=== PATIENT | male | born 1970 | race Caucasian/White ===

== ENCOUNTER 2017-10-19 09:19 | Emergency (ER) | payer MEDICARE ==
[2017-10-19 10:30] VITALS: BP 136/88
--- NOTE | 2017-10-19 10:32 | ER Document Report ---
ED General - General Chief Complaint: Other Stated Complaint: BLOOD SUGAR PROBLEMS Time Seen by Provider: 10/19/17 10:17 Mode of Arrival: Ambulatory Information source: Patient Notes: 47-year-old male history of gastric reflux presents with complaints of burping sulfur like smells. Patient notes this normally only occurs when he eats 2 days of eggs in a row. He has not eaten 2 days of eggs. He states the last time he did not eat eggs and burped sulfur he was in the hospital with the flu. Patient denies any fevers or chills denies any sore throat denies any neck pain abdominal pain back pain chest pain or any other complaints except for the burping TRAVEL OUTSIDE OF THE [place] IN LAST 30 DAYS: No - HPI Onset: Just prior to arrival Onset/Duration: Sudden Quality of pain: No pain Severity: Mild Pain Level: Denies Associated symptoms: Other Exacerbated by: Denies Relieved by: Denies Similar symptoms previously: Yes Recently seen / treated by doctor: Yes - Related Data Allergies/Adverse Reactions: eggs Adverse Reaction (Uncoded 10/19/17 09:20) Past Medical History - Social History Smoking Status: Current Every Day Smoker Cigarette use (# per day): Yes Chew tobacco use (# tins/day): No Smoking Education Provided: No Frequency of alcohol use: None Drug Abuse: None Family History: Reviewed & Not Pertinent Patient has suicidal ideation: No Patient has homicidal ideation: No Endocrine Medical History: Reports: Hx Diabetes Mellitus Type 2 Renal/ Medical History: Denies: Hx Peritoneal Dialysis GI Medical History: Reports: Hx Gastroesophageal Reflux Disease Past Surgical History: Reports: Hx Appendectomy, Hx Cholecystectomy, Hx Oral Surgery - R Knee Review of Systems - Review of Systems Notes: REVIEW OF SYSTEMS: CONSTITUTIONAL : Denies fever, chills, or sweats. Denies recent illness. EENT: Denies eye, ear, throat, or mouth pain or symptoms. Denies nasal or sinus congestion or discharge. Denies throat, tongue, or mouth swelling or difficulty swallowing. CARDIOVASCULAR: Denies chest pain. Denies palpitations or racing or irregular heart beat. Denies ankle edema. RESPIRATORY: Denies cough, cold, or chest congestion. Denies shortness of breath, difficulty breathing, or wheezing. GASTROINTESTINAL: Denies abdominal pain or distention. Denies nausea, vomiting , or diarrhea. Denies blood in vomitus, stools, or per rectum. Denies black, tarry stools. Denies constipation. Admits to burping GENITOURINARY: Denies difficulty urinating, painful urination, burning, frequency, blood in urine, or discharge. MUSCULOSKELETAL: Denies back or neck pain or stiffness. Denies joint pain or swelling. SKIN: Denies rash, lesions or sores. HEMATOLOGIC : Denies easy bruising or bleeding. LYMPHATIC: Denies swollen, enlarged glands. NEUROLOGICAL: Denies confusion or altered mental status. Denies passing out or loss of consciousness. Denies dizziness or lightheadedness. Denies headache. Denies weakness or paralysis or loss of use of either side. Denies problems with gait or speech. Denies sensory loss, numbness, or tingling. Denies seizures. PSYCHIATRIC: Denies anxiety or stress. Denies depression, suicidal ideation, or homicidal ideation. ALL OTHER SYSTEMS REVIEWED AND NEGATIVE. Dictation was performed using [employer] voice recognition software PHYSICAL EXAMINATION: GENERAL: Well-appearing, well-nourished and in no acute distress. HEAD: Atraumatic, normocephalic. EYES: Pupils equal round and reactive to light, extraocular movements intact, sclera anicteric, conjunctiva are normal. ENT: Nares patent, oropharynx clear without exudates. Moist mucous membranes. NECK: Normal range of motion, supple without lymphadenopathy LUNGS: Breath sounds clear to auscultation bilaterally and equal. No wheezes rales or rhonchi. HEART: Regular rate and rhythm without murmurs ABDOMEN: Soft, nontender, nondistended abdomen. No guarding, no rebound. No masses appreciated. Musculoskeletal: Normal range of motion, no pitting or edema. No cyanosis. NEUROLOGICAL: Cranial nerves grossly intact. Normal speech, normal gait. Normal sensory, motor exams PSYCH: Normal mood, normal affect. SKIN: Warm, Dry, normal turgor, no rashes or lesions noted. Physical Exam - Vital signs Vitals: Temp Pulse Resp BP Pulse Ox 98.2 F 82 16 142/84 H 99 10/19/17 09:25 10/19/17 09:25 10/19/17 09:25 10/19/17 09:25 10/19/17 09:25 Course - Re-evaluation Re-evalutation: 10/19/17 10:36 Patient has no tonsil stones, he has no signs of infection vital signs are stable blood sugar was checked and was noted to be slightly elevated. Patient states is normal for him. Otherwise I see absolutely no signs of infection I believe this may be secondary to gastric reflux the patient does admit to history of gastric reflux and the symptoms seem to be instigated by food. I will treat the patient with omeprazole as he is already taking ranitidine otherwise patient will be given follow-up with GI and very strict return precautions After performing a Medical Screening Examination, I estimate there is LOW risk for ACUTE APPENDICITIS, BOWEL OBSTRUCTION, ACUTE CHOLECYSTITIS, PERFORATED DIVERTICULITIS, INCARCERATED HERNIA, PANCREATITIS, TESTICULAR TORSION or PERFORATED ULCER, thus I consider the discharge disposition reasonable. Also, there is no evidence or peritonitis, sepsis, or toxicity. I have reevaluated this patient multiple times and no significant life threatening changes are noted. The patient and I have discussed the diagnosis and risks, and we agree with discharging home with close follow-up with the understanding that symptoms and presentations can change. We also discussed returning to the Emergency Department immediately if new or worsening symptoms occur. We have discussed the symptoms which are most concerning (e.g., bloody stool, fever, changing or worsening pain, intractable vomiting - standard verbal up date) that necessitate immediate return. - Vital Signs Vital signs: Temp Pulse Resp BP Pulse Ox 98.2 F 82 16 142/84 H 99 10/19/17 09:25 10/19/17 09:25 10/19/17 09:25 10/19/17 09:25 10/19/17 09:25 Discharge - Discharge Clinical Impression: GERD (gastroesophageal reflux disease) Qualifiers: Esophagitis presence: with esophagitis Qualified Code(s): K21.0 - Gastro- esophageal reflux disease with esophagitis Condition: Stable Disposition: HOME, SELF-CARE Instructions: Reflux Disease (GERD) ([facility]) Prescriptions: Omeprazole 20 mg PO DAILY #30 tablet. Referrals: MIQUEL MITCHELL MD [ACTIVE STAFF] - Follow up in 3-5 days
== END 2017-10-19 10:30 | disposition home or self-care (01) ==
LOC: ER 09:19
DX: K21.0 Gastro-esophageal reflux disease with esophagitis (principal); E11.9 Type 2 diabetes mellitus without complications; F17.210 Nicotine dependence, cigarettes, uncomplicated
CPT/HCPCS: 82962; 99283

== ENCOUNTER 2017-11-21 19:37 | Emergency (ER) | payer MEDICARE ==
[2017-11-21] MEDS ORDERED: LIDOCAINE 1% INJ-PF (10 MG/ML) 30 ML SDV INFIL ONE (22:55)
[2017-11-21] MEDS ORDERED: SULFAMETHOXAZOLE/TRIMETHOPRIM 800-160 MG TABLET PO ONE (22:55)
[2017-11-21] MEDS ORDERED: CEFTRIAXONE INJ 1000 MG VIAL IM ONE (22:55)
[2017-11-21] MEDS ORDERED: LIDOCAINE 4%/TETRACAINE 0.5%/EPI 0.18% 5 ML TOPICAL SOLN TOP ONE (22:58)
--- NOTE | 2017-11-21 23:16 | ER Document Report ---
ED General - General Chief Complaint: Insect Bite Stated Complaint: POSSIBLE BUG BITE Time Seen by Provider: 11/21/17 22:16 TRAVEL OUTSIDE OF THE [place] IN LAST 30 DAYS: No - HPI Patient complains to provider of: Left buttocks abscess Notes: Patient coming in for an abscess of left buttock states ongoing for approximately last 2-3 days. Patient is diabetic. On insulin. Denies any fever chills nausea vomiting diarrhea. Patient's temperature is 100.5, evaluation patient has no other complaints. - Related Data Allergies/Adverse Reactions: eggs Adverse Reaction (Uncoded 10/19/17 09:20) Past Medical History - Social History Smoking Status: Unknown if Ever Smoked Family History: Reviewed & Not Pertinent Patient has suicidal ideation: No Patient has homicidal ideation: No Endocrine Medical History: Reports: Hx Diabetes Mellitus Type 2 Renal/ Medical History: Denies: Hx Peritoneal Dialysis GI Medical History: Reports: Hx Gastroesophageal Reflux Disease Past Surgical History: Reports: Hx Appendectomy, Hx Cholecystectomy, Hx Oral Surgery - R Knee Review of Systems - Review of Systems Constitutional: No symptoms reported EENT: No symptoms reported Cardiovascular: No symptoms reported Respiratory: No symptoms reported Gastrointestinal: No symptoms reported Genitourinary: No symptoms reported Male Genitourinary: No symptoms reported Musculoskeletal: No symptoms reported Skin: Other - Abscess Hematologic/Lymphatic: No symptoms reported Neurological/Psychological: No symptoms reported Physical Exam - Vital signs Vitals: Temp Pulse BP Pulse Ox 100.5 F H 106 H 135/85 H 97 11/21/17 20:20 11/21/17 20:20 11/21/17 20:20 11/21/17 20:20 Interpretation: Normal - General General appearance: Appears well, Alert - HEENT Head: Normocephalic, Atraumatic Eyes: Normal Pupils: PERRL - Respiratory Respiratory status: No respiratory distress Chest status: Nontender Breath sounds: Normal Chest palpation: Normal - Cardiovascular Rhythm: Regular Heart sounds: Normal auscultation Murmur: No - Abdominal Inspection: Normal Distension: No distension Bowel sounds: Normal Tenderness: Nontender Organomegaly: No organomegaly - Rectal Notes: Patient has a small abscess with fluctuance and a mehta on the left buttock cheek at the superior gluteal cleft. There is surrounding erythema consistent with cellulitic process approximately 5 cm x 5 cm. - Back Back: Normal, Nontender - Extremities General upper extremity: Normal inspection, Nontender, Normal color, Normal ROM , Normal temperature General lower extremity: Normal inspection, Nontender, Normal color, Normal ROM , Normal temperature, Normal weight bearing. No: Anne-Marie's sign - Neurological Neuro grossly intact: Yes Cognition: Normal Orientation: AAOx4 [place] Coma Scale Eye Opening: Spontaneous [place] Coma Scale Verbal: Oriented [place] Coma Scale Motor: Obeys Commands [place] Coma Scale Total: 15 Speech: Normal Motor strength normal: LUE, RUE, LLE, RLE Sensory: Normal - Psychological Associated symptoms: Normal affect, Normal mood - Skin Skin Temperature: Warm Skin Moisture: Dry Skin Color: Normal Course - Re-evaluation Re-evalutation: 11/21/17 23:12 I&D will be performed. Patient was started on Bactrim. Patient was given a dose of Rocephin and Bactrim here in the ER. 11/22/17 00:05 - Vital Signs Vital signs: Temp Pulse Resp BP Pulse Ox 100.5 F H 106 H 135/85 H 97 11/21/17 20:20 11/21/17 20:20 11/21/17 20:20 11/21/17 20:20 Procedures - Incision and Drainage Left Buttock Type: Simple Anesthetic type: 1% Lidocaine mL's of anesthetic: 2 Blade size: 11 I&D procedure: Betadine prep applied Incision Method: Incision made by scalpel Amount/type of drainage: Scant amount of pus prior for loculations irrigated to clear Discharge - Discharge Clinical Impression: Left buttock abscess Condition: Good Disposition: HOME, SELF-CARE Instructions: Abscess ([facility]), Oral Narcotic Medication ([facility]), Post Incision and Drainage, Trimethoprim-Sulfa ([facility]) Additional Instructions: Take antibiotics as prescribed. Follow-up with your primary care physician. Return to ER symptoms worsen. Prescriptions: Hydrocodone/Acetaminophen [Hydrocodon-Acetaminophen 5-325] 1 each PO Q6 PRN #21 tablet PRN Reason: Sulfamethoxazole/Trimethoprim [Bactrim Ds Tablet] 1 each PO BID #20 tablet Forms: Return to Work
[2017-11-22 00:31] VITALS: BP 129/79
== END 2017-11-22 00:30 | disposition home or self-care (01) ==
LOC: ER 19:37
PROC: 0H98XZZ Drainage of Buttock Skin, External Approach (ICD-10-PCS; principal; 2017-11-21)
DX: L02.31 Cutaneous abscess of buttock (principal); E11.9 Type 2 diabetes mellitus without complications; Z79.4 Long term (current) use of insulin; Z91.012 Allergy to eggs; Z90.49 Acquired absence of other specified parts of digestive tract
CPT/HCPCS: 99283; 96372; 87070; 87205; 87075; 87077; 87186; 10060; J3490; J0696; A9270

== ENCOUNTER 2017-12-24 15:10 | Emergency (ER) | payer MEDICARE ==
--- NOTE | 2017-12-24 15:41 | ER Document Report ---
HPI - HPI Pain Level: 4 Notes: Patient is a 47-year-old male who presents to the ED complaining of left lateral distal foot pain status post injury last evening. Patient states that he stepped on the edge of his recliner which caused his toes to dorsiflex causing pain. Patient states that he has had bruising that developed since then to those toes. Patient states that he still able to move his toes, but does have discomfort primarily to the third, fourth, and fifth toes. Patient states that he is still ambulatory, but does favor that side. The pain does not radiate. No other concerns or complaints at this time. Denies any blood thinners. Denies any other significant past medical history to the foot with the ankle. Denies any headache, fever, chest pain, palpitations, syncope, cough , shortness of breath, wheeze, dyspnea, abdominal pain, nausea/vomiting/diarrhea , urinary retention, dysuria, hematuria, back pain, numbness/tingling, muscle paralysis/weakness, or rash. - ROS Systems Reviewed and Negative: Yes All other systems reviewed and negative Past Medical History - Social History Smoking Status: Never Smoker Family History: Reviewed & Not Pertinent Endocrine Medical History: Reports: Hx Diabetes Mellitus Type 2 Renal/ Medical History: Denies: Hx Peritoneal Dialysis GI Medical History: Reports: Hx Gastroesophageal Reflux Disease Past Surgical History: Reports: Hx Appendectomy, Hx Cholecystectomy, Hx Oral Surgery - R Knee Vertical Provider Document - CONSTITUTIONAL Agree With Documented VS: Yes Notes: PHYSICAL EXAMINATION: GENERAL: Well-appearing, well-nourished and in no acute distress. LUNGS: Breath sounds clear to auscultation bilaterally and equal. No wheezes rales or rhonchi. HEART: Regular rate and rhythm without murmurs, rubs, gallops. Musculoskeletal: Left foot/ankle: FROM to passive/active. Strength 5+/5. Achilles intact. + mild ecchymosis to the 3-5th digits on the dorsal side. + mild tenderness to palp of the 3-5th digits. N/V intact distal otherwise. No other bony tenderness appreciated. Extremities: No cyanosis, clubbing, or edema b/l. Peripheral pulses 2+. Capillary refill less than 3 seconds. NEUROLOGICAL: Cranial nerves grossly intact. Normal speech, normal gait. Normal sensory, motor exams PSYCH: Normal mood, normal affect. SKIN: Warm, Dry, normal turgor, no rashes or lesions noted. - INFECTION CONTROL TRAVEL OUTSIDE OF THE [place] IN LAST 30 DAYS: No - RESPIRATORY O2 Sat by Pulse Oximetry: 97 Course - Re-evaluation Re-evalutation: 12/24/17 16:45 Patient is an afebrile, well-hydrated, 47-year-old male who presents to the ED with a fracture to the left fifth proximal phalanx of his foot. Vitals are stable. PE is otherwise unremarkable for any neurovascular compromise, obvious tendon/ligament rupture, open fracture, or septic joint. See x-ray result. Postop she was placed today and crutches provided. Recommend conservative measures for symptoms. Call orthopedics to schedule an appointment for further evaluation and management. Recheck with your PCM in 1 week as well. Return to the ED with any worsening/concerning symptoms otherwise as reviewed discharge. Patient is in agreement. [place] dispense pack given. - Vital Signs Vital signs: Temp Pulse Resp BP Pulse Ox 98.4 F 82 18 137/82 H 97 12/24/17 15:17 12/24/17 15:17 12/24/17 15:17 12/24/17 15:17 12/24/17 15:17 Discharge - Discharge Clinical Impression: Phalanx of the foot fracture Qualifiers: Encounter type: initial encounter Toe: lesser toe Fracture type: closed Phalanx : proximal Fracture alignment: nondisplaced Laterality: left Qualified Code(s): S92.515A - Nondisplaced fracture of proximal phalanx of left lesser toe(s), initial encounter for closed fracture Condition: Stable Disposition: HOME, SELF-CARE Instructions: Use of Crutches ([facility]), Fractured Toe ([facility]) Additional Instructions: Rest, Ice, Compression, Elevation Use crutches/splint as directed Tylenol/ibuprofen as needed Light stretches daily Strength exercises as able Moist heat and massage may help F/u with your PCP in 3-5 days for a recheck Call orthopedics tomorrow to schedule an appointment for further evaluation and management Return to the ED with any worsening symptoms and/or development of fever, headache, chest pain, palpitations, syncope, shortness of breath, trouble breathing, abdominal pain, n/v/d, muscle weakness/paralysis, numbness/tingling, swelling, redness, or other worsening symptoms that are concerning to you. Forms: Elevated Blood Pressure Referrals: [facility] [Provider Group] - Follow up in 3-5 days
[2017-12-24] MEDS ORDERED: HYDROCODONE/ACETAMINOPHEN 5-325 MG (6 TAB/ER DISP) PO PRN (16:24)
--- NOTE | 2017-12-24 16:48 | RADIOLOGY REPORT (SQ) ---
EXAM DESCRIPTION: FOOT LEFT COMPLETE COMPLETED DATE/TIME: 12/24/2017 4:02 pm REASON FOR STUDY: left foot pain s/p injury COMPARISON: None. NUMBER OF VIEWS: Three views. TECHNIQUE: AP, lateral and oblique radiographic images acquired of the left foot. LIMITATIONS: None. FINDINGS: MINERALIZATION: Normal. BONES: There is a fracture involving the proximal end of the proximal phalanx of the 5th digit. No o ther evidence for acute fracture or dislocation is seen. There is cortical thickening at the level o f the 4th metatarsal presumably related to previous trauma JOINTS: No effusions. SOFT TISSUES: No soft tissue swelling. No foreign body. OTHER: Plantar spurring is identified. IMPRESSION: A fracture is identified involving the proximal end of the proximal phalanx of the 5th d igit. No other evidence for fracture is seen. TECHNICAL DOCUMENTATION: JOB ID: [id number] [employer]- All Rights Reserved Reading location - IP/workstation name: [email or web address]
[2017-12-24 17:19] VITALS: BP 130/77
== END 2017-12-24 17:20 | disposition home or self-care (01) ==
LOC: ER 15:10
DX: S92.515A Nondisplaced fracture of proximal phalanx of left lesser toe(s), initial encounter for closed fracture (principal); M79.672 Pain in left foot; E11.9 Type 2 diabetes mellitus without complications; X50.1XXA Overexertion from prolonged static or awkward postures, initial encounter
CPT/HCPCS: 99283; 73630; A9270

== ENCOUNTER 2018-01-10 13:45 | Emergency (ER) | payer MEDICARE ==
[2018-01-10 13:54] VITALS: BP 111/70
--- NOTE | 2018-01-10 14:10 | ER Document Report ---
HPI - HPI Patient complains to provider of: Abscess Pain Level: 4 Context: Patient is a 47-year-old male past medical history significant for insulin- dependent diabetes, hypertension who presents with chief complaint of tender, swollen area in his left butt cheek that has been present for 2 days. Describes is about the size of an egg. Denies any active drainage, fever or chills. Admits to nausea secondary to pain. States he has had one of these previously in a similar area. Has had normal bowel movements. Past Medical History - Social History Smoking Status: Smoker,Current Status Unk Family History: Reviewed & Not Pertinent Endocrine Medical History: Reports: Hx Diabetes Mellitus Type 2 Renal/ Medical History: Denies: Hx Peritoneal Dialysis GI Medical History: Reports: Hx Gastroesophageal Reflux Disease Past Surgical History: Reports: Hx Appendectomy, Hx Cholecystectomy, Hx Oral Surgery - R Knee Vertical Provider Document - CONSTITUTIONAL Agree With Documented VS: Yes Notes: PHYSICAL EXAM GENERAL: Alert, interacts well. EXTREMITIES: Moves all 4 extremities spontaneously. No edema, radial and dorsalis pedis pulses 2/4 bilaterally. No cyanosis. NEUROLOGICAL: Alert and oriented x4. Normal speech. PSYCH: Normal affect, normal mood. SKIN: Warm, dry, normal turgor. 5cm in diameter located on the left upper buttocks with erythema with minimal central fluctuance and central pustule. No evidence of surrounding erythema, streaking - INFECTION CONTROL TRAVEL OUTSIDE OF THE [place] IN LAST 30 DAYS: No - RESPIRATORY O2 Sat by Pulse Oximetry: 97 Course - Re-evaluation Re-evalutation: 01/10/18 14:30 Patient is a 47-year-old male who is hemodynamically stable, no acute distress and afebrile the presents with a cellulitic and developing abscess to the left buttocks. No evidence of perirectal abscess, fever or concerns for sepsis. Incision and drainage done at the bedside per patient's request and initiated on antibiotics. Discussed strict return precautions otherwise follow-up with primary care in 3-5 days for wound check. Patient agrees with plan and stable for discharge home - Vital Signs Vital signs: Temp Pulse Resp BP Pulse Ox 98.6 F 90 18 111/70 97 01/10/18 13:50 01/10/18 13:50 01/10/18 13:50 01/10/18 13:50 01/10/18 13:50 Procedures - Incision and Drainage Left Buttock Type: Simple Anesthetic type: 1% Lidocaine mL's of anesthetic: 5 Blade size: 11 I&D procedure: Betadine prep applied Incision Method: Incision made by scalpel Discharge - Discharge Clinical Impression: Cellulitis Qualifiers: Site of cellulitis: other site Qualified Code(s): L03.818 - Cellulitis of other sites Condition: Good Disposition: HOME, SELF-CARE Additional Instructions: You were seen for an abscess that required drainage. Please clean this area with soap and water twice daily and apply a topical antibiotic. Dress the area after each cleaning. Please return if you develop fever, vomiting, the pain at the site worsens, you notice spreading redness from the area, or you have any other symptoms that are concerning to you. ABSCESS: You have an abscess (boil). This a pus-forming infection, usually due to staph. Some boils may be left to drain on their own, but most require lancing. From the time the tender lump first appears, it may be three or four days before the abscess is ready to nikolas. Local heat and rest help at this stage of treatment. An antibiotic may prevent spread of the infection. Once the abscess is opened, packing may be placed into it. This is done so pus is not sealed inside by premature closure of the cavity. The packing will be removed at your follow-up visit or you may be advised to remove it yourself at home. Sometimes this packing must be replaced a few times during healing. The wound will heal with surprisingly little scar. Depending on the size and location of an abscess, healing can take one to four weeks. You may shower and wash the area around the incision site two or three times a day. Antibiotics may be prescribed, but are usually not necessary after an abscess has been drained. If you develop fever, chills, worsening pain, or increasing swelling in the area, call the doctor or return immediately. POST INCISION AND DRAINAGE: You have had an incision made to allow drainage of an abscess. The incision must remain open so that pus and debris can drain from the wound. If the abscess cavity is large, packing is placed. This keeps the tissues from collapsing and trapping pus inside, while the body shrinks the cavity. The packing may need to be replaced every day or two. The physician will instruct you on the packing. Keep a bulky dressing over the area. Replace it if it becomes saturated with blood or pus. Do not disturb the packing (if present). You may shower and cleanse the area with gentle soap and warm water two or three times a day. Local warmth may be soothing, and may promote faster healing. Return if you develop high fever or chills, or if you note spreading redness, increasing swelling, or increasing tenderness. CEPHALEXIN: The antibiotic you've been prescribed is a member of the cephalosporin class. This type of antibiotic covers a wide variety of infections, including those of the skin, lungs, and urinary tract. It's useful for staph infections. This antibiotic is slightly similar to the penicillin family. In rare cases , a person who is allergic to penicillin will also be allergic to this medication. If you have had a severe allergic reaction to penicillin, and have not taken this antibiotic since that time, notify your doctor. Antibiotics which cover many germs ("broad spectrum" antibiotics) are more likely to cause diarrhea or "yeast" infections. Women prone to vaginal yeast problems may suffer an attack after taking this antibiotic. In infants, oral thrush (white spots "stuck" on the cheek) or yeast diaper rash may result. See your doctor if these problems occur. Call at once if you develop itching, hives , shortness of breath, or lightheadedness. TRIMETHOPRIM-SULFA: You have been given a prescription for trimethoprim-sulfa (TMS, Septra, Bactrim). This is a combination antibiotic of the sulfa class, often used for urinary tract infections, middle ear infections, bronchitis, shigella intestinal infection, and Pneumocystis pneumonia. TMS is usually well-tolerated. Occasional side effects include nausea and decreased appetite. Septra is not recommended for infants less than two months of age. Do not take this medication if you have experienced severe side effects or allergy to sulfa medicine. You should stop this medicine at once and contact your physician if you develop any rash, joint pain, shortness of breath, bruising, or jaundice ( yellow color in the skin), or if you develop any other new or unusual symptoms. FOLLOW-UP CARE: Most simple abscesses will not require a follow up visit. If you had packing placed in the abscess, remove it as instructed by the physician. If you have been referred to a physician for follow-up care, call the physicians office for an appointment as you were instructed or within the next two days. If you experience worsening or a significant change in your symptoms, return to the Emergency Department at any time for re-evaluation. Prescriptions: Sulfamethoxazole/Trimethoprim [Bactrim Ds Tablet] 1 each PO BID #20 tablet Referrals: LEOPOLDO RODRIGUEZ DO [Primary Care Provider] - Follow up in 3-5 days
[2018-01-10] MEDS ORDERED: CEPHALEXIN 500 MG CAPSULE PO ONE (14:33)
[2018-01-10] MEDS ORDERED: SULFAMETHOXAZOLE/TRIMETHOPRIM 800-160 MG TABLET PO ONE (14:33)
== END 2018-01-10 14:55 | disposition home or self-care (01) ==
LOC: ER 13:45
PROC: 0H98XZZ Drainage of Buttock Skin, External Approach (ICD-10-PCS; principal; 2018-01-10)
DX: L03.818 Cellulitis of other sites (principal); E11.9 Type 2 diabetes mellitus without complications; Z79.4 Long term (current) use of insulin; Z90.49 Acquired absence of other specified parts of digestive tract
CPT/HCPCS: 99283; 10060; A9270

== ENCOUNTER 2018-01-14 18:40 | Emergency (ER) | payer MEDICARE ==
[2018-01-14 18:54] VITALS: BP 124/74
--- NOTE | 2018-01-14 20:00 | RADIOLOGY REPORT (SQ) ---
EXAM DESCRIPTION: SHOULDER LEFT 2 OR MORE VIEWS COMPLETED DATE/TIME: 01/14/2018 7:49 pm REASON FOR STUDY: left shoulder pain COMPARISON: None. NUMBER OF VIEWS: Three views. TECHNIQUE: Internal rotation, external rotation, and Y view images acquired of the left shoulder. LIMITATIONS: None. FINDINGS: MINERALIZATION: Normal. BONES: No acute fracture or dislocation. No worrisome bone lesions. JOINTS: No dislocation. VISUALIZED LUNGS AND RIBS: No pneumothorax. No rib fracture. SOFT TISSUES: No radiopaque foreign body. OTHER: No other significant finding. IMPRESSION: NEGATIVE STUDY OF THE LEFT SHOULDER. NO RADIOGRAPHIC EVIDENCE OF ACUTE INJURY. TECHNICAL DOCUMENTATION: JOB ID: [id number] [employer]- All Rights Reserved Reading location - IP/workstation name: [email or web address]
--- NOTE | 2018-01-14 20:12 | ER Document Report ---
HPI - HPI Pain Level: 4 Notes: Patient is a 47-year-old male who is currently on disability who presents the ED complaining of left shoulder pain over the last several days without known precipitating event. Patient states that he still able to move his shoulder, but feels a tightness near his left lateral trapezius muscle. Patient states that the pain does not radiate. He has not noticed any swelling or redness. He has otherwise been feeling well without any fevers or recent illness. No other concerns or complaints today. Denies any headache, fever, head injury, neck pain, URI, sore throat, chest pain, palpitations, syncope, cough, shortness of breath, wheeze, dyspnea, abdominal pain, nausea/vomiting/diarrhea, urinary retention, dysuria, hematuria, loss of control of bowel or bladder, numbness/tingling, saddle anesthesia, muscle paralysis/weakness, or rash. - ROS Systems Reviewed and Negative: Yes All other systems reviewed and negative - MUSCULOSKELETAL Musculoskeletal: REPORTS: Extremity pain Past Medical History - Social History Smoking Status: Current Every Day Smoker Chew tobacco use (# tins/day): No Frequency of alcohol use: None Drug Abuse: None Family History: Reviewed & Not Pertinent Patient has suicidal ideation: No Patient has homicidal ideation: No - Past Medical History Cardiac Medical History: Reports: Hx Hypertension Endocrine Medical History: Reports: Hx Diabetes Mellitus Type 2 Renal/ Medical History: Denies: Hx Peritoneal Dialysis GI Medical History: Reports: Hx Gastroesophageal Reflux Disease Past Surgical History: Reports: Hx Abdominal Surgery - hernia, Hx Appendectomy, Hx Cholecystectomy, Hx Oral Surgery - R Knee Vertical Provider Document - CONSTITUTIONAL Agree With Documented VS: Yes Notes: PHYSICAL EXAMINATION: GENERAL: Well-appearing, well-nourished and in no acute distress. NECK: Normal range of motion, supple without lymphadenopathy. Spurling neg. non -tender. LUNGS: Breath sounds clear to auscultation bilaterally and equal. No wheezes rales or rhonchi. HEART: Regular rate and rhythm without murmurs, rubs, gallops. ABDOMEN: Soft, nontender, nondistended abdomen. No guarding, no rebound. No masses appreciated. Normal bowel sounds present. No CVA tenderness bilaterally. Musculoskeletal: Left shoulder: FROM to passive/active. Strength 5+/5. RC intact w/o deficit noted. No warmth, swelling, or erythema/deformity. N/V intact distal. + mild tenderness to the lateral trapezius mm with mild spasming , correlates with pain described. Extremities: No cyanosis, clubbing, or edema b/l. Peripheral pulses 2+. Capillary refill less than 3 seconds. NEUROLOGICAL: Normal speech, normal gait. Normal sensory, motor exams PSYCH: Normal mood, normal affect. SKIN: Warm, Dry, normal turgor, no rashes or lesions noted. - INFECTION CONTROL TRAVEL OUTSIDE OF THE [place] IN LAST 30 DAYS: No Course - Re-evaluation Re-evalutation: 01/14/18 20:10 Patient is an afebrile, well-hydrated, 47-year-old male who presents to the ED with left lateral trapezius muscle strain with mild spasming. Vitals are acceptable. PE is otherwise unremarkable for any neurovascular compromise, obvious tendon/ligament rupture, obvious fracture/dislocation, septic joint. X- ray was unremarkable for any acute pathology of the left shoulder. Toradol given IM today. I will send him home with a prescription for naproxen and baclofen. Conservative measures otherwise for symptoms. Recheck with your PCM in 3-5 days. Consider consult orthopedics/physical therapy for ongoing/ worsening symptoms. Return to the ED with any worsening/concerning symptoms otherwise as reviewed discharge. Patient is in agreement. - Vital Signs Vital signs: Temp Pulse Resp BP Pulse Ox 98.2 F 71 20 124/74 99 01/14/18 18:53 01/14/18 18:53 01/14/18 18:53 01/14/18 18:53 01/14/18 18:53 Discharge - Discharge Clinical Impression: Strain of left trapezius muscle Qualifiers: Encounter type: initial encounter Qualified Code(s): S46.812A - Strain of other muscles, fascia and tendons at shoulder and upper arm level, left arm, initial encounter Condition: Stable Disposition: HOME, SELF-CARE Additional Instructions: Rest, Ice Tylenol/ibuprofen as needed Light stretches daily Strength exercises as able Moist heat and massage may help F/u with your PCP in 3-5 days for a recheck Consider consult(s) with Orthopedics/physical therapy for ongoing/worsening symptoms Return to the ED with any worsening symptoms and/or development of fever, headache, chest pain, palpitations, syncope, shortness of breath, trouble breathing, abdominal pain, n/v/d, muscle weakness/paralysis, numbness/tingling, swelling, redness, or other worsening symptoms that are concerning to you. Prescriptions: Baclofen [Baclofen 10 mg Tablet] 5 - 10 mg PO BID PRN #10 tablet PRN Reason: Naproxen 500 mg PO BID PRN #30 tablet PRN Reason: Referrals: LEOPOLDO RODRIGUEZ DO [Primary Care Provider] - Follow up in 3-5 days [facility] [Provider Group] - Follow up as needed
== END 2018-01-14 20:24 | disposition home or self-care (01) ==
LOC: ER 18:40
DX: S29.012A Strain of muscle and tendon of back wall of thorax, initial encounter (principal); X58.XXXA Exposure to other specified factors, initial encounter; M62.830 Muscle spasm of back; M25.512 Pain in left shoulder; I10 Essential (primary) hypertension; E11.9 Type 2 diabetes mellitus without complications; F17.200 Nicotine dependence, unspecified, uncomplicated
CPT/HCPCS: 99283

== ENCOUNTER 2018-03-11 21:41 | Emergency (ER) | payer MEDICARE, MEDICAID ==
[2018-03-11 22:12] VITALS: BP 123/74
--- NOTE | 2018-03-11 22:44 | ER Document Report ---
ED Extremity Problem, Lower - General Chief Complaint: Foot Injury Stated Complaint: RIGHT FOOT PAIN Time Seen by Provider: 03/11/18 22:26 Notes: The patient is a 48-year-old male, past medical history diabetes, peripheral neuropathy, presents with several months of a callus over his right lateral foot. He also noticed a small ulcer is concerned due to his diabetes. Denies fevers, streaking redness or pain. TRAVEL OUTSIDE OF THE [place] IN LAST 30 DAYS: No - Related Data Allergies/Adverse Reactions: atenolol Adverse Reaction (Verified 12/24/17 15:12) eggs Adverse Reaction (Uncoded 10/19/17 09:20) Past Medical History - General Information source: Patient - Social History Smoking Status: Unknown if Ever Smoked Family History: Reviewed & Not Pertinent - Past Medical History Cardiac Medical History: Reports: Hx Hypertension Endocrine Medical History: Reports: Hx Diabetes Mellitus Type 2 Renal/ Medical History: Denies: Hx Peritoneal Dialysis GI Medical History: Reports: Hx Gastroesophageal Reflux Disease Past Surgical History: Reports: Hx Abdominal Surgery - hernia, Hx Appendectomy, Hx Cholecystectomy, Hx Oral Surgery - R Knee Review of Systems - Review of Systems Constitutional: denies: Fever, Malaise Cardiovascular: denies: Orthopnea, Edema Musculoskeletal: denies: Muscle pain Skin: Lesions Hematologic/Lymphatic: denies: Easy bleeding, Easy bruising Neurological/Psychological: Numbness Physical Exam - Vital signs Vitals: Temp Pulse Resp BP Pulse Ox 98.7 F 91 18 123/74 97 03/11/18 21:52 03/11/18 21:52 03/11/18 21:52 03/11/18 21:52 03/11/18 21:52 - Notes Notes: PHYSICAL EXAMINATION: GENERAL: Well-appearing, well-nourished and in no acute distress. HEAD: Atraumatic, normocephalic. ABDOMEN: Soft, nontender, normoactive bowel sounds. No guarding, no rebound. No masses appreciated. EXTREMITIES: Callus over right lateral foot with 1 cm circular superficial ulcer on plantar surface without surrounding erythema or discharge. Strong distal pulses. NEUROLOGICAL: Cranial nerves grossly intact. Normal speech, normal gait. PSYCH: Normal mood, normal affect. Course - Re-evaluation Re-evalutation: Patient's small foot callus is ongoing for several months. Instructed him to follow-up with the supervisor prop making for follow-up. No signs of osteomyelitis on x- ray or physical exam and it does not appear to be infected. - Vital Signs Vital signs: Temp Pulse Resp BP Pulse Ox 98.7 F 91 18 123/74 97 03/11/18 21:52 03/11/18 21:52 03/11/18 21:52 03/11/18 21:52 03/11/18 21:52 - Diagnostic Test Radiology reviewed: Image reviewed, Reports reviewed Radiology results interpreted by me: Right foot x-ray: No radiographic evidence for acute fracture. Soft tissue swelling at the lateral aspect of the foot at the 5th MTP joint. Discharge - Discharge Clinical Impression: Callous ulcer Qualifiers: Non-pressure ulcer stage: unspecified non-pressure ulcer stage Qualified Code(s ): L98.499 - Non-pressure chronic ulcer of skin of other sites with unspecified severity Diabetic ulcer of right foot Qualifiers: Diabetic foot ulcer location: unspecified part of foot Diabetes mellitus type: type 2 Non-pressure ulcer stage: limited to breakdown of skin Qualified Code(s) : E11.621 - Type 2 diabetes mellitus with foot ulcer Condition: Stable Disposition: HOME, SELF-CARE Additional Instructions: Call the supervisor prop making (foot doctor) for an appointment. Referrals: BLAIR APPLE DPM [ACTIVE STAFF] - Follow up as needed
--- NOTE | 2018-03-11 22:52 | RADIOLOGY REPORT (SQ) ---
EXAM DESCRIPTION: FOOT RIGHT COMPLETE COMPLETED DATE/TIME: 03/11/2018 10:31 pm REASON FOR STUDY: right foot pain COMPARISON: None. NUMBER OF VIEWS: Three views. TECHNIQUE: AP, lateral and oblique radiographic images acquired of the right foot. LIMITATIONS: None. FINDINGS: MINERALIZATION: Normal. BONES: No acute fracture or dislocation. No worrisome bone lesions. SOFT TISSUES: There is soft tissue swelling at the lateral aspect of the foot at the 5th metatarsopha langeal joint. No radiopaque foreign body. IMPRESSION: No radiographic evidence for acute fracture. Soft tissue swelling at the lateral aspect of the foot at the 5th MTP joint. TECHNICAL DOCUMENTATION: JOB ID: [id number] [employer]- All Rights Reserved Reading location - IP/workstation name: [email or web address]
== END 2018-03-11 23:43 | disposition home or self-care (01) ==
LOC: ER 21:41
DX: E11.621 Type 2 diabetes mellitus with foot ulcer (principal); L98.499 Non-pressure chronic ulcer of skin of other sites with unspecified severity; I10 Essential (primary) hypertension
CPT/HCPCS: 99283

== ENCOUNTER 2018-04-22 17:46 | Emergency (ER) | payer MEDICARE ==
--- NOTE | 2018-04-22 18:41 | ER Document Report ---
ED Medical Screen (RME) - General Chief Complaint: Chest Pain Stated Complaint: CHEST PAIN Time Seen by Provider: 04/22/18 18:34 Notes: RAPID MEDICAL EVALUATION DISCLOSURE I have seen this patient as part of a Rapid Medical Evaluation and, if applicable, placed any initially appropriate orders. The patient will be seen and fully evaluated, including a full history and physical exam, by a provider ( in Main ED or Fast Track) when a room becomes available. 48-year-old male here with complaints of some chest pain that started this morning. He has a pain whenever he swallows but not with exertion or breathing. He has not had any shortness of breath lightheadedness diaphoresis nausea vomiting. He has tried drinking water but this has not helped. He has also tried throwing up but this has not helped. He reports that this feels similar to the last time he had these symptoms in 2013 when several "lumps" were discovered on a chest x-ray. He reports they did a biopsy but did not find any cancer and did not have to remove the lumps at that time. EXAM CTAB RRR TRAVEL OUTSIDE OF THE [place] IN LAST 30 DAYS: No - Related Data Allergies/Adverse Reactions: atenolol Adverse Reaction (Verified 12/24/17 15:12) eggs Adverse Reaction (Uncoded 10/19/17 09:20) Past Medical History - Social History Chew tobacco use (# tins/day): No Frequency of alcohol use: None Drug Abuse: None - Past Medical History Cardiac Medical History: Reports: Hx Hypercholesterolemia, Hx Hypertension Endocrine Medical History: Reports: Hx Diabetes Mellitus Type 2 Renal/ Medical History: Denies: Hx Peritoneal Dialysis GI Medical History: Reports: Hx Gastroesophageal Reflux Disease Past Surgical History: Reports: Hx Abdominal Surgery - hernia, Hx Appendectomy, Hx Cholecystectomy, Hx Oral Surgery - R Knee Physical Exam - Vital signs Vitals: Temp Pulse Resp BP Pulse Ox 98.6 F 81 16 122/76 98 04/22/18 17:57 04/22/18 17:57 04/22/18 17:57 04/22/18 17:57 04/22/18 17:57 Course - Vital Signs Vital signs: Temp Pulse Resp BP Pulse Ox 98.6 F 81 16 122/76 98 04/22/18 17:57 04/22/18 17:57 04/22/18 17:57 04/22/18 17:57 04/22/18 17:57 Doctor's Discharge - Discharge Referrals: LEOPOLDO RODRIGUEZ DO [Primary Care Provider] - Follow up as needed
[2018-04-22 18:55] LABS: ABSOLUTE BASOPHILS # (AUTO) 0.1 10^3/uL (0.0-0.2); ABSOLUTE EOSINOPHILS # (AUTO) 0.4 10^3/uL (0.0-0.6); ABSOLUTE LYMPHOCYTES (AUTO) 2.3 10^3/uL (0.5-4.7); ABSOLUTE MONOCYTES (AUTO) 0.8 10^3/uL (0.1-1.4); BASOPHILS % (AUTO) 1.1 % (0-2); EOSINOPHILS % (AUTO) 5.3 % (0-6); HEMATOCRIT 43.2 % (37.9-51.0); HEMOGLOBIN 14.9 g/dL (13.5-17.0); LYMPHOCYTES % (AUTO) 30.2 % (13-45); MEAN CORPUSCULAR HGB CONC 34.5 g/dL (32.0-36.0); MEAN CORPUSCULAR VOLUME 84 fl (80-97); MONOCYTES % (AUTO) 10.7 % (3-13); PLATELET COUNT 288 10^3/uL (150-450); RED BLOOD COUNT 5.16 10^6/uL (4.35-5.55); RED CELL DISTRIBUTION WIDTH 14.4 % (11.5-14.0); SEGMENTED NEUTROPHILS % (AUTO) 52.7 % (42-78); TOTAL CELLS COUNTED % (AUTO) 100 %; WHITE BLOOD COUNT 7.5 10^3/uL (4.0-10.5)
--- NOTE | 2018-04-22 18:56 | RADIOLOGY REPORT (SQ) ---
EXAM DESCRIPTION: CHEST 2 VIEWS COMPLETED DATE/TIME: 04/22/2018 6:48 pm REASON FOR STUDY: CP COMPARISON: None. EXAM PARAMETERS: NUMBER OF VIEWS: two views TECHNIQUE: Digital Frontal and Lateral radiographic views of the chest acquired. RADIATION DOSE: NA LIMITATIONS: none FINDINGS: LUNGS AND PLEURA: Acute versus chronic parenchymal opacity at the left base. Right clear. MEDIASTINUM AND HILAR STRUCTURES: No masses or contour abnormalities. HEART AND VASCULAR STRUCTURES: Heart normal size. No evidence for failure. BONES: No acute findings. HARDWARE: None in the chest. OTHER: No other significant finding. IMPRESSION: Acute versus chronic parenchymal opacity at the base. TECHNICAL DOCUMENTATION: JOB ID: [id number] [employer]- All Rights Reserved Reading location - IP/workstation name: [email or web address]
[2018-04-22 19:07] LABS: ALANINE AMINOTRANSFERASE 29 U/L (21-72); ALBUMIN 4.5 g/dL (3.5-5.0); ALKALINE PHOSPHATASE 92 U/L (38-126); ANION GAP 14 (5-19); ASPARTATE AMINO TRANSFERASE 27 U/L (17-59); BILIRUBIN,DIRECT 0.3 mg/dL (0.0-0.4); BILIRUBIN,TOTAL 0.7 mg/dL (0.2-1.3); BLOOD UREA NITROGEN 6 mg/dL (7-20); CALCIUM 9.6 mg/dL (8.4-10.2); CARBON DIOXIDE 27 mmol/L (22-30); CHLORIDE 101 mmol/L (98-107); GLUCOSE 215 mg/dL (75-110); POTASSIUM 3.1 mmol/L (3.6-5.0); SODIUM 141.7 mmol/L (137-145); TOTAL PROTEIN 8.1 g/dL (6.3-8.2)
[2018-04-22] MEDS ORDERED: POTASSIUM CHLORIDE 10 MEQ CAPSULE.ER PO ONE (19:43)
[2018-04-22] MEDS ORDERED: MORPHINE SULFATE 10 MG/ML INJ IM ONE (19:48)
[2018-04-22] MEDS ORDERED: MAG HYDROX/AL HYDROX/SIMETH SUSP 30 ML UDCUP PO ONE (19:48)
[2018-04-22] MEDS ORDERED: METOCLOPRAMIDE HCL ORAL SOLN 10 MG/10 ML UDCUP PO ONE (19:48)
[2018-04-22] MEDS ORDERED: LIDOCAINE 2% VISCOUS SOLN 20 ML UDCUP PO ONE (19:48)
--- NOTE | 2018-04-22 19:53 | ER Document Report ---
ED General - General Chief Complaint: Chest Pain Stated Complaint: CHEST PAIN Time Seen by Provider: 04/22/18 18:34 Mode of Arrival: Ambulatory Information source: Patient Notes: 48-year-old male with type 1 diabetes, hypertension, hyperlipidemia presents with complaint of chest pain that started this morning upon his awakening. Patient describes the pain as pressure-like, constant with intermittent worsening pain. Patient states pain is worse when he coughs or burps. Patient admits to associated dry cough that has been ongoing for several weeks. He denies any fever, chills, nausea, vomiting, lightheadedness, diaphoresis, radiation of pain. Patient's last stress test was in 2013 and reported to be normal. Patient does have a 37-[id number]-[id number] smoking history. He does take baby aspirin daily. His primary care physician is Dr. Rodriguez. TRAVEL OUTSIDE OF THE [place] IN LAST 30 DAYS: No - HPI Onset: This morning Onset/Duration: Persistent, Worse Quality of pain: Pressure Severity: Mild Associated symptoms: Chest pain, Nonproductive cough. denies: Headache, Nausea , Vomiting, Shortness of breath, Sweating Exacerbated by: Denies Relieved by: Denies Similar symptoms previously: Yes Recently seen / treated by doctor: No - Related Data Allergies/Adverse Reactions: atenolol Adverse Reaction (Verified 12/24/17 15:12) eggs Adverse Reaction (Uncoded 10/19/17 09:20) Past Medical History - General Information source: Patient, [facility] Records - Social History Smoking Status: Current Every Day Smoker Cigarette use (# per day): Yes - 1 pack per day Chew tobacco use (# tins/day): No Smoking Education Provided: Yes - Patient counselled regarding cessation for 4 minutes Frequency of alcohol use: None Drug Abuse: None Lives with: Spouse/Significant other Family History: Reviewed & Not Pertinent Patient has suicidal ideation: No Patient has homicidal ideation: No - Past Medical History Cardiac Medical History: Reports: Hx Hypercholesterolemia, Hx Hypertension Endocrine Medical History: Reports: Hx Diabetes Mellitus Type 2 Renal/ Medical History: Denies: Hx Peritoneal Dialysis GI Medical History: Reports: Hx Gastroesophageal Reflux Disease Past Surgical History: Reports: Hx Abdominal Surgery - hernia, Hx Appendectomy, Hx Cholecystectomy, Hx Oral Surgery - R Knee Review of Systems - Review of Systems Notes: REVIEW OF SYSTEMS: CONSTITUTIONAL : Denies fever, chills, or sweats. Denies recent illness. Denies weight loss, recent hospitalizations. EENT: Denies visual changes, eye pain. Denies nasal or sinus congestion or discharge. Denies sore throat, oral lesions, difficulty swallowing. CARDIOVASCULAR: Denies palpitations. Denies lower extremity edema. RESPIRATORY: Denies shortness of breath, wheezing. GASTROINTESTINAL: Denies abdominal pain or distention. Denies nausea, vomiting , or diarrhea. Denies blood in vomitus, stools, or per rectum. Denies black, tarry stools. Denies constipation. GENITOURINARY: Denies difficulty urinating, painful urination, frequency, blood in urine, or vaginal discharge. MUSCULOSKELETAL: Denies back or neck pain or stiffness. Denies joint pain or swelling. SKIN: Denies rash, lesions or sores. HEMATOLOGIC : Denies easy bruising or bleeding. LYMPHATIC: Denies swollen glands. NEUROLOGICAL: Denies confusion or altered mental status. Denies passing out or loss of consciousness. Denies dizziness or lightheadedness. Denies headache. Denies weakness or paralysis. Denies problems difficulty with ambulation, slurred speech. Denies sensory loss, numbness, or tingling. Denies seizures. PSYCHIATRIC: Denies anxiety or stress. Denies depression, suicidal ideation, or homicidal ideation. Denies visual or auditory hallucinations. Physical Exam - Vital signs Vitals: Temp Pulse Resp BP Pulse Ox 98.6 F 81 16 122/76 98 04/22/18 17:57 04/22/18 17:57 04/22/18 17:57 04/22/18 17:57 04/22/18 17:57 - Notes Notes: PHYSICAL EXAMINATION: GENERAL: Well-appearing, well-nourished and in no acute distress. HEAD: Atraumatic, normocephalic. EYES: Pupils equal round and reactive to light, extraocular movements intact, sclera anicteric, conjunctiva are normal. ENT: Nares patent, oropharynx clear without exudates. Moist mucous membranes. NECK: Normal range of motion, supple without lymphadenopathy LUNGS: Breath sounds clear to auscultation bilaterally and equal. No wheezes rales or rhonchi. HEART: Regular rate and rhythm without murmurs ABDOMEN: Soft, nontender, nondistended abdomen. No guarding, no rebound. No masses appreciated. Musculoskeletal: Normal range of motion, no pitting or edema. No cyanosis. NEUROLOGICAL: Cranial nerves grossly intact. Normal speech, normal gait. Normal sensory, motor exams PSYCH: Normal mood, normal affect. SKIN: Warm, Dry, normal turgor, no rashes or lesions noted. Course - Re-evaluation Re-evalutation: Laboratory 04/22/18 04/22/18 04/22/18 18:45 18:45 18:45 WBC 7.5 RBC 5.16 Hgb 14.9 Hct 43.2 MCV 84 MCH 29.0 MCHC 34.5 RDW 14.4 H Plt Count 288 Seg Neutrophils % 52.7 Lymphocytes % 30.2 Monocytes % 10.7 Eosinophils % 5.3 Basophils % 1.1 Absolute Neutrophils 4.0 Absolute Lymphocytes 2.3 Absolute Monocytes 0.8 Absolute Eosinophils 0.4 Absolute Basophils 0.1 Sodium 141.7 Potassium 3.1 L Chloride 101 Carbon Dioxide 27 Anion Gap 14 BUN 6 L Creatinine 0.68 Est GFR ( Amer) > 60 Est GFR (Non-Af Amer) > 60 Glucose 215 H Calcium 9.6 Total Bilirubin 0.7 Direct Bilirubin 0.3 Neonat Total Bilirubin Not Reportable Neonat Direct Bilirubin Not Reportable Neonat Indirect Bili Not Reportable AST 27 ALT 29 Alkaline Phosphatase 92 Troponin I < 0.012 Total Protein 8.1 Albumin 4.5 Chest X-Ray 04/22/18 18:37 IMPRESSION: Acute versus chronic parenchymal opacity at the base. 04/22/18 19:52 48-year-old male with type 1 diabetes, hypertension, hyperlipidemia presents with complaint of chest pain that started this morning upon his awakening. Patient describes the pain as pressure-like, constant with intermittent worsening pain. Patient states pain is worse when he coughs or burps. Patient does take aspirin daily. Patient was seen by myself upon arrival. Vital signs were reviewed. Patient is afebrile, normotensive and not hypoxic. Patient does not appear toxic or dehydrated. They are in no acute distress. Previous medical records and nursing notes reviewed. 04/22/18 20:01 04/22/18 20:39 Patient reevaluated after he received a GI cocktail, IM morphine and he reports complete resolution of his symptoms. Patient agreeable to repeat troponin at 930. Heart score is 3 for age, risk factors, making his risk for adverse cardiac events in the next 30 days low. 04/22/18 20:39 04/22/18 22:01 Repeat cardiac enzymes and EKG within normal limits. Patient remains chest pain -free. He does have an upcoming appointment with his primary care physician in 5 days. discussed possible need for further outpatient testing. Patient provided the opportunity to ask questions, and express concerns. Discharge instructions discussed. Patient is agreeable with discharge home. Return indications explained and discussed with the patient who displays understanding. Patient encouraged to return to the emergency department immediately with any concerns. 04/22/18 22:04 - Vital Signs Vital signs: Temp Pulse Resp BP Pulse Ox 98.6 F 81 16 122/76 98 04/22/18 17:57 04/22/18 17:57 04/22/18 17:57 04/22/18 17:57 04/22/18 17:57 - Laboratory Result Diagrams: 04/22/18 18:45 04/22/18 18:45 Laboratory results interpreted by me: 04/22/18 04/22/18 18:45 18:45 RDW 14.4 H Potassium 3.1 L BUN 6 L Glucose 215 H - Diagnostic Test Radiology reviewed: Image reviewed, Reports reviewed - EKG Interpretation by [facility] EKG shows normal: Sinus rhythm Rate: Normal Rhythm: NSR Hickman/QRS: RBBB, LAHB/LAFB Heart block present: 1st Degree When compared to previous EKG there are: Previous EKG unavailable Discharge - Discharge Clinical Impression: Hypokalemia, Tobacco abuse Chest pain Qualifiers: Chest pain type: unspecified Qualified Code(s): R07.9 - Chest pain, unspecified Condition: Good Disposition: HOME, SELF-CARE Instructions: Antacid Therapy ([facility]), Aspirin (Cardiac) ([facility]), Chest Pain of Unclear Cause ([facility]), Hypokalemia ([facility]), Stop Smoking ([facility]) Prescriptions: Potassium Chloride [K-Tab ER] 20 meq PO DAILY #5 tablet.er Forms: Smoking Cessation Education Referrals: LEOPOLDO RODRIGUEZ DO [Primary Care Provider] - 04/27/18
[2018-04-22 22:21] VITALS: BP 139/92
--- NOTE | 2018-04-23 07:45 | EKG REPORT ---
SEVERITY:- ABNORMAL ECG - SINUS RHYTHM FIRST DEGREE AV BLOCK NONSPECIFIC IVCD WITH LAD BORDERLINE R WAVE PROGRESSION, ANTERIOR LEADS : Confirmed by: Zofia Melendez MD 23-Apr-2018 07:44:40
--- NOTE | 2018-04-23 07:45 | EKG REPORT ---
SEVERITY:- ABNORMAL ECG - SINUS RHYTHM FIRST DEGREE AV BLOCK RBBB AND LAFB : Confirmed by: Zofia Melendez MD 23-Apr-2018 07:44:36
--- NOTE | 2018-04-25 00:19 | EKG REPORT ---
SEVERITY:- ABNORMAL ECG - ACCELERATED JUNCTIONAL RHYTHM RBBB AND LAFB PROBABLE LEFT VENTRICULAR HYPERTROPHY : Confirmed by: Zofia Melendez MD 25-Apr-2018 00:18:55
== END 2018-04-22 22:22 | disposition home or self-care (01) ==
LOC: ER 17:46
DX: E87.6 Hypokalemia (principal); R07.9 Chest pain, unspecified; E10.9 Type 1 diabetes mellitus without complications; I10 Essential (primary) hypertension; E78.5 Hyperlipidemia, unspecified; R05 Cough; F17.210 Nicotine dependence, cigarettes, uncomplicated
CPT/HCPCS: 93005; 99406; 99285; 96372; 36415; 85025; 80053; 84484; 71046; 93010; J3490; A9270 ×2; J2270

== ENCOUNTER 2018-05-25 21:50 | Emergency (ER) | payer MEDICARE ==
[2018-05-25] MEDS ORDERED: IPRATROPIUM/ALBUTEROL 0.5-2.5 MG/3 ML AMPUL NEB ONE (23:16)
[2018-05-25] MEDS ORDERED: METHYLPREDNISOLONE INJ 125 MG/2 ML SDV IV ONE (23:17)
--- NOTE | 2018-05-25 23:18 | ER Document Report ---
ED General - General Chief Complaint: Shortness Of Breath Stated Complaint: COUGH/ BREATHING DIFFICULTY Time Seen by Provider: 05/25/18 23:11 Notes: Patient is a 48-year-old male that comes emergency department for chief complaint of over 2 weeks of worsening is coughing up brown and greenish sputum now. He denies fever or chills. No chest pain except with cough. He states he cannot sleep because he cannot stop coughing. He ran out of an inhaler. He smokes, past medical history includes insulin-dependent diabetes, hypertension, chronic pain on hydrocodone. TRAVEL OUTSIDE OF THE [place] IN LAST 30 DAYS: No - Related Data Allergies/Adverse Reactions: atenolol Adverse Reaction (Verified 12/24/17 15:12) eggs Adverse Reaction (Uncoded 10/19/17 09:20) Past Medical History - General Information source: Patient - Social History Smoking Status: Current Every Day Smoker Smoking Education Provided: Yes - <3 min Drug Abuse: None Lives with: Alone Family History: Reviewed & Not Pertinent - Past Medical History Cardiac Medical History: Reports: Hx Hypercholesterolemia, Hx Hypertension Endocrine Medical History: Reports: Hx Diabetes Mellitus Type 2 Renal/ Medical History: Denies: Hx Peritoneal Dialysis GI Medical History: Reports: Hx Gastroesophageal Reflux Disease Past Surgical History: Reports: Hx Abdominal Surgery - hernia, Hx Appendectomy, Hx Cholecystectomy, Hx Oral Surgery - R Knee - Immunizations Hx Diphtheria, Pertussis, Tetanus Vaccination: Yes Review of Systems - Review of Systems Constitutional: No symptoms reported EENT: No symptoms reported Cardiovascular: No symptoms reported Respiratory: See HPI Gastrointestinal: No symptoms reported Genitourinary: No symptoms reported Male Genitourinary: No symptoms reported Musculoskeletal: No symptoms reported Skin: No symptoms reported Hematologic/Lymphatic: No symptoms reported Neurological/Psychological: No symptoms reported Physical Exam - Vital signs Vitals: Temp Pulse Resp BP Pulse Ox 98.8 F 70 20 173/77 H 96 05/25/18 22:00 05/25/18 22:00 05/25/18 22:00 05/25/18 22:00 05/25/18 22:00 - Notes Notes: GENERAL: Alert, interacts well. No acute distress. HEAD: Normocephalic, atraumatic. EYES: Pupils equal, round, and reactive to light. Extraocular movements intact. ENT: Oral mucosa moist, tongue midline. [Nares patent, no nasal septal hematoma , TM's intact.] NECK: Full range of motion. Supple. Trachea midline. LUNGS: Frequent congested cough, however no tachypnea or labored breathing. Decreased breath sounds bilaterally with scattered expiratory wheezes. No rales or rhonchi noted. HEART: Regular rate and rhythm. No murmur ABDOMEN: Soft, non-tender. Non-distended. Bowel sounds present in all 4 quadrants. EXTREMITIES: Moves all 4 extremities spontaneously. No edema, normal radial and dorsalis pedis pulses bilaterally. No cyanosis. BACK: no cervical, thoracic, lumbar midline tenderness. No saddle anesthesia, normal distal neurovascular exam. NEUROLOGICAL: Alert and oriented x3. Normal speech. [cranial nerves II through XII grossly intact]. PSYCH: Normal affect, normal mood. SKIN: Warm, dry, normal turgor. No rashes or lesions noted. Course - Re-evaluation Re-evalutation: Patient has frequent congested cough but no signs of respiratory distress, no hypoxia, he is alert and comfortable appearing. After DuoNeb's breath sounds significantly improved, wheezing almost completely resolved. Given Solu-Medrol. CBC shows eosinophilia, unremarkable otherwise, chemistry shows mild hypokalemia (possibly from shift secondary to duo nebs), mild hyperglycemia with no acidosis. Chest x-ray suggestive of lingular pneumonia. Patient does have worsening productive cough. Will cover for pneumonia. On reevaluation patient continues to be well-appearing, states he feels great and is ready to go home, provided with inhaler, spacer, medications, instructions. Discussed smoking cessation and patient agrees, discussed follow- up and return precautions, patient states understanding and agreement. - Vital Signs Vital signs: Temp Pulse Resp BP Pulse Ox 99.3 F 77 16 148/66 H 96 05/26/18 01:08 05/26/18 01:08 05/26/18 01:08 05/26/18 01:08 05/26/18 01:08 - Laboratory Result Diagrams: 05/25/18 23:45 05/25/18 23:45 Laboratory results interpreted by me: 05/25/18 05/25/18 23:45 23:45 RDW 14.5 H Eosinophils % 8.7 H Absolute Eosinophils 0.7 H Potassium 3.3 L Glucose 214 H Discharge - Discharge Clinical Impression: Cough, Wheezing Condition: Stable Disposition: HOME, SELF-CARE Additional Instructions: Your evaluation is consistent with bronchitis however your chest x-ray indicates a developing pneumonia. As result I recommend treatment course of doxycycline, treatment of bronchitis with the prednisone and with the inhaler, use the spacer provided. Continue current medications, avoid carbohydrates, adjust your insulin for your elevated sugars while taking the prednisone. Follow-up with your primary care closely for additional evaluation and management. Return if you worsen including difficulty breathing, passing out, spiking fever , or any other concerning or worsening symptoms. Prescriptions: Albuterol Sulfate [Proair HFA Inhalation Aerosol 8.5 gm MDI] 2 puff IH Q4H PRN # 1 mdi PRN Reason: Doxycycline Hyclate 100 mg PO BID #14 capsule Prednisone 40 mg PO DAILY #10 tablet Forms: Smoking Cessation Education Referrals: LEOPOLDO RODRIGUEZ DO [Primary Care Provider] - Follow up as needed
--- NOTE | 2018-05-25 23:36 | RADIOLOGY REPORT (SQ) ---
EXAM DESCRIPTION: XR CHEST 2 VIEWS COMPLETED DATE/TME: 05/25/2018 23:16 CLINICAL HISTORY: 48 years, Male, productive cough COMPARISON: 6.27.18 NUMBER OF VIEWS: 2 LIMITATIONS: None. FINDINGS: Small patchy and streaky opacity of the likely lingula. Normal cardiac silhouette. Atherosclerosis. Intact bony thorax. IMPRESSION: Small lingular pneumonia/atelectasis.
[2018-05-26 00:17] LABS: ABSOLUTE BASOPHILS # (AUTO) 0.1 10^3/uL (0.0-0.2); ABSOLUTE EOSINOPHILS # (AUTO) 0.7 10^3/uL (0.0-0.6); ABSOLUTE LYMPHOCYTES (AUTO) 2.2 10^3/uL (0.5-4.7); ABSOLUTE MONOCYTES (AUTO) 0.9 10^3/uL (0.1-1.4); ABSOLUTE NEUT (AUTO) 3.8 10^3/uL (1.7-8.2); BASOPHILS % (AUTO) 0.9 % (0-2); EOSINOPHILS % (AUTO) 8.7 % (0-6); HEMATOCRIT 39.6 % (37.9-51.0); HEMOGLOBIN 13.7 g/dL (13.5-17.0); LYMPHOCYTES % (AUTO) 28.2 % (13-45); MEAN CORPUSCULAR HEMOGLOBIN 29.2 pg (27.0-33.4); MEAN CORPUSCULAR HGB CONC 34.6 g/dL (32.0-36.0); MEAN CORPUSCULAR VOLUME 84 fl (80-97); MONOCYTES % (AUTO) 12.2 % (3-13); PLATELET COUNT 259 10^3/uL (150-450); RED BLOOD COUNT 4.69 10^6/uL (4.35-5.55); RED CELL DISTRIBUTION WIDTH 14.5 % (11.5-14.0); TOTAL CELLS COUNTED % (AUTO) 100 %; WHITE BLOOD COUNT 7.7 10^3/uL (4.0-10.5)
[2018-05-26] MEDS ORDERED: DOXYCYCLINE HYCLATE 100 MG TABLET PO ONE (00:31)
[2018-05-26 00:32] LABS: ALANINE AMINOTRANSFERASE 25 U/L (21-72); ALBUMIN 3.7 g/dL (3.5-5.0); ALKALINE PHOSPHATASE 86 U/L (38-126); ANION GAP 12 (5-19); ASPARTATE AMINO TRANSFERASE 17 U/L (17-59); BILIRUBIN,DIRECT 0.3 mg/dL (0.0-0.4); BILIRUBIN,TOTAL 0.5 mg/dL (0.2-1.3); BLOOD UREA NITROGEN 8 mg/dL (7-20); CARBON DIOXIDE 27 mmol/L (22-30); CHLORIDE 103 mmol/L (98-107); GLUCOSE 214 mg/dL (75-110); POTASSIUM 3.3 mmol/L (3.6-5.0); SODIUM 142.4 mmol/L (137-145); TOTAL PROTEIN 6.8 g/dL (6.3-8.2)
[2018-05-26] MEDS ORDERED: IPRATROPIUM/ALBUTEROL 0.5-2.5 MG/3 ML AMPUL NEB ONE (00:34)
[2018-05-26 01:10] VITALS: BP 148/66
[2018-05-26] MEDS ORDERED: ALBUTEROL SULFATE HFA (90 MCG/PUFF) 8 GM MDI (1 MDI/ER DISP) IH ONE (01:16)
== END 2018-05-26 01:33 | disposition home or self-care (01) ==
LOC: ER 21:50
DX: R05 Cough (principal); R06.2 Wheezing; D72.1 Eosinophilia; E87.6 Hypokalemia; E11.65 Type 2 diabetes mellitus with hyperglycemia; F17.200 Nicotine dependence, unspecified, uncomplicated; Z79.4 Long term (current) use of insulin; G89.29 Other chronic pain; Z79.891 Long term (current) use of opiate analgesic
CPT/HCPCS: 94640 ×2; 99285; 96374; 36415; 85025; 80053; 71046; A9270 ×3; J2930; J3490; J7620

== ENCOUNTER 2018-06-06 17:59 | Emergency (ER) | payer MEDICARE ==
[2018-06-06] MEDS ORDERED: ASPIRIN 325 MG TABLET PO ONE (18:31)
--- NOTE | 2018-06-06 18:33 | ER Document Report ---
ED Medical Screen (RME) - General Chief Complaint: Chest Pain Stated Complaint: CHEST PAIN Time Seen by Provider: 06/06/18 18:31 Mode of Arrival: Ambulatory Information source: Patient TRAVEL OUTSIDE OF THE [place] IN LAST 30 DAYS: No - HPI Patient complains to provider of: chest tightness Onset: Other - pt with above c/o (feels like chest is constricted) for the past 3 days. Did not take ASA today - Related Data Allergies/Adverse Reactions: atenolol Adverse Reaction (Verified 06/06/18 18:00) eggs Adverse Reaction (Uncoded 06/06/18 18:00) Past Medical History - Social History Chew tobacco use (# tins/day): No Frequency of alcohol use: None Drug Abuse: None - Past Medical History Cardiac Medical History: Reports: Hx Hypercholesterolemia, Hx Hypertension Endocrine Medical History: Reports: Hx Diabetes Mellitus Type 2 Renal/ Medical History: Denies: Hx Peritoneal Dialysis GI Medical History: Reports: Hx Gastroesophageal Reflux Disease Past Surgical History: Reports: Hx Abdominal Surgery - hernia, Hx Appendectomy, Hx Cholecystectomy, Hx Oral Surgery - R Knee - Immunizations Hx Diphtheria, Pertussis, Tetanus Vaccination: Yes Physical Exam - Vital signs Vitals: Temp Pulse Resp BP Pulse Ox 98.7 F 68 18 160/80 H 98 06/06/18 18:12 06/06/18 18:12 06/06/18 18:12 06/06/18 18:12 06/06/18 18:12 Course - Vital Signs Vital signs: Temp Pulse Resp BP Pulse Ox 98.7 F 68 18 160/80 H 98 06/06/18 18:12 06/06/18 18:12 06/06/18 18:12 06/06/18 18:12 06/06/18 18:12 Doctor's Discharge - Discharge Referrals: LEOPOLDO RODRIGUEZ DO [Primary Care Provider] - Follow up as needed
[2018-06-06 20:00] LABS: ABSOLUTE BASOPHILS # (AUTO) 0.1 10^3/uL (0.0-0.2); ABSOLUTE EOSINOPHILS # (AUTO) 0.5 10^3/uL (0.0-0.6); ABSOLUTE MONOCYTES (AUTO) 0.9 10^3/uL (0.1-1.4); ABSOLUTE NEUT (AUTO) 4.7 10^3/uL (1.7-8.2); BASOPHILS % (AUTO) 0.7 % (0-2); EOSINOPHILS % (AUTO) 5.9 % (0-6); HEMATOCRIT 40.5 % (37.9-51.0); HEMOGLOBIN 13.6 g/dL (13.5-17.0); LYMPHOCYTES % (AUTO) 24.7 % (13-45); MEAN CORPUSCULAR HEMOGLOBIN 28.7 pg (27.0-33.4); MEAN CORPUSCULAR HGB CONC 33.6 g/dL (32.0-36.0); MEAN CORPUSCULAR VOLUME 85 fl (80-97); MONOCYTES % (AUTO) 10.9 % (3-13); PLATELET COUNT 229 10^3/uL (150-450); RED BLOOD COUNT 4.74 10^6/uL (4.35-5.55); RED CELL DISTRIBUTION WIDTH 15.1 % (11.5-14.0); SEGMENTED NEUTROPHILS % (AUTO) 57.8 % (42-78); TOTAL CELLS COUNTED % (AUTO) 100 %; WHITE BLOOD COUNT 8.1 10^3/uL (4.0-10.5)
--- NOTE | 2018-06-06 20:00 | RADIOLOGY REPORT (SQ) ---
EXAM DESCRIPTION: CHEST 2 VIEWS COMPLETED DATE/TIME: 06/06/2018 7:05 pm REASON FOR STUDY: cp COMPARISON: Chest x-ray 05/25/2018, 04/22/2018. EXAM PARAMETERS: NUMBER OF VIEWS: two views TECHNIQUE: Digital Frontal and Lateral radiographic views of the chest acquired. RADIATION DOSE: NA LIMITATIONS: none FINDINGS: LUNGS AND PLEURA: Atelectatic changes at the lingula. No sizable pleural effusion or pneu mothorax. MEDIASTINUM AND HILAR STRUCTURES: No masses or contour abnormalities. HEART AND VASCULAR STRUCTURES: Heart normal size. No evidence for failure. BONES: No acute findings. HARDWARE: None in the chest. IMPRESSION: Atelectatic changes at the lingula. TECHNICAL DOCUMENTATION: JOB ID: [id number] 2010 [employer]- All Rights Reserved Reading location - IP/workstation name: [email or web address]
[2018-06-06 20:25] LABS: ALANINE AMINOTRANSFERASE 22 U/L (21-72); ALBUMIN 3.7 g/dL (3.5-5.0); ALKALINE PHOSPHATASE 80 U/L (38-126); ANION GAP 10 (5-19); ASPARTATE AMINO TRANSFERASE 18 U/L (17-59); BILIRUBIN,DIRECT 0.2 mg/dL (0.0-0.4); BILIRUBIN,TOTAL 0.7 mg/dL (0.2-1.3); BLOOD UREA NITROGEN 6 mg/dL (7-20); CARBON DIOXIDE 27 mmol/L (22-30); CHLORIDE 104 mmol/L (98-107); CREATINE KINASE 50 U/L (55-170); GLUCOSE 187 mg/dL (75-110); POTASSIUM 3.7 mmol/L (3.6-5.0); SODIUM 141.3 mmol/L (137-145); TOTAL PROTEIN 6.8 g/dL (6.3-8.2)
[2018-06-06 21:04] LABS: TROPONIN I < 0.012 ng/mL
--- NOTE | 2018-06-06 21:04 | ER Document Report ---
ED Cardiac - General Chief Complaint: Chest Pain Stated Complaint: CHEST PAIN Time Seen by Provider: 06/06/18 18:31 Mode of Arrival: Ambulatory TRAVEL OUTSIDE OF THE [place] IN LAST 30 DAYS: No - HPI Patient complains to provider of: Chest tightness, Other - PERSISTENT COUGH Use of: denies: Alcohol, Amphetamines, Bath salts, Caffeine, Cocaine, Decongestants Was the onset of pain: Gradual When did pain begin: 1 WEEK AGO Is the pain a: New problem Chest pain location: Other - MID-STERNAL Quality of pain: Tightness Chest pain radiation location: None Severity now: Mild Severity at worst: Moderate Chest pain precipitating factors: Coughing Positive cardiac history: No Associated symptoms: Shortness of breath, Other - COUGH. denies: Diaphoresis, Nausea/vomiting, Syncope, Weakness Exacerbated by: Coughing Relieved by: Nothing Similar symptoms previously: Yes - NOT RECENT Recently seen / treated by doctor: Yes - JOSE MARIA Cash, 05/25 - Related Data Allergies/Adverse Reactions: atenolol Adverse Reaction (Verified 06/06/18 18:32) eggs Adverse Reaction (Uncoded 06/06/18 18:32) Past Medical History - General Information source: Patient - Social History Smoking Status: Current Every Day Smoker Cigarette use (# per day): Yes Chew tobacco use (# tins/day): No Frequency of alcohol use: None Drug Abuse: None Family History: Reviewed & Not Pertinent Patient has suicidal ideation: No Patient has homicidal ideation: No - Past Medical History Cardiac Medical History: Reports: Hx Hypercholesterolemia, Hx Hypertension Pulmonary Medical History: Reports: Hx Bronchitis EENT Medical History: Reports: None Neurological Medical History: Reports: None Endocrine Medical History: Reports: Hx Diabetes Mellitus Type 2 Renal/ Medical History: Reports: None. Denies: Hx Peritoneal Dialysis Malignancy Medical History: Reports None GI Medical History: Reports: Hx Gastroesophageal Reflux Disease Musculoskeletal Medical History: Reports None Psychiatric Medical History: Reports: None Past Surgical History: Reports: Hx Abdominal Surgery - hernia, Hx Appendectomy, Hx Cholecystectomy, Hx Oral Surgery - R Knee - Immunizations Hx Diphtheria, Pertussis, Tetanus Vaccination: Yes Review of Systems - Review of Systems Constitutional: No symptoms reported. denies: Chills, Diaphoresis, Fever EENT: No symptoms reported Cardiovascular: See HPI Respiratory: See HPI Gastrointestinal: No symptoms reported Musculoskeletal: No symptoms reported Skin: No symptoms reported Neurological/Psychological: No symptoms reported Physical Exam - Vital signs Vitals: Temp Pulse Resp BP Pulse Ox 98.7 F 68 18 160/80 H 98 06/06/18 18:12 06/06/18 18:12 06/06/18 18:12 06/06/18 18:12 06/06/18 18:12 Interpretation: Hypertensive. No: Tachycardic, Hypoxic, Tachypneic - General General appearance: Appears well, Alert In distress: None - HEENT Head: Normocephalic Eyes: Normal Conjunctiva: Normal Ears: Normal Nasal: Normal Mouth/Lips: Normal Mucous membranes: Normal - Respiratory Respiratory status: No respiratory distress Breath sounds: Wheezing - SCATTERED END-EXPIRATORY, BOTH BASES - Cardiovascular Rhythm: Regular Heart sounds: Normal auscultation Murmur: No - Abdominal Inspection: Normal Distension: No distension - Back Back: Normal - Extremities General upper extremity: Normal inspection General lower extremity: Normal inspection. No: Tender, Edema - Neurological Neuro grossly intact: Yes Cognition: Normal Orientation: AAOx4 - Psychological Associated symptoms: Normal affect, Normal mood - Skin Skin Temperature: Warm Skin Moisture: Dry Skin Color: Normal Skin Turgor: Elastic Course - Vital Signs Vital signs: Temp Pulse Resp BP Pulse Ox 98.7 F 68 18 160/80 H 98 06/06/18 18:12 06/06/18 18:12 06/06/18 18:12 06/06/18 18:12 06/06/18 18:12 - Laboratory Result Diagrams: 06/06/18 19:42 06/06/18 19:42 Laboratory results interpreted by me: 06/06/18 06/06/18 19:42 19:42 RDW 15.1 H BUN 6 L Glucose 187 H Creatine Kinase 50 L - Diagnostic Test Radiology reviewed: Image reviewed, Reports reviewed - EKG Interpretation by Me EKG shows normal: Sinus rhythm, [place], Intervals, ST-T Waves. abnormal: QRS Complexes Rate: Normal Rhythm: NSR [place]/QRS: RBBB, LAHB/LAFB Voltage: Consistant with LVH Discharge - Discharge Clinical Impression: Bronchospasm with bronchitis, acute, Tobacco abuse Condition: Stable Disposition: HOME, SELF-CARE Instructions: Bronchitis With Bronchospasm (Wheezing) ([facility]), Inhaled Bronchodilators ([facility]), Corticosteroid Medication ([facility]) Additional Instructions: MEDS DIRECTED. STOP SMOKING. FOLLOW UP IF NOT IMPROVED IN 48 HOURS, OR SOONER IF WORSE ANY TIME. Prescriptions: Doxycycline Monohydrate 100 mg PO BID #30 tablet Prednisone [Deltasone 10 mg Tablet] 10 mg PO ASDIR PRN #21 tablet PRN Reason: Referrals: LEOPOLDO RODRIGUEZ DO [Primary Care Provider] - Follow up as needed
--- NOTE | 2018-06-06 21:09 | EKG REPORT ---
SEVERITY:- ABNORMAL ECG - SINUS RHYTHM RBBB AND LAFB PROBABLE LEFT VENTRICULAR HYPERTROPHY : Confirmed by: Zofia Melendez MD 06-Jun-2018 21:08:42
[2018-06-06] MEDS ORDERED: IPRATROPIUM/ALBUTEROL 0.5-2.5 MG/3 ML AMPUL NEB ONE (21:18)
[2018-06-06] MEDS ORDERED: DEXAMETHASONE 4 MG TABLET PO ONE (21:19)
[2018-06-06] MEDS ORDERED: DOXYCYCLINE HYCLATE 100 MG TABLET PO ONE (21:21)
[2018-06-06 23:15] VITALS: BP 164/88
== END 2018-06-06 23:15 | disposition home or self-care (01) ==
LOC: ER 17:59
DX: J20.9 Acute bronchitis, unspecified (principal); F17.210 Nicotine dependence, cigarettes, uncomplicated; I45.2 Bifascicular block; R07.89 Other chest pain; R05 Cough; R06.02 Shortness of breath; I10 Essential (primary) hypertension; E11.9 Type 2 diabetes mellitus without complications; R06.2 Wheezing
CPT/HCPCS: 93005; 94640; 99285; 36415; 82553; 82550; 85025; 80053; 84484; 85379; 71046; 93010; A9270 ×4; J7620

== ENCOUNTER 2018-06-23 18:18 | Emergency (ER) | payer MEDICARE, MEDICAID ==
[2018-06-23 18:43] VITALS: BP 107/73
--- NOTE | 2018-06-23 19:02 | ER Document Report ---
HPI - HPI Pain Level: 4 Past Medical History - Social History Family History: Reviewed & Not Pertinent - Past Medical History Cardiac Medical History: Reports: Hx Hypercholesterolemia, Hx Hypertension Pulmonary Medical History: Reports: Hx Bronchitis Endocrine Medical History: Reports: Hx Diabetes Mellitus Type 2 Renal/ Medical History: Denies: Hx Peritoneal Dialysis GI Medical History: Reports: Hx Gastroesophageal Reflux Disease Past Surgical History: Reports: Hx Abdominal Surgery - hernia, Hx Appendectomy, Hx Cholecystectomy, Hx Oral Surgery - R Knee - Immunizations Hx Diphtheria, Pertussis, Tetanus Vaccination: Yes Vertical Provider Document - INFECTION CONTROL TRAVEL OUTSIDE OF THE [place] IN LAST 30 DAYS: No Course - Vital Signs Vital signs: Temp Pulse Resp BP Pulse Ox 98.9 F 85 18 107/73 98 06/23/18 18:42 06/23/18 18:42 06/23/18 18:42 06/23/18 18:42 06/23/18 18:42 Discharge - Discharge Referrals: LEOPOLDO RODRIGUEZ DO [Primary Care Provider] - Follow up as needed
[2018-06-23] MEDS ORDERED: KETOROLAC TROMETHAMINE 60 MG/2 ML SDV IM ONE (19:20)
[2018-06-23] MEDS ORDERED: METHOCARBAMOL 750 MG TABLET PO ONE (19:21)
--- NOTE | 2018-06-23 19:25 | ER Document Report ---
HPI - HPI Pain Level: 4 Context: Patient is a 48-year-old male who presents with chief complaint of left hip pain and left low back pain. Patient reports he fell on 06/13 and hit his back on a door. Patient then reports the next day he tripped while walking up some steps and hit his left hip and left forearm on the pavement. Patient reports he has not been seen by medical provider for this, states that he tried to dealing with the pain on his own however he reports that is now affecting his daily living. Patient denies taking any medications for his pain. Past Medical History - Social History Smoking Status: Never Smoker Family History: Reviewed & Not Pertinent - Past Medical History Cardiac Medical History: Reports: Hx Hypercholesterolemia, Hx Hypertension Pulmonary Medical History: Reports: Hx Bronchitis Endocrine Medical History: Reports: Hx Diabetes Mellitus Type 2 Renal/ Medical History: Denies: Hx Peritoneal Dialysis GI Medical History: Reports: Hx Gastroesophageal Reflux Disease Past Surgical History: Reports: Hx Abdominal Surgery - hernia, Hx Appendectomy, Hx Cholecystectomy, Hx Oral Surgery - R Knee - Immunizations Hx Diphtheria, Pertussis, Tetanus Vaccination: Yes Vertical Provider Document - CONSTITUTIONAL Notes: PHYSICAL EXAMINATION: GENERAL: Well-appearing, well-nourished and in no acute distress. HEAD: Atraumatic, normocephalic. EYES: Pupils equal round extraocular movements intact, conjunctiva are normal. ENT: Nares patent NECK: Normal range of motion LUNGS: No respiratory distress Musculoskeletal: Normal range of motion NEUROLOGICAL: Normal speech, normal gait. PSYCH: Normal mood, normal affect. SKIN: Warm, Dry, normal turgor, no rashes or lesions noted. - INFECTION CONTROL TRAVEL OUTSIDE OF THE [place] IN LAST 30 DAYS: No Course - Re-evaluation Re-evalutation: X-rays are negative for any acute findings. Patient likely with contusion and muscular strain. Patient will be discharged home in stable condition at this time. - Vital Signs Vital signs: Temp Pulse Resp BP Pulse Ox 98.9 F 85 18 107/73 98 06/23/18 18:42 06/23/18 18:42 06/23/18 18:42 06/23/18 18:42 06/23/18 18:42 Discharge - Discharge Clinical Impression: Contusion Qualifiers: Encounter type: initial encounter Contusion area: lower back Qualified Code(s) : S30.0XXA - Contusion of lower back and pelvis, initial encounter Condition: Stable Disposition: HOME, SELF-CARE Additional Instructions: Your x-ray today was negative for any acute findings. You have likely suffered from what we call a contusion or a deep bruise. Please use ice to the area and alternate with moist heat. Please take the medications as prescribed. Please follow-up with your primary care provider call him in the next 2-3 days to schedule a follow-up appointment. Prescriptions: Methocarbamol [Robaxin 750 mg Tablet] 750 mg PO ASDIR PRN #40 tablet PRN Reason: Tramadol HCl 50 mg PO Q6H PRN #20 tablet PRN Reason: Severe Pain Referrals: LEOPOLDO RODRIGUEZ DO [Primary Care Provider] - Follow up as needed
--- NOTE | 2018-06-23 19:44 | RADIOLOGY REPORT (SQ) ---
EXAM DESCRIPTION: HIP LEFT AP/LATERAL COMPLETED DATE/TIME: 06/23/2018 7:33 pm REASON FOR STUDY: fall, pain COMPARISON: None. NUMBER OF VIEWS: Two views. TECHNIQUE: AP pelvis and additional frog-leg view of the left hip. LIMITATIONS: None. FINDINGS: MINERALIZATION: Normal. LEFT HIP: No fracture or dislocation. No worrisome bone lesions. RIGHT HIP: No fracture or dislocation. No worrisome bone lesions. PUBIS AND ISCHIUM: No fracture. PELVIS: No fracture. SACRUM: No fracture or dislocation. No worrisome bone lesions. LOWER LUMBAR SPINE: No fracture or dislocation. No worrisome bone lesions. No significant disc disea se. SOFT TISSUES: No findings. OTHER: No other significant finding. IMPRESSION: NEGATIVE STUDY OF THE LEFT HIP AND PELVIS. NO RADIOGRAPHIC EVIDENCE OF ACUTE INJURY. TECHNICAL DOCUMENTATION: JOB ID: [id number] [employer]- All Rights Reserved Reading location - IP/workstation name: [email or web address]
== END 2018-06-23 20:12 | disposition home or self-care (01) ==
LOC: ER 18:18
DX: S30.0XXA Contusion of lower back and pelvis, initial encounter (principal); M25.552 Pain in left hip; M54.5 Low back pain; W19.XXXA Unspecified fall, initial encounter; E11.9 Type 2 diabetes mellitus without complications; I10 Essential (primary) hypertension
CPT/HCPCS: 99283; 96372; 73502; J1885; A9270; J3490

== ENCOUNTER 2018-07-17 16:12 | Emergency (ER) | payer MEDICARE, MEDICAID ==
[2018-07-17] MEDS ORDERED: NORMAL SALINE 1000 ML 1,000 ML IV ONE (16:59)
--- NOTE | 2018-07-17 17:00 | ER Document Report ---
ED Medical Screen (RME) - General Chief Complaint: Vomiting/Diarrhea Stated Complaint: DIARRHEA AND VOMITING Time Seen by Provider: 07/17/18 16:54 Mode of Arrival: Ambulatory Information source: Patient Notes: This is a 48-year-old man with a history of hypertension, insulin requiring diabetes, DDD, spinal stenosis, presents to the emergency room with nausea, vomiting, diarrhea and diffuse abdominal pain for 1 day. TRAVEL OUTSIDE OF THE [place] IN LAST 30 DAYS: No - Related Data Allergies/Adverse Reactions: atenolol Adverse Reaction (Verified 07/17/18 16:12) eggs Adverse Reaction (Uncoded 07/17/18 16:12) Past Medical History - Social History Chew tobacco use (# tins/day): No Frequency of alcohol use: Occasional Drug Abuse: None - Past Medical History Cardiac Medical History: Reports: Hx Hypercholesterolemia, Hx Hypertension Pulmonary Medical History: Reports: Hx Bronchitis Endocrine Medical History: Reports: Hx Diabetes Mellitus Type 2 Renal/ Medical History: Denies: Hx Peritoneal Dialysis GI Medical History: Reports: Hx Gastroesophageal Reflux Disease Past Surgical History: Reports: Hx Abdominal Surgery - hernia, Hx Appendectomy, Hx Cholecystectomy, Hx Oral Surgery - R Knee - Immunizations Hx Diphtheria, Pertussis, Tetanus Vaccination: Yes Physical Exam - Vital signs Vitals: Temp Pulse Resp BP Pulse Ox 97.5 F 96 18 137/82 H 97 07/17/18 16:38 07/17/18 16:38 07/17/18 16:38 07/17/18 16:38 07/17/18 16:38 Course - Vital Signs Vital signs: Temp Pulse Resp BP Pulse Ox 97.5 F 96 18 137/82 H 97 07/17/18 16:38 07/17/18 16:38 07/17/18 16:38 07/17/18 16:38 07/17/18 16:38 Doctor's Discharge - Discharge Referrals: LEOPOLDO RODRIGUEZ DO [Primary Care Provider] - Follow up as needed
[2018-07-17 17:12] LABS: ABSOLUTE EOSINOPHILS # (AUTO) 0.2 10^3/uL (0.0-0.6); ABSOLUTE LYMPHOCYTES (AUTO) 1.4 10^3/uL (0.5-4.7); ABSOLUTE MONOCYTES (AUTO) 0.9 10^3/uL (0.1-1.4); ABSOLUTE NEUT (AUTO) 5.3 10^3/uL (1.7-8.2); BASOPHILS % (AUTO) 0.2 % (0-2); EOSINOPHILS % (AUTO) 2.4 % (0-6); HEMATOCRIT 46.4 % (37.9-51.0); HEMOGLOBIN 15.9 g/dL (13.5-17.0); LYMPHOCYTES % (AUTO) 17.9 % (13-45); MEAN CORPUSCULAR HEMOGLOBIN 28.5 pg (27.0-33.4); MEAN CORPUSCULAR HGB CONC 34.3 g/dL (32.0-36.0); MEAN CORPUSCULAR VOLUME 83 fl (80-97); MONOCYTES % (AUTO) 11.3 % (3-13); PLATELET COUNT 330 10^3/uL (150-450); RED BLOOD COUNT 5.59 10^6/uL (4.35-5.55); RED CELL DISTRIBUTION WIDTH 14.7 % (11.5-14.0); SEGMENTED NEUTROPHILS % (AUTO) 68.2 % (42-78); TOTAL CELLS COUNTED % (AUTO) 100 %; WHITE BLOOD COUNT 7.7 10^3/uL (4.0-10.5)
[2018-07-17 17:30] LABS: ALANINE AMINOTRANSFERASE 28 U/L (21-72); ALBUMIN 4.3 g/dL (3.5-5.0); ALKALINE PHOSPHATASE 91 U/L (38-126); ANION GAP 13 (5-19); ASPARTATE AMINO TRANSFERASE 28 U/L (17-59); BILIRUBIN,DIRECT 0.6 mg/dL (0.0-0.4); BLOOD UREA NITROGEN 9 mg/dL (7-20); CALCIUM 9.7 mg/dL (8.4-10.2); CARBON DIOXIDE 23 mmol/L (22-30); CHLORIDE 103 mmol/L (98-107); GLUCOSE 261 mg/dL (75-110); LIPASE 49.4 U/L (23-300); POTASSIUM 3.6 mmol/L (3.6-5.0); SODIUM 138.7 mmol/L (137-145); TOTAL PROTEIN 8.1 g/dL (6.3-8.2)
[2018-07-17] MEDS ORDERED: ONDANSETRON 4 MG TAB.RAPDIS PO ONE (17:38)
[2018-07-17] MEDS ORDERED: MAGNESIUM HYDROXIDE SUSP 30 ML UDCUP PO ONE (17:39)
[2018-07-17] MEDS ORDERED: LIDOCAINE 2% VISCOUS SOLN 20 ML UDCUP PO ONE (17:40)
[2018-07-17 17:48] LABS: APPEARANCE,URINE SLIGHTLY-CLOUDY; BILIRUBIN,URINE NEGATIVE (NEGATIVE); GLUCOSE, URINE >=500 mg/dL (NEGATIVE); KETONES,URINE NEGATIVE (NEGATIVE); LEUKOCYTE ESTERASE,URINE NEGATIVE (NEGATIVE); NITRITE,URINE NEGATIVE (NEGATIVE); PROTEIN,URINE 100 mg/dL (NEGATIVE); URINE SPECIFIC GRAVITY 1.028; UROBILINOGEN,URINE NEGATIVE mg/dL (<2.0)
[2018-07-17 17:49] LABS: COLOR,URINE DARK YELLOW
--- NOTE | 2018-07-17 18:09 | RADIOLOGY REPORT (SQ) ---
EXAM DESCRIPTION: ACUTE ABDOMEN SERIES COMPLETED DATE/TIME: 07/17/2018 6:00 pm REASON FOR STUDY: belching and abd distention COMPARISON: None. NUMBER OF VIEWS: Three views. TECHNIQUE: PA chest, supine abdomen and upright/decubitus abdomen radiographic images acquired. LIMITATIONS: None. FINDINGS: CHEST: Lungs clear of infiltrates. FREE AIR: None. No abnormal gas collections. BOWEL GAS PATTERN: Few scattered small bowel loops with air fluid levels. No distended large or small bowel loops. CALCIFICATIONS: No suspicious calcifications. HARDWARE: Prior lower abdominal hernia repair. Clips right upper quadrant. SOFT TISSUES: No gross mass or suggestion of organomegaly. BONES: No acute fracture. No worrisome bone lesions. OTHER: No other significant finding. IMPRESSION: NONSPECIFIC BOWEL GAS PATTERN WITHOUT EVIDENCE FOR OBSTRUCTION. TECHNICAL DOCUMENTATION: JOB ID: [id number] [employer]- All Rights Reserved Reading location - IP/workstation name: [email or web address]
--- NOTE | 2018-07-17 18:09 | RADIOLOGY REPORT (SQ) ---
EXAM DESCRIPTION: SOFT TISSUE NECK COMPLETED DATE/TIME: 07/17/2018 6:00 pm REASON FOR STUDY: somerthing stuck in throat? COMPARISON: None. NUMBER OF VIEWS: Two views. TECHNIQUE: AP and lateral radiographic image of the soft tissues of the neck. LIMITATIONS: None. FINDINGS: EPIGLOTTIS: Normal. Contour normal. Aryepiglottic folds normal. PREVERTEBRAL SOFT TISSUES: Normal. No soft tissue swelling. SUBGLOTTIC AREA: Normal. No narrowing. RETROPHARYNGEAL SPACE: Normal. No soft tissue masses. BONES: No significant findings. LUNG APICES: Normal. OTHER: No radiopaque foreign body. No other significant finding. IMPRESSION: No radiopaque foreign body identified. TECHNICAL DOCUMENTATION: JOB ID: [id number] 2010 [employer]- All Rights Reserved Reading location - IP/workstation name: [email or web address]
[2018-07-17] MEDS ORDERED: DICYCLOMINE HCL INJ 20 MG/2 ML AMPULE IM STA (19:15)
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
[2018-07-17 20:06] VITALS: BP 140/88
--- NOTE | 2018-07-18 12:40 | EKG REPORT ---
SEVERITY:- ABNORMAL ECG - SINUS RHYTHM FIRST DEGREE AV BLOCK PROBABLE LEFT ATRIAL ABNORMALITY RBBB AND LAFB : Confirmed by: Zofia Melendez MD 18-Jul-2018 12:39:17
== END 2018-07-17 20:06 | disposition home or self-care (01) ==
LOC: ER 16:12
DX: K52.9 Noninfective gastroenteritis and colitis, unspecified (principal); E11.65 Type 2 diabetes mellitus with hyperglycemia; R11.10 Vomiting, unspecified; R19.7 Diarrhea, unspecified; E66.9 Obesity, unspecified; E78.00 Pure hypercholesterolemia, unspecified; I10 Essential (primary) hypertension; Z91.012 Allergy to eggs; Z79.4 Long term (current) use of insulin; Z90.49 Acquired absence of other specified parts of digestive tract
CPT/HCPCS: 93005; 99284; 96372; 96360; 96361; 36415; 83690; 85025; 80053; 81001; 74022; 70360; 93010; J0500; A9270; J3490 ×2; S0119

== ENCOUNTER 2018-07-18 11:11 | Inpatient (IN) | payer MEDICARE, MEDICAID ==
--- NOTE | 2018-07-18 11:28 | ER Document Report ---
ED Medical Screen (RME) - General Chief Complaint: Abdominal Pain Stated Complaint: ABDOMINAL PAIN Time Seen by Provider: 07/18/18 11:18 Notes: 48-year-old male to the emergency department complaining of abdominal pain, vomiting, diarrhea for 2 days. States he was seen here yesterday. Not getting better. Feels like he is going to pass out. Bent over in triage breathing heavy. Patient was advised to slow his breathing down so he does not pass. I have greeted and performed a rapid initial assessment of this patient. A comprehensive ED assessment and evaluation of the patient, analysis of test results and completion of the medical decision making process will be conducted by additional ED providers. TRAVEL OUTSIDE OF THE [place] IN LAST 30 DAYS: No - Related Data Allergies/Adverse Reactions: atenolol Adverse Reaction (Verified 07/18/18 11:14) eggs Adverse Reaction (Uncoded 07/18/18 11:14) Past Medical History - Past Medical History Cardiac Medical History: Reports: Hx Hypercholesterolemia, Hx Hypertension Pulmonary Medical History: Reports: Hx Bronchitis Endocrine Medical History: Reports: Hx Diabetes Mellitus Type 2 Renal/ Medical History: Denies: Hx Peritoneal Dialysis GI Medical History: Reports: Hx Gastroesophageal Reflux Disease Past Surgical History: Reports: Hx Abdominal Surgery - hernia, Hx Appendectomy, Hx Cholecystectomy, Hx Oral Surgery - R Knee - Immunizations Hx Diphtheria, Pertussis, Tetanus Vaccination: Yes Physical Exam - Vital signs Vitals: Temp Pulse Resp BP Pulse Ox 97.4 F 87 30 H 158/95 H 100 07/18/18 11:19 07/18/18 11:19 07/18/18 11:19 07/18/18 11:19 07/18/18 11:19 Course - Vital Signs Vital signs: Temp Pulse Resp BP Pulse Ox 97.4 F 87 30 H 158/95 H 100 07/18/18 11:19 07/18/18 11:19 07/18/18 11:19 07/18/18 11:19 07/18/18 11:19 Doctor's Discharge - Discharge Referrals: LEOPOLDO RODRIGUEZ DO [Primary Care Provider] - Follow up as needed
[2018-07-18] MEDS ORDERED: FAMOTIDINE INJ/PF 20 MG/2 ML SDV IV ONE (11:29)
[2018-07-18] MEDS ORDERED: ONDANSETRON HCL INJ/PF 4 MG/2 ML SDV IV ONE (11:29)
[2018-07-18] MEDS ORDERED: RINGERS SOLUTION,LACTATED 1,000 ML IV ONE ×2 (11:29→13:07)
--- NOTE | 2018-07-18 11:47 | ER Document Report ---
ED GI/ - General Chief Complaint: Abdominal Pain Stated Complaint: ABDOMINAL PAIN Time Seen by Provider: 07/18/18 11:18 Mode of Arrival: Ambulatory Information source: Patient Notes: 48-year-old obese diabetic smoker that takes hydrocodone 5 mg 3 times a day for knee pain prescribed by his primary care Dr. Rodriguez is complaining of burping, vomiting and watery diarrhea, yesterday. He was seen in the emergency department yesterday and was told that he had a stomach bug. He had 30 episodes of diarrhea without blood yesterday less than 10 this am with same amount of vomiting. Today his upper abdomen started hurting more. History of cholecystectomy and appendectomy. No history of Crohn's, colitis, pancreatitis. He states he did not run out of hydrocodone and he does not think that he is in withdrawal. He is anxious, respiratory rate 44 and he is having trouble controlling it. TRAVEL OUTSIDE OF THE [place] IN LAST 30 DAYS: No - Related Data Allergies/Adverse Reactions: atenolol Adverse Reaction (Verified 07/18/18 11:14) eggs Adverse Reaction (Uncoded 07/18/18 11:14) Past Medical History - General Information source: Patient - Social History Smoking Status: Current Every Day Smoker Chew tobacco use (# tins/day): No Frequency of alcohol use: None Drug Abuse: None Lives with: Spouse/Significant other Family History: Reviewed & Not Pertinent Patient has suicidal ideation: No Patient has homicidal ideation: No - Past Medical History Cardiac Medical History: Reports: Hx Hypercholesterolemia, Hx Hypertension Pulmonary Medical History: Reports: Hx Bronchitis Endocrine Medical History: Reports: Hx Diabetes Mellitus Type 2 Renal/ Medical History: Denies: Hx Peritoneal Dialysis GI Medical History: Reports: Hx Gastroesophageal Reflux Disease Past Surgical History: Reports: Hx Abdominal Surgery - hernia, Hx Appendectomy, Hx Cholecystectomy, Hx Oral Surgery - R Knee - Immunizations Hx Diphtheria, Pertussis, Tetanus Vaccination: Yes Review of Systems - Review of Systems Constitutional: No symptoms reported EENT: No symptoms reported Cardiovascular: No symptoms reported Respiratory: No symptoms reported Gastrointestinal: See HPI Genitourinary: No symptoms reported Male Genitourinary: No symptoms reported Musculoskeletal: No symptoms reported Skin: No symptoms reported Hematologic/Lymphatic: No symptoms reported Neurological/Psychological: No symptoms reported Physical Exam - Vital signs Vitals: Temp Pulse Resp BP Pulse Ox 97.4 F 87 30 H 158/95 H 100 07/18/18 11:19 07/18/18 11:19 07/18/18 11:19 07/18/18 11:19 07/18/18 11:19 Interpretation: Tachypneic - 44 in the room - General General appearance: Appears well, Alert - HEENT Head: Normocephalic, Atraumatic Eyes: Normal Pupils: PERRL Mucous membranes: Dry Pharynx: Normal Neck: Supple - Respiratory Respiratory status: No respiratory distress Chest status: Nontender Breath sounds: Wheezing - Faint expiratory bilateral Chest palpation: Normal - Cardiovascular Rhythm: Regular Heart sounds: Normal auscultation Murmur: No - Abdominal Inspection: Normal Distension: No distension Bowel sounds: Normal Tenderness: Tender - mild epigastric Organomegaly: No organomegaly - Back Back: Normal, Nontender. No: CVA tenderness - Extremities General upper extremity: Normal inspection, Nontender, Normal color, Normal ROM , Normal temperature General lower extremity: Normal inspection, Nontender, Normal color, Normal ROM , Normal temperature, Normal weight bearing. No: Anne-Marie's sign - Neurological Neuro grossly intact: Yes Cognition: Normal Orientation: AAOx4 [place] Coma Scale Eye Opening: Spontaneous [place] Coma Scale Verbal: Oriented [place] Coma Scale Motor: Obeys Commands [place] Coma Scale Total: 15 Speech: Normal Motor strength normal: LUE, RUE, LLE, RLE Sensory: Normal - Psychological Associated symptoms: Agitated - Skin Skin Temperature: Warm Skin Moisture: Dry Skin Color: Normal Skin irregularity: negative: Rash Course - Re-evaluation Re-evalutation: 07/18/18 12:09 EKG NSR, no acute change, QT interval is 460, QTc is 541, read by dr gonzáles 07/18/18 12:10 07/18/18 12:48 Patient resting quietly normal repirations after the morphine. 07/18/18 13:24 The emergency department is that of lactated Ringer's I have ordered the second bag to be normal saline since there is no lactated Ringer's I have calling the mushroom growing supervisor to try to get more lactated Ringer's from the store room 07/18/18 14:44 White count is mildly elevated, CO2 is 17, C. difficile is negative, patient is relaxed and using his phone with out pain. Still mildly tender in the epigastrium. Lipase is negative. Liver enzymes are negative. Analysis shows a specific gravity of 1.030 which would confirm dehydration 07/18/18 17:29 Dr. Lindsey said that if we can get the radiologist to do a CT-guided biopsy of the liver that there is other CTs that we can get an admission. I called Dr. GARCIA only back who is willing to admit the patient for workup of this metastatic liver cancer. - Vital Signs Vital signs: Temp Pulse Resp BP Pulse Ox 98.1 F 68 18 121/55 L 100 07/19/18 14:53 07/19/18 14:53 07/19/18 14:53 07/19/18 14:53 07/19/18 14:53 - Laboratory Result Diagrams: 07/19/18 05:53 07/19/18 05:53 Laboratory results interpreted by me: 07/18/18 07/18/18 07/18/18 11:36 11:36 11:36 WBC 11.2 H RBC 5.59 H RDW 14.8 H Absolute Neutrophils 8.7 H VBG pH 7.58 H VBG pCO2 24.9 L Carbon Dioxide 17 L Glucose 217 H Urine Protein Urine Glucose (UA) Urine Ketones 07/18/18 12:26 WBC RBC RDW Absolute Neutrophils VBG pH VBG pCO2 Carbon Dioxide Glucose Urine Protein 30 H Urine Glucose (UA) 150 H Urine Ketones 20 H Discharge - Discharge Clinical Impression: Vomiting, Dehydration, Upper abdominal pain, liver lesions suspicious for cancer Diarrhea Qualifiers: Diarrhea type: unspecified type Qualified Code(s): R19.7 - Diarrhea, unspecified Disposition: ADMITTED INPATIENT Admitting Provider: Hospitalist Unit Admitted: Medical Floor
[2018-07-18] MEDS ORDERED: MORPHINE SULFATE 10 MG/ML INJ IV ONE ×2 (12:04→12:11)
[2018-07-18 12:14] LABS: ABSOLUTE EOSINOPHILS # (AUTO) 0.2 10^3/uL (0.0-0.6); ABSOLUTE LYMPHOCYTES (AUTO) 1.6 10^3/uL (0.5-4.7); ABSOLUTE MONOCYTES (AUTO) 0.7 10^3/uL (0.1-1.4); ABSOLUTE NEUT (AUTO) 8.7 10^3/uL (1.7-8.2); BASOPHILS % (AUTO) 0.2 % (0-2); EOSINOPHILS % (AUTO) 1.4 % (0-6); HEMATOCRIT 46.1 % (37.9-51.0); HEMOGLOBIN 15.9 g/dL (13.5-17.0); LYMPHOCYTES % (AUTO) 13.9 % (13-45); MEAN CORPUSCULAR HEMOGLOBIN 28.4 pg (27.0-33.4); MEAN CORPUSCULAR HGB CONC 34.4 g/dL (32.0-36.0); MEAN CORPUSCULAR VOLUME 83 fl (80-97); MONOCYTES % (AUTO) 6.7 % (3-13); PLATELET COUNT 359 10^3/uL (150-450); RED BLOOD COUNT 5.59 10^6/uL (4.35-5.55); RED CELL DISTRIBUTION WIDTH 14.8 % (11.5-14.0); SEGMENTED NEUTROPHILS % (AUTO) 77.8 % (42-78); TOTAL CELLS COUNTED % (AUTO) 100 %; WHITE BLOOD COUNT 11.2 10^3/uL (4.0-10.5)
[2018-07-18 12:39] LABS: ALANINE AMINOTRANSFERASE 28 U/L (21-72); ALBUMIN 4.3 g/dL (3.5-5.0); ALKALINE PHOSPHATASE 117 U/L (38-126); ANION GAP 17 (5-19); ASPARTATE AMINO TRANSFERASE 30 U/L (17-59); BILIRUBIN,DIRECT 0.4 mg/dL (0.0-0.4); BILIRUBIN,TOTAL 1.1 mg/dL (0.2-1.3); BLOOD UREA NITROGEN 9 mg/dL (7-20); CALCIUM 9.8 mg/dL (8.4-10.2); CARBON DIOXIDE 17 mmol/L (22-30); CHLORIDE 107 mmol/L (98-107); GLUCOSE 217 mg/dL (75-110); LIPASE 125.8 U/L (23-300); POTASSIUM 3.7 mmol/L (3.6-5.0); SODIUM 140.5 mmol/L (137-145); TOTAL PROTEIN 8.1 g/dL (6.3-8.2)
--- NOTE | 2018-07-18 12:40 | EKG REPORT ---
SEVERITY:- ABNORMAL ECG - ATRIAL FLUTTER/FIBRILLATION, A-RATE 222 RBBB AND LAFB : Confirmed by: Zofia Melendez MD 18-Jul-2018 12:39:13
[2018-07-18] MEDS ORDERED: RINGERS SOLUTION,LACTATED 1,000 ML IV PRN ×3 (12:42→17:44)
[2018-07-18 12:44] LABS: VENOUS BLOOD BASE EXCESS 3.7 mmol/L; VENOUS BLOOD HCO3 22.9 mmol/L (20-32); VENOUS BLOOD PCO2 24.9 mmHg (35-63); VENOUS BLOOD PH 7.58 (7.30-7.42)
[2018-07-18] MEDS ORDERED: NORMAL SALINE 1000 ML 2,000 ML IV ONE (13:23)
[2018-07-18 13:30] LABS: AMORPHOUS SEDIMENT,URINE 1+ /HPF; APPEARANCE,URINE TURBID; BILIRUBIN,URINE NEGATIVE (NEGATIVE); COLOR,URINE YELLOW; GLUCOSE, URINE 150 mg/dL (NEGATIVE); KETONES,URINE 20 mg/dL (NEGATIVE); LEUKOCYTE ESTERASE,URINE NEGATIVE (NEGATIVE); NITRITE,URINE NEGATIVE (NEGATIVE); PROTEIN,URINE 30 mg/dL (NEGATIVE); UROBILINOGEN,URINE NEGATIVE mg/dL (<2.0)
[2018-07-18 13:46] LABS: URINE AMPHETAMINES SCREEN NEGATIVE; URINE BARBITURATES SCREEN NEGATIVE; URINE BENZODIAZEPINES SCREEN NEGATIVE; URINE COCAINE SCREEN NEGATIVE; URINE MARIJUANA (THC) SCREEN NEGATIVE; URINE METHADONE SCREEN NEGATIVE; URINE PHENCYCLIDINE SCREEN NEGATIVE
--- NOTE | 2018-07-18 16:45 | RADIOLOGY REPORT (SQ) ---
EXAM DESCRIPTION: CT ABD/PELVIS WITH IV ORAL COMPLETED DATE/TIME: 07/18/2018 4:08 pm REASON FOR STUDY: vomiting, diarrhea, abd poain COMPARISON: Abdominal films 07/17/2018 TECHNIQUE: CT scan of the abdomen and pelvis performed using helical scanning technique with dynamic intravenous contrast injection. No oral contrast. Images reviewed with lung, soft tissue, and bone windows. Reconstructed coronal and sagittal MPR images reviewed. Delayed images for evaluation of the urinary system also acquired. All images stored on PACS. All CT scanners at this facility use dose modulation, iterative reconstruction, and/or weight based d osing when appropriate to reduce radiation dose to as low as reasonably achievable (ALARA). [facility]: Dose Right [facility]: CareDose [facility]: Dose Right [facility]: Teradose 4D [facility]: AmVac CONTRAST TYPE AND DOSE: contrast/concentration: Isovue 350.00 mg/ml; Total Contrast Delivered: 100.0 ml; Total Saline Delivered: 72.0 ml RENAL FUNCTION: Creatinine 0.65 RADIATION DOSE: CT Rad equipment meets quality standard of care and radiation dose reduction techniq ues were employed. CTDIvol: 18.8 - 19.9 mGy. DLP: 2187 mGy-cm.. LIMITATIONS: None. FINDINGS: LOWER CHEST: Small hiatal hernia. Heavily calcified coronary arteries. No nodules or inf iltrates. LIVER: Too numerous to count hypodense nodules throughout the liver less than a cm in size worrisome for metastatic disease. There are multiple 1 to 2 cm diameter lymph nodes at the myrna hepatis and p ortacaval space, and along the lesser curvature of the stomach best shown on axial images 24-34. SPLEEN: Normal size. No focal lesions. PANCREAS: No masses. No significant calcifications. No adjacent inflammation or peripancreatic fluid collections. Pancreatic duct not dilated. GALLBLADDER: Surgically absent ADRENAL GLANDS: No significant masses or asymmetry. RIGHT KIDNEY AND URETER: No solid masses. No significant calcifications. No hydronephrosis or hyd roureter. LEFT KIDNEY AND URETER: No solid masses. No significant calcifications. No hydronephrosis or hydr oureter. AORTA AND VESSELS: No aneurysm. No dissection. Renal arteries, SMA, celiac without stenosis. RETROPERITONEUM: Multiple 1 to 2 cm retroperitoneal lymph nodes are present at the level of the german c artery and SMA. BOWEL AND PERITONEAL CAVITY: No masses or inflammatory changes. No free fluid or peritoneal masses. No free intraperitoneal air. Colonic diverticuli without CT signs of acute diverticulitis APPENDIX: Surgically absent PELVIS: No mass. No free fluid. Normal bladder. ABDOMINAL WALL: Intact umbilical hernia repair BONES: No significant or acute findings. OTHER: No other significant finding. IMPRESSION: Too numerous to count liver lesions worrisome for metastatic disease. Multiple abnormal lymph nodes in the myrna hepatis, portacaval space, and upper abdominal retroperitoneum near the SMA and celiac artery TECHNICAL DOCUMENTATION: JOB ID: [id number] Quality ID # [id number]: Final reports with documentation of one or more dose reduction techniques (e.g., Au tomated exposure control, adjustment of the mA and/or kV according to patient size, use of iterative reconstruction technique) 2010 [employer]- All Rights Reserved Reading location - IP/workstation name: [email or web address]
[2018-07-18] MEDS ORDERED: ACETAMINOPHEN 325 MG TABLET PO PRN (17:44)
[2018-07-18] MEDS ORDERED: IPRATROPIUM/ALBUTEROL 0.5-2.5 MG/3 ML AMPUL NEB PRN (17:44)
[2018-07-18] MEDS ORDERED: MAG HYDROX/AL HYDROX/SIMETH SUSP 30 ML UDCUP PO PRN (17:44)
[2018-07-18] MEDS ORDERED: TEMAZEPAM 15 MG CAPSULE PO PRN (17:44)
[2018-07-18] MEDS ORDERED: ONDANSETRON HCL INJ/PF 4 MG/2 ML SDV IV PRN (17:44)
[2018-07-18] MEDS ORDERED: MORPHINE SULFATE 10 MG/ML INJ IV PRN (17:51)
[2018-07-18] MEDS ORDERED: DEXTROSE 40% GEL 15 GM TUBE PO PRN ×2 (17:57)
[2018-07-18] MEDS ORDERED: DEXTROSE 50%-WATER 25 GM/50 ML DISP.SYRIN IV PRN ×2 (17:57)
[2018-07-18] MEDS ORDERED: GLUCAGON,HUMAN RECOMB 1 MG INJ IM PRN (17:57)
--- NOTE | 2018-07-18 18:24 | PDOC H&P ---
History of Present Illness Admission Date/PCP: LEOPOLDO RODRIGUEZ DO Patient complains of: Abdominal pain, diarrhea of about 30 loose bowel movements nausea and vomiting History of Present Illness: ED PEDRAZA is a 48 year old male Patient presented to the emergency department with complaints of abdominal pain and diarrhea up to about 30 times of loose bowel movement. He was actually seen on July 17 for the same reason and sent home. He returns today with the same symptoms and so a CT scan was done. CT scan showed too numerous to count liver lesions worrisome for metastatic disease. There were also multiple abnormal lymph nodes in the myrna hepatis myrna caval space and upper abdominal retroperitoneum near the SMA and celiac artery. Past Medical History Cardiac Medical History: Reports: Hyperlipidema, Hypertension Pulmonary Medical History: Reports: Bronchitis Endocrine Medical History: Reports: Diabetes Mellitus Type 2 GI Medical History: Reports: Gastroesophageal Reflux Disease Past Surgical History Past Surgical History: Reports: Appendectomy, Cholecystectomy Social History Information Source: Patient Lives with: Spouse/Significant other Smoking Status: Current Every Day Smoker Drugs: Other - Advance Directive Resuscitation Status: Full Code Family History Family History: Reviewed & Not Pertinent Parental Family History Reviewed: Yes Children Family History Reviewed: Yes Sibling(s) Family History Reviewed.: Yes Medication/Allergy Home Medications: Omeprazole 20 mg PO DAILY #30 tablet. 10/19/17 Hydrocodone/Acetaminophen [Hydrocodon-Acetaminophen 5-325] 1 each PO Q6 PRN #21 tablet 11/21/17 Sulfamethoxazole/Trimethoprim [Bactrim Ds Tablet] 1 each PO BID #20 tablet 11/21 Sulfamethoxazole/Trimethoprim [Bactrim Ds Tablet] 1 each PO BID #20 tablet 01/10 Baclofen [Baclofen 10 mg Tablet] 5 - 10 mg PO BID PRN #10 tablet 01/14/18 Naproxen 500 mg PO BID PRN #30 tablet 01/14/18 Potassium Chloride [K-Tab ER] 20 meq PO DAILY #5 tablet.er 04/22/18 Albuterol Sulfate [Proair HFA Inhalation Aerosol 8.5 gm MDI] 2 puff IH Q4H PRN # 1 mdi 05/26/18 Doxycycline Hyclate 100 mg PO BID #14 capsule 05/26/18 Prednisone 40 mg PO DAILY #10 tablet 05/26/18 Doxycycline Monohydrate 100 mg PO BID #30 tablet 06/06/18 Prednisone [Deltasone 10 mg Tablet] 10 mg PO ASDIR PRN #21 tablet 06/06/18 Methocarbamol [Robaxin 750 mg Tablet] 750 mg PO ASDIR PRN #40 tablet 06/23/18 Tramadol HCl 50 mg PO Q6H PRN #20 tablet 06/23/18 Hyoscyamine Sulfate [Levsin 0.125 Tablet] 0.25 mg PO Q4A #30 tablet 07/17/18 Promethazine HCl 25 mg PO Q4 #14 tablet 07/17/18 Allergies/Adverse Reactions: atenolol Adverse Reaction (Verified 07/18/18 11:14) eggs Adverse Reaction (Uncoded 07/18/18 11:14) Review of Systems All systems: reviewed and no additional remarkable complaints except as stated Constitutional: ABSENT: anorexia, weakness, weight gain, weight loss Gastrointestinal: PRESENT: abdominal pain, bloating, diarrhea Physical Exam Vital Signs: Temp Pulse Resp BP Pulse Ox 97.4 F 87 30 H 158/95 H 100 07/18/18 11:19 07/18/18 11:19 07/18/18 11:19 07/18/18 11:19 07/18/18 11:19 Intake & Output 07/17/18 07/18/18 07/19/18 06:59 06:59 06:59 Intake Total 3000 Balance 3000 Weight 113.6 kg General appearance: PRESENT: no acute distress, obese, well-developed, well- nourished Head exam: PRESENT: atraumatic, normocephalic Eye exam: PRESENT: conjunctiva pink, EOMI, PERRLA. ABSENT: scleral icterus Ear exam: PRESENT: normal external ear exam Mouth exam: PRESENT: moist, tongue midline Neck exam: ABSENT: carotid bruit, JVD, lymphadenopathy, thyromegaly Respiratory exam: PRESENT: clear to auscultation vern. ABSENT: rales, rhonchi, wheezes Cardiovascular exam: PRESENT: RRR. ABSENT: diastolic murmur, rubs, systolic murmur Pulses: PRESENT: normal dorsalis pedis pul Vascular exam: PRESENT: normal capillary refill GI/Abdominal exam: PRESENT: normal bowel sounds, soft. ABSENT: distended, guarding, mass, organolmegaly, rebound, tenderness Rectal exam: PRESENT: deferred Extremities exam: PRESENT: full ROM. ABSENT: calf tenderness, clubbing, pedal edema Neurological exam: PRESENT: alert, awake, oriented to person, oriented to place , oriented to time, oriented to situation, CN II-XII grossly intact. ABSENT: motor sensory deficit Psychiatric exam: PRESENT: appropriate affect, normal mood. ABSENT: homicidal ideation, suicidal ideation Skin exam: PRESENT: dry, intact, warm. ABSENT: cyanosis, rash Results Laboratory Results: 07/18/18 11:36 07/18/18 11:36 07/18/18 07/18/18 07/18/18 11:36 11:36 11:36 WBC 11.2 H RBC 5.59 H Hgb 15.9 Hct 46.1 MCV 83 MCH 28.4 MCHC 34.4 RDW 14.8 H Plt Count 359 Seg Neutrophils % 77.8 Lymphocytes % 13.9 Monocytes % 6.7 Eosinophils % 1.4 Basophils % 0.2 Absolute Neutrophils 8.7 H Absolute Lymphocytes 1.6 Absolute Monocytes 0.7 Absolute Eosinophils 0.2 Absolute Basophils 0.0 VBG pH 7.58 H VBG pCO2 24.9 L VBG HCO3 22.9 VBG Base Excess 3.7 Sodium 140.5 Potassium 3.7 Chloride 107 Carbon Dioxide 17 L Anion Gap 17 BUN 9 Creatinine 0.65 Est GFR ( Amer) > 60 Est GFR (Non-Af Amer) > 60 Glucose 217 H Calcium 9.8 Total Bilirubin 1.1 AST 30 ALT 28 Alkaline Phosphatase 117 Total Protein 8.1 Albumin 4.3 Lipase 125.8 Urine Color Urine Appearance Urine pH Ur Specific Ewing Urine Protein Urine Glucose (UA) Urine Ketones Urine Blood Urine Nitrite Ur Leukocyte Esterase 07/18/18 12:26 WBC RBC Hgb Hct MCV MCH MCHC RDW Plt Count Seg Neutrophils % Lymphocytes % Monocytes % Eosinophils % Basophils % Absolute Neutrophils Absolute Lymphocytes Absolute Monocytes Absolute Eosinophils Absolute Basophils VBG pH VBG pCO2 VBG HCO3 VBG Base Excess Sodium Potassium Chloride Carbon Dioxide Anion Gap BUN Creatinine Est GFR ( Amer) Est GFR (Non-Af Amer) Glucose Calcium Total Bilirubin AST ALT Alkaline Phosphatase Total Protein Albumin Lipase Urine Color YELLOW Urine Appearance TURBID Urine pH 5.0 Ur Specific Ewing 1.030 Urine Protein 30 H Urine Glucose (UA) 150 H Urine Ketones 20 H Urine Blood NEGATIVE Urine Nitrite NEGATIVE Ur Leukocyte Esterase NEGATIVE 07/18/18 11:36 Troponin I < 0.012 Impressions: Abdomen/Pelvis CT 07/18/18 13:17 IMPRESSION: Too numerous to count liver lesions worrisome for metastatic disease. Multiple abnormal lymph nodes in the myrna hepatis, portacaval space, and upper abdominal retroperitoneum near the SMA and celiac artery Assessment & Plan - Diagnosis (1) Metastatic cancer to liver Is this a current diagnosis for this admission?: Yes Plan: The plan will be to obtain a biopsy hopefully on Friday. Patient will also need further imaging studies including CT scan of the chest and head. Dr. Medina Was consulted from the ER. 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 Is this a current diagnosis for this admission?: Yes Plan: Place on Sliding scale insulin (3) Obesity (BMI 30-39.9) Is this a current diagnosis for this admission?: Yes Plan: Weight loss encouraged (4) Enteritis Is this a current diagnosis for this admission?: Yes Plan: This seems to have resolved - Time Time Spent: 50 to 70 Minutes Medications reviewed and adjusted accordingly: Yes Anticipated discharge: Home Within: within 48 hours - Inpatient Certification Based on my medical assessment, after consideration of the patient's comorbidities, presenting symptoms, or acuity I expect that the services needed warrant INPATIENT care.: Yes Medical Necessity: Need For IV Fluids, Need for Pain Control, Risk of Complication if Not Cared For in Hospital
[2018-07-18] MEDS: INSULIN REG, HUMAN 100 UNIT/ML 3 ML VIAL (PYX) SUBCUT PRN (23:29)
[2018-07-18] MEDS: OXYCODONE-ACETAMINOPHEN 5-325 MG TABLET PO PRN (23:35)
[2018-07-18] MEDS ORDERED: ALBUTEROL SULFATE HFA (90 MCG/PUFF) 200 PUFF/8.5 GM MDI IH PRN (23:52)
[2018-07-18] MEDS ORDERED: PROMETHAZINE HCL 25 MG TABLET PO PRN (23:52)
[2018-07-19] MEDS ORDERED: ATORVASTATIN CALCIUM 20 MG TABLET PO ONE (00:10)
[2018-07-19] MEDS ORDERED: FLUOXETINE HCL 20 MG CAPSULE PO ONE (00:10)
[2018-07-19] MEDS ORDERED: FAMOTIDINE 20 MG TABLET PO ONE (00:15)
[2018-07-19] MEDS ORDERED: CHLORTHALIDONE 25 MG TABLET PO ONE (00:15)
[2018-07-19] MEDS ORDERED: GABAPENTIN 300 MG CAPSULE PO ONE (00:15)
[2018-07-19] MEDS ORDERED: LOSARTAN POTASSIUM 50 MG TABLET PO ONE (00:15)
[2018-07-19 07:37] LABS: HEMATOCRIT 40.9 % (37.9-51.0); MEAN CORPUSCULAR HEMOGLOBIN 28.4 pg (27.0-33.4); MEAN CORPUSCULAR HGB CONC 33.8 g/dL (32.0-36.0); MEAN CORPUSCULAR VOLUME 84 fl (80-97); PLATELET COUNT 257 10^3/uL (150-450); RED BLOOD COUNT 4.87 10^6/uL (4.35-5.55); RED CELL DISTRIBUTION WIDTH 14.8 % (11.5-14.0); WHITE BLOOD COUNT 5.9 10^3/uL (4.0-10.5)
[2018-07-19 07:41] LABS: INTERNATIONAL RATION (INR) 1.08; PROTHROMBIN TIME 14.5 SEC (11.4-15.4)
[2018-07-19 07:48] LABS: HEMOGLOBIN 13.8 g/dL (13.5-17.0)
[2018-07-19 07:59] LABS: ANION GAP 7 (5-19); BLOOD UREA NITROGEN 8 mg/dL (7-20); CALCIUM 8.5 mg/dL (8.4-10.2); CHLORIDE 106 mmol/L (98-107); GLUCOSE 102 mg/dL (75-110); POTASSIUM 3.4 mmol/L (3.6-5.0); SODIUM 139.8 mmol/L (137-145)
[2018-07-19] MEDS ORDERED: CHLORTHALIDONE 25 MG TABLET PO SCH (08:00)
[2018-07-19] MEDS ORDERED: LOSARTAN POTASSIUM 50 MG TABLET PO SCH (08:00)
[2018-07-19 08:18] LABS: CARBON DIOXIDE 27 mmol/L (22-30)
[2018-07-19] MEDS: LOPERAMIDE HCL 2 MG CAPSULE PO PRN ×3 (08:41→21:28)
[2018-07-19] MEDS: FAMOTIDINE 20 MG TABLET PO SCH ×2 (09:02→18:03)
[2018-07-19] MEDS: GABAPENTIN 300 MG CAPSULE PO SCH ×4 (09:02→21:29)
[2018-07-19] MEDS: FLUOXETINE HCL 20 MG CAPSULE PO SCH ×2 (09:03→18:03)
[2018-07-19] MEDS ORDERED: ENOXAPARIN SODIUM INJ 40 MG/0.4 ML DISP.SYRIN SUBCUT SCH (10:00)
[2018-07-19] MEDS ORDERED: (PENDING PHARMACY ID) (Empagliflozin [Jardiance] 10 MG) PO SCH (10:00)
[2018-07-19] MEDS: OXYCODONE-ACETAMINOPHEN 5-325 MG TABLET PO PRN (13:03)
[2018-07-19] MEDS ORDERED: POTASSIUM CHLORIDE 10 MEQ CAPSULE.ER PO ONE (15:36)
--- NOTE | 2018-07-19 15:42 | PDOC PROGRESS REPORT ---
Subjective Progress Note for:: 07/19/18 Subjective:: Patient denies any new symptoms. There is no nausea vomiting or abdominal pain. Is scheduled for a liver biopsy on Friday and CT chest and head today Reason For Visit: METASTATIC LIVER CANCER,INTRACTABLE NAUSEA AND Physical Exam Vital Signs: Temp Pulse Resp BP Pulse Ox 97.9 F 77 16 126/73 H 97 07/19/18 10:52 07/19/18 13:36 07/19/18 13:36 07/19/18 10:52 07/19/18 13:36 Intake & Output 07/18/18 07/19/18 07/20/18 06:59 06:59 06:59 Intake Total 356 1410 Output Total 400 Balance -44 1410 Weight 118.3 kg General appearance: PRESENT: no acute distress, obese, well-developed, well- nourished Head exam: PRESENT: atraumatic, normocephalic Eye exam: PRESENT: conjunctiva pink, EOMI, PERRLA. ABSENT: scleral icterus Ear exam: PRESENT: normal external ear exam Mouth exam: PRESENT: moist, tongue midline Neck exam: ABSENT: carotid bruit, JVD, lymphadenopathy, thyromegaly Respiratory exam: PRESENT: clear to auscultation vern. ABSENT: rales, rhonchi, wheezes Cardiovascular exam: PRESENT: RRR. ABSENT: diastolic murmur, rubs, systolic murmur Pulses: PRESENT: normal dorsalis pedis pul Vascular exam: PRESENT: normal capillary refill GI/Abdominal exam: PRESENT: normal bowel sounds, soft. ABSENT: distended, guarding, mass, organolmegaly, rebound, tenderness Rectal exam: PRESENT: deferred Extremities exam: PRESENT: full ROM. ABSENT: calf tenderness, clubbing, pedal edema Neurological exam: PRESENT: alert, awake, oriented to person, oriented to place , oriented to time, oriented to situation, CN II-XII grossly intact. ABSENT: motor sensory deficit Psychiatric exam: PRESENT: appropriate affect, normal mood. ABSENT: homicidal ideation, suicidal ideation Skin exam: PRESENT: dry, intact, warm. ABSENT: cyanosis, rash Results Laboratory Results: 07/19/18 05:53 07/19/18 05:53 07/19/18 07/19/18 05:53 05:53 WBC 5.9 RBC 4.87 Hgb 13.8 D Hct 40.9 MCV 84 MCH 28.4 MCHC 33.8 RDW 14.8 H Plt Count 257 Sodium 139.8 Potassium 3.4 L Chloride 106 Carbon Dioxide 27 D Anion Gap 7 BUN 8 Creatinine 0.57 Est GFR ( Amer) > 60 Est GFR (Non-Af Amer) > 60 Glucose 102 Calcium 8.5 Magnesium 2.2 Impressions: Abdomen/Pelvis CT 07/18/18 13:17 IMPRESSION: Too numerous to count liver lesions worrisome for metastatic disease. Multiple abnormal lymph nodes in the myrna hepatis, portacaval space, and upper abdominal retroperitoneum near the SMA and celiac artery Assessment & Plan - Diagnosis (1) Metastatic cancer to liver Is this a current diagnosis for this admission?: Yes Plan: The plan will be to obtain a biopsy on Friday. 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 Is this a current diagnosis for this admission?: Yes (3) Obesity (BMI 30-39.9) Is this a current diagnosis for this admission?: Yes (4) Enteritis Is this a current diagnosis for this admission?: Yes - Time Time Spent with patient: 15-24 minutes Medications reviewed and adjusted accordingly: Yes Anticipated discharge: Home Within: within 24 hours - Inpatient Certification Based on my medical assessment, after consideration of the patient's comorbidities, presenting symptoms, or acuity I expect that the services needed warrant INPATIENT care.: Yes Medical Necessity: Significant Comorbidiites Make Outpatient Treatment Too Risky , Risk of Complication if Not Cared For in Hospital
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
[2018-07-19] MEDS ORDERED: NICOTINE 21 MG/24 HR PATCH.TD24 TD SCH (17:00)
--- NOTE | 2018-07-19 18:44 | RADIOLOGY REPORT (SQ) ---
EXAM DESCRIPTION: CT CHEST WITH COMPLETED DATE/TIME: 07/19/2018 5:34 pm REASON FOR STUDY: liver mets patient gives a history sarcoidosis. Abnormal CT abdomen and pelvis with upper abdominal adenopathy COMPARISON: CT abdomen and pelvis 07/18/2018 Chest films 04/22/2018, 05/25/2018, 06/06/2018 TECHNIQUE: CT scan of the chest performed using helical scanning technique with dynamic intravenous contrast injection. Images reviewed with lung, soft tissue and bone windows. Reconstructed coronal and sagittal MPR and MIP images reviewed. All images stored on PACS. All CT scanners at this facility use dose modulation, iterative reconstruction, and/or weight based d osing when appropriate to reduce radiation dose to as low as reasonably achievable (ALARA). [facility]: Dose Right [facility]: CareDose [facility]: Dose Right [facility]: Teradose 4D [facility]: [employer] CONTRAST TYPE AND DOSE: 80 mL of IV Omnipaque 350- low osmolar. RENAL FUNCTION: Creatinine 0.6 RADIATION DOSE: 20 mGy . LIMITATIONS: None. FINDINGS: LUNGS AND PLEURA: No interstitial lung fibrosis. Less than 1 cm nodule along the right mi nor fissure pleural surface axial image 27 of doubtful clinical significance. Bandlike scarring in t he lingula. No pleural calcifications. No pleural effusion or pneumothorax. HILAR AND MEDIASTINAL STRUCTURES: Multiple less than 1 cm short axis lymph nodes are present in the p retracheal, right paratracheal, prevascular, AP window, and left hilar region. HEART AND VASCULAR STRUCTURES: No aneurysm or dissection. No central pulmonary emboli. No pericardi al effusion. Heavily calcified coronary arteries HARDWARE: None in the chest. UPPER ABDOMEN: Multiple enlarged lymph nodes are present at the myrna hepatis and along the celiac an d SMA region. THYROID AND OTHER SOFT TISSUES: No masses. No adenopathy. BONES: Diffuse degenerative disc changes lower thoracic spine OTHER: No other significant finding. IMPRESSION: Mild mediastinal adenopathy TECHNICAL DOCUMENTATION: JOB ID: [id number] Quality ID # [id number]: Final reports with documentation of one or more dose reduction techniques (e.g., Au tomated exposure control, adjustment of the mA and/or kV according to patient size, use of iterative reconstruction technique) 2010 [employer]- All Rights Reserved Reading location - IP/workstation name: [email or web address]
--- NOTE | 2018-07-19 18:47 | RADIOLOGY REPORT (SQ) ---
EXAM DESCRIPTION: CT HEAD COMBO COMPLETED DATE/TIME: 07/19/2018 5:34 pm REASON FOR STUDY: Liver mets - initial staging and search for primry COMPARISON: None. TECHNIQUE: Axial images acquired through the brain without and with intravenous contrast. Images re viewed with bone, brain and subdural windows. Additional sagittal and coronal reconstructions were g enerated. Images stored on PACS. All CT scanners at this facility use dose modulation, iterative reconstruction, and/or weight based d osing when appropriate to reduce radiation dose to as low as reasonably achievable (ALARA). [facility]: Dose Right [facility]: CareDose [facility]: Dose Right [facility]: Teradose 4D [facility]: [employer] CONTRAST TYPE AND DOSE: contrast/concentration: Isovue 350.00 mg/ml; Total Contrast Delivered: 80.0 ml; Total Saline Delivered: 55.0 ml RENAL FUNCTION: Creatinine 0 point RADIATION DOSE: CT Rad equipment meets quality standard of care and radiation dose reduction techniq ues were employed. CTDIvol: 20.4 - 53.2 mGy. DLP: 2868 mGy-cm.. LIMITATIONS: None. FINDINGS: VENTRICLES: Normal size and contour. CEREBRUM: No masses. No hemorrhage. No midline shift. Normal monahan/white matter differentiation. No ev idence for acute infarction. No enhancing lesions. CEREBELLUM: No masses. No hemorrhage. No alteration of density. No evidence for acute infarction. No enhancing lesions. EXTRA-AXIAL SPACES: No fluid collections. No enhancing lesions. ORBITS AND GLOBE: No intra- or extraconal masses. Normal contour of globe without masses. CALVARIUM: No fracture. PARANASAL SINUSES: No fluid or mucosal thickening. SOFT TISSUES: No mass or hematoma. OTHER: No other significant finding. IMPRESSION: NORMAL BRAIN CT WITHOUT AND WITH CONTRAST. EVIDENCE OF ACUTE STROKE: NO. TECHNICAL DOCUMENTATION: JOB ID: [id number] Quality ID # [id number]: Final reports with documentation of one or more dose reduction techniques (e.g., Au tomated exposure control, adjustment of the mA and/or kV according to patient size, use of iterative reconstruction technique) 2010 [employer]- All Rights Reserved Reading location - IP/workstation name: [email or web address]
[2018-07-19] MEDS: INSULIN REG, HUMAN 100 UNIT/ML 3 ML VIAL (PYX) SUBCUT PRN (21:29)
[2018-07-19] MEDS ORDERED: ATORVASTATIN CALCIUM 20 MG TABLET PO SCH (22:00)
[2018-07-20] MEDS: LOPERAMIDE HCL 2 MG CAPSULE PO PRN (01:05)
[2018-07-20] MEDS ORDERED: METOCLOPRAMIDE HCL INJ/PF 10 MG/2 ML SDV IV ONE (01:45)
[2018-07-20] MEDS ORDERED: HYDROMORPHONE HCL INJ/PF 2 MG/ML AMPULE IV ONE (01:45)
--- NOTE | 2018-07-20 09:36 | PDOC PROGRESS REPORT ---
Subjective Progress Note for:: 07/20/18 Subjective:: Patient states his bowels are a little better, but he was still up all night with loose stools. He is scheduled for biopsy later this morning. Reason For Visit: METASTATIC LIVER CANCER,INTRACTABLE NAUSEA AND Physical Exam Vital Signs: Temp Pulse Resp BP Pulse Ox 97.8 F 73 16 133/79 H 98 07/20/18 07:26 07/20/18 07:26 07/20/18 07:26 07/20/18 07:26 07/20/18 07:26 Intake & Output 07/19/18 07/20/18 07/21/18 06:59 06:59 06:59 Intake Total 356 2994 Output Total 400 Balance -44 2994 Weight 118.3 kg 119.5 kg General appearance: PRESENT: no acute distress, well-developed, well-nourished Head exam: PRESENT: normocephalic Respiratory exam: PRESENT: unlabored Extremities exam: ABSENT: pedal edema Neurological exam: PRESENT: alert, awake, oriented to person, oriented to place , oriented to time, oriented to situation Psychiatric exam: PRESENT: appropriate affect Skin exam: PRESENT: normal color Results Laboratory Results: 07/19/18 05:53 07/19/18 05:53 Impressions: Abdomen/Pelvis CT 07/18/18 13:17 IMPRESSION: Too numerous to count liver lesions worrisome for metastatic disease. Multiple abnormal lymph nodes in the myrna hepatis, portacaval space, and upper abdominal retroperitoneum near the SMA and celiac artery Head CT 07/19/18 00:00 IMPRESSION: NORMAL BRAIN CT WITHOUT AND WITH CONTRAST. EVIDENCE OF ACUTE STROKE: NO. Chest CT 07/19/18 16:00 IMPRESSION: Mild mediastinal adenopathy Assessment & Plan - Diagnosis (1) Diarrhea Qualifiers: Diarrhea type: unspecified type Qualified Code(s): R19.7 - Diarrhea, unspecified Is this a current diagnosis for this admission?: Yes Plan: C. dif negative. Slowly improving. (2) Sarcoidosis Is this a current diagnosis for this admission?: Yes Plan: I have explained to the patient that the CT scans are consistent with his previous diagnosis of sarcoidosis. It is difficult to say if this is contributing to his current gastroenteritis, but if so, it should respond to steroids. I have also explained that he is still scheduled for biopsy today to make sure there is nothing else other than the sarcoidosis causing the abnormal CT scans. He would like to go ahead with the biopsy to make sure. - Plan Summary Plan Summary: I have explained that he does not need to stay in the hospital until after the biopsy results are available. I am happy to review those with him in the office as an outpatient. However, I will defer to primary team as to discharge plan once GI symptoms have resolved.
[2018-07-20] MEDS ORDERED: MIDAZOLAM 2 MG/2 ML INJ ONE (11:18)
[2018-07-20] MEDS ORDERED: LIDOCAINE 1% INJ-PF (10 MG/ML) 30 ML SDV ONE (11:19)
[2018-07-20] MEDS ORDERED: FENTANYL CITRATE INJ/PF 100 MCG/2 ML AMPUL ONE (11:19)
--- NOTE | 2018-07-20 12:41 | RADIOLOGY REPORT (SQ) ---
EXAM DESCRIPTION: CT BIOPSY LIVER; CT NEEDLE PLACEMENT COMPLETED DATE/TIME: 07/20/2018 12:06 pm; 07/20/2018 12:05 pm REASON FOR STUDY: POSSIBLE LIVER METS; POSSIBLE LIVER METS, LIVER BIOPSY COMPARISON: CT abdomen pelvis 07/18/2018 TECHNIQUE: After obtaining informed consent and explaining the risks and benefits of conscious sedat ion,the patient agreed to the procedure. The patient was brought to the CT suite and was placed supin e on the CT gurney. The patient was prepped and draped in the usual sterile fashion . Axial images w ere obtained for targeting of thelesion in the right lobe liver with post cholecystectomy clips in th e same CT slice. An appropriate access site was selected. IV conscious sedation was administered and physician direction by the registered nurse using 2 milligrams of Versed and 75 micrograms of fentany l. Physiologic monitoring was provided before, during, and after sedation. The total sedation time wa s 37 minutes. Documentation face to face time, the performing proceduralist, spent monitoring the patient: 15minute s. Noncontrasted CT of the liver was performed to localize an approach for the right lobe nodule liver biopsy. A percutaneous site was marked. Time out was performed. After skin prep and local lidocaine for skin and deep tissue anesthesia, a coaxial biopsy needle sys tem was used to obtain several cores of tissue from the right lobe liver. These were submitted to e lab in formalin. Biopsy tract was embolized with 2 Gel-Foam plugs. No immediate postprocedure com plications. Total of 14.[address] fluoro was used. 81 CT Fluoroscopic images were obtained and saved to PACS. All CT scanners at this facility use dose modulation, iterative reconstruction, and/or weight based d osing when appropriate to reduce radiation dose to as low as reasonably achievable (ALARA). [facility]: Dose Right [facility]: CareDose [facility]: Dose Right [facility]: Teradose 4D [facility]: [employer] RADIATION DOSE: CT Rad equipment meets quality standard of care and radiation dose reduction techniq ues were employed. CTDIvol: 4.0 - 20.3 mGy. DLP: 521 mGy-cm. mGy. LIMITATIONS: None. FINDINGS: CT guided liver biopsy as detailed above. IMPRESSION: CT GUIDED RIGHT LOBE LIVER NODULE LIVER BIOPSY PERFORMED ABOVE. PATHOLOGY PENDING. NO IMMEDIATE COMPLICATIONS. COMMENT: Patient medication list reviewed:Yes- Quality ID# [id number]:Eligible professional attests to docu menting in the medical record they obtained, updated, or reviewed the patient's current medications.. Quality ID 145: Final reports for procedures using fluoroscopy that document radiation exposure mackenzie rik, or exposure time and number of fluorographic images (if radiation exposure indices are not avail able) TECHNICAL DOCUMENTATION: JOB ID: [id number] Quality ID # [id number]: Final reports with documentation of one or more dose reduction techniques (e.g., A utomated exposure control, adjustment of the mA and/or kV according to patient size, use of iterative reconstruction technique) 2010 [employer]- All Rights Reserved Reading location - IP/workstation name: [email or web address]
[2018-07-20] MEDS: GABAPENTIN 300 MG CAPSULE PO SCH (13:33)
[2018-07-20] MEDS: FAMOTIDINE 20 MG TABLET PO SCH (13:33)
[2018-07-20] MEDS: FLUOXETINE HCL 20 MG CAPSULE PO SCH (13:34)
[2018-07-20] MEDS ORDERED: OXYCODONE-ACETAMINOPHEN 5-325 MG TABLET PO PRN ×2 (13:46→13:50)
[2018-07-20] MEDS ORDERED: ONDANSETRON HCL INJ/PF 4 MG/2 ML SDV IV PRN (14:30)
--- NOTE | 2018-07-20 15:45 | PDOC DISCHARGE SUMMARY ---
General - Admit/Disc Date/PCP Admission Date/Primary Care Provider: 07/18/18 18:00 LEOPOLDO JENNIFER, Discharge Date: 07/20/18 - Discharge Diagnosis (1) Metastatic cancer to liver Is this a current diagnosis for this admission?: Yes (2) Type 2 diabetes mellitus Is this a current diagnosis for this admission?: Yes (3) Obesity (BMI 30-39.9) Is this a current diagnosis for this admission?: Yes (4) Enteritis Is this a current diagnosis for this admission?: Yes (5) Sarcoidosis Is this a current diagnosis for this admission?: Yes (6) Hyperglycemia Is this a current diagnosis for this admission?: Yes (7) Diarrhea Is this a current diagnosis for this admission?: Yes - Additional Information Resuscitation Status: Full Code Discharge Diet: Cardiac, Diabetic Discharge Activity: Activity As Tolerated Home Medications: Albuterol Sulfate [Ventolin HFA MDI 18 GM] 2 puff IH Q6HP PRN MDD FOR SOB/ WHEEZING 07/19/18 Atorvastatin Calcium [Lipitor 20 mg Tablet] 20 mg PO DAILY 07/19/18 Chlorthalidone [Chlorthalidone 25 mg Tablet] 25 mg PO DAILY 07/19/18 Empagliflozin [Jardiance] 10 mg PO DAILY 07/19/18 Fluoxetine HCl [Prozac] 40 mg PO QAM 07/19/18 Gabapentin [Neurontin] 600 mg PO Q6 07/19/18 Hydrocodone Bit/Acetaminophen [Hydrocodon-Acetaminophen 5-325] 1 tab PO Q8HP PRN 07/19/18 Insulin Aspart [Novolog Flexpen] 0 units SQ .SLIDING SCALE 07/19/18 Insulin Glargine,Hum.rec.anlog [Toujeo Solostar] 80 units SQ QHS 07/19/18 Losartan Potassium [Cozaar 50 mg Tablet] 50 mg PO DAILY 07/19/18 History of Present Illness History of Present Illness: ED PEDRAZA is a 48 year old male Patient presented to the emergency department with complaints of abdominal pain and diarrhea up to about 30 times of loose bowel movement. He was actually seen on July 17 for the same reason and sent home. He returns today with the same symptoms and so a CT scan was done. CT scan showed too numerous to count liver lesions worrisome for metastatic disease. There were also multiple abnormal lymph nodes in the myrna hepatis myrna caval space and upper abdominal retroperitoneum near the SMA and celiac artery. Hospital Course Hospital Course: Patient was admitted with gdiarrhea,nausea and vomiting. Incidental findings of multiple liver nodules on CT scan were found and so patient had a liver biopsy done today the results of which is still pending. CT scan of the chest was also done which revealed mild mediastinal adenopathy. His presenting diarrhea as well as nausea and vomiting has almost all resolved. C. difficile PCR was negative Patient was seen by Dr. Vance due to the concern of the multiple liver lesions and during the course of his hospital stay we actually found that he has a remote history of sarcoidosis so there is a question of this being possible sarcoidosis I have a biopsy was completed and patient has remained stable so he is been discharged home for outpatient follow-up with Dr. Medina Physical Exam Vital Signs: Temp Pulse Resp BP Pulse Ox 98.1 F 72 16 131/71 H 98 07/20/18 15:09 07/20/18 15:09 07/20/18 15:09 07/20/18 15:09 07/20/18 15:09 Intake & Output 07/19/18 07/20/18 07/21/18 06:59 06:59 06:59 Intake Total 356 2994 0 Output Total 400 Balance -44 2994 0 Weight 118.3 kg 119.5 kg General appearance: PRESENT: no acute distress, well-developed, well-nourished Head exam: PRESENT: atraumatic, normocephalic Eye exam: PRESENT: conjunctiva pink, EOMI, PERRLA. ABSENT: scleral icterus Ear exam: PRESENT: normal external ear exam Mouth exam: PRESENT: moist, tongue midline Neck exam: ABSENT: carotid bruit, JVD, lymphadenopathy, thyromegaly Respiratory exam: PRESENT: clear to auscultation vern. ABSENT: rales, rhonchi, wheezes Cardiovascular exam: PRESENT: RRR. ABSENT: diastolic murmur, rubs, systolic murmur Pulses: PRESENT: normal dorsalis pedis pul Vascular exam: PRESENT: normal capillary refill GI/Abdominal exam: PRESENT: normal bowel sounds, soft. ABSENT: distended, guarding, mass, organolmegaly, rebound, tenderness Rectal exam: PRESENT: deferred Extremities exam: PRESENT: full ROM. ABSENT: calf tenderness, clubbing, pedal edema Neurological exam: PRESENT: alert, awake, oriented to person, oriented to place , oriented to time, oriented to situation, CN II-XII grossly intact. ABSENT: motor sensory deficit Psychiatric exam: PRESENT: appropriate affect, normal mood. ABSENT: homicidal ideation, suicidal ideation Skin exam: PRESENT: dry, intact, warm. ABSENT: cyanosis, rash Results Laboratory Results: 07/19/18 05:53 07/19/18 05:53 Impressions: Abdomen/Pelvis CT 07/18/18 13:17 IMPRESSION: Too numerous to count liver lesions worrisome for metastatic disease. Multiple abnormal lymph nodes in the myrna hepatis, portacaval space, and upper abdominal retroperitoneum near the SMA and celiac artery Head CT 07/19/18 00:00 IMPRESSION: NORMAL BRAIN CT WITHOUT AND WITH CONTRAST. EVIDENCE OF ACUTE STROKE: NO. Chest CT 07/19/18 16:00 IMPRESSION: Mild mediastinal adenopathy Guidance Needle Placement CT 07/20/18 00:00 IMPRESSION: CT GUIDED RIGHT LOBE LIVER NODULE LIVER BIOPSY PERFORMED ABOVE. PATHOLOGY PENDING. NO IMMEDIATE COMPLICATIONS. Liver Biopsy CT 07/20/18 00:00 IMPRESSION: CT GUIDED RIGHT LOBE LIVER NODULE LIVER BIOPSY PERFORMED ABOVE. PATHOLOGY PENDING. NO IMMEDIATE COMPLICATIONS. Qualifiers - * PATIENT BEING DISCHARGED WITH ANY OF THE FOLLOWING DIAGNOSIS: No Plan Time Spent: Less than 30 Minutes
[2018-07-20] MEDS ORDERED: ALBUTEROL SULFATE HFA (90 MCG/PUFF) 200 PUFF/8.5 GM MDI IH PRN (16:00)
[2018-07-20 16:36] VITALS: BP 143/78
[2018-07-21] MEDS ORDERED: FLUOXETINE HCL 20 MG CAPSULE PO SCH (08:00)
== END 2018-07-20 17:02 | disposition home or self-care (01) | DRG 392 ==
LOC: ER 11:11 → EH 18:00 → 4N 22:47
PROVIDERS: ADMIT Emergency Medicine; ATTEND Emergency Medicine
PROC: 3E0F73Z Introduction of Anti-inflammatory into Respiratory Tract, Via Natural or Artificial Opening (ICD-10-PCS; 2018-07-19)
PROC: 0FB13ZX Excision of Right Lobe Liver, Percutaneous Approach, Diagnostic (ICD-10-PCS; principal; 2018-07-20)
DX: K52.9 Noninfective gastroenteritis and colitis, unspecified (principal); E66.9 Obesity, unspecified; D86.9 Sarcoidosis, unspecified; E11.65 Type 2 diabetes mellitus with hyperglycemia; E78.00 Pure hypercholesterolemia, unspecified; I10 Essential (primary) hypertension; K21.9 Gastro-esophageal reflux disease without esophagitis; F32.9 Major depressive disorder, single episode, unspecified; F17.210 Nicotine dependence, cigarettes, uncomplicated; R59.0 Localized enlarged lymph nodes; E86.0 Dehydration; Z68.35 Body mass index [BMI] 35.0-35.9, adult; Z79.4 Long term (current) use of insulin; Z79.899 Other long term (current) drug therapy; Z90.49 Acquired absence of other specified parts of digestive tract; Z88.8 Allergy status to other drugs, medicaments and biological substances; Z91.012 Allergy to eggs; Z79.52 Long term (current) use of systemic steroids; Z80.51 Family history of malignant neoplasm of kidney; Z80.0 Family history of malignant neoplasm of digestive organs; Z82.49 Family history of ischemic heart disease and other diseases of the circulatory system; Z82.3 Family history of stroke
CPT/HCPCS: 36415; 47000; 70470; 71260; 74177; 77012; 80048; 80053; 80307; 81001; 82803; 82962; 83690; 83735; 84484; 85025; 85027; 85610; 87045; 87205; 87493; 88307; 88312; 88313; 93005; 93010; 96361; 96374; 96375; 99284; J1170; J1650; J1815; J2250; J2270; J2405; J2765; J3010; J3490; S0028

== ENCOUNTER 2018-08-31 10:28 | Day surgery (SDC) | payer MEDICARE, MEDICAID ==
[~2018-08-31 10:28] MED LIST: PROPOFOL INJ 200 MG/20 ML VIAL IV ONE
[2018-08-31] MEDS ORDERED: IPRATROPIUM/ALBUTEROL 0.5-2.5 MG/3 ML AMPUL NEB ONE (11:22)
--- NOTE | 2018-08-31 12:42 | Operative Report ---
Operative Report DATE OF SURGERY: 08/31/18 Operative Report: The risks, benefits and alternatives of the procedure including the risks of bleeding, perforation requiring surgery are explained to the patient in detail and informed consent is obtained. Patient is brought back to the endoscopy suite and placed in the left, lateral decubital position. Timeout was called. Propofol medication is administered. A rectal examination is done which did not reveal any masses, tears or fissures. An Olympus videoscope was introduced into the patient's rectum. The scope was then carefully advanced all the way to the cecum. The cecum was identified by the usual anatomical landmarks including the ileocecal valve as well as the appendiceal office. Photodocumentation was obtained. Prep was good. Scope was then sequentially pulled back via the rest segments of the colon including the ascending colon, hepatic flexure, transverse colon, splenic flexure, descending colon and finally in to the rectosigmoid portions of the colon. Retroflexion maneuvers performed. PREOPERATIVE DIAGNOSIS: Colorectal cancer screening POSTOPERATIVE DIAGNOSIS: Normal screening colonoscopy OPERATION: Diagnostic colonoscopy SURGEON: ELYSE MENDES ANESTHESIA: LMAC TISSUE REMOVED OR ALTERED: None. COMPLICATIONS: None. ESTIMATED BLOOD LOSS: As noted above. INTRAOPERATIVE FINDINGS: Incidental finding of diverticulosis and internal hemorrhoids PROCEDURE: Patient tolerated the procedure well. No immediate postprocedure complications are noted. Patient discharged in good condition. Discharge date 08/31/2018. Discharge diet: Regular. Discharge activity: Regular. 2-3-week follow-up to discuss findings. Patient is instructed to call the office or proceed to the emergency room should there be any further problems or questions. 10-year surveillance colonoscopy.
[2018-08-31 13:08] VITALS: BP 121/70
== END 2018-08-31 12:46 | disposition home or self-care (01) ==
LOC: END 10:28
PROVIDERS: ATTEND Internal Medicine Gastroenterology
DX: K57.30 Diverticulosis of large intestine without perforation or abscess without bleeding (principal); K64.8 Other hemorrhoids; Z80.0 Family history of malignant neoplasm of digestive organs; R63.4 Abnormal weight loss; E11.9 Type 2 diabetes mellitus without complications; K21.9 Gastro-esophageal reflux disease without esophagitis; I10 Essential (primary) hypertension; E78.2 Mixed hyperlipidemia; F17.210 Nicotine dependence, cigarettes, uncomplicated; Z79.4 Long term (current) use of insulin; Z79.51 Long term (current) use of inhaled steroids; Z79.899 Other long term (current) drug therapy; Z88.8 Allergy status to other drugs, medicaments and biological substances; Z68.32 Body mass index [BMI] 32.0-32.9, adult
CPT/HCPCS: 45378; 82962; J2704; A9270; 812; J7620

== ENCOUNTER → 2018-11-12 | Outpatient (CLI) | payer MEDICARE, MEDICAID ==
--- NOTE | 2018-11-12 13:09 | RADIOLOGY REPORT (SQ) ---
EXAM DESCRIPTION: ANKLE RIGHT COMPLETE COMPLETED DATE/TIME: 11/12/2018 11:17 am REASON FOR STUDY: PAIN IN RIGHT ANKLE AND JOINTS OF RIGHT FOOT M25.571 PAIN IN RIGHT ANKLE AND JOIN TS OF RIGHT FOOT COMPARISON: None. NUMBER OF VIEWS: Three views. TECHNIQUE: AP, lateral, and oblique radiographic images acquired of the right ankle. LIMITATIONS: None. FINDINGS: MINERALIZATION: Normal. BONES: No acute fracture or dislocation. No worrisome bone lesions. JOINTS: No effusions. SOFT TISSUES: No soft tissue swelling. No foreign body. OTHER: No other significant finding. IMPRESSION: NEGATIVE STUDY OF THE RIGHT ANKLE. NO RADIOGRAPHIC EVIDENCE OF ACUTE INJURY. TECHNICAL DOCUMENTATION: JOB ID: [id number] [employer]- All Rights Reserved Reading location - IP/workstation name: [email or web address]
== END ==
LOC: RAD 10:57
PROVIDERS: ATTEND Family Medicine
DX: M25.571 Pain in right ankle and joints of right foot (principal)

== ENCOUNTER 2018-12-03 10:58 | Emergency (ER) | payer MEDICARE, MEDICAID ==
[2018-12-03] MEDS ORDERED: CLINDAMYCIN 600 MG/D5W RTU 600 MG/50 ML RTUPB IV ONE (11:26)
[2018-12-03] MEDS ORDERED: NORMAL SALINE 1000 ML 1,000 ML IV ONE (11:27)
--- NOTE | 2018-12-03 11:28 | ER Document Report ---
HPI - HPI Patient complains to provider of: Nasal swelling and infection Time Seen by Provider: 12/03/18 11:15 Onset: Yesterday Onset/Duration: Gradual Quality of pain: Sharp Pain Level: 4 Context: Patient states that he had an abscess in his left nostril about 3 weeks ago. Patient states he did put a Q-tip in the nose and it did drain. Patient states today he noticed the left side of his nose started to swell and get red and he has had pain to the left eye. Patient denies any change in vision. Patient denies any fever. Patient does report a history of diabetes. Associated Symptoms: denies: Fever Exacerbated by: Denies Relieved by: Denies Similar symptoms previously: No Recently seen / treated by doctor: No - ROS ROS below otherwise negative: Yes Systems Reviewed and Negative: Yes All other systems reviewed and negative - CONSTITUTIONAL Constitutional: DENIES: Fever - EENT EENT: REPORTS: Eye problems - GASTROINTESTINAL Gastrointestinal: DENIES: Patient vomiting - DERM Skin Color: Erythema - Redness to left side of nose Past Medical History - General Information source: Patient - Social History Smoking Status: Current Every Day Smoker Smoking Education Provided: Yes Frequency of alcohol use: None Drug Abuse: None Occupation: none Lives with: Family Family History: Reviewed & Not Pertinent - Medical History Medical History: Other - Sarcoidosis - Past Medical History Cardiac Medical History: Reports: Hx Coronary Artery Disease, Hx Hypercholesterolemia, Hx Hypertension Denies: Hx Heart Attack Pulmonary Medical History: Reports: Hx Asthma, Hx Bronchitis, Hx COPD Denies: Hx Pneumonia Endocrine Medical History: Reports: Hx Diabetes Mellitus Type 2 Renal/ Medical History: Denies: Hx Peritoneal Dialysis GI Medical History: Reports: Hx Gastroesophageal Reflux Disease Musculoskeletal Medical History: Denies Hx Arthritis Psychiatric Medical History: Reports: Hx Depression Past Surgical History: Reports: Hx Abdominal Surgery - hernia, Hx Appendectomy, Hx Cholecystectomy, Hx Oral Surgery - R Knee - Immunizations Hx Diphtheria, Pertussis, Tetanus Vaccination: Yes Vertical Provider Document - CONSTITUTIONAL Agree With Documented VS: Yes Exam Limitations: No Limitations General Appearance: WD/WN, No Apparent Distress - INFECTION CONTROL TRAVEL OUTSIDE OF THE [place] IN LAST 30 DAYS: No - HEENT HEENT: Atraumatic, Normocephalic. negative: Pharyngeal Exudate, Pharyngeal Tenderness, Pharyngeal Erythema, Tympanic Membrane Red, Tympanic Membrane Bulging Notes: Patient with left-sided nasal swelling and erythema. Patient with a left infraorbital tenderness. No ptosis. No tenderness with extraocular movements. - NECK Neck: Normal Inspection, Supple. negative: Lymphadenopathy-Left, L ymphadenopathy-Right - RESPIRATORY Respiratory: Breath Sounds Normal, No Respiratory Distress - CARDIOVASCULAR Cardiovascular: Regular Rate, Regular Rhythm - GI/ABDOMEN Gastrointestinal: Abdomen Soft - MUSCULOSKELETAL/EXTREMETIES Musculoskeletal/Extremeties: MAEW - NEURO Level of Consciousness: Awake, Alert, Appropriate Motor/Sensory: No Motor Deficit - DERM Integumentary: Warm, Dry, No Rash Course - Re-evaluation Re-evalutation: 12/03/18 15:10 CT scan report reviewed, no concern for orbital or preseptal cellulitis. Patient with cellulitis to the nose, no drainable abscess. Good return precautions discussed. - Vital Signs Vital signs: Temp Pulse Resp BP Pulse Ox 98.1 F 117 H 16 140/86 H 99 12/03/18 11:04 12/03/18 11:04 12/03/18 11:04 12/03/18 11:04 12/03/18 11:04 - Laboratory Result Diagrams: 12/03/18 12:03 12/03/18 12:03 Laboratory results interpreted by me: 12/03/18 15:10 Labs- Entire Visit 12/03/18 12/03/18 12:03 12:03 WBC 9.6 RBC 5.25 Hgb 15.0 Hct 43.7 MCV 83 MCH 28.6 MCHC 34.4 RDW 14.9 H Plt Count 203 Seg Neutrophils % 64.1 Lymphocytes % 19.0 Monocytes % 11.9 Eosinophils % 4.3 Basophils % 0.7 Absolute Neutrophils 6.2 Absolute Lymphocytes 1.8 Absolute Monocytes 1.1 Absolute Eosinophils 0.4 Absolute Basophils 0.1 Sodium 138.6 Potassium 4.0 Chloride 104 Carbon Dioxide 22 Anion Gap 13 BUN 7 Creatinine 0.54 Est GFR ( Amer) > 60 Est GFR (Non-Af Amer) > 60 Glucose 255 H Calcium 9.2 - Diagnostic Test Radiology reviewed: Reports reviewed Discharge - Discharge Clinical Impression: Nose cellulitis Condition: Stable Disposition: HOME, SELF-CARE Instructions: Bactroban Ointment ([facility]), Cellulitis ([facility]), Clindamycin ([facility]) Additional Instructions: Return immediately for any new or worsening symptoms Followup with your primary care provider, call tomorrow to make a followup appointment Prescriptions: Clindamycin HCl [Cleocin Hcl] 300 mg PO QID #28 capsule Mupirocin [Bactroban 2% Ointment 22 gm] 1 applic TP TID #22 gm Forms: Smoking Cessation Education Referrals: LEOPOLDO RODRIGUEZ DO [Primary Care Provider] - Follow up as needed
[2018-12-03 12:24] LABS: ABSOLUTE BASOPHILS # (AUTO) 0.1 10^3/uL (0.0-0.2); ABSOLUTE EOSINOPHILS # (AUTO) 0.4 10^3/uL (0.0-0.6); ABSOLUTE LYMPHOCYTES (AUTO) 1.8 10^3/uL (0.5-4.7); ABSOLUTE MONOCYTES (AUTO) 1.1 10^3/uL (0.1-1.4); ABSOLUTE NEUT (AUTO) 6.2 10^3/uL (1.7-8.2); BASOPHILS % (AUTO) 0.7 % (0-2); EOSINOPHILS % (AUTO) 4.3 % (0-6); HEMATOCRIT 43.7 % (37.9-51.0); MEAN CORPUSCULAR HEMOGLOBIN 28.6 pg (27.0-33.4); MEAN CORPUSCULAR HGB CONC 34.4 g/dL (32.0-36.0); MEAN CORPUSCULAR VOLUME 83 fl (80-97); MONOCYTES % (AUTO) 11.9 % (3-13); PLATELET COUNT 203 10^3/uL (150-450); RED BLOOD COUNT 5.25 10^6/uL (4.35-5.55); RED CELL DISTRIBUTION WIDTH 14.9 % (11.5-14.0); SEGMENTED NEUTROPHILS % (AUTO) 64.1 % (42-78); TOTAL CELLS COUNTED % (AUTO) 100 %; WHITE BLOOD COUNT 9.6 10^3/uL (4.0-10.5)
[2018-12-03 12:44] LABS: ANION GAP 13 (5-19); BLOOD UREA NITROGEN 7 mg/dL (7-20); CALCIUM 9.2 mg/dL (8.4-10.2); CARBON DIOXIDE 22 mmol/L (22-30); CHLORIDE 104 mmol/L (98-107); GLUCOSE 255 mg/dL (75-110); SODIUM 138.6 mmol/L (137-145)
[2018-12-03 13:55] VITALS: BP 150/90
--- NOTE | 2018-12-03 14:40 | RADIOLOGY REPORT (SQ) ---
EXAM DESCRIPTION: CT FACIAL AREA WITH COMPLETED DATE/TIME: 12/03/2018 1:45 pm REASON FOR STUDY: hx nasal abscess, L nose, L eye pain COMPARISON: CT brain 07/19/2018 TECHNIQUE: Post contrast images through the facial bones and orbits windowed for bone and soft tissu e. Additional coronal and sagittal reconstructed images reviewed. All images stored on PACS. All CT scanners at this facility use dose modulation, iterative reconstruction, and/or weight based d osing when appropriate to reduce radiation dose to as low as reasonably achievable (ALARA). [facility]: Dose Right [facility]: CareDose [facility]: Dose Right [facility]: Teradose 4D [facility]: IPX CONTRAST TYPE AND DOSE: contrast/concentration: Isovue 350.00 mg/ml; Total Contrast Delivered: 75.0 ml; Total Saline Delivered: 55.0 ml RENAL FUNCTION: Creatinine 0.54 RADIATION DOSE: CT Rad equipment meets quality standard of care and radiation dose reduction techniq ues were employed. CTDIvol: 30.4 mGy. DLP: 684 mGy-cm. . LIMITATIONS: None. FINDINGS: FACIAL BONES: No fracture or bone lesion. ORBITS: Intact. No fracture. Symmetric intact globes and retroorbital soft tissues. No significant preseptal orbital inflammation PARANASAL SINUSES: Clear. No significant mucosal thickening, mass or fluid. No nasal polyps. Maxilla ry sinus outlets are patent. SOFT TISSUES: There is asymmetric soft tissue swelling along the left no loose soft tissues, just sup erior to the left nare. This is best shown on axial image 56 and coronal image 9. INFERIOR BRAIN: Limited view. No acute findings. OTHER: No other significant finding. IMPRESSION: Soft tissue swelling along the left nose, just superior to the left nare. No deep exten amrita of inflammation into the left orbit TECHNICAL DOCUMENTATION: JOB ID: [id number] Quality ID # [id number]: Final reports with documentation of one or more dose reduction techniques (e.g., Au tomated exposure control, adjustment of the mA and/or kV according to patient size, use of iterative reconstruction technique) 2010 [employer]- All Rights Reserved Reading location - IP/workstation name: [email or web address]
== END 2018-12-03 15:29 | disposition home or self-care (01) ==
LOC: ER 10:58
DX: J34.0 Abscess, furuncle and carbuncle of nose (principal)
CPT/HCPCS: 99284; 96365; 36415; 87040; 85025; 80048; 70487; J7030

== ENCOUNTER 2019-01-21 19:49 | Emergency (ER) | payer MEDICARE, MEDICAID ==
[2019-01-21 20:12] VITALS: BP 148/85
[2019-01-21] MEDS ORDERED: IPRATROPIUM/ALBUTEROL 0.5-2.5 MG/3 ML AMPUL NEB ONE (22:45)
--- NOTE | 2019-01-21 23:30 | RADIOLOGY REPORT (SQ) ---
CLINICAL HISTORY: Cough COMPARISON: None. TECHNIQUE: XR CHEST 2 VIEWS 01/21/2019 10:43 PM CDT FINDINGS: Cardiac silhouette is normal in size. Lungs are clear without consolidation, atelectasis, mass or edema. There is no pleural effusion. There is no pneumothorax. There are no acute osseous findings. IMPRESSION: Clear lungs.
[2019-01-21 23:53] LABS: ABSOLUTE BASOPHILS # (AUTO) 0.1 10^3/uL (0.0-0.2); ABSOLUTE EOSINOPHILS # (AUTO) 0.5 10^3/uL (0.0-0.6); ABSOLUTE LYMPHOCYTES (AUTO) 2.1 10^3/uL (0.5-4.7); ABSOLUTE MONOCYTES (AUTO) 0.9 10^3/uL (0.1-1.4); ABSOLUTE NEUT (AUTO) 2.7 10^3/uL (1.7-8.2); BASOPHILS % (AUTO) 1.4 % (0-2); EOSINOPHILS % (AUTO) 8.3 % (0-6); HEMATOCRIT 44.9 % (37.9-51.0); HEMOGLOBIN 15.5 g/dL (13.5-17.0); LYMPHOCYTES % (AUTO) 33.1 % (13-45); MEAN CORPUSCULAR HGB CONC 34.5 g/dL (32.0-36.0); MEAN CORPUSCULAR VOLUME 84 fl (80-97); MONOCYTES % (AUTO) 13.8 % (3-13); PLATELET COUNT 232 10^3/uL (150-450); RED BLOOD COUNT 5.35 10^6/uL (4.35-5.55); RED CELL DISTRIBUTION WIDTH 15.4 % (11.5-14.0); TOTAL CELLS COUNTED % (AUTO) 100 %; WHITE BLOOD COUNT 6.3 10^3/uL (4.0-10.5)
[2019-01-21 23:58] LABS: SEGMENTED NEUTROPHILS % (AUTO) 43.4 % (42-78)
[2019-01-22 00:05] LABS: ALANINE AMINOTRANSFERASE 35 U/L (21-72); ALBUMIN 4.3 g/dL (3.5-5.0); ALKALINE PHOSPHATASE 109 U/L (38-126); ANION GAP 11 (5-19); ASPARTATE AMINO TRANSFERASE 32 U/L (17-59); BILIRUBIN,DIRECT 0.2 mg/dL (0.0-0.4); BILIRUBIN,TOTAL 0.7 mg/dL (0.2-1.3); BLOOD UREA NITROGEN 13 mg/dL (7-20); CARBON DIOXIDE 24 mmol/L (22-30); CHLORIDE 102 mmol/L (98-107); GLUCOSE 288 mg/dL (75-110); POTASSIUM 4.2 mmol/L (3.6-5.0); SODIUM 136.9 mmol/L (137-145); TOTAL PROTEIN 8.1 g/dL (6.3-8.2)
[2019-01-22] MEDS ORDERED: LEVOFLOXACIN 750 MG TABLET PO ONE (00:46)
[2019-01-22 01:17] LABS: ARTERIAL BLOOD BASE EXCESS -3.6 mmol/L; ARTERIAL BLOOD H2CO3 1.05 mmol/L (1.05-1.35); ARTERIAL BLOOD HCO3 20.6 mmol/L (20-24); ARTERIAL BLOOD O2 SATURATION 96.7 % (94-98); ARTERIAL BLOOD PH 7.39 (7.35-7.45); ARTERIAL BLOOD PO2 88.6 mmHg (80-100); ARTERIAL BLOOD TOTAL CO2 21.6 mmol/L (23-27)
[2019-01-22 01:18] LABS: ARTERIAL BLOOD FIO2 ROOM AIR
--- NOTE | 2019-01-22 02:01 | ER Document Report ---
ED Respiratory Problem - General Chief Complaint: Cough Stated Complaint: COUGH/VOMITING Time Seen by Provider: 01/21/19 22:22 Primary Care Provider: LEOPOLDO RODRIGUEZ DO [Primary Care Provider] - Follow up as needed Mode of Arrival: Ambulatory Information source: Patient TRAVEL OUTSIDE OF THE [place] IN LAST 30 DAYS: No - HPI Patient complains to provider of: Cough Onset: Other Duration: Intermittent episodes - 2 days. Quality of pain: No pain Severity: None Pain Level: Denies Short of Breath: Mild Chest pain/discomfort: Intermittent Cough: Productive Sputum amount: Small Sputum color: Yellow Associated symptoms: Short of breath Similar symptoms previously: No Recently seen / treated by doctor: No - Related Data Allergies/Adverse Reactions: atenolol Adverse Reaction (Verified 12/03/18 11:01) LOWER B/P eggs Adverse Reaction (Uncoded 12/03/18 11:01) DIARRHEA, SULFA BURPS IF EAT TWO DAYS IN A ROW Past Medical History - Social History Smoking Status: Current Every Day Smoker Family History: Reviewed & Not Pertinent - Past Medical History Cardiac Medical History: Reports: Hx Coronary Artery Disease, Hx Hypercholesterolemia, Hx Hypertension Denies: Hx Heart Attack Pulmonary Medical History: Reports: Hx Asthma, Hx Bronchitis, Hx COPD Denies: Hx Pneumonia Neurological Medical History: Denies: Hx Cerebrovascular Accident, Hx Seizures Endocrine Medical History: Reports: Hx Diabetes Mellitus Type 2 Renal/ Medical History: Denies: Hx Peritoneal Dialysis GI Medical History: Reports: Hx Gastroesophageal Reflux Disease Musculoskeletal Medical History: Denies Hx Arthritis Psychiatric Medical History: Reports: Hx Depression Past Surgical History: Reports: Hx Abdominal Surgery - hernia, Hx Appendectomy, Hx Cholecystectomy, Hx Oral Surgery - R Knee - Immunizations Hx Diphtheria, Pertussis, Tetanus Vaccination: Yes Review of Systems - Review of Systems Constitutional: No symptoms reported EENT: No symptoms reported Cardiovascular: No symptoms reported Respiratory: Cough, Short of breath, Wheezing Gastrointestinal: No symptoms reported Genitourinary: No symptoms reported Male Genitourinary: No symptoms reported Musculoskeletal: No symptoms reported Skin: No symptoms reported Hematologic/Lymphatic: No symptoms reported Neurological/Psychological: No symptoms reported Physical Exam - Vital signs Vitals: Temp Pulse Resp BP Pulse Ox 98.7 F 96 23 H 148/85 H 97 01/21/19 20:10 01/21/19 20:10 01/21/19 20:10 01/21/19 20:10 01/21/19 20:10 Interpretation: Normal - General General appearance: Appears well, Alert - HEENT Head: Normocephalic, Atraumatic Eyes: Normal Pupils: PERRL - Respiratory Respiratory status: No respiratory distress Chest status: Nontender Breath sounds: Productive cough, Wheezing Chest palpation: Normal - Cardiovascular Rhythm: Regular Heart sounds: Normal auscultation Murmur: No - Abdominal Inspection: Normal Distension: No distension Bowel sounds: Normal Tenderness: Nontender Organomegaly: No organomegaly - Back Back: Normal, Nontender - Extremities General upper extremity: Normal inspection, Nontender, Normal color, Normal ROM, Normal temperature General lower extremity: Normal inspection, Nontender, Normal color, Normal ROM, Normal temperature, Normal weight bearing. No: Anne-Marie's sign - Neurological Neuro grossly intact: Yes Cognition: Normal Orientation: AAOx4 [place] Coma Scale Eye Opening: Spontaneous Shaniqua Coma Scale Verbal: Oriented Shaniqua Coma Scale Motor: Obeys Commands Shaniqua Coma Scale Total: 15 Speech: Normal Motor strength normal: LUE, RUE, LLE, RLE Sensory: Normal - Psychological Associated symptoms: Normal affect, Normal mood - Skin Skin Temperature: Warm Skin Moisture: Dry Skin Color: Normal Course - Vital Signs Vital signs: Temp Pulse Resp BP Pulse Ox 98.7 F 96 23 H 148/85 H 97 01/21/19 20:10 01/21/19 20:10 01/21/19 20:10 01/21/19 20:10 01/21/19 20:10 - Laboratory Result Diagrams: 01/21/19 23:28 01/21/19 23:28 Laboratory results interpreted by me: 01/21/19 01/21/19 01/22/19 23:28 23:28 00:58 RDW 15.4 H Monocytes % 13.8 H Eosinophils % 8.3 H ABG Total CO2 21.6 L Sodium 136.9 L Glucose 288 H - Diagnostic Test Radiology reviewed: Reports reviewed Discharge - Discharge Clinical Impression: Acute bronchitis Qualifiers: Bronchitis organism: unspecified organism Qualified Code(s): J20.9 - Acute bronchitis, unspecified Reactive airway disease Qualifiers: Asthma severity: mild Asthma persistence: intermittent Asthma complication type: uncomplicated Qualified Code(s): J45.20 - Mild intermittent asthma, uncomplicated Condition: Stable Disposition: HOME, SELF-CARE Instructions: Bronchitis ([facility]), Reactive Airway Disease ([facility]) Additional Instructions: Please follow-up with your doctor tomorrow morning. Return to the emergency room if your condition worsens. Prescriptions: Benzonatate [Tessalon Perles 100 mg Capsule] 100 mg PO Q8HP PRN #30 capsule PRN Reason: Cough Albuterol Sulfate [Proair HFA Inhalation Aerosol 8.5 gm MDI] 2 puff IH Q4H PRN #1 mdi PRN Reason: Levofloxacin [Levaquin 750 mg Tablet] 750 mg PO DAILY #10 tablet Forms: Smoking Cessation Education Referrals: LEOPOLDO RODRIGUEZ DO [Primary Care Provider] - Follow up as needed
== END 2019-01-22 02:54 | disposition home or self-care (01) ==
LOC: ER 19:49
DX: J44.0 Chronic obstructive pulmonary disease with (acute) lower respiratory infection (principal); J20.9 Acute bronchitis, unspecified; R05 Cough; R11.10 Vomiting, unspecified; R06.02 Shortness of breath; I25.10 Atherosclerotic heart disease of native coronary artery without angina pectoris; I11.0 Hypertensive heart disease with heart failure; F17.200 Nicotine dependence, unspecified, uncomplicated; I10 Essential (primary) hypertension; E11.9 Type 2 diabetes mellitus without complications
CPT/HCPCS: 94640; 99283; 36415; 82803; 85025; 80053; 71046; A9270 ×2; J7620

== ENCOUNTER 2019-04-01 17:52 | Emergency (ER) | payer MEDICARE, MEDICAID ==
[2019-04-01 17:56] VITALS: BP 130/81
--- NOTE | 2019-04-01 19:09 | ER Document Report ---
HPI - HPI Time Seen by Provider: 04/01/19 19:05 Pain Level: 2 Notes: Patient is a 49-year-old male with a history of previous arthroscopic surgery to his right knee for cartilage repair who presents complaining of instability to the right knee over the past 2 to 3 months. Patient states that every now and again when he is walking his knee wants to give out on him. He has not noticed any redness, swelling, bruising. He has no associated pain or discomfort. He does have a cane that he will ambulate with from time to time. He is otherwise urinating normally and having normal bowel movements. No other concerns or complaints. No recent injury. Denies any headache, fever, URI, sore throat, chest pain, palpitations, syncope, cough, shortness of breath, wheeze, dyspnea, abdominal pain, nausea/vomiting/diarrhea, urinary retention, dysuria, hematuria, loss of control of bowel or bladder, numbness/tingling, muscle paralysis/weakness, or rash. - ROS Systems Reviewed and Negative: Yes All other systems reviewed and negative - CONSTITUTIONAL Constitutional: DENIES: Fever, Chills - MUSCULOSKELETAL Musculoskeletal: REPORTS: Extremity pain - right knee Past Medical History - Social History Smoking Status: Current Every Day Smoker Frequency of alcohol use: None Drug Abuse: None Family History: Reviewed & Not Pertinent Patient has suicidal ideation: No Patient has homicidal ideation: No - Past Medical History Cardiac Medical History: Reports: Hx Coronary Artery Disease, Hx Hypercholesterolemia, Hx Hypertension Denies: Hx Heart Attack Pulmonary Medical History: Reports: Hx Asthma, Hx Bronchitis, Hx COPD Denies: Hx Pneumonia Neurological Medical History: Denies: Hx Cerebrovascular Accident, Hx Seizures Endocrine Medical History: Reports: Hx Diabetes Mellitus Type 2 Renal/ Medical History: Denies: Hx Peritoneal Dialysis GI Medical History: Reports: Hx Gastroesophageal Reflux Disease Musculoskeletal Medical History: Denies Hx Arthritis Psychiatric Medical History: Reports: Hx Depression Past Surgical History: Reports: Hx Abdominal Surgery - hernia, Hx Appendectomy, Hx Cholecystectomy, Hx Oral Surgery - R Knee 1992 - Immunizations Hx Diphtheria, Pertussis, Tetanus Vaccination: Yes Vertical Provider Document - CONSTITUTIONAL Agree With Documented VS: Yes Notes: PHYSICAL EXAMINATION: GENERAL: Well-appearing, well-nourished and in no acute distress. LUNGS: Breath sounds clear to auscultation bilaterally and equal. No wheezes rales or rhonchi. HEART: Regular rate and rhythm without murmurs, rubs, gallops. Musculoskeletal: Lt knee: No obvious swelling, ecchymosis, effusion, or deformity. FROM to passive/active and flexion >90 w/o difficulty or tenderness. Strength 5+/5. N/V intact distal. No bony tenderness. Ligamentous grossly stable, limited exam with larger leg size. Jacinto grossly negative. Patellar grind negative. No calf tenderness. Extremities: No cyanosis, clubbing, or edema b/l. Peripheral pulses 2+. Capillary refill less than 3 seconds. Anne-Marie neg b/l. NEUROLOGICAL: Normal speech, normal gait. Normal sensory, motor exams PSYCH: Normal mood, normal affect. SKIN: Warm, Dry, normal turgor, no rashes or lesions noted. - INFECTION CONTROL TRAVEL OUTSIDE OF THE [place] IN LAST 30 DAYS: No Course - Re-evaluation Re-evalutation: 04/01/19 19:06 Patient is an afebrile, well-hydrated, 49-year-old male who presents to the ED with left knee pain which I suspect could have internal involvement due to the instability. Vitals are acceptable without any significant tachycardia, tachypnea, or hypoxia. PE is otherwise unremarkable for any neurovascular compromise, obvious tendon/ligament rupture, obvious fracture/dislocation, septic joint. No bony tenderness. [place] knee rules negative. Patient is nontoxic-appearing. Patient is able to ambulate and weight-bear. No other labs or imaging warranted at this time based on H&P. Conservative measures otherwise for symptoms. Recheck with your PCM in 3-5 days. Schedule consult w. orthopedics. Return to the ED with any worsening/concerning symptoms otherwise as reviewed in discharge. Patient is in agreement. - Vital Signs Vital signs: Temp Pulse Resp BP Pulse Ox 98.9 F 93 18 130/81 H 97 04/01/19 17:56 04/01/19 17:56 04/01/19 17:56 04/01/19 17:56 04/01/19 17:56 Discharge - Discharge Clinical Impression: Right knee gives way Condition: Stable Disposition: HOME, SELF-CARE Additional Instructions: Rest, Ice, Compression, Elevation Tylenol/ibuprofen as needed Light stretches daily Strength exercises as able Moist heat and massage may help F/u with your PCP in 3-5 days for a recheck Schedule appointment with orthopedics for further evaluation and management Return to the ED with any worsening symptoms and/or development of fever, headache, chest pain, palpitations, syncope, shortness of breath, trouble breathing, abdominal pain, n/v/d, muscle weakness/paralysis, numbness/tingling, swelling, redness, or other worsening symptoms that are concerning to you. Forms: Elevated Blood Pressure, Smoking Cessation Education Referrals: LEOPOLDO RODRIGUEZ DO [Primary Care Provider] - Follow up as needed [facility] [Provider Group] - Follow up in 1 week
== END 2019-04-01 19:13 | disposition home or self-care (01) ==
LOC: ER 17:52
DX: M25.561 Pain in right knee (principal)
CPT/HCPCS: 99283

== ENCOUNTER 2019-04-12 18:14 | Emergency (ER) | payer MEDICARE, MEDICAID ==
--- NOTE | 2019-04-12 20:55 | ER Document Report ---
ED Medical Screen (RME) - General Chief Complaint: Chest Pain Stated Complaint: CHEST PAIN Time Seen by Provider: 04/12/19 20:51 Primary Care Provider: LEOPOLDO RODRIGUEZ DO [Primary Care Provider] - Follow up as needed Mode of Arrival: Ambulatory Information source: Patient Notes: 49-year-old male presented to ED for complaint of pain to his chest neck back and throat. He states he started with a cough and congestion and now he has a sore throat pain to the back and chest and neck. He states that he does have a history of high blood pressure cholesterol but does not have any history of heart attacks or cardiac surgeries. He states he does smoke 1/2 pack a day does not drink or do any drugs. He is alert oriented respirations regular and unlabored speaking in full sentences. He states he has not had any fevers but he never has fevers. I have greeted and performed a rapid initial assessment of this patient. A comprehensive ED assessment and evaluation of the patient, analysis of test results and completion of medical decision making process will be conducted by an additional ED providers. Dictation of this chart was performed using voice recognition software; therefore, there may be some unintended grammatical errors. TRAVEL OUTSIDE OF THE [place] IN LAST 30 DAYS: No - Related Data Allergies/Adverse Reactions: atenolol Adverse Reaction (Verified 04/01/19 17:54) LOWER B/P eggs Adverse Reaction (Uncoded 04/01/19 17:54) DIARRHEA, SULFA BURPS IF EAT TWO DAYS IN A ROW Past Medical History - Past Medical History Cardiac Medical History: Reports: Hx Coronary Artery Disease, Hx Hypercholesterolemia, Hx Hypertension Denies: Hx Heart Attack Pulmonary Medical History: Reports: Hx Asthma, Hx Bronchitis, Hx COPD Denies: Hx Pneumonia Neurological Medical History: Denies: Hx Cerebrovascular Accident, Hx Seizures Endocrine Medical History: Reports: Hx Diabetes Mellitus Type 2 Renal/ Medical History: Denies: Hx Peritoneal Dialysis GI Medical History: Reports: Hx Gastroesophageal Reflux Disease Musculoskeltal Medical History: Denies Hx Arthritis Psychiatric Medical History: Reports: Hx Depression Past Surgical History: Reports: Hx Abdominal Surgery - hernia, Hx Appendectomy, Hx Cholecystectomy, Hx Oral Surgery - R Knee 1991 - Immunizations Hx Diphtheria, Pertussis, Tetanus Vaccination: Yes Physical Exam - Vital signs Vitals: Temp Pulse Resp BP Pulse Ox 98.2 F 97 20 137/87 H 97 04/12/19 19:27 04/12/19 19:27 04/12/19 19:27 04/12/19 19:27 04/12/19 19:27 Course - Vital Signs Vital signs: Temp Pulse Resp BP Pulse Ox 98.2 F 97 20 137/87 H 97 04/12/19 19:27 04/12/19 19:27 04/12/19 19:27 04/12/19 19:27 04/12/19 19:27 Doctor's Discharge - Discharge Referrals: LEOPOLDO RODRIGUEZ DO [Primary Care Provider] - Follow up as needed
--- NOTE | 2019-04-12 21:32 | RADIOLOGY REPORT (SQ) ---
EXAM DESCRIPTION: XR CHEST 2 VIEWS COMPLETED DATE/TME: 04/12/2019 20:52 CLINICAL HISTORY: 49 years, Male, Cough congestion chest pain sore throat COMPARISON: 01/21/2019. NUMBER OF VIEWS: 2 TECHNIQUE: Two-view, PA and lateral projections of the chest were obtained. LIMITATIONS: None. FINDINGS: Stable cardiac and mediastinal silhouette. Heart size is normal. Tortuous atherosclerotic thoracic aorta. Lungs are clear without focal opacity, pneumothorax or pleural effusions. The visualized bones are within normal limits. IMPRESSION: No acute cardiopulmonary abnormalities. copyright 2010 [email or web address]- All Rights Reserved
--- NOTE | 2019-04-12 23:31 | EKG REPORT ---
SEVERITY:- ABNORMAL ECG - SINUS RHYTHM FIRST DEGREE AV BLOCK RBBB AND LAFB PROBABLE LEFT VENTRICULAR HYPERTROPHY : Confirmed by: Zofia Melendez MD 12-Apr-2019 23:30:02
[2019-04-13 01:03] LABS: ABSOLUTE BASOPHILS # (AUTO) 0.1 10^3/uL (0.0-0.2); ABSOLUTE EOSINOPHILS # (AUTO) 0.4 10^3/uL (0.0-0.6); ABSOLUTE LYMPHOCYTES (AUTO) 2.4 10^3/uL (0.5-4.7); ABSOLUTE MONOCYTES (AUTO) 1.6 10^3/uL (0.1-1.4); ABSOLUTE NEUT (AUTO) 5.9 10^3/uL (1.7-8.2); BASOPHILS % (AUTO) 1.1 % (0-2); EOSINOPHILS % (AUTO) 3.5 % (0-6); HEMATOCRIT 48.8 % (37.9-51.0); HEMOGLOBIN 16.7 g/dL (13.5-17.0); MEAN CORPUSCULAR HEMOGLOBIN 28.6 pg (27.0-33.4); MEAN CORPUSCULAR HGB CONC 34.3 g/dL (32.0-36.0); MEAN CORPUSCULAR VOLUME 84 fl (80-97); MONOCYTES % (AUTO) 15.4 % (3-13); PLATELET COUNT 267 10^3/uL (150-450); RED BLOOD COUNT 5.84 10^6/uL (4.35-5.55); RED CELL DISTRIBUTION WIDTH 14.3 % (11.5-14.0); TOTAL CELLS COUNTED % (AUTO) 100 %; WHITE BLOOD COUNT 10.4 10^3/uL (4.0-10.5)
[2019-04-13 01:05] LABS: APPEARANCE,URINE SLIGHTLY-CLOUDY; BILIRUBIN,URINE NEGATIVE (NEGATIVE); COLOR,URINE YELLOW; GLUCOSE, URINE >=500 mg/dL (NEGATIVE); KETONES,URINE NEGATIVE (NEGATIVE); LEUKOCYTE ESTERASE,URINE NEGATIVE (NEGATIVE); NITRITE,URINE NEGATIVE (NEGATIVE); PROTEIN,URINE NEGATIVE (NEGATIVE); UROBILINOGEN,URINE NEGATIVE mg/dL (<2.0)
[2019-04-13 01:26] LABS: URINE AMPHETAMINES SCREEN NEGATIVE; URINE BARBITURATES SCREEN NEGATIVE; URINE BENZODIAZEPINES SCREEN NEGATIVE; URINE COCAINE SCREEN NEGATIVE; URINE MARIJUANA (THC) SCREEN NEGATIVE; URINE METHADONE SCREEN NEGATIVE; URINE PHENCYCLIDINE SCREEN NEGATIVE
[2019-04-13 01:32] LABS: ALANINE AMINOTRANSFERASE 25 U/L (21-72); ALBUMIN 4.5 g/dL (3.5-5.0); ALKALINE PHOSPHATASE 146 U/L (38-126); ANION GAP 12 (5-19); ASPARTATE AMINO TRANSFERASE 25 U/L (17-59); BILIRUBIN,DIRECT 0.4 mg/dL (0.0-0.4); BILIRUBIN,TOTAL 1.2 mg/dL (0.2-1.3); BLOOD UREA NITROGEN 12 mg/dL (7-20); CALCIUM 10.5 mg/dL (8.4-10.2); CARBON DIOXIDE 23 mmol/L (22-30); CHLORIDE 102 mmol/L (98-107); GLUCOSE 143 mg/dL (75-110); LIPASE 579.5 U/L (23-300); POTASSIUM 4.1 mmol/L (3.6-5.0); SODIUM 137.2 mmol/L (137-145); TOTAL PROTEIN 8.6 g/dL (6.3-8.2)
[2019-04-13 01:43] LABS: CREATINE KINASE MB 0.41 ng/mL (<4.55)
[2019-04-13 01:44] LABS: TROPONIN I < 0.012 ng/mL
--- NOTE | 2019-04-13 03:09 | ER Document Report ---
ED General - General Chief Complaint: Chest Pain Stated Complaint: CHEST PAIN Time Seen by Provider: 04/12/19 20:51 Primary Care Provider: DAY GROSS MD [ACTIVE STAFF] - Follow up in 1 week LEOPOLDO RODRIGUEZ DO [Primary Care Provider] - Follow up in 3-5 days Mode of Arrival: Ambulatory Notes: Patient is a 49-year-old male who presents emergency department with a chief complaint of right-sided chest pain, burning in the back of his mouth and having a hard time breathing. He also states that he has a cough. States general malaise, feverish, and not being able to breathe very well. He is a heavy smoker and has been for the past 20+ years. Patient does have a past medical history of hypertension, CAD, diabetes, asthma, bronchitis, appendectomy, cholecystectomy, oral surgery, knee surgery. TRAVEL OUTSIDE OF THE [place] IN LAST 30 DAYS: No - Related Data Allergies/Adverse Reactions: atenolol Adverse Reaction (Verified 04/01/19 17:54) LOWER B/P eggs Adverse Reaction (Uncoded 04/01/19 17:54) DIARRHEA, SULFA BURPS IF EAT TWO DAYS IN A ROW Past Medical History - General Information source: Patient - Social History Smoking Status: Current Every Day Smoker Chew tobacco use (# tins/day): Yes Drug Abuse: None Family History: Reviewed & Not Pertinent Patient has suicidal ideation: No Patient has homicidal ideation: No - Past Medical History Cardiac Medical History: Reports: Hx Coronary Artery Disease, Hx Hypercholesterolemia, Hx Hypertension Denies: Hx Heart Attack Pulmonary Medical History: Reports: Hx Asthma, Hx Bronchitis, Hx COPD Denies: Hx Pneumonia Neurological Medical History: Denies: Hx Cerebrovascular Accident, Hx Seizures Endocrine Medical History: Reports: Hx Diabetes Mellitus Type 2 Renal/ Medical History: Denies: Hx Peritoneal Dialysis GI Medical History: Reports: Hx Gastroesophageal Reflux Disease Musculoskeletal Medical History: Denies Hx Arthritis Psychiatric Medical History: Reports: Hx Depression Past Surgical History: Reports: Hx Abdominal Surgery - hernia, Hx Appendectomy, Hx Cholecystectomy, Hx Oral Surgery - R Knee 1992 - Immunizations Hx Diphtheria, Pertussis, Tetanus Vaccination: Yes Review of Systems - Review of Systems Notes: REVIEW OF SYSTEMS: CONSTITUTIONAL : See HPI EENT: Denies eye, ear, throat, or mouth pain, discharge, or symptoms. Denies nasal or sinus congestion. CARDIOVASCULAR: See HPI RESPIRATORY: See HPI GASTROINTESTINAL: Denies nausea, vomiting, and diarrhea. Denies abdominal pain. Denies constipation. GENITOURINARY: Denies difficulty urinating, burning, blood in urine, urgency or frequency. MUSCULOSKELETAL: See HPI SKIN: Denies rash, itchiness, or lesions HEMATOLOGIC : Denies easy bruising or bleeding. LYMPHATIC: Denies swollen, painful, enlarged glands. NEUROLOGICAL: Denies no numbness or tingling denies weakness. Denies headache. Denies altered mental status. Denies alteration in speech. PSYCHIATRIC: Denies stress, anxiety, alteration in sleep patterns, or depression. All other systems reviewed and negative. Physical Exam - Vital signs Vitals: Temp Pulse Resp BP Pulse Ox 98.2 F 97 20 137/87 H 97 04/12/19 19:27 04/12/19 19:27 04/12/19 19:27 04/12/19 19:27 04/12/19 19:27 - Notes Notes: PHYSICAL EXAMINATION: GENERAL: Appears well, healthy, well-nourished, no acute distress. HEAD: Normocephalic, atraumatic. EYES: PERRL, conjunctiva normal, all extraocular movements intact, sclera nonicteric ENT: Moist mucous membranes. NECK: Supple, no noticeable swelling, redness, rash. Normal range of motion. LUNGS: Equal breath sounds bilaterally and clear to auscultation. No wheezes rales or rhonchi. CARDIOVASCULAR: S1-S2, regular rate, regular rhythm. Radial pulses 2+, normal. ABDOMEN: Normoactive bowel sounds. Soft, nontender, no guarding, no rebound tenderness, and no masses palpated. EXTREMITIES: Normal strength and range of motion, no pitting or edema. No cyanosis. NEUROLOGICAL: Moves all extremities upon command. Strength 5/5 in all extremities. PSYCH: Normal mood, normal affect. SKIN: Warm, dry. No rash, lesions, ulcerations noted. Normal skin turgor. Course - Re-evaluation Re-evalutation: 04/14/19 03:16 Although the patient has a normal chest x-ray per the radiologist, I see some possible opacities and due to his long history of cigarette use, I am concerned for possible cancer. He will be sent for a CTA of the chest. I discussed with the patient that I also wanted to rule out an acute pulmonary emboli. CBC is unremarkable. Lipase is normal. His rapid strep is negative. I have very low suspicion that he has any etiology in his neck. His airway is patent. No peritonsillar abscess noted. Chemistries are unremarkable. UA and urine drug screen, ordered in triage was normal and negative. 04/13/19 06:[address] of the chest shows nodules about 5 mm in size. I spoke with Dr. Ginger walter, the oncologist on-call. She states that if the patient would like to follow-up outpatient, he can be followed up outpatient. 04/13/19 06:16 Patient has opted to follow-up outpatient. I have instructed him to take Tylenol 1000 mg every 6 hours as needed for aches or pains. He is in agreement with this plan. Verbal discharge instructions were given to the patient. They verbalized understanding. They are stable for discharge. - Vital Signs Vital signs: Temp Pulse Resp BP Pulse Ox 98.4 F 84 16 146/74 H 97 04/13/19 06:27 04/13/19 06:27 04/13/19 06:27 04/13/19 06:27 04/12/19 19:27 - Laboratory Result Diagrams: 04/13/19 00:40 04/13/19 00:40 Laboratory results interpreted by me: 04/13/19 04/13/19 04/13/19 00:40 00:40 00:40 RBC 5.84 H RDW 14.3 H Monocytes % 15.4 H Absolute Monocytes 1.6 H Glucose 143 H Calcium 10.5 H Alkaline Phosphatase 146 H Total Protein 8.6 H Lipase 579.5 H Urine Glucose (UA) >=500 H Discharge - Discharge Clinical Impression: Right-sided chest pain Condition: Stable Disposition: HOME, SELF-CARE Additional Instructions: You are seen today in the emergency department for right-sided chest pain. There were some nodules found in your chest. Please follow-up with your primary care provider and oncology in regards to this visit. If you develop shortness of breath, difficulty breathing, or have any symptoms that are worrisome to you, please return to the emergency department. Forms: Return to Work Referrals: LEOPOLDO RODRIGUEZ DO [Primary Care Provider] - Follow up in 3-5 days DAY GROSS MD [ACTIVE STAFF] - Follow up in 1 week
--- NOTE | 2019-04-13 05:36 | RADIOLOGY REPORT (SQ) ---
EXAM DESCRIPTION: CT CHEST ANGIOGRAPHY WITHOUT THEN WITH IV CONTRAST COMPLETED DATE/TME: 04/13/2019 03:09 CLINICAL HISTORY: 49 years, Male, chest pain COMPARISON: None. TECHNIQUE: Axial CT images of the chest were obtained after the administration of IV contrast. MPR and MIP constructions were performed. DLP 1112 Images stored on PACS. All CT scanners at this facility use dose modulation, iterative reconstruction, and/or weight based dosing when appropriate to reduce radiation dose to as low as reasonably achievable (ALARA). [facility]: Dose Right [facility]: CareDose [facility]: Dose Right [facility]: Teradose 4D [facility]: Smart Gingr LIMITATIONS: None. FINDINGS: There is suboptimal opacification of the pulmonary arteries. No large central pulmonary embolism is detected. The gyrus portions of the thyroid gland are normal. The central airways are patent. The heart is normal in size. There are atherosclerotic calcifications of the coronary arteries. There is no pericardial effusion. The thoracic aorta is normal in caliber. No evidence of an aneurysm or dissection. Mediastinal lymph nodes measure up to 1.3 cm in short axis. There are pulmonary nodules measuring up to 5 mm in size. There is no focal consolidation, pneumothorax, or pleural effusion. There are prominent lymph nodes seen along the upper abdomen. There are ill-defined hypodensities near the right hepatic dome. There are no lytic or blastic bone lesions. IMPRESSION: No CT evidence of acute pulmonary embolism. Pulmonary nodules measuring up to 5 mm in size. Recommend repeat CT in 6-12 months. Mediastinal lymphadenopathy and prominent lymph nodes along the upper abdomen. Ill-defined hypodensities within the hepatic dome. Further evaluation with a CT abdomen and pelvis may be useful in further evaluation to assess for possible malignancy. TECHNICAL DOCUMENTATION: Quality ID # [id number]: Final reports with documentation of one or more dose reduction techniques (e.g., Automated exposure control, adjustment of the mA and/or kV according to patient size, use of iterative reconstruction technique) copyright 2011 [employer]- All Rights Reserved
[2019-04-13 06:28] VITALS: BP 146/74
== END 2019-04-13 06:26 | disposition home or self-care (01) ==
LOC: ER 18:14
DX: R07.9 Chest pain, unspecified (principal); F17.210 Nicotine dependence, cigarettes, uncomplicated; R19.8 Other specified symptoms and signs involving the digestive system and abdomen; J44.9 Chronic obstructive pulmonary disease, unspecified; R91.8 Other nonspecific abnormal finding of lung field; R05 Cough; R53.81 Other malaise; I10 Essential (primary) hypertension; I25.10 Atherosclerotic heart disease of native coronary artery without angina pectoris; E11.9 Type 2 diabetes mellitus without complications
CPT/HCPCS: 36415; 71046; 71275; 80053; 80307; 81001; 82553; 83690; 84484; 85025; 87070; 87880; 93005; 93010; 99285

== ENCOUNTER → 2019-04-16 | Outpatient (CLI) | payer MEDICARE, MEDICAID ==
--- NOTE | 2019-04-16 14:10 | RADIOLOGY REPORT (SQ) ---
EXAM DESCRIPTION: CHEST PA/LATERAL COMPLETED DATE/TIME: 04/16/2019 1:41 pm REASON FOR STUDY: COUGH COMPARISON: 04/12/2019 EXAM PARAMETERS: NUMBER OF VIEWS: two views TECHNIQUE: Digital Frontal and Lateral radiographic views of the chest acquired. RADIATION DOSE: NA LIMITATIONS: none FINDINGS: LUNGS AND PLEURA: No opacities, masses or pneumothorax. No pleural effusion. MEDIASTINUM AND HILAR STRUCTURES: No masses or contour abnormalities. HEART AND VASCULAR STRUCTURES: Heart normal size. No evidence for failure. BONES: No acute findings. HARDWARE: None in the chest. OTHER: No other significant finding. IMPRESSION: NO SIGNIFICANT RADIOGRAPHIC FINDING IN THE CHEST. TECHNICAL DOCUMENTATION: JOB ID: [id number] [employer]- All Rights Reserved Reading location - IP/workstation name: [email or web address]
== END ==
LOC: OD 13:28
PROVIDERS: ATTEND Family Medicine
DX: R05 Cough (principal)
CPT/HCPCS: 71046

== ENCOUNTER → 2019-09-27 | Outpatient (CLI) | payer MEDICARE, MEDICAID ==
--- NOTE | 2019-09-27 12:47 | RADIOLOGY REPORT (SQ) ---
EXAM DESCRIPTION: FOOT RIGHT COMPLETE COMPLETED DATE/TIME: 09/27/2019 11:43 am REASON FOR STUDY: OSTEOMYELITIS M86.371 CHRONIC MULTIFOCAL OSTEOMYELITIS, RIGHT ANKLE AND FO COMPARISON: None. NUMBER OF VIEWS: Three views. TECHNIQUE: AP, lateral and oblique weight-bearing radiographic images acquired of the right foot. LIMITATIONS: None. FINDINGS: MINERALIZATION: Normal. BONES: No acute fracture or dislocation. No worrisome bone lesions. JOINTS: No effusions. SOFT TISSUES: No soft tissue swelling. No foreign body. OTHER: No other significant finding. IMPRESSION: NEGATIVE STUDY OF THE RIGHT FOOT. NO RADIOGRAPHIC EVIDENCE OF ACUTE INJURY. TECHNICAL DOCUMENTATION: JOB ID: [id number] [employer]- All Rights Reserved Reading location - IP/workstation name: [email or web address]
== END ==
LOC: OD 11:07
PROVIDERS: ATTEND Podiatrist Foot & Ankle Surgery
DX: M86.371 Chronic multifocal osteomyelitis, right ankle and foot (principal)

== ENCOUNTER 2019-10-31 12:54 | Emergency (ER) | payer MEDICARE, MEDICAID ==
[2019-10-31] MEDS ORDERED: KETOROLAC TROMETHAMINE 60 MG/2 ML SDV IM ONE (13:41)
[2019-10-31] MEDS ORDERED: DEXAMETHASONE SOD PHOS INJ 10 MG/1 ML VIAL IM ONE (13:41)
--- NOTE | 2019-10-31 13:46 | ER Document Report ---
ED Medical Screen (RME) - General Chief Complaint: Low Back Pain Stated Complaint: BACK PAIN Time Seen by Provider: 10/31/19 13:37 Primary Care Provider: SLAVA STEARNS DPM [Primary Care Provider] - Follow up as needed Notes: Patient is a 49-year-old male who presents to the emergency department with a chief complaint of left low back pain. His symptoms started 2 days ago. Patient has a history of kidney stones. He states that it is a sharp pain and he feels like his back is going to break in half. Exam: Tenderness to palpation of lower back. Urinalysis will be sent. He will be given Toradol and Decadron. I have greeted and performed a rapid initial assessment of this patient. A comprehensive ED assessment and evaluation of the patient, analysis of test results and completion of medical decision making process will be conducted by an additional ED providers. TRAVEL OUTSIDE OF THE [place] IN LAST 30 DAYS: No - Related Data Allergies/Adverse Reactions: atenolol Adverse Reaction (Verified 04/01/19 17:54) LOWER B/P eggs Adverse Reaction (Uncoded 04/01/19 17:54) DIARRHEA, SULFA BURPS IF EAT TWO DAYS IN A ROW Home Medications: Losartan. Gabapentin. Fluoxetine. Chlorthalidone. Toujeo. Atorvastatin. Prednisone Past Medical History - Social History Frequency of alcohol use: None Drug Abuse: None - Past Medical History Cardiac Medical History: Reports: Hx Coronary Artery Disease, Hx Hypercholesterolemia, Hx Hypertension Denies: Hx Heart Attack Pulmonary Medical History: Reports: Hx Asthma, Hx Bronchitis, Hx COPD Denies: Hx Pneumonia Neurological Medical History: Denies: Hx Cerebrovascular Accident, Hx Seizures Endocrine Medical History: Reports: Hx Diabetes Mellitus Type 2 Renal/ Medical History: Denies: Hx Peritoneal Dialysis GI Medical History: Reports: Hx Gastroesophageal Reflux Disease Musculoskeltal Medical History: Denies Hx Arthritis Psychiatric Medical History: Reports: Hx Depression Past Surgical History: Reports: Hx Abdominal Surgery - hernia, Hx Appendectomy, Hx Cholecystectomy, Hx Oral Surgery - R Knee 1992 - Immunizations Hx Diphtheria, Pertussis, Tetanus Vaccination: Yes Physical Exam - Vital signs Vitals: Temp Pulse Resp BP Pulse Ox 98.8 F 83 16 127/67 H 99 10/31/19 12:57 10/31/19 12:57 10/31/19 12:57 10/31/19 12:57 10/31/19 12:57 Course - Vital Signs Vital signs: Temp Pulse Resp BP Pulse Ox 98.8 F 83 16 127/67 H 99 10/31/19 12:57 10/31/19 12:57 10/31/19 12:57 10/31/19 12:57 10/31/19 12:57 Doctor's Discharge - Discharge Referrals: SLAVA STEARNS DPM [Primary Care Provider] - Follow up as needed
[2019-10-31 14:14] VITALS: BP 120/65
[2019-10-31 14:19] LABS: APPEARANCE,URINE CLEAR; BILIRUBIN,URINE NEGATIVE (NEGATIVE); COLOR,URINE STRAW; GLUCOSE, URINE >=500 mg/dL (NEGATIVE); KETONES,URINE NEGATIVE (NEGATIVE); LEUKOCYTE ESTERASE,URINE NEGATIVE (NEGATIVE); NITRITE,URINE NEGATIVE (NEGATIVE); PROTEIN,URINE NEGATIVE (NEGATIVE); URINE SPECIFIC GRAVITY 1.027; UROBILINOGEN,URINE NEGATIVE mg/dL (<2.0)
--- NOTE | 2019-10-31 14:38 | ER Document Report ---
HPI - HPI Time Seen by Provider: 10/31/19 13:37 Pain Level: 4 Context: Patient is a 49-year-old male who presents to the emergency department with a chief complaint of left low back pain. His symptoms started 2 days ago. Patient has a history of kidney stones. He states that it is a sharp pain and he feels like his back is going to break in half. - ROS Systems Reviewed and Negative: Yes All other systems reviewed and negative - CONSTITUTIONAL Constitutional: DENIES: Fever - URINARY Urinary: DENIES: Dysuria, Urgency, Frequency - MUSCULOSKELETAL Musculoskeletal: REPORTS: Back Pain. DENIES: Extremity pain, Swelling - DERM Skin Color: Normal Skin Problems: None Past Medical History - Social History Smoking Status: Current Every Day Smoker Frequency of alcohol use: None Drug Abuse: None Family History: Reviewed & Not Pertinent Patient has suicidal ideation: No Patient has homicidal ideation: No - Past Medical History Cardiac Medical History: Reports: Hx Coronary Artery Disease, Hx Hypercholesterolemia, Hx Hypertension Denies: Hx Heart Attack Pulmonary Medical History: Reports: Hx Asthma, Hx Bronchitis, Hx COPD Denies: Hx Pneumonia Neurological Medical History: Denies: Hx Cerebrovascular Accident, Hx Seizures Endocrine Medical History: Reports: Hx Diabetes Mellitus Type 2 Renal/ Medical History: Denies: Hx Peritoneal Dialysis GI Medical History: Reports: Hx Gastroesophageal Reflux Disease Musculoskeletal Medical History: Denies Hx Arthritis Psychiatric Medical History: Reports: Hx Depression Past Surgical History: Reports: Hx Abdominal Surgery - hernia, Hx Appendectomy, Hx Cholecystectomy, Hx Oral Surgery - R Knee 1991 - Immunizations Hx Diphtheria, Pertussis, Tetanus Vaccination: Yes Vertical Provider Document - CONSTITUTIONAL Agree With Documented VS: Yes Exam Limitations: No Limitations General Appearance: No Apparent Distress - INFECTION CONTROL TRAVEL OUTSIDE OF THE [place] IN LAST 30 DAYS: No - HEENT HEENT: Atraumatic, Normocephalic, PERRLA - NECK Neck: Normal Inspection - RESPIRATORY Respiratory: No Respiratory Distress - CARDIOVASCULAR Cardiovascular: Regular Rate, Regular Rhythm Pulses: Normal: Radial - MUSCULOSKELETAL/EXTREMETIES Musculoskeletal/Extremeties: FROM, Tender - left lower back - NEURO Level of Consciousness: Awake, Alert, Appropriate Motor/Sensory: No Motor Deficit, No Sensory Deficit - DERM Integumentary: Warm, Dry Course - Re-evaluation Re-evalutation: 10/31/19 14:35 Patient's urinalysis is unremarkable. No blood noted in his urine. Patient was given Toradol and Decadron here in the emergency department. He will follow-up with his primary care provider regards to this visit. Differential diagnosis for back pain includes muscle spasm, muscle strain, slipped disc cauda equina syndrome, vertebral fracture, vertebral tumor, epidural abscess, pyelonephritis, or AAA. Based on history and exam, the most likely etiology of the patient's back pain is chronic. Emergent MRI is not indicated at this time because the patient does not have new weakness, or cauda equina syndrome. Patient does not have bladder or bowel dysfunction. Patient does not have history of IV drug use, therefore, I do not suspect an epidural abscess. Patient does not have recent weight loss or night sweats, and does not have a known history of cancer. Follow-up precautions were given. Verbal discharge instructions were given to the patient. They verbalized understanding. They are stable for discharge. - Vital Signs Vital signs: Temp Pulse Resp BP Pulse Ox 98.6 F 80 18 120/65 99 10/31/19 14:13 10/31/19 14:13 10/31/19 14:13 10/31/19 14:13 10/31/19 12:57 - Laboratory Laboratory results interpreted by me: 10/31/19 13:50 Urine Glucose (UA) >=500 H Discharge - Discharge Clinical Impression: Back pain Qualifiers: Back pain location: low back pain Chronicity: chronic Back pain laterality: left Sciatica presence: without sciatica Qualified Code(s): M54.5 - Low back pain; G89.29 - Other chronic pain Condition: Stable Disposition: HOME, SELF-CARE Additional Instructions: You were seen today in the emergency department for back pain. Your urine was normal and there was no blood in it. Your back pain is most consistent with muscle. You may take ibuprofen 600 mg and acetaminophen 1000 mg every 6 hours as needed for the pain. You may also buy [id number] Aspercreme with lidocaine and apply to the area per box instructions. If you develop a fever greater than 100.4 F, lose bowel or bladder function, are unable to walk, or have any symptoms that are worrisome to you, please return to the emergency department. Take the muscle relaxer as needed for pain. Prescriptions: Methocarbamol [Robaxin 500 mg Tablet] 500 mg PO QHS PRN #12 tablet PRN Reason: Referrals: SLAVA STEARNS DPM [ACTIVE STAFF] - Follow up in 3-5 days
== END 2019-10-31 14:49 | disposition home or self-care (01) ==
LOC: ER 12:54
DX: G89.29 Other chronic pain (principal); M54.5 Low back pain; F17.200 Nicotine dependence, unspecified, uncomplicated; E11.9 Type 2 diabetes mellitus without complications; Z87.442 Personal history of urinary calculi; Z90.49 Acquired absence of other specified parts of digestive tract
CPT/HCPCS: 99283; 96372; 81001; J1885; J1100

== ENCOUNTER 2019-11-07 18:52 | Emergency (ER) | payer MEDICARE, MEDICAID ==
--- NOTE | 2019-11-07 19:46 | ER Document Report ---
ED Medical Screen (RME) - General Chief Complaint: Foot Pain Stated Complaint: RIGHT FOOT ULCER Time Seen by Provider: 11/07/19 19:41 Primary Care Provider: LEOPOLDO RODRIGUEZ DO [Primary Care Provider] - Follow up as needed Mode of Arrival: Ambulatory Information source: Patient Notes: 49-year-old male patient presented emergency department with concern for worsening diabetic foot ulcer. Patient reports he has a diabetic ulcer on his right foot at the base of his fifth toe. He states that today he has been having severe pain to this area when he usually does not have pain at all. He denies any fevers. I have greeted and performed a rapid initial assessment of this patient. A comprehensive ED assessment and evaluation of the patient, analysis of test results and completion of the medical decision making process will be conducted by additional ED providers. I have specifically instructed the patient or family members with the patient to immediately return to any nursing staff should anything change in the patient's condition or with their chief complaint. TRAVEL OUTSIDE OF THE [place] IN LAST 30 DAYS: No - Related Data Allergies/Adverse Reactions: atenolol Adverse Reaction (Verified 04/01/19 17:54) LOWER B/P eggs Adverse Reaction (Uncoded 04/01/19 17:54) DIARRHEA, SULFA BURPS IF EAT TWO DAYS IN A ROW Past Medical History - Past Medical History Cardiac Medical History: Reports: Hx Coronary Artery Disease, Hx Hypercholesterolemia, Hx Hypertension Denies: Hx Heart Attack Pulmonary Medical History: Reports: Hx Asthma, Hx Bronchitis, Hx COPD Denies: Hx Pneumonia Neurological Medical History: Denies: Hx Cerebrovascular Accident, Hx Seizures Endocrine Medical History: Reports: Hx Diabetes Mellitus Type 2 Renal/ Medical History: Denies: Hx Peritoneal Dialysis GI Medical History: Reports: Hx Gastroesophageal Reflux Disease Musculoskeltal Medical History: Denies Hx Arthritis Psychiatric Medical History: Reports: Hx Depression Past Surgical History: Reports: Hx Abdominal Surgery - hernia, Hx Appendectomy, Hx Cholecystectomy, Hx Oral Surgery - R Knee 1991 - Immunizations Hx Diphtheria, Pertussis, Tetanus Vaccination: Yes Physical Exam - Vital signs Vitals: Temp Pulse Resp BP Pulse Ox 98.8 F 91 16 116/71 100 11/07/19 19:25 11/07/19 19:25 11/07/19 19:25 11/07/19 19:25 11/07/19 19:25 Course - Vital Signs Vital signs: Temp Pulse Resp BP Pulse Ox 98.8 F 91 16 116/71 100 11/07/19 19:25 11/07/19 19:25 11/07/19 19:25 11/07/19 19:25 11/07/19 19:25 Doctor's Discharge - Discharge Referrals: LEOPOLDO RODRIGUEZ DO [Primary Care Provider] - Follow up as needed
[2019-11-07 20:30] LABS: ABSOLUTE BASOPHILS # (AUTO) 0.1 10^3/uL (0.0-0.2); ABSOLUTE EOSINOPHILS # (AUTO) 0.2 10^3/uL (0.0-0.6); ABSOLUTE LYMPHOCYTES (AUTO) 2.9 10^3/uL (0.5-4.7); ABSOLUTE MONOCYTES (AUTO) 1.3 10^3/uL (0.1-1.4); ABSOLUTE NEUT (AUTO) 7.1 10^3/uL (1.7-8.2); BASOPHILS % (AUTO) 0.6 % (0-2); EOSINOPHILS % (AUTO) 2.1 % (0-6); HEMATOCRIT 46.2 % (37.9-51.0); HEMOGLOBIN 15.9 g/dL (13.5-17.0); MEAN CORPUSCULAR HEMOGLOBIN 30.1 pg (27.0-33.4); MEAN CORPUSCULAR HGB CONC 34.3 g/dL (32.0-36.0); MEAN CORPUSCULAR VOLUME 88 fl (80-97); MONOCYTES % (AUTO) 11.4 % (3-13); PLATELET COUNT 246 10^3/uL (150-450); RED BLOOD COUNT 5.28 10^6/uL (4.35-5.55); RED CELL DISTRIBUTION WIDTH 15.2 % (11.5-14.0); SEGMENTED NEUTROPHILS % (AUTO) 60.9 % (42-78); TOTAL CELLS COUNTED % (AUTO) 100 %; WHITE BLOOD COUNT 11.7 10^3/uL (4.0-10.5)
[2019-11-07 20:55] LABS: ALBUMIN 4.2 g/dL (3.5-5.0); ALKALINE PHOSPHATASE 81 U/L (38-126); ANION GAP 9 (5-19); ASPARTATE AMINO TRANSFERASE 23 U/L (17-59); BILIRUBIN,DIRECT 0.3 mg/dL (0.0-0.4); BILIRUBIN,TOTAL 0.8 mg/dL (0.2-1.3); BLOOD UREA NITROGEN 14 mg/dL (7-20); CALCIUM 9.7 mg/dL (8.4-10.2); CARBON DIOXIDE 31 mmol/L (22-30); CHLORIDE 97 mmol/L (98-107); GLUCOSE 199 mg/dL (75-110); POTASSIUM 3.1 mmol/L (3.6-5.0); TOTAL PROTEIN 7.9 g/dL (6.3-8.2)
--- NOTE | 2019-11-07 21:01 | RADIOLOGY REPORT (SQ) ---
XR FOOT 3 OR MORE VIEWS CLINICAL STATEMENT: eval for osteo vs gas at base of 5th toe COMPARISON: None FINDINGS: Bony alignment is anatomic. There is no fracture or dislocation. The soft tissues are unremarkable. No evidence for subcutaneous emphysema at the base of the fifth toe. No erosive changes to suggest osteomyelitis. IMPRESSION: No fracture. No evidence for osteomyelitis.
--- NOTE | 2019-11-07 23:45 | ER Document Report ---
ED Wound - General Chief Complaint: Puncture Wound to Foot Stated Complaint: RIGHT FOOT ULCER Time Seen by Provider: 11/07/19 19:41 Primary Care Provider: LEOPOLDO RODRIGUEZ DO [Primary Care Provider] - Follow up as needed Mode of Arrival: Ambulatory Information source: Patient Notes: Mr. Rios is a 49-year-old male with a history of diabetes mellitus and peripheral neuropathy. Patient is followed by his primary care doctor and a cloth cutting machine operator for a foot ulcer on his right foot. Patient states that podiatry is has shaved off a callus over the sole of his foot near the fifth MTP joint. Now he has a diabetic ulcer that is dry in this area and he complains of neuropathic pain in this area. Patient is on gabapentin but despite that medicine it does not control the neuropathy neuropathic pain. There is no fever or drainage at this time in this area. TRAVEL OUTSIDE OF THE [place] IN LAST 30 DAYS: No - HPI Patient complains to provider of: Other - Diabetic foot ulcer right foot Occurred: Other - This diabetic foot ulcer is a chronic condition of months. Patient sees his cloth cutting machine operator once a month he tells me. Onset/Duration: Gradual Quality of pain: Burning Severity: Moderate Pain Level: 4 Context: Other - Patient has a platform shoe that he wears designed to prevent pressure in this area when he walks. Despite the cast shoe that patient wears he still has pain even when he is not bearing weight at this site. - Related Data Allergies/Adverse Reactions: atenolol Adverse Reaction (Verified 04/01/19 17:54) LOWER B/P eggs Adverse Reaction (Uncoded 04/01/19 17:54) DIARRHEA, SULFA BURPS IF EAT TWO DAYS IN A ROW Past Medical History - General Information source: Patient - Social History Smoking Status: Current Every Day Smoker Lives with: Family Family History: Reviewed & Not Pertinent Patient has suicidal ideation: No Patient has homicidal ideation: No - Past Medical History Cardiac Medical History: Reports: Hx Coronary Artery Disease, Hx Hyperchole sterolemia, Hx Hypertension Denies: Hx Heart Attack Pulmonary Medical History: Reports: Hx Asthma, Hx Bronchitis, Hx COPD Denies: Hx Pneumonia Neurological Medical History: Denies: Hx Cerebrovascular Accident, Hx Seizures Endocrine Medical History: Reports: Hx Diabetes Mellitus Type 2 Renal/ Medical History: Denies: Hx Peritoneal Dialysis GI Medical History: Reports: Hx Gastroesophageal Reflux Disease Musculoskeletal Medical History: Denies Hx Arthritis Skin Medical History: Reports Other - Diabetic foot ulcer Psychiatric Medical History: Reports: Hx Depression Past Surgical History: Reports: Hx Abdominal Surgery - hernia, Hx Appendectomy, Hx Cholecystectomy, Hx Oral Surgery - R Knee 1991 - Immunizations Hx Diphtheria, Pertussis, Tetanus Vaccination: Yes Review of Systems - Review of Systems Skin: See HPI, Other - Diabetic foot ulcer Physical Exam - Vital signs Vitals: Temp Pulse Resp BP Pulse Ox 98.8 F 91 16 116/71 100 11/07/19 19:25 11/07/19 19:25 11/07/19 19:25 11/07/19 19:25 11/07/19 19:25 Interpretation: Normal - General General appearance: Appears well, Alert - HEENT Head: Normocephalic, Atraumatic Eyes: Normal Pupils: PERRL - Respiratory Respiratory status: No respiratory distress Chest status: Nontender Breath sounds: Normal Chest palpation: Normal - Cardiovascular Rhythm: Regular Heart sounds: Normal auscultation Murmur: No - Abdominal Inspection: Normal Distension: No distension Bowel sounds: Normal Tenderness: Nontender Organomegaly: No organomegaly - Back Back: Normal, Nontender - Extremities General upper extremity: Normal inspection, Nontender, Normal color, Normal ROM, Normal temperature General lower extremity: Normal inspection, Nontender, Normal color, Normal ROM, Normal temperature, Normal weight bearing. No: Anne-Marie's sign - Neurological Neuro grossly intact: Yes Cognition: Normal Orientation: AAOx4 Shaniqua Coma Scale Eye Opening: Spontaneous Mcdermitt Coma Scale Verbal: Oriented Mcdermitt Coma Scale Motor: Obeys Commands Shaniqua Coma Scale Total: 15 Speech: Normal Motor strength normal: LUE, RUE, LLE, RLE Sensory: Normal - Psychological Associated symptoms: Normal affect, Normal mood - Skin Skin Temperature: Warm Skin Moisture: Dry Skin Color: Normal Notes: [place] sized 3 cm round scaled diabetic foot ulcer is dry granulating tissue present. No active drainage at this time no red streaks going up the foot no redness outside the borders of the wound site. Foot is not warm. No signs of infection Course - Re-evaluation Re-evalutation: 11/07/19 23:47 Patient resting comfortably in bed complaining of neuropathic pain in his randall betic foot ulcer. No signs of infection at this time patient has a white count of 11.7. The wound site itself appears clean and dry with no active drainage or redness or accelerating redness up the foot. Patient is followed by the cloth cutting machine operator who has shaved callus formations from around this diabetic foot ulcer. Patient is instructed to follow-up with his cloth cutting machine operator and his primary care doctor regarding his neuropathic pain. There is no evidence of any foreign body or osteomyelitis on x-ray of his right foot. - Vital Signs Vital signs: Temp Pulse Resp BP Pulse Ox 97.8 F 70 20 116/74 99 11/07/19 23:00 11/07/19 23:00 11/07/19 23:00 11/07/19 23:00 11/07/19 23:00 - Laboratory Result Diagrams: 11/07/19 20:13 11/07/19 20:13 Laboratory results interpreted by me: 11/07/19 11/07/19 20:13 20:13 WBC 11.7 H RDW 15.2 H Potassium 3.1 L Chloride 97 L Carbon Dioxide 31 H Glucose 199 H - Diagnostic Test Radiology reviewed: Image reviewed, Reports reviewed Discharge - Discharge Clinical Impression: Diabetic peripheral neuropathy Diabetic foot ulcer associated with secondary diabetes mellitus Qualifiers: Diabetic foot ulcer location: toe Laterality: right Non-pressure ulcer stage: with muscle involvement without evidence of necrosis Qualified Code(s): E08.621 - Diabetes mellitus due to underlying condition with foot ulcer; L97.515 - Non- pressure chronic ulcer of other part of right foot with muscle involvement without evidence of necrosis Condition: Stable Disposition: HOME, SELF-CARE Additional Instructions: Ulcer You have an ulcer. An ulcer is an erosion of the lining of the stomach or duodenum. It's a hole "burned out" by acid. Typically, this causes a burning or gnawing upper abdominal pain. Bleeding may occur from the ulcer. Ulcers may be started by alcohol or medicines, or by infection of the stomach. Antacids may be taken for pain, and may allow the ulcer to heal when taken after meals and at bedtime. More commonly, acid- suppressing drugs or ulcer- protective drugs (like Carafate) are prescribed. Avoid aspirin, ibuprofen, caffeine, tobacco, and alcohol. Repeat tests to confirm healing of the ulcer may be necessary. Some ulcers seem to be brought on by infection. If the doctor feels this is likely, you may be treated with bismuth for several weeks. If the abdominal pain worsens, or there's evidence of bleeding (such as black, tarry stool, bloody or black vomit, or lightheadedness), you should call the doctor or return immediately. Diabetes You have an abnormally high blood sugar, suspicious for diabetes. Not all high blood sugar requires long-term treatment. High blood sugar can be due to medications, , or the stress of illness. (These cases are "borderline diabetes.") If the doctor feels your high blood sugar might get better with time, you may not require treatment now. You will be scheduled for further evaluation. It's very important that you follow through. Uncontrolled high blood sugar leads to early heart disease, strokes, nerve damage, eye damage, and kidney damage. All diabetics should follow a diet designed to control the blood sugar. Overweight diabetics should exercise regularly and lose weight. If this is not sufficient to control the blood sugar, pills or insulin shots are necessary. Younger people who develop diabetes almost always require insulin daily. Home testing of blood sugars or urine sugar is required. Diabetic teaching is available to help you figure insulin doses and monitor the blood sugar. Call the physician if there is faintness, excess sleepiness, or very rapid breathing. If hypoglycemia (LOW blood sugar) develops, symptoms are shakiness, weakness, sweating, and confusion. In this case, you should eat or drink something with sugar at once. Be sure to follow-up with your cloth cutting machine operator and primary care physician regarding peripheral neuropathy increase in the diabetic foot ulcer on the right foot. At this time I do not see any indication for antibiotics. Referrals: LEOPOLDO RODRIGUEZ, DO [Primary Care Provider] - Follow up as needed
[2019-11-08 00:07] VITALS: BP 116/70
== END 2019-11-08 00:07 | disposition home or self-care (01) ==
LOC: ER 18:52
DX: E11.42 Type 2 diabetes mellitus with diabetic polyneuropathy (principal); L97.515 Non-pressure chronic ulcer of other part of right foot with muscle involvement without evidence of necrosis; F17.200 Nicotine dependence, unspecified, uncomplicated; I25.10 Atherosclerotic heart disease of native coronary artery without angina pectoris; E78.00 Pure hypercholesterolemia, unspecified; I10 Essential (primary) hypertension; J44.9 Chronic obstructive pulmonary disease, unspecified; Z90.49 Acquired absence of other specified parts of digestive tract
CPT/HCPCS: 36415; 80053; 85025; 99283

== ENCOUNTER → 2019-12-16 | Outpatient (CLI) | payer MEDICARE, MEDICAID ==
[2019-12-16 14:40] LABS: ABSOLUTE BASOPHILS # (AUTO) 0.1 10^3/uL (0.0-0.2); ABSOLUTE EOSINOPHILS # (AUTO) 0.2 10^3/uL (0.0-0.6); ABSOLUTE LYMPHOCYTES (AUTO) 2.5 10^3/uL (0.5-4.7); ABSOLUTE NEUT (AUTO) 6.2 10^3/uL (1.7-8.2); BASOPHILS % (AUTO) 0.7 % (0-2); EOSINOPHILS % (AUTO) 2.2 % (0-6); LYMPHOCYTES % (AUTO) 24.6 % (13-45); MEAN CORPUSCULAR HEMOGLOBIN 30.1 pg (27.0-33.4); MEAN CORPUSCULAR HGB CONC 34.7 g/dL (32.0-36.0); MEAN CORPUSCULAR VOLUME 87 fl (80-97); MONOCYTES % (AUTO) 10.5 % (3-13); PLATELET COUNT 242 10^3/uL (150-450); RED CELL DISTRIBUTION WIDTH 14.7 % (11.5-14.0); TOTAL CELLS COUNTED % (AUTO) 100 %
--- NOTE | 2019-12-16 14:46 | RADIOLOGY REPORT (SQ) ---
EXAM DESCRIPTION: FOOT RIGHT COMPLETE COMPLETED DATE/TIME: 12/16/2019 2:04 pm REASON FOR STUDY: NON-PRS CHRONIC ULCER OTH PRT RIGHT FOOT W FAT LAYER EXPOSED L97.512 NON-PRS BURNER HAND LYLE ULCER OTH PRT RIGHT FOOT W FAT LAYER E11.621 TYPE 2 DIABETES MELLITUS WITH FOOT ULCER COMPARISON: None. NUMBER OF VIEWS: Three views. TECHNIQUE: AP, lateral and oblique radiographic images acquired of the right foot. LIMITATIONS: None. FINDINGS: MINERALIZATION: Normal. BONES: No acute fracture or dislocation. No worrisome bone lesions. JOINTS: No effusions. SOFT TISSUES: Ulcer near the head of the 5th metatarsal. OTHER: No other significant finding. IMPRESSION: Skin ulcer near the 5th metatarsal. No evidence of osteomyelitis. TECHNICAL DOCUMENTATION: JOB ID: [id number] 2010 [employer]- All Rights Reserved Reading location - IP/workstation name: [email or web address]
[2019-12-16 15:04] LABS: ALBUMIN 4.2 g/dL (3.5-5.0); ALKALINE PHOSPHATASE 81 U/L (38-126); ANION GAP 11 (5-19); ASPARTATE AMINO TRANSFERASE 24 U/L (17-59); BILIRUBIN,DIRECT 0.3 mg/dL (0.0-0.4); BILIRUBIN,TOTAL 0.9 mg/dL (0.2-1.3); BLOOD UREA NITROGEN 11 mg/dL (7-20); C-REACTIVE PROTEIN 13.4 mg/L (<10.0); CALCIUM 9.8 mg/dL (8.4-10.2); CARBON DIOXIDE 32 mmol/L (22-30); CHLORIDE 95 mmol/L (98-107); GLUCOSE 236 mg/dL (75-110); POTASSIUM 3.3 mmol/L (3.6-5.0); TOTAL PROTEIN 8.1 g/dL (6.3-8.2)
[2019-12-16 15:27] LABS: ERYTHROCYTE SEDIMENTATION RATE 41 mm/hr (0-20)
== END ==
LOC: WC 13:40
PROVIDERS: ATTEND Preventive Medicine Undersea and Hyperbaric Medicine
DX: E11.621 Type 2 diabetes mellitus with foot ulcer (principal); L97.512 Non-pressure chronic ulcer of other part of right foot with fat layer exposed
CPT/HCPCS: 36415; 80053; 83036; 85025; 85652; 86140

== ENCOUNTER → 2019-12-22 | Outpatient (CLI) | payer MEDICAID, MEDICARE ==
--- NOTE | 2019-12-22 17:43 | XCELERA REPORT ---
[address] [address] Lower Extremity Arterial Evaluation Name: ED PEDRAZA Age: 49 yrs Gender: Male : 1970 Patient Status: Outpatient Patient Location: Study Date: 12/22/2019 01:20 PM Procedure: A color flow and duplex scan of the lower extremity arteries was performed bilaterally with velocity and waveform anaylsis. Ankle brachial indicies performed. Reason For Study: RIGHT FOOT ULCER Ordering Physician: ANNA KIM Performed By: Lindsey Gutierrez Measurements and Calculations Right Left PAPER PRODUCTION ENGINEER PSV 93.0 89.9 cm/sec Prox PFA PSV 42.1 58.0 cm/sec Prox SFA PSV -85.5 70.2 cm/sec Mid SFA PSV -76.1 -70.2 cm/sec Dist SFA PSV -58.0 -59.4 cm/sec Prox Pop A PSV 62.9 72.7 cm/sec Dist NANDO PSV 64.2 94.3 cm/sec Dist PRODUCTION SOLDERER PSV 80.8 86.6 cm/sec Sukhjinder Pedis PSV -120.1 -84.0 cm/sec Right Side Arterial Evaluation Normal velocity and triphasic waveforms noted from the Common Femoral artery to the infrageniculate vessels . Ankle Brachial index Greater than 1. Calculation skewed due to lower arm pressure.. Left Side Arterial Evaluation Normal velocity and triphasic waveforms noted from the Common Femoral artery to the infrageniculate vessels . Ankle Brachial index Greater than 1. Calculation skewed due to lower arm pressure.. Interpretation Summary No hemodynamically significant lesions in the bilateral lower extremities, on duplex imaging, at rest. QUINTON's are within normal range, bilaterally. Suggesting an absence of significant arterial obstructive disease. : ANNA KIM > Helio Pineda
== END ==
LOC: SP 12:20
PROVIDERS: ATTEND Preventive Medicine Undersea and Hyperbaric Medicine
DX: E11.621 Type 2 diabetes mellitus with foot ulcer (principal); L97.512 Non-pressure chronic ulcer of other part of right foot with fat layer exposed
CPT/HCPCS: 93922; 93925

== ENCOUNTER 2019-12-26 11:16 | Emergency (ER) | payer MEDICARE, MEDICAID ==
[2019-12-26 11:21] VITALS: BP 139/78
[2019-12-26] MEDS ORDERED: TETRACAINE HCL 0.5% OPH SOLN 0.6 ML DROPERETTE OU ONE (11:34)
--- NOTE | 2019-12-26 11:36 | ER Document Report ---
HPI - HPI Time Seen by Provider: 12/26/19 11:28 Pain Level: 3 Context: Patient is a 49-year-old male who presents emergency department with a chief complaint of right eye pain. Patient reports yesterday developing some redness and right upper eyelid pain and swelling. Patient denies injury. Patient reports he feels like his right eye is having more of a clear drainage. Denies visual changes. Patient reports he does not wear contact lenses. Patient reports he only wears reading glasses as needed. Patient reports he feels like most of his discomfort is on the outside of his eye. - CONSTITUTIONAL Constitutional: DENIES: Fever, Chills - REPRODUCTIVE Reproductive: DENIES: : Past Medical History - General Information source: Patient - Social History Smoking Status: Never Smoker Frequency of alcohol use: None Drug Abuse: None Lives with: Family Family History: Reviewed & Not Pertinent Patient has suicidal ideation: No Patient has homicidal ideation: No - Past Medical History Cardiac Medical History: Reports: Hx Coronary Artery Disease, Hx Hypercholesterolemia, Hx Hypertension Denies: Hx Heart Attack Pulmonary Medical History: Reports: Hx Asthma, Hx Bronchitis, Hx COPD Denies: Hx Pneumonia EENT Medical History: Reports: None Neurological Medical History: Reports: None. Denies: Hx Cerebrovascular Accident, Hx Seizures Endocrine Medical History: Reports: Hx Diabetes Mellitus Type 2 Renal/ Medical History: Reports: None. Denies: Hx Peritoneal Dialysis Malignancy Medical History: Reports None GI Medical History: Reports: Hx Gastroesophageal Reflux Disease Musculoskeletal Medical History: Reports None, Denies Hx Arthritis Skin Medical History: Reports None Psychiatric Medical History: Reports: Hx Depression Traumatic Medical History: Reports: None Infectious Medical History: Reports: None Past Surgical History: Reports: Hx Abdominal Surgery - hernia, Hx Appendectomy, Hx Cholecystectomy, Hx Oral Surgery - R Knee 1991 - Immunizations Hx Diphtheria, Pertussis, Tetanus Vaccination: Yes Vertical Provider Document - CONSTITUTIONAL Agree With Documented VS: Yes Exam Limitations: No Limitations General Appearance: No Apparent Distress - INFECTION CONTROL TRAVEL OUTSIDE OF THE [place] IN LAST 30 DAYS: No - HEENT HEENT: Atraumatic, Normal ENT Exam, Normocephalic, PERRLA - NECK Neck: Normal Inspection - RESPIRATORY Respiratory: Breath Sounds Normal, No Respiratory Distress - CARDIOVASCULAR Cardiovascular: Regular Rate, Regular Rhythm - GI/ABDOMEN Gastrointestinal: Abdomen Soft, Abdomen Non-Tender, Normal Bowel Sounds - MUSCULOSKELETAL/EXTREMETIES Musculoskeletal/Extremeties: FROM, No Edema - NEURO Level of Consciousness: Awake, Alert, Appropriate - DERM Integumentary: Warm, Dry, No Rash Course - Re-evaluation Re-evalutation: 12/26/19 14:18 Patient does have a scheduled follow-up appointment with his primary care physician in 2 days. I also informed him and to return if symptoms worsen or change, and to follow-up with an eye doctor. Patient verbalized understanding. - Vital Signs Vital signs: Temp Pulse Resp BP Pulse Ox 98.2 F 82 18 139/78 H 98 12/26/19 11:18 12/26/19 11:18 12/26/19 11:18 12/26/19 11:18 12/26/19 11:18 Procedures - Eye Procedure Bilateral Time completed: 12:00 Fluorescein applied: Right Slit lamp used: No Notes: 12/26/19 12:01 Eye pressures; Right eye 15/95%, 14/95% Left eye 16/95%, 15/95% Visual acuity as documented. 2 drops of tetracaine were applied to the left and right eye prior to obtaining eye pressures and using the fluorescein stain to right eye. To the right eye there was no fluorescein uptake, negative for corneal abrasion, negative hyphema, no evidence of ciliary flush. No drainage noted from the eyes bilaterally. Pupils equal round and reactive to light, extraocular movements intact, sclera anicteric, conjunctiva are normal. Eyes picture: 1 - Upper eyelid with very mild erythema and edema. Discharge - Discharge Clinical Impression: Swelling of right upper eyelid, Preseptal cellulitis of right eye, Preseptal cellulitis of right upper eyelid Condition: Stable Disposition: HOME, SELF-CARE Additional Instructions: *Today was seen the emergency department for right eye pain. It does appear that you are potentially developing a cellulitis was an infection of the skin and soft tissues to the right upper eyelid. I am placing you on oral antibiotics. Use warm compresses to the area. After initiating antibiotics you should start to see improvement within the next 24 to 36 hours. Please make sure that you follow-up with Dr. Rodriguez on December 27 which is in 2 days for a follow-up. If the swelling and redness gets worse please seek medical attention as cellulitis of the eyelid spread into the eye itself, your blood, and even brain. Cellulitis You have an infection of your skin and underlying soft tissues called cellulitis. This is due to bacteria, which can enter through any break in the skin, or even through an irritated hair follicle. Untreated, cellulitis will usually worsen. Antibiotics are required. Usually, warm packs or warm soaks, and elevation of the infected area are recommended. You should start getting better within 24 to 36 hours. Most infections respond quickly to the right medication. Follow-up care is important, however, to check for abscess (boil) formation, unsuspected foreign body, or resistant infection. If you develop fever, chills, or if the area of infection is becoming rapidly more swollen or painful, call the doctor at once. Prescriptions: Amoxicillin/Potassium Clav [Augmentin 875-125 Tablet] 1 tab PO BID #14 tab Sulfamethoxazole/Trimethoprim [Bactrim Ds Tablet] 1 each PO BID 7 Days #14 tablet Referrals: ANNA KIM DPM [ACTIVE STAFF] - Follow up as needed LEOPOLDO RODRIGUEZ DO [Primary Care Provider] - Follow up as needed
[2019-12-26] MEDS ORDERED: TETRACAINE HCL 0.5% OPH SOLN 4 ML OD ONE (11:50)
== END 2019-12-26 12:12 | disposition home or self-care (01) ==
LOC: ER 11:16
DX: L03.213 Periorbital cellulitis (principal); H57.11 Ocular pain, right eye; H57.89 Other specified disorders of eye and adnexa; I25.10 Atherosclerotic heart disease of native coronary artery without angina pectoris; I10 Essential (primary) hypertension; J44.9 Chronic obstructive pulmonary disease, unspecified; E11.9 Type 2 diabetes mellitus without complications
CPT/HCPCS: 99283; J3490

== ENCOUNTER 2020-01-09 14:21 | Emergency (ER) | payer MEDICARE, MEDICAID ==
--- NOTE | 2020-01-09 14:37 | ER Document Report ---
ED Medical Screen (RME) - General Chief Complaint: Leg Pain Stated Complaint: LEG PAIN Time Seen by Provider: 01/09/20 14:36 Primary Care Provider: SPEEDY SZYMANSKI MD [Primary Care Provider] - Follow up as needed Cannot obtain history due to: Other - Patient presents to the ER with a cast was placed on requesting that we cut it off because of his collapse by the right heel he states there is no fracture it is a wound care cast TRAVEL OUTSIDE OF THE [place] IN LAST 30 DAYS: No - Related Data Allergies/Adverse Reactions: atenolol Adverse Reaction (Verified 01/09/20 14:34) LOWER B/P eggs Adverse Reaction (Uncoded 01/09/20 14:34) DIARRHEA, SULFA BURPS IF EAT TWO DAYS IN A ROW Past Medical History - Past Medical History Cardiac Medical History: Reports: Hx Coronary Artery Disease, Hx Hypercholesterolemia, Hx Hypertension Denies: Hx Heart Attack Pulmonary Medical History: Reports: Hx Asthma, Hx Bronchitis, Hx COPD Denies: Hx Pneumonia Neurological Medical History: Denies: Hx Cerebrovascular Accident, Hx Seizures Endocrine Medical History: Reports: Hx Diabetes Mellitus Type 2 Renal/ Medical History: Denies: Hx Peritoneal Dialysis GI Medical History: Reports: Hx Gastroesophageal Reflux Disease Musculoskeltal Medical History: Denies Hx Arthritis Psychiatric Medical History: Reports: Hx Depression Past Surgical History: Reports: Hx Abdominal Surgery - hernia, Hx Appendectomy, Hx Cholecystectomy, Hx Oral Surgery - R Knee 1992 - Immunizations Hx Diphtheria, Pertussis, Tetanus Vaccination: Yes Physical Exam - Vital signs Vitals: Temp Pulse Resp BP Pulse Ox 98.1 F 88 16 138/75 H 98 01/09/20 14:26 01/09/20 14:26 01/09/20 14:26 01/09/20 14:26 01/09/20 14:26 Interpretation: Normal - General General appearance: Appears well, Alert - HEENT Head: Normocephalic, Atraumatic Eyes: Normal Pupils: PERRL - Respiratory Respiratory status: No respiratory distress Chest status: Nontender Breath sounds: Normal Chest palpation: Normal - Cardiovascular Rhythm: Regular Heart sounds: Normal auscultation Murmur: No - Abdominal Inspection: Normal Distension: No distension Bowel sounds: Normal Tenderness: Nontender Organomegaly: No organomegaly - Back Back: Normal, Nontender - Extremities General upper extremity: Normal inspection, Nontender, Normal color, Normal ROM, Normal temperature General lower extremity: Normal inspection, Nontender, Normal color, Normal ROM, Normal temperature, Normal weight bearing. No: Anne-Marie's sign - Neurological Neuro grossly intact: Yes Cognition: Normal Orientation: AAOx4 Shaniqua Coma Scale Eye Opening: Spontaneous [place] Coma Scale Verbal: Oriented Shaniqua Coma Scale Motor: Obeys Commands [place] Coma Scale Total: 15 Speech: Normal Motor strength normal: LUE, RUE, LLE, RLE Sensory: Normal - Psychological Associated symptoms: Normal affect, Normal mood - Skin Skin Temperature: Warm Skin Moisture: Dry Skin Color: Normal Course - Vital Signs Vital signs: Temp Pulse Resp BP Pulse Ox 98.1 F 88 16 138/75 H 98 01/09/20 14:26 01/09/20 14:26 01/09/20 14:26 01/09/20 14:26 01/09/20 14:26 Doctor's Discharge - Discharge Referrals: SPEEDY SZYMANSKI MD [Primary Care Provider] - Follow up as needed
--- NOTE | 2020-01-09 15:19 | ER Document Report ---
ED General - General Chief Complaint: Leg Injury Stated Complaint: LEG PAIN Time Seen by Provider: 01/09/20 14:36 Primary Care Provider: SPEEDY SZYMANSKI MD [ACTIVE STAFF] - Follow up as needed Notes: Patient is a 49-year-old white male with a past medical history of diabetes who is currently being treated for diabetic ulcer to the distal right lateral edge of the right foot with a wound cast that was placed 3 days ago who presents to the department with a complaint of pain from the cast. He states last night he got up to go to the bathroom felt a pop and reached down and felt the cast had collapsed to the posterior lateral lower edge. He states the area of collapses because the cast to be unstable and is now causing a lot of pressure to the proximal tibial area as well as rubbing on his diabetic ulcer. He states he needs the cast cut off and he has an appointment this coming in 4 days with his wound care provider for a new cast placement. Denies any other pain, complaints or concerns at this time. TRAVEL OUTSIDE OF THE [place] IN LAST 30 DAYS: No - Related Data Allergies/Adverse Reactions: atenolol Adverse Reaction (Verified 01/09/20 14:34) LOWER B/P eggs Adverse Reaction (Uncoded 01/09/20 14:34) DIARRHEA, SULFA BURPS IF EAT TWO DAYS IN A ROW Past Medical History - Social History Smoking Status: Former Smoker Chew tobacco use (# tins/day): No Frequency of alcohol use: Occasional Drug Abuse: None Family History: Reviewed & Not Pertinent Patient has suicidal ideation: No Patient has homicidal ideation: No - Past Medical History Cardiac Medical History: Reports: Hx Coronary Artery Disease, Hx Hypercholesterolemia, Hx Hypertension Denies: Hx Heart Attack Pulmonary Medical History: Reports: Hx Asthma, Hx Bronchitis, Hx COPD Denies: Hx Pneumonia Neurological Medical History: Denies: Hx Cerebrovascular Accident, Hx Seizures Endocrine Medical History: Reports: Hx Diabetes Mellitus Type 2 Renal/ Medical History: Denies: Hx Peritoneal Dialysis GI Medical History: Reports: Hx Gastroesophageal Reflux Disease Musculoskeletal Medical History: Denies Hx Arthritis Psychiatric Medical History: Reports: Hx Depression Past Surgical History: Reports: Hx Abdominal Surgery - hernia, Hx Appendectomy, Hx Cholecystectomy, Hx Oral Surgery - R Knee 1992 - Immunizations Hx Diphtheria, Pertussis, Tetanus Vaccination: Yes Review of Systems - Review of Systems Musculoskeletal: Other - Foot pain leg pain -: Yes All other systems reviewed and negative Physical Exam - Vital signs Vitals: Temp Pulse Resp BP Pulse Ox 98.1 F 88 16 138/75 H 98 01/09/20 14:01/09/20 14:01/09/20 14:01/09/20 14:01/09/20 14:26 - General General appearance: Appears well, Alert In distress: None - Respiratory Respiratory status: No respiratory distress Chest status: Nontender Breath sounds: Normal Chest palpation: Normal - Cardiovascular Rhythm: Regular Heart sounds: Normal auscultation - Extremities General lower extremity: Other - Long-leg wound cast to the right lower extremity in place. There is an area of collapse to the right distal lateral edge of the cast. - Neurological Neuro grossly intact: Yes Cognition: Normal Orientation: AAOx4 - Psychological Associated symptoms: Normal affect, Normal mood Course - Re-evaluation Re-evalutation: 01/09/20 16:02 Cast successfully removed by nurse, status post exam revealing small ulceration proximal to the fifth phalanx overlying the distal metatarsal area of the plantar surface, no redness drainage or foul smell. Bandage was applied. Patient will continue to care for the wound as previously instructed by his [facility] care provider and he will follow-up with them on for continued outpatient management. Counseled him at length regarding the importance of outpatient follow-up and advised to return here or any ER immediately with any new, persistent or worsening symptoms. He verbalized understood and agreed. - Vital Signs Vital signs: Temp Pulse Resp BP Pulse Ox 98.1 F 88 16 138/75 H 98 01/09/20 14:01/09/20 14:01/09/20 14:01/09/20 14:01/09/20 14:26 Discharge - Discharge Clinical Impression: Cast removal Disposition: HOME, SELF-CARE Instructions: Dressing Instructions for Open Wounds ([facility]) Additional Instructions: Please follow-up with your wound care provider on as scheduled and discussed. Return here or any ER immediately with any new, persistent or worsening symptoms. Referrals: SPEEDY SZYMANSKI MD [ACTIVE STAFF] - Follow up as needed
[2020-01-09 16:51] VITALS: BP 132/85
== END 2020-01-09 16:49 | disposition home or self-care (01) ==
LOC: ER 14:21
DX: E11.621 Type 2 diabetes mellitus with foot ulcer (principal); L97.519 Non-pressure chronic ulcer of other part of right foot with unspecified severity; I25.10 Atherosclerotic heart disease of native coronary artery without angina pectoris; E78.00 Pure hypercholesterolemia, unspecified; I10 Essential (primary) hypertension; Z90.49 Acquired absence of other specified parts of digestive tract
CPT/HCPCS: 99283

== ENCOUNTER 2020-02-13 12:19 | Emergency (ER) | payer MEDICARE, MEDICAID ==
[2020-02-13 12:24] VITALS: BP 123/70
--- NOTE | 2020-02-13 12:37 | ER Document Report ---
ED Medical Screen (RME) - General Chief Complaint: Diarrhea Stated Complaint: Diarrhea and sulfur burps Time Seen by Provider: 02/13/20 12:33 Primary Care Provider: LEOPOLDO RODRIGUEZ DO [Primary Care Provider] - Follow up as needed Notes: 49-year-old presented to ED for complaint of diarrhea and "sulfur burps ". He states if he eats eggs 1 time a week he is fine if he eats eggs 2 or more times a week he gets sulfur burps and diarrhea. He states he is not had any eggs in over 2 weeks and this morning he woke up with diarrhea and sulfur burps. He states when he burps it smells just like sulfur. He does have a history of diabetes type 2 and is on multiple medications neuropathy back trouble and COPD. He states he also tore his MCL but his sugar was so high they did not repair it and then it attached itself in the wrong place and it is remained in that condition. He states he does smoke 6 cigarettes a day does not drink alcohol or drugs and is disabled. Patient is alert oriented respirations regular non labored speaking in full sentences. He states he has not had any fever or any nausea and vomiting. I have greeted and performed a rapid initial assessment of this patient. A comprehensive ED assessment and evaluation of the patient, analysis of test results and completion of medical decision making process will be conducted by an additional ED providers. TRAVEL OUTSIDE OF THE [place] IN LAST 30 DAYS: No - Related Data Allergies/Adverse Reactions: atenolol Adverse Reaction (Verified 01/09/20 14:34) LOWER B/P eggs Adverse Reaction (Uncoded 01/09/20 14:34) DIARRHEA, SULFA BURPS IF EAT TWO DAYS IN A ROW Past Medical History - Past Medical History Cardiac Medical History: Reports: Hx Coronary Artery Disease, Hx Hypercholesterolemia, Hx Hypertension Denies: Hx Heart Attack Pulmonary Medical History: Reports: Hx Asthma, Hx Bronchitis, Hx COPD Denies: Hx Pneumonia Neurological Medical History: Denies: Hx Cerebrovascular Accident, Hx Seizures Endocrine Medical History: Reports: Hx Diabetes Mellitus Type 2 Renal/ Medical History: Denies: Hx Peritoneal Dialysis GI Medical History: Reports: Hx Gastroesophageal Reflux Disease Musculoskeltal Medical History: Denies Hx Arthritis Psychiatric Medical History: Reports: Hx Depression Past Surgical History: Reports: Hx Abdominal Surgery - hernia, Hx Appendectomy, Hx Cholecystectomy, Hx Oral Surgery - R Knee 1991 - Immunizations Hx Diphtheria, Pertussis, Tetanus Vaccination: Yes Physical Exam - Vital signs Vitals: Temp Pulse Resp BP Pulse Ox 98.1 F 82 18 123/70 98 02/13/20 12:23 02/13/20 12:23 02/13/20 12:23 02/13/20 12:23 02/13/20 12:23 Course - Vital Signs Vital signs: Temp Pulse Resp BP Pulse Ox 98.1 F 82 18 123/70 98 02/13/20 12:23 02/13/20 12:23 02/13/20 12:23 02/13/20 12:23 02/13/20 12:23 Doctor's Discharge - Discharge Referrals: LEOPOLDO RODRIGUEZ DO [Primary Care Provider] - Follow up as needed
[2020-02-13 13:05] LABS: APPEARANCE,URINE SLIGHTLY-CLOUDY; BILIRUBIN,URINE NEGATIVE (NEGATIVE); COLOR,URINE YELLOW; GLUCOSE, URINE >=500 mg/dL (NEGATIVE); KETONES,URINE NEGATIVE (NEGATIVE); PROTEIN,URINE NEGATIVE (NEGATIVE); URINE SPECIFIC GRAVITY 1.033; UROBILINOGEN,URINE NEGATIVE mg/dL (<2.0)
[2020-02-13 13:23] LABS: ABSOLUTE EOSINOPHILS # (AUTO) 0.2 10^3/uL (0.0-0.6); ABSOLUTE LYMPHOCYTES (AUTO) 2.1 10^3/uL (0.5-4.7); ABSOLUTE MONOCYTES (AUTO) 0.9 10^3/uL (0.1-1.4); ABSOLUTE NEUT (AUTO) 6.5 10^3/uL (1.7-8.2); BASOPHILS % (AUTO) 0.1 % (0-2); EOSINOPHILS % (AUTO) 1.7 % (0-6); HEMATOCRIT 44.7 % (37.9-51.0); HEMOGLOBIN 15.6 g/dL (13.5-17.0); LYMPHOCYTES % (AUTO) 22.2 % (13-45); MEAN CORPUSCULAR HEMOGLOBIN 30.3 pg (27.0-33.4); MEAN CORPUSCULAR HGB CONC 34.9 g/dL (32.0-36.0); MEAN CORPUSCULAR VOLUME 87 fl (80-97); MONOCYTES % (AUTO) 8.9 % (3-13); PLATELET COUNT 262 10^3/uL (150-450); RED BLOOD COUNT 5.15 10^6/uL (4.35-5.55); RED CELL DISTRIBUTION WIDTH 14.9 % (11.5-14.0); SEGMENTED NEUTROPHILS % (AUTO) 67.1 % (42-78); TOTAL CELLS COUNTED % (AUTO) 100 %; WHITE BLOOD COUNT 9.7 10^3/uL (4.0-10.5)
--- NOTE | 2020-02-13 13:31 | ER Document Report ---
ED GI/ - General Chief Complaint: Diarrhea Stated Complaint: Diarrhea and sulfur burps Time Seen by Provider: 02/13/20 12:33 Primary Care Provider: LEOPOLDO RODRIGUEZ DO [Primary Care Provider] - Follow up as needed Notes: CHIEF COMPLAINT: Burping and diarrhea HPI: 49-year-old male presenting to the emergency department for evaluation of burping with a sulfur smell as well as diarrhea today. No abdominal pain no fe lauren no vomiting. Patient has history of reflux is on Pepcid twice daily. Does not follow with gastroenterology. Does have history of diabetes. ROS: See HPI - all other systems were reviewed and are otherwise negative Constitutional: no fever Eyes: no drainage, no blurred vision ENT: no runny nose, no sore throat Cardiovascular: no chest pain Resp: no SOB, no cough GI: no vomiting, + diarrhea, no abdominal pain : no dysuria Integumentary: no rash Allergy: no hives Musculoskeletal: no extremity pain or swelling Neurological: no numbness/tingling, no weakness MEDICATIONS: I agree with the patient medications as charted by the RN. ALLERGIES: I agree with the allergies as charted by the RN. PAST MEDICAL HISTORY/PAST SURGICAL HISTORY: Reviewed and agree as charted by RN. SOCIAL HISTORY: Reviewed and agree as charted by RN. FAMILY HISTORY: No significant familial comorbid conditions directly related to patient complaint EXAM: Reviewed vital signs as charted by RN. CONSTITUTIONAL: Alert and oriented and responds appropriately to questions. Well-appearing; well-nourished HEAD: Normocephalic; atraumatic EYES: PERRL; Conjunctivae clear, sclerae non-icteric ENT: normal nose; no rhinorrhea; moist mucous membranes; pharynx without lesions noted, no uvula edema or deviation, no tonsillar hypertrophy, phonation normal NECK: Supple without meningismus; non-tender; no cervical lymphadenopathy, no masses CARD: RRR; no murmurs, no clicks, no rubs, no gallops; symmetric distal pulses RESP: Normal chest excursion without splinting or tachypnea; breath sounds clear and equal bilaterally; no wheezes, no rhonchi, no rales, pulse oximetry 98% on room air not hypoxic ABD/GI: Normal bowel sounds; non-distended; soft, non-tender, no rebound, no guarding; no palpable organomegaly or masses. BACK: The back appears normal and is non-tender to palpation, there is no CVA tenderness EXT: Normal ROM in all joints; non-tender to palpation; no cyanosis, no effusions, no edema SKIN: Normal color for age and race; warm; dry; good turgor; no acute lesions noted NEURO: Moves all extremities equally; Motor and sensory function intact PSYCH: The patient's mood and manner are appropriate. Grooming and personal hygiene are appropriate. MDM: 49-year-old male who is presenting with 2-3 episodes of loose stools today with some burping with a sulfur smell. Likely gastritis. He has absolutely no abdominal pain on exam no fever no vomiting. Initial screening lab work ordered in the triage process but I suspect that this is likely reflux. If lab work does not show acute actionable abnormalities will discharge home on Protonix with GI follow-up TRAVEL OUTSIDE OF THE [place] IN LAST 30 DAYS: No - Related Data Allergies/Adverse Reactions: atenolol Adverse Reaction (Verified 01/09/20 14:34) LOWER B/P eggs Adverse Reaction (Uncoded 01/09/20 14:34) DIARRHEA, SULFA BURPS IF EAT TWO DAYS IN A ROW Past Medical History - Social History Smoking Status: Current Every Day Smoker Family History: Reviewed & Not Pertinent Patient has suicidal ideation: No Patient has homicidal ideation: No - Past Medical History Cardiac Medical History: Reports: Hx Coronary Artery Disease, Hx Hypercholesterolemia, Hx Hypertension Denies: Hx Heart Attack Pulmonary Medical History: Reports: Hx Asthma, Hx Bronchitis, Hx COPD Denies: Hx Pneumonia Neurological Medical History: Denies: Hx Cerebrovascular Accident, Hx Seizures Endocrine Medical History: Reports: Hx Diabetes Mellitus Type 2 Renal/ Medical History: Denies: Hx Peritoneal Dialysis GI Medical History: Reports: Hx Gastroesophageal Reflux Disease Musculoskeletal Medical History: Denies Hx Arthritis Psychiatric Medical History: Reports: Hx Depression Past Surgical History: Reports: Hx Abdominal Surgery - hernia, Hx Appendectomy, Hx Cholecystectomy, Hx Oral Surgery - R Knee 1991 - Immunizations Hx Diphtheria, Pertussis, Tetanus Vaccination: Yes Physical Exam - Vital signs Vitals: Temp Pulse Resp BP Pulse Ox 98.1 F 82 18 123/70 98 02/13/20 12:23 02/13/20 12:23 02/13/20 12:23 02/13/20 12:23 02/13/20 12:23 Course - Re-evaluation Re-evalutation: 02/13/20 13:51 Patient's potassium was noted to be 3.1 will give potassium replacement. Patient's other lab work did not show significant abnormalities other than hyperglycemia. Patient is a known diabetic. Patient will follow-up with his PCP for further evaluation will also refer to gastroenterology and place patient on Protonix - Vital Signs Vital signs: Temp Pulse Resp BP Pulse Ox 98.1 F 82 18 123/70 98 02/13/20 12:23 02/13/20 12:23 02/13/20 12:23 02/13/20 12:23 02/13/20 12:23 - Laboratory Result Diagrams: 02/13/20 13:00 02/13/20 13:00 Laboratory results interpreted by me: 02/13/20 02/13/20 02/13/20 12:45 13:00 13:00 RDW 14.9 H Sodium 135.3 L Potassium 3.1 L Glucose 284 H Urine Glucose (UA) >=500 H Discharge - Discharge Clinical Impression: Reflux gastritis, Hypokalemia, Hyperglycemia Condition: Stable Disposition: HOME, SELF-CARE Instructions: Gastritis ([facility]) Additional Instructions: Stop the Pepcid and start the Protonix. Follow-up with your primary care provider for H. pylori testing. Follow-up with gastroenterology for further evaluation and treatment. It was noted today that your potassium was mildly low and your sugar was mildly elevated. Make sure you follow-up these results with your PCP Prescriptions: Pantoprazole Sodium [Protonix [address] Tablet] 20 mg PO QAM #30 tablet. Referrals: LEOPOLDO RODRIGUEZ DO [Primary Care Provider] - Follow up as needed ELYSE MENDES MD [ACTIVE STAFF] - Follow up as needed
[2020-02-13 13:41] LABS: ALBUMIN 4.2 g/dL (3.5-5.0); ALKALINE PHOSPHATASE 77 U/L (38-126); ANION GAP 8 (5-19); ASPARTATE AMINO TRANSFERASE 26 U/L (17-59); BILIRUBIN,TOTAL 1.1 mg/dL (0.2-1.3); BLOOD UREA NITROGEN 14 mg/dL (7-20); CALCIUM 9.6 mg/dL (8.4-10.2); CARBON DIOXIDE 29 mmol/L (22-30); CHLORIDE 98 mmol/L (98-107); GLUCOSE 284 mg/dL (75-110); POTASSIUM 3.1 mmol/L (3.6-5.0); TOTAL PROTEIN 7.6 g/dL (6.3-8.2)
[2020-02-13] MEDS ORDERED: POTASSIUM CHLORIDE 10 MEQ TABLET.ER PO ONE (13:51)
[2020-02-13] MEDS ORDERED: PANTOPRAZOLE SODIUM 20 MG TABLET.DR PO ONE (13:51)
== END 2020-02-13 14:06 | disposition home or self-care (01) ==
LOC: ER 12:19
DX: R19.7 Diarrhea, unspecified (principal); R14.2 Eructation; F17.200 Nicotine dependence, unspecified, uncomplicated
CPT/HCPCS: 99284; 36415; 82962; 85025; 80053; 81001; A9270 ×2; J3490

== ENCOUNTER 2020-02-23 18:06 | Inpatient (IN) | payer MEDICARE, MEDICAID ==
[2020-02-23] MEDS ORDERED: FENTANYL CITRATE INJ/PF 100 MCG/2 ML AMPUL IV ONE ×2 (18:45→22:30)
[2020-02-23 19:01] LABS: ABSOLUTE EOSINOPHILS # (AUTO) 0.4 10^3/uL (0.0-0.6); ABSOLUTE MONOCYTES (AUTO) 1.3 10^3/uL (0.1-1.4); ABSOLUTE NEUT (AUTO) 9.2 10^3/uL (1.7-8.2); BASOPHILS % (AUTO) 0.2 % (0-2); EOSINOPHILS % (AUTO) 3.3 % (0-6); HEMATOCRIT 48.4 % (37.9-51.0); HEMOGLOBIN 16.9 g/dL (13.5-17.0); LYMPHOCYTES % (AUTO) 15.1 % (13-45); MEAN CORPUSCULAR HEMOGLOBIN 29.9 pg (27.0-33.4); MEAN CORPUSCULAR VOLUME 85 fl (80-97); MONOCYTES % (AUTO) 10.4 % (3-13); PLATELET COUNT 266 10^3/uL (150-450); RED BLOOD COUNT 5.67 10^6/uL (4.35-5.55); RED CELL DISTRIBUTION WIDTH 14.7 % (11.5-14.0); TOTAL CELLS COUNTED % (AUTO) 100 %; WHITE BLOOD COUNT 12.9 10^3/uL (4.0-10.5)
[2020-02-23 19:03] LABS: VENOUS BLOOD BASE EXCESS -3.2 mmol/L; VENOUS BLOOD HCO3 14.4 mmol/L (20-32); VENOUS BLOOD PH 7.62 (7.30-7.42)
--- NOTE | 2020-02-23 19:07 | ER Document Report ---
ED General - General TRAVEL OUTSIDE OF THE [place] IN LAST 30 DAYS: No <LEOPOLDO CHRISTOPHER - Last Filed: 02/23/20 19:08> - HPI Onset: This morning Onset/Duration: Sudden, Persistent Quality of pain: Achy Severity: Moderate Pain Level: 3 Associated symptoms: None Exacerbated by: Food Relieved by: Denies Similar symptoms previously: No Recently seen / treated by doctor: No <ARMOND JACKSON JR - Last Filed: 02/24/20 04:58> - General Chief Complaint: Abdominal Pain Stated Complaint: ABDOMINAL PAIN Time Seen by Provider: 02/23/20 18:26 Primary Care Provider: LEOPOLDO RODRIGUEZ DO [Primary Care Provider] - Follow up as needed Notes: I discussed CT findings with patient and advised him that his liver appeared to be without lesions but there was positive adenopathy and infectious colitis. Patient reports the prior day he was doing well but he ate a pizza that is been out for least 3 days and he believes this is what caused him to be sick. I discussed these findings with Dr. Paul Galan (ARMOND JACKSON JR) - HPI Notes: Chief complaint: Abdominal pain, nausea, vomiting and diarrhea HPI: 49-year-old male with diabetes mellitus type 2 on insulin seen here about 10 days ago with complaints as above. Ongoing symptoms and he reports things are no better. He denies fever chills. He denies melena or hematochezia. He denies dysuria. Evaluation at time of prior visit showed mild hypokalemia. He was felt to have nonsurgical abdomen and was sent out with Protonix and advised to see primary care provider for follow-up and he will go back to pylori testing. He has not been back for recheck by his primary care physician. Patient reports he is not able to eat or drink anything. (LEOPOLDO CHRISTOPHER) - Related Data Allergies/Adverse Reactions: atenolol Adverse Reaction (Verified 02/23/20 18:26) LOWER B/P eggs Adverse Reaction (Uncoded 02/23/20 18:26) DIARRHEA, SULFA BURPS IF EAT TWO DAYS IN A ROW Past Medical History - General Information source: Patient - Social History Smoking Status: Current Every Day Smoker Chew tobacco use (# tins/day): No Frequency of alcohol use: None Drug Abuse: None Family History: Reviewed & Not Pertinent Patient has homicidal ideation: No - Past Medical History Cardiac Medical History: Reports: Hx Coronary Artery Disease, Hx Hypercholesterolemia, Hx Hypertension Denies: Hx Heart Attack Pulmonary Medical History: Reports: Hx Asthma, Hx Bronchitis, Hx COPD Denies: Hx Pneumonia Neurological Medical History: Reports: Other - Diabetic peripheral neuropathy. Denies: Hx Cerebrovascular Accident, Hx Seizures Endocrine Medical History: Reports: Hx Diabetes Mellitus Type 2 Renal/ Medical History: Denies: Hx Peritoneal Dialysis GI Medical History: Reports: Hx Gastroesophageal Reflux Disease Musculoskeletal Medical History: Denies Hx Arthritis Psychiatric Medical History: Reports: Hx Depression Past Surgical History: Reports: Hx Abdominal Surgery - hernia, Hx Appendectomy, Hx Cholecystectomy, Hx Oral Surgery - R Knee 1991 - Immunizations Hx Diphtheria, Pertussis, Tetanus Vaccination: Yes <LEOPOLDO CHRISTOPHER - Last Filed: 02/23/20 19:08> Review of Systems <LEOPOLDO CHRISTOPHER - Last Filed: 02/23/20 19:08> - Review of Systems Notes: Constitutional: Negative for fever. HENT: Negative for sore throat. Eyes: Negative for visual changes. Cardiovascular: Negative for chest pain. Respiratory: Negative for shortness of breath. Gastrointestinal: As per HPI. Genitourinary: Negative for dysuria. Musculoskeletal: Negative for back pain. Skin: Negative for rash. Neurological: Negative for headaches, focal weakness or numbness. 10 point ROS negative except as marked above and in HPI. (LEOPOLDO CHRISTOPHER) Physical Exam <LEOPOLDO CHRISTOPHER - Last Filed: 02/23/20 19:08> - Vital signs Vitals: Temp Pulse Resp BP Pulse Ox 97.9 F 84 20 135/76 H 100 02/23/20 18:25 02/23/20 18:25 02/23/20 18:25 02/23/20 18:25 02/23/20 18:25 - Notes Notes: GENERAL: Male patient of approximately stated age who is actively vomiting and appears uncomfortable. SKIN: Ashen color. Diminished turgor turgor no rashes. HEAD: Normocephalic atraumatic. EYES: Eyes appear mildly sunken. PERRLA. EOMI. Conjunctivae and sclerae clear. EARS: CANALS AND TMS CLEAR. NOSE: CLEAR. MOUTH: Tacky oral mucosa. Good dentition. No stridor or edema. No drooling. NECK: Supple. No masses or thyromegaly. No adenopathy. Carotids 2+ without bruits. No JVD. BACK: Symmetrical without tenderness. CHEST: Respirations unlabored. Breath sounds clear and symmetrical. HEART: Regular rhythm. No murmur gallop or rub. ABDOMEN: Moderate epigastric tenderness without masses, organomegaly or rebound. Bowel sounds active. No bruits. GENITALIA: Deferred. EXTREMITIES: No edema. No calf tenderness. Cap refill less than 1.5 seconds. Dorsalis pedis and posterior tibial pulses 3+ and symmetrical. NEUROLOGICAL: GCS 15. Alert and oriented x3. Normal gait. Fluent speech. Cranial nerves II through XII intact. Sensorimotor and cerebellar normal. Normal tone. PSYCHIATRIC: Appropriate affect. (LEOPOLDO CHRISTOPHER) Course - Laboratory Result Diagrams: 02/23/20 18:30 02/23/20 18:30 <LEOPOLDO CHRISTOPHER - Last Filed: 02/23/20 19:08> - Laboratory Result Diagrams: 02/23/20 18:30 02/23/20 18:30 <ARMOND JACKSON JR - Last Filed: 02/24/20 04:58> - Vital Signs Vital signs: Temp Pulse Resp BP Pulse Ox 98.1 F 84 16 153/93 H 96 02/24/20 03:38 02/23/20 18:25 02/24/20 03:00 02/23/20 22:00 02/24/20 03:00 - Laboratory Laboratory results interpreted by me: 02/23/20 02/23/20 02/23/20 18:30 18:30 18:51 WBC 12.9 H RBC 5.67 H RDW 14.7 H Absolute Neuts (auto) 9.2 H VBG pH VBG pCO2 VBG HCO3 Sodium 135.3 L Potassium 2.9 L* Carbon Dioxide 19 L Glucose 221 H POC Glucose 203 H Total Bilirubin 1.8 H AST 103 H ALT 78 H Alkaline Phosphatase 133 H Urine Protein Urine Glucose (UA) Urine Ketones Urine Blood 02/23/20 02/23/20 18:58 19:05 WBC RBC RDW Absolute Neuts (auto) VBG pH 7.62 H VBG pCO2 14.5 L* VBG HCO3 14.4 L Sodium Potassium Carbon Dioxide Glucose POC Glucose Total Bilirubin AST ALT Alkaline Phosphatase Urine Protein 30 H Urine Glucose (UA) >=500 H Urine Ketones 20 H Urine Blood SMALL H - EKG Interpretation by Me Additional EKG results interpreted by me: 02/23/20 19:08 Twelve-lead EKG from 1855 hrs. is reviewed contemporaneously by me demonstrating normal sinus rhythm with a rate of 85 and a QRS axis of -77 degrees with a right bundle branch block and left anterior fascicular block present essentially unchanged from a prior tracing of 04/12/2019. (LEOPOLDO CHRISTOPHER) Critical Care Note - Critical Care Note Total time excluding time spent on procedures (mins): 90 <ARMOND JACKSON JR - Last Filed: 02/24/20 04:58> - Critical Care Note Comments: Dr. Potts called and advised at 2247 ; he advised home if possible b/o Covis19 outbreak. I again spoke with Dr. Potts and he advised medicine floor (ARMOND JACKSON JR) Discharge <LEOPOLDO CHRISTOPHER - Last Filed: 02/23/20 19:08> - Discharge Admitting Provider: Angelia (Hospitalist) Unit Admitted: Medical Floor <ARMOND JACKSON JR - Last Filed: 02/24/20 04:58> - Discharge Clinical Impression: Infectious colitis, Dehydration Condition: Fair Disposition: ADMITTED INPATIENT Referrals: LEOPOLDO RODRIGUEZ DO [Primary Care Provider] - Follow up as needed
[2020-02-23 19:08] LABS: VENOUS BLOOD PCO2 14.5 mmHg (35-63)
[2020-02-23 19:12] LABS: ALBUMIN 4.6 g/dL (3.5-5.0); ALKALINE PHOSPHATASE 133 U/L (38-126); ANION GAP 18 (5-19); ASPARTATE AMINO TRANSFERASE 103 U/L (17-59); BILIRUBIN,TOTAL 1.8 mg/dL (0.2-1.3); BLOOD UREA NITROGEN 17 mg/dL (7-20); CALCIUM 9.7 mg/dL (8.4-10.2); CARBON DIOXIDE 19 mmol/L (22-30); CHLORIDE 98 mmol/L (98-107); GLUCOSE 221 mg/dL (75-110); TOTAL PROTEIN 8.2 g/dL (6.3-8.2)
[2020-02-23] MEDS: NORMAL SALINE 1000 ML 1,000 ML IV PRN ×2 (19:12→20:59)
[2020-02-23 19:22] LABS: ALCOHOL < 10 mg/dL (NONE DETECTED)
[2020-02-23 19:23] LABS: POTASSIUM 2.9 mmol/L (3.6-5.0)
[2020-02-23 19:51] LABS: APPEARANCE,URINE SLIGHTLY-CLOUDY; BILIRUBIN,URINE NEGATIVE (NEGATIVE); COLOR,URINE YELLOW; GLUCOSE, URINE >=500 mg/dL (NEGATIVE); KETONES,URINE 20 mg/dL (NEGATIVE); PROTEIN,URINE 30 mg/dL (NEGATIVE); URINE SPECIFIC GRAVITY 1.035; UROBILINOGEN,URINE NEGATIVE mg/dL (<2.0)
[2020-02-23 20:02] LABS: URINE AMPHETAMINES SCREEN NEGATIVE; URINE BARBITURATES SCREEN NEGATIVE; URINE BENZODIAZEPINES SCREEN NEGATIVE; URINE COCAINE SCREEN NEGATIVE; URINE MARIJUANA (THC) SCREEN NEGATIVE; URINE METHADONE SCREEN NEGATIVE; URINE PHENCYCLIDINE SCREEN NEGATIVE
[2020-02-23] MEDS: MAGNESIUM SULFATE/D5W 1 GM/100 ML RTUPB IV SCH ×2 (20:11→20:58)
[2020-02-23] MEDS: POTASSI CL 20 MEQ/50 ML RIDER 20 MEQ/50 ML RTUPB IV SCH ×2 (20:12→22:34)
--- NOTE | 2020-02-23 22:05 | RADIOLOGY REPORT (SQ) ---
EXAM DESCRIPTION: CT scan of the abdomen and pelvis with IV and oral contrast. CLINICAL HISTORY: 49 years Male; Abdominal pain TECHNIQUE: CT of the abdomen and pelvis with intravenous contrast. Delayed imaging of the abdomen and pelvis was also performed. All CT scans at this facility use dose modulation, iterative reconstruction, and/or weight based dosing when appropriate to reduce radiation dose to as low as reasonably achievable. This exam was performed according to our department optimization program which includes automated exposure control, adjustment of the mA and/or kv according to patient size and/or use of iterative reconstruction technique. COMPARISON: CT scan of the abdomen and pelvis 07/18/2018. FINDINGS: Lower chest: Lung bases are clear. There is coronary artery calcifications. Abdomen: Liver and biliary tree: On the previous examination there was innumerable small low density liver lesions. These are no longer clearly seen. There is mildly heterogeneous appearance of the liver but no definitive lesions identified. Portal vein is patent. Hepatic veins are not well seen. Gallbladder surgically absent. No biliary dilatation. Pancreas: Normal Spleen:Within normal limits Kidneys: Kidneys are normal in size, shape and position. No stones. No mass or hydronephrosis. Symmetric renal enhancement is identified. On delayed images there is symmetric excretion of contrast from the kidneys. Adrenal glands:Within normal limits Vascular structures: Vascular plaque is identified in the aorta. No aneurysm. No dissection. Retroperitoneum: There are small lymph nodes present in the gastrohepatic ligament and in the upper retroperitoneum adjacent to the celiac origin and SMA. These have decreased when compared the previous exam. These do not meet size criteria for pathologic process and measure less than 10 mm in size. Abdominal wall: Postsurgical change of the anterior abdominal wall is identified at the level of the umbilicus. GI: Diverticula are present in the colon. No evidence of acute diverticulitis. Subtle mucosal enhancement and thickening is seen in the right and left colon. There is relative sparing of the transverse colon. Sigmoid colon also has subtle enhancement and thickening of the mucosa. This is suggestive of colitis. Differential etiologies include infectious or inflammatory process. The appendix is not seen and appears to be surgically absent. General: No free air. No free fluid Pelvis: Lymph nodes: No mass or lymphadenopathy Bladder: Unremarkable. Pelvis: No pelvic mass or adenopathy. Bones: No acute bone findings. IMPRESSION: 1. Resolution of previously noted liver lesions. 2. Decrease in gastrohepatic ligament and retroperitoneal lymphadenopathy. No pathologic nodes are noted. 3. Interval development of subtle inflammation and bowel wall thickening involving the majority of the colon with sparing of the transverse colon. This is suggestive of inflammatory or infectious colitis. No bowel obstruction.
--- NOTE | 2020-02-23 22:05 | EKG REPORT ---
SEVERITY:- ABNORMAL ECG - SINUS RHYTHM RIGHT BUNDLE BRANCH BLOCK LEFT VENTRICULAR HYPERTROPHY : Confirmed by: Zofia Melendez MD 23-Feb-2020 22:03:56
[2020-02-23] MEDS ORDERED: LEVOFLOXACIN 750 MG/D5W RTU 750 MG/150 ML RTUPB IV ONE (22:30)
[2020-02-23] MEDS ORDERED: METRONIDAZOLE 500 MG/NS RTU 500 MG/100 ML RTUPB IV ONE (22:30)
[2020-02-24] MEDS ORDERED: MAG HYDROX/AL HYDROX/SIMETH SUSP 30 ML UDCUP PO PRN (05:13)
[2020-02-24] MEDS ORDERED: PROMETHAZINE HCL INJ 25 MG/1 ML VIAL IV PRN (05:13)
[2020-02-24] MEDS ORDERED: POTASSI CL 20 MEQ/NS 1L 1,000 ML IV PRN (05:13)
[2020-02-24] MEDS ORDERED: LEVALBUTEROL HCL NEB 0.63 MG/3 ML AMPUL NEB PRN (05:13)
[2020-02-24] MEDS ORDERED: MAGNESIUM HYDROXIDE SUSP 30 ML UDCUP PO PRN (05:13)
[2020-02-24] MEDS ORDERED: ACETAMINOPHEN 325 MG TABLET PO PRN (05:20)
[2020-02-24] MEDS ORDERED: MORPHINE SULFATE 10 MG/ML INJ IV PRN ×3 (05:20)
[2020-02-24] MEDS ORDERED: NICOTINE 21 MG/24 HR PATCH.TD24 TD PRN (05:20)
[2020-02-24] MEDS ORDERED: ACETAMINOPHEN 650 MG SUPP.RECT PR PRN (05:20)
[2020-02-24] MEDS ORDERED: DEXTROSE 40% GEL 15 GM TUBE PO PRN ×2 (05:20)
[2020-02-24] MEDS ORDERED: GUAIFENESIN SYRP 200 MG/10 ML UDC PO PRN (05:20)
[2020-02-24] MEDS ORDERED: HYDRALAZINE HCL INJ/PF 20 MG/1 ML SDV IV PRN (05:20)
[2020-02-24] MEDS ORDERED: DEXTROSE 50%-WATER 25 GM/50 ML DISP.SYRIN IV PRN ×2 (05:20)
[2020-02-24] MEDS ORDERED: LORAZEPAM INJ 2 MG/1 ML VIAL IV PRN (05:20)
[2020-02-24] MEDS ORDERED: GLUCAGON,HUMAN RECOMB 1 MG INJ IM PRN (05:20)
[2020-02-24] MEDS: POTASSI CL 20 MEQ/50 ML RIDER 20 MEQ/50 ML RTUPB IV SCH ×2 (05:50→08:13)
[2020-02-24] MEDS ORDERED: METRONIDAZOLE 500 MG/NS RTU 500 MG/100 ML RTUPB IV SCH (06:00)
[2020-02-24] MEDS ORDERED: HEPARIN SOD (PORCINE) 5,000 UNIT/ML 1 ML VIAL SUBCUT SCH (06:00)
--- NOTE | 2020-02-24 06:19 | PDOC H&P ---
History of Present Illness Admission Date/PCP: 02/24/2020 04:53 LEOPOLDO RODRIGUEZ DO Patient complains of: Abdominal pain History of Present Illness: ED PEDRAZA is a 49 year old male who presented to the emergency room with acute abdominal pain. He admits the sudden onset of constant moderately intense generalized achiness involving his entire abdomen upon waking on the morning of 02/23/2020. His abdominal pain was accompanied by dyspepsia, nausea, vomiting and diarrhea and was associated with decreased oral intake. His pain was increased by attempts at eating and drinking. He denies additional associated or accompanying signs and symptoms. He admits prior similar episodes. He believes his symptoms may be the result of eating 3-day-old pizza at approximately 4 AM on 02/23/2020. He has not identified any additional aggravating or ameliorating factors for his abdominal pain. In the emergency room he was found to have a segmental colitis involving the transverse colon. He was subsequently admitted to the hospital for further evaluation and treatment due to his inability to tolerate oral therapy. Past Medical History Cardiac Medical History: Reports: Coronary Artery Disease, Hyperlipidema, Hypertension Denies: Atrial Fibrillation, Congestive Heart Failure, DVT, Myocardial Infarction, Pulmonary Embolism Pulmonary Medical History: Reports: Asthma, Bronchitis, Chronic Obstructive Pulmonary Disease (COPD) Denies: Pneumonia EENT Medical History: Denies: Cataracts, Ears - Hearing aids Neurological Medical History: Reports: Other - Diabetic peripheral neuropathy Denies: Hemorrhagic CVA, Seizures Endocrine Medical History: Reports: Diabetes Mellitus Type 2, Obesity Denies: Diabetes Mellitus Type 1, Hyperthyroidism, Hypothyroidism Renal/ Medical History: Denies: Chronic Kidney Disease, Nephrolithiasis Malignancy Medical History: Reports: None GI Medical History: Reports: Gastroesophageal Reflux Disease, Other - Sarcoidosis with liver involvement Denies: Cirrhosis, Crohn's Disease, Hepatitis, Peptic Ulcer Disease, Ulcerative Colitis Musculoskeltal Medical History: Denies: Arthritis, Fibromyalgia Skin Medical History: Denies: Eczema, Psoriasis Psychiatric Medical History: Reports: Depression, Tobacco Dependency Denies: Alcohol Dependency, Substance Abuse Traumatic Medical History: Reports: None Hematology: Denies: Anemia, Bleeding Tendencies Infectious Medical History: Reports: None Past Surgical History Past Surgical History: Reports: Appendectomy, Cholecystectomy, Tonsillectomy, Other - Knee surgery. Liver and lung biopsies for sarcoidosis. Social History Information Source: Patient Lives with: Spouse/Significant other Smoking Status: Current Every Day Smoker Electronic Cigarette use?: No Frequency of Alcohol Use: Occasional Hx Recreational Drug Use: No Drugs: None, Other Hx Prescription Drug Abuse: No - Advance Directive Resuscitation Status: Full Code Surrogate healthcare decision maker:: Ramonita Pedraza Family History Family History: CAD, DM, Hypertension, Malignancy Parental Family History Reviewed: Yes Children Family History Reviewed: No Sibling(s) Family History Reviewed.: Yes Medication/Allergy Home Medications: Albuterol Sulfate [Ventolin HFA MDI 18 GM] 2 puff IH Q6HP PRN MDD FOR SOB/WHEEZING 07/19/18 Atorvastatin Calcium [Lipitor 20 mg Tablet] 20 mg PO DAILY 07/19/18 Chlorthalidone [Chlorthalidone 25 mg Tablet] 25 mg PO DAILY 07/19/18 Empagliflozin [Jardiance] 10 mg PO DAILY 07/19/18 Fluoxetine HCl [Prozac] 40 mg PO QAM 07/19/18 Gabapentin [Neurontin] 600 mg PO Q6 07/19/18 Hydrocodone Bit/Acetaminophen [Hydrocodon-Acetaminophen 5-325] 1 tab PO Q8HP PRN 07/19/18 Insulin Aspart [Novolog Flexpen] 0 units SQ .SLIDING SCALE 07/19/18 Insulin Glargine,Hum.rec.anlog [Toujeo Solostar] 80 units SQ QHS 07/19/18 Losartan Potassium [Cozaar 50 mg Tablet] 50 mg PO DAILY 07/19/18 Ranitidine HCl 1 tab PO DAILY 08/26/18 Clindamycin HCl [Cleocin Hcl] 300 mg PO QID #28 capsule 12/03/18 Mupirocin [Bactroban 2% Ointment 22 gm] 1 applic TP TID #22 gm 12/03/18 Albuterol Sulfate [Proair HFA Inhalation Aerosol 8.5 gm MDI] 2 puff IH Q4H PRN #1 mdi 01/22/19 Benzonatate [Tessalon Perles 100 mg Capsule] 100 mg PO Q8HP PRN #30 capsule 01/22/19 Levofloxacin [Levaquin 750 mg Tablet] 750 mg PO DAILY #10 tablet 01/22/19 Methocarbamol [Robaxin 500 mg Tablet] 500 mg PO QHS PRN #12 tablet 10/31/19 Amoxicillin/Potassium Clav [Augmentin 875-125 Tablet] 1 tab PO BID #14 tab 12/26/19 Sulfamethoxazole/Trimethoprim [Bactrim Ds Tablet] 1 each PO BID 7 Days #14 tablet 12/26/19 Pantoprazole Sodium [Protonix [address] Tablet] 20 mg PO QAM #30 tablet.dr 02/13/20 Allergies/Adverse Reactions: atenolol Adverse Reaction (Verified 02/23/20 18:26) LOWER B/P eggs Adverse Reaction (Uncoded 02/23/20 18:26) DIARRHEA, SULFA BURPS IF EAT TWO DAYS IN A ROW Review of Systems Constitutional: PRESENT: as per HPI, anorexia. ABSENT: chills, fever(s) Eyes: ABSENT: visual disturbances, other - Eye pain Ears: ABSENT: hearing changes, other - ear pain Nose, Mouth, and Throat: ABSENT: headache(s), sore throat Cardiovascular: ABSENT: chest pain, palpitations Respiratory: ABSENT: cough, dyspnea Gastrointestinal: PRESENT: as per HPI, abdominal pain, nausea. ABSENT: constipation, diarrhea, vomiting Genitourinary: ABSENT: difficulty urinating, dysuria, hematuria Musculoskeletal: ABSENT: back pain, joint swelling Integumentary: ABSENT: pruritus, rash Neurological: ABSENT: confusion, convulsions, focal weakness, memory loss, syncope Psychiatric: ABSENT: anxiety, depression Endocrine: ABSENT: cold intolerance, heat intolerance, polydipsia, polyphagia, polyuria Hematologic/Lymphatic: ABSENT: easy bleeding, easy bruising Allergic/Immunologic: ABSENT: seasonal rhinorrhea Physical Exam Vital Signs: Temp Pulse Resp BP Pulse Ox 98.1 F 84 16 153/93 H 96 02/24/20 03:38 02/23/20 18:25 02/24/20 03:00 02/23/20 22:00 02/24/20 03:00 Intake & Output 02/22/20 02/23/20 02/24/20 23:59 23:59 23:59 Intake Total 2228 300 Balance 2228 300 Weight 104.326 kg General appearance: PRESENT: cooperative, mild distress - Secondary to abdominal discomfort, obese Head exam: PRESENT: atraumatic, normocephalic Eye exam: PRESENT: conjunctiva pink. ABSENT: conjunctival injection, scleral icterus Ear exam: PRESENT: normal external ear exam. ABSENT: bleeding, drainage Mouth exam: PRESENT: dry mucosa, neck supple Neck exam: ABSENT: thyromegaly, tracheal deviation Respiratory exam: PRESENT: clear to auscultation vern, symmetrical, unlabored Cardiovascular exam: PRESENT: RRR. ABSENT: clicks, gallop, rubs Pulses: PRESENT: normal radial pulses, normal dorsalis pedis pul Vascular exam: PRESENT: normal capillary refill. ABSENT: pallor GI/Abdominal exam: PRESENT: hypoactive bowel sounds, soft, tenderness - Moderate tenderness palpation throughout the abdomen greatest in the left upper quadrant. ABSENT: distended Rectal exam: PRESENT: deferred Extremities exam: ABSENT: joint swelling, pedal edema Musculoskeletal exam: ABSENT: deformity, dislocation Neurological exam: PRESENT: alert, oriented to person, oriented to place, oriented to time, oriented to situation, CN II-XII grossly intact. ABSENT: motor sensory deficit Psychiatric exam: PRESENT: appropriate affect, normal mood Skin exam: PRESENT: dry, intact, warm. ABSENT: jaundice, rash, urticaria Results Laboratory Results: 02/23/20 18:30 02/23/20 02/23/20 02/23/20 18:30 18:30 18:58 WBC 12.9 H RBC 5.67 H Hgb 16.9 Hct 48.4 MCV 85 MCH 29.9 MCHC 35.0 RDW 14.7 H Plt Count 266 Seg Neutrophils % 71.0 VBG pH 7.62 H VBG pCO2 14.5 L* VBG HCO3 14.4 L VBG Base Excess -3.2 Sodium 135.3 L Potassium 2.9 L* Chloride 98 Carbon Dioxide 19 L Anion Gap 18 BUN 17 Creatinine 0.77 Est GFR ( Amer) > 60 Glucose 221 H Calcium 9.7 Magnesium 1.9 Total Bilirubin 1.8 H AST 103 H Alkaline Phosphatase 133 H Total Protein 8.2 Albumin 4.6 Lipase 50.3 Urine Color Urine Appearance Urine pH Ur Specific [place] Urine Protein Urine Glucose (UA) Urine Ketones Urine Blood Urine RBC (Auto) 02/23/20 19:05 WBC RBC Hgb Hct MCV MCH MCHC RDW Plt Count Seg Neutrophils % VBG pH VBG pCO2 VBG HCO3 VBG Base Excess Sodium Potassium Chloride Carbon Dioxide Anion Gap BUN Creatinine Est GFR ( Amer) Glucose Calcium Magnesium Total Bilirubin AST Alkaline Phosphatase Total Protein Albumin Lipase Urine Color YELLOW Urine Appearance SLIGHTLY-CLOUDY Urine pH 5.0 Ur Specific [place] 1.035 Urine Protein 30 H Urine Glucose (UA) >=500 H Urine Ketones 20 H Urine Blood SMALL H Urine RBC (Auto) 12 02/23/20 18:30 Troponin I < 0.012 Impressions: Abdomen/Pelvis CT 02/23/20 00:00 IMPRESSION: 1. Resolution of previously noted liver lesions. 2. Decrease in gastrohepatic ligament and retroperitoneal lymphadenopathy. No pathologic nodes are noted. 3. Interval development of subtle inflammation and bowel wall thickening involving the majority of the colon with sparing of the transverse colon. This is suggestive of inflammatory or infectious colitis. No bowel obstruction. Assessment and Plan - Diagnosis (1) Segmental colitis Qualifiers: Digestive disease complication type: without complication Qualified Code(s): K50.10 - Crohn's disease of large intestine without complications Is this a current diagnosis for this admission?: Yes (2) Abdominal pain Qualifiers: Abdominal location: unspecified location Qualified Code(s): R10.9 - Unspecified abdominal pain Is this a current diagnosis for this admission?: Yes (3) Anorexia Is this a current diagnosis for this admission?: Yes (4) Obesity (BMI 30-39.9) Is this a current diagnosis for this admission?: Yes (5) Sarcoidosis Is this a current diagnosis for this admission?: Yes (6) Diabetes mellitus type 2 in obese Is this a current diagnosis for this admission?: Yes (7) Tobacco use disorder, continuous Is this a current diagnosis for this admission?: Yes - Plan Summary Summary: Patient is admitted to the medical floor where he will receive routine supportive and symptomatic cares. He will be treated with IV fluid support and IV antibiotics utilizing Levaquin and Flagyl. CBCs, metabolic profiles and magnesium levels be obtained as appropriate. Will be continued on his usual medications for his chronic medical problems, as appropriate, as soon as his medication list has been verified and reconciled. He will receive morphine sulf ate 2 to 4 mg IV every 2 hours on an as-needed basis for pain. He will use Ativan 1 mg IV every 4 hours as needed for anxiety or restlessness. Patient is not showing adequate response with the first 24 to 48 hours a surgical consultation will be obtained. He will be initially treated with a clear liquid diet with cardiac and diabetic restrictions. Before meals and at bedtime Accu- Cheks will be obtained with sliding scale insulin used for hyperglycemia and a hypoglycemic protocol in place. Patient is advised to discontinue smoking and smoking cessation was counseled briefly at the bedside. A nicotine replacement patch will be available for the patient's use, if desired. - Time Time Spent with patient: 15-24 minutes Smoking Cessation Education: 3 to 10 minutes Medications reviewed and adjusted accordingly: Yes Anticipated discharge: Home - Inpatient Certification Based on my medical assessment, after consideration of the patient's comorbidit ies, presenting symptoms, or acuity I expect that the services needed warrant INPATIENT care.: Yes I certify that my determination is in accordance with my understanding of Me jazmine's requirements for reasonable and necessary INPATIENT services [42 CFR 412.3e].: Yes Medical Necessity: Need Close Monitoring Due to Risk of Patient Decompensation, Need For IV Fluids, Need for Pain Control, Need for IV Antibiotics, Risk of Complication if Not Cared For in Hospital
[2020-02-24 06:21] LABS: ABSOLUTE BASOPHILS # (AUTO) 0.1 10^3/uL (0.0-0.2); ABSOLUTE EOSINOPHILS # (AUTO) 0.6 10^3/uL (0.0-0.6); ABSOLUTE MONOCYTES (AUTO) 1.2 10^3/uL (0.1-1.4); ABSOLUTE NEUT (AUTO) 7.9 10^3/uL (1.7-8.2); BASOPHILS % (AUTO) 0.5 % (0-2); EOSINOPHILS % (AUTO) 5.1 % (0-6); HEMATOCRIT 42.4 % (37.9-51.0); LYMPHOCYTES % (AUTO) 16.9 % (13-45); MEAN CORPUSCULAR HEMOGLOBIN 29.8 pg (27.0-33.4); MEAN CORPUSCULAR HGB CONC 34.4 g/dL (32.0-36.0); MEAN CORPUSCULAR VOLUME 87 fl (80-97); PLATELET COUNT 202 10^3/uL (150-450); RED BLOOD COUNT 4.89 10^6/uL (4.35-5.55); SEGMENTED NEUTROPHILS % (AUTO) 67.5 % (42-78); TOTAL CELLS COUNTED % (AUTO) 100 %; WHITE BLOOD COUNT 11.7 10^3/uL (4.0-10.5)
[2020-02-24 06:24] LABS: HEMOGLOBIN 14.6 g/dL (13.5-17.0)
[2020-02-24 06:30] LABS: ALBUMIN 3.6 g/dL (3.5-5.0); ALKALINE PHOSPHATASE 89 U/L (38-126); ANION GAP 8 (5-19); ASPARTATE AMINO TRANSFERASE 53 U/L (17-59); BILIRUBIN,TOTAL 1.5 mg/dL (0.2-1.3); BLOOD UREA NITROGEN 11 mg/dL (7-20); CALCIUM 8.2 mg/dL (8.4-10.2); CARBON DIOXIDE 22 mmol/L (22-30); CHLORIDE 102 mmol/L (98-107); GLUCOSE 109 mg/dL (75-110); POTASSIUM 3.1 mmol/L (3.6-5.0); TOTAL PROTEIN 6.9 g/dL (6.3-8.2)
[2020-02-24] MEDS ORDERED: INSULIN REG, HUMAN 100 UNIT/ML 3 ML VIAL (PYX) SUBCUT SCH (08:00)
[2020-02-24] MEDS ORDERED: METOCLOPRAMIDE HCL INJ/PF 10 MG/2 ML SDV IV SCH (08:00)
[2020-02-24] MEDS ORDERED: DOCUSATE SODIUM 100 MG CAPSULE PO SCH (10:00)
[2020-02-24] MEDS ORDERED: FAMOTIDINE INJ/PF 20 MG/2 ML SDV IV SCH (10:00)
[2020-02-24] MEDS ORDERED: HYDROCODONE/ACETAMINOPHEN 7.5-325 MG TABLET PO PRN (10:34)
--- NOTE | 2020-02-24 11:06 | PDOC DISCHARGE SUMMARY ---
Impression - Admit/DC Date/PCP Admission Date/Primary Care Provider: 02/24/20 05:13 LEOPOLDO RODRIGUEZ DO Discharge Date: 02/24/20 - Discharge Diagnosis (1) Abdominal pain Is this a current diagnosis for this admission?: Yes (2) Dehydration Is this a current diagnosis for this admission?: Yes (3) Diabetes mellitus type 2 in obese Is this a current diagnosis for this admission?: Yes (4) Infectious colitis Is this a current diagnosis for this admission?: Yes (5) Diarrhea Is this a current diagnosis for this admission?: Yes (6) Sarcoidosis Is this a current diagnosis for this admission?: Yes - Assessment Summary: Patient is admitted to the medical floor where he will receive routine supportive and symptomatic cares. He will be treated with IV fluid support and IV antibiotics utilizing Levaquin and Flagyl. CBCs, metabolic profiles and magnesium levels be obtained as appropriate. Will be continued on his usual medications for his chronic medical problems, as appropriate, as soon as his medication list has been verified and reconciled. He will receive morphine sulfate 2 to 4 mg IV every 2 hours on an as-needed basis for pain. He will use Ativan 1 mg IV every 4 hours as needed for anxiety or restlessness. Patient is not showing adequate response with the first 24 to 48 hours a surgical consultation will be obtained. He will be initially treated with a clear liquid diet with cardiac and diabetic restrictions. Before meals and at bedtime Accu- Cheks will be obtained with sliding scale insulin used for hyperglycemia and a hypoglycemic protocol in place. Patient is advised to discontinue smoking and smoking cessation was counseled briefly at the bedside. A nicotine replacement patch will be available for the patient's use, if desired. - Additional Information Resuscitation Status: Full Code Discharge Diet: Cardiac, Diabetic, Other (Comments) - Advance slowly Discharge Activity: Activity As Tolerated Referrals: LEOPOLDO RODRIGUEZ DO [Primary Care Provider] - Follow up as needed Prescriptions: Ciprofloxacin HCl [Cipro 500 mg Tablet] 500 mg PO BID #20 tablet Metronidazole [Flagyl 500 mg Tablet] 500 mg PO TID #30 tablet Promethazine HCl [Phenergan 25 mg Tablet] 25 mg PO Q6H PRN #10 tablet PRN Reason: For Nausea/Vomiting Home Medications: Atorvastatin Calcium [Lipitor 20 mg Tablet] 20 mg PO QHS 07/19/18 Chlorthalidone [Chlorthalidone 25 mg Tablet] 25 mg PO DAILY 07/19/18 Fluoxetine HCl [Prozac] 80 mg PO QAM 07/19/18 Gabapentin [Neurontin] 600 mg PO Q6 07/19/18 Insulin Aspart [Novolog Flexpen] 0 units SQ .SLIDING SCALE 07/19/18 Insulin Glargine,Hum.rec.anlog [Toujeo Solostar] 80 units SQ Q12 07/19/18 Losartan Potassium [Cozaar 50 mg Tablet] 50 mg PO DAILY 07/19/18 Pantoprazole Sodium [Protonix [address] Tablet] 20 mg PO QAM #30 tablet.dr 02/13/20 Aspirin [Ecotrin 81 mg EC Tablet] 81 mg PO DAILY 02/24/20 Budesonide/Formoterol Fumarate [Symbicort HFA 160-4.5 mcg Inhaler 6 gm] 2 puff IN Q12 02/24/20 Ciprofloxacin HCl [Cipro 500 mg Tablet] 500 mg PO BID #20 tablet 02/24/20 Empagliflozin [Jardiance] 25 mg PO DAILY 02/24/20 Hydrocodone/Acetaminophen [[place] 7.5-325 mg Tablet] 1 tab PO Q6HP PRN 02/24/20 Ipratropium/Albuterol Sulfate [Duoneb 3 ml Ampul] 1 vial NEB QIDP PRN 02/24/20 Metronidazole [Flagyl 500 mg Tablet] 500 mg PO TID #30 tablet 02/24/20 Prednisone [Deltasone 10 mg Tablet] 10 mg PO DAILY 02/24/20 Promethazine HCl [Phenergan 25 mg Tablet] 25 mg PO Q6H PRN #10 tablet 02/24/20 History of Present Illiness History of Present Illness: ED PEDRAZA is a 49 year old male who presented to the emergency room with acute abdominal pain. He admits the sudden onset of constant moderately intense generalized achiness involving his entire abdomen upon waking on the morning of 02/23/2020. His abdominal pain was accompanied by dyspepsia, nausea, vomiting and diarrhea and was associated with decreased oral intake. His pain was increased by attempts at eating and drinking. He denies additional associated or accompanying signs and symptoms. He admits prior similar episodes. He believes his symptoms may be the result of eating 3-day-old pizza at approximately 4 AM on 02/23/2020. He has not identified any additional aggravating or ameliorating factors for his abdominal pain. In the emergency room he was found to have a segmental colitis involving the transverse colon. He was subsequently admitted to the hospital for further evaluation and treatment due to his inability to tolerate oral therapy. Hospital Course Hospital Course: The patient exhibited a dramatic improvement with IV antibiotics and fluid. He is in fact stable for discharge this morning. Physical Exam Vital Signs: Temp Pulse Resp BP Pulse Ox 98.1 F 88 20 119/75 100 02/24/20 03:38 02/23/20 22:30 02/24/20 10:02 02/24/20 08:00 02/24/20 10:02 Intake & Output 02/23/20 02/24/20 02/25/20 06:59 06:59 06:59 Intake Total 3008 150 Balance 3008 150 Weight 104.326 kg General appearance: PRESENT: no acute distress, cooperative, well-developed, well-nourished Head exam: PRESENT: atraumatic, normocephalic Eye exam: PRESENT: conjunctiva pink, EOMI. ABSENT: scleral icterus Ear exam: PRESENT: normal external ear exam. ABSENT: bleeding, drainage Mouth exam: PRESENT: moist, tongue midline Respiratory exam: PRESENT: clear to auscultation vern, symmetrical, unlabored. ABSENT: rales, rhonchi, tachypnea, wheezes Cardiovascular exam: PRESENT: RRR, +S1, +S2. ABSENT: diastolic murmur, systolic murmur GI/Abdominal exam: PRESENT: normal bowel sounds, soft. ABSENT: distended, tenderness Rectal exam: PRESENT: deferred Gentrourinary exam: ABSENT: indwelling catheter Neurological exam: PRESENT: alert, awake, oriented to person, oriented to place, oriented to time, oriented to situation, CN II-XII grossly intact. ABSENT: altered, motor sensory deficit Psychiatric exam: PRESENT: appropriate affect, normal mood. ABSENT: agitated, anxious Focused psych exam: ABSENT: delusional, paranoid, restlessness Skin exam: PRESENT: dry, normal color, warm. ABSENT: rash Results Laboratory Results: WBC 11.7 10^3/uL (4.0-10.5) H 02/24/20 05:59 RBC 4.89 10^6/uL (4.35-5.55) 02/24/20 05:59 Hgb 14.6 g/dL (13.5-17.0) D 02/24/20 05:59 Hct 42.4 % (37.9-51.0) 02/24/20 05:59 MCV 87 fl (80-97) 02/24/20 05:59 MCH 29.8 pg (27.0-33.4) 02/24/20 05:59 MCHC 34.4 g/dL (32.0-36.0) 02/24/20 05:59 RDW 15.0 % (11.5-14.0) H 02/24/20 05:59 Plt Count 202 10^3/uL (150-450) 02/24/20 05:59 Lymph % (Auto) 16.9 % (13-45) 02/24/20 05:59 [place] % (Auto) 10.0 % (3-13) 02/24/20 05:59 Eos % (Auto) 5.1 % (0-6) 02/24/20 05:59 Baso % (Auto) 0.5 % (0-2) 02/24/20 05:59 Absolute Neuts (auto) 7.9 10^3/uL (1.7-8.2) 02/24/20 05:59 Absolute Lymphs (auto) 2.0 10^3/uL (0.5-4.7) 02/24/20 05:59 Absolute Monos (auto) 1.2 10^3/uL (0.1-1.4) 02/24/20 05:59 Absolute Eos (auto) 0.6 10^3/uL (0.0-0.6) 02/24/20 05:59 Absolute Basos (auto) 0.1 10^3/uL (0.0-0.2) 02/24/20 05:59 Seg Neutrophils % 67.5 % (42-78) 02/24/20 05:59 VBG pH 7.62 (7.30-7.42) H 02/23/20 18:58 VBG pCO2 14.5 mmHg (35-63) L* 02/23/20 18:58 VBG HCO3 14.4 mmol/L (20-32) L 02/23/20 18:58 VBG Base Excess -3.2 mmol/L 02/23/20 18:58 Sodium 132.4 mmol/L (137-145) L 02/24/20 05:59 Potassium 3.1 mmol/L (3.6-5.0) L 02/24/20 05:59 Chloride 102 mmol/L (98-107) 02/24/20 05:59 Carbon Dioxide 22 mmol/L (22-30) 02/24/20 05:59 Anion Gap 8 (5-19) 02/24/20 05:59 BUN 11 mg/dL (7-20) 02/24/20 05:59 Creatinine 0.50 mg/dL (0.52-1.25) L 02/24/20 05:59 Est GFR ( Amer) > 60 (>60) 02/24/20 05:59 Est GFR (MDRD) Non-Af > 60 (>60) 02/24/20 05:59 Glucose 109 mg/dL (75-110) 02/24/20 05:59 POC Glucose 98 mg/dL (70-110) 02/24/20 08:36 Calcium 8.2 mg/dL (8.4-10.2) L 02/24/20 05:59 Magnesium 1.9 mg/dL (1.6-2.3) 02/23/20 18:30 Total Bilirubin 1.5 mg/dL (0.2-1.3) H 02/24/20 05:59 Direct Bilirubin 0.0 mg/dL (0.0-0.4) 02/24/20 05:59 Neonat Total Bilirubin Not Reportable 02/24/20 05:59 Neonat Direct Bilirubin Not Reportable 02/24/20 05:59 Neonat Indirect Bili Not Reportable 02/24/20 05:59 AST 53 U/L (17-59) 02/24/20 05:59 ALT 64 U/L (<50) H 02/24/20 05:59 Alkaline Phosphatase 89 U/L (38-126) 02/24/20 05:59 Troponin I < 0.012 ng/mL 02/23/20 18:30 Total Protein 6.9 g/dL (6.3-8.2) 02/24/20 05:59 Albumin 3.6 g/dL (3.5-5.0) 02/24/20 05:59 Lipase 50.3 U/L (23-300) 02/23/20 18:30 Urine Color YELLOW 02/23/20 19:05 Urine Appearance SLIGHTLY-CLOUDY 02/23/20 19:05 Urine pH 5.0 (5.0-9.0) 02/23/20 19:05 Ur Specific [place] 1.035 02/23/20 19:05 Urine Protein 30 mg/dL (NEGATIVE) H 02/23/20 19:05 Urine Glucose (UA) >=500 mg/dL (NEGATIVE) H 02/23/20 19:05 Urine Ketones 20 mg/dL (NEGATIVE) H 02/23/20 19:05 Urine Blood SMALL (NEGATIVE) H 02/23/20 19:05 Urine Nitrite (Reflex) NEGATIVE (NEGATIVE) 02/23/20 19:05 Urine Bilirubin NEGATIVE (NEGATIVE) 02/23/20 19:05 Urine Urobilinogen NEGATIVE mg/dL (<2.0) 02/23/20 19:05 Leukocyte Esterase Rfl NEGATIVE (NEGATIVE) 02/23/20 19:05 Urine RBC (Auto) 12 /HPF 02/23/20 19:05 U Hyaline Cast (Auto) 1 /LPF 02/23/20 19:05 Urine WBC (Reflex) 12 /HPF 02/23/20 19:05 Squamous Epi Cells Auto <1 /HPF 02/23/20 19:05 Urine Mucus (Auto) MANY /LPF 02/23/20 19:05 Urine Ascorbic Acid NEGATIVE (NEGATIVE) 02/23/20 19:05 Urine Opiates Screen NEGATIVE 02/23/20 19:05 Urine Methadone Screen NEGATIVE 02/23/20 19:05 Ur Barbiturates Screen NEGATIVE 02/23/20 19:05 Ur Phencyclidine Scrn NEGATIVE 02/23/20 19:05 Ur Amphetamines Screen NEGATIVE 02/23/20 19:05 U Benzodiazepines Scrn NEGATIVE 02/23/20 19:05 Urine Cocaine Screen NEGATIVE 02/23/20 19:05 U Marijuana (THC) Screen NEGATIVE 02/23/20 19:05 Serum Alcohol < 10 mg/dL (NONE DETECTED) 02/23/20 18:30 02/23/20 18:30 Troponin I < 0.012 Impressions: Abdomen/Pelvis CT 02/23/20 00:00 IMPRESSION: 1. Resolution of previously noted liver lesions. 2. Decrease in gastrohepatic ligament and retroperitoneal lymphadenopathy. No pathologic nodes are noted. 3. Interval development of subtle inflammation and bowel wall thickening involving the majority of the colon with sparing of the transverse colon. This is suggestive of inflammatory or infectious colitis. No bowel obstruction. Plan Health Concerns: Episode of colitis in light of chronic immunosuppressive therapy Plan of Treatment: Complete antibiotic regimen at home and follow-up with primary care provider after the weekend Goals: Resolution of colitis Time Spent: Greater than 30 Minutes Stroke Is this a Stroke Patient?: No Acute Heart Failure - Is this a Heart Failure Patient?: No
[2020-02-24] MEDS ORDERED: MAGNESIUM OXIDE 400 MG TABLET PO SCH (11:30)
[2020-02-24 11:45] VITALS: BP 134/88
[2020-02-24] MEDS ORDERED: GABAPENTIN 300 MG CAPSULE PO SCH (12:00)
[2020-02-24] MEDS ORDERED: LEVOFLOXACIN 750 MG/D5W RTU 750 MG/150 ML RTUPB IV SCH (22:00)
[2020-02-24] MEDS ORDERED: ATORVASTATIN CALCIUM 20 MG TABLET PO SCH (22:00)
[2020-02-25] MEDS ORDERED: PANTOPRAZOLE SODIUM 20 MG TABLET.DR PO SCH (08:00)
[2020-02-25] MEDS ORDERED: FLUOXETINE HCL 20 MG CAPSULE PO SCH (08:00)
[2020-02-25] MEDS ORDERED: ASPIRIN 81 MG TABLET, ENT COATED PO SCH (10:00)
[2020-02-25] MEDS ORDERED: CHLORTHALIDONE 25 MG TABLET PO SCH (10:00)
[2020-02-25] MEDS ORDERED: LOSARTAN POTASSIUM 50 MG TABLET PO SCH (10:00)
== END 2020-02-24 11:43 | disposition home or self-care (01) | DRG 392 ==
LOC: ER 18:06 → EH 02-24 05:13
PROVIDERS: ADMIT Emergency Medicine; ATTEND Hospitalist
DX: A09 Infectious gastroenteritis and colitis, unspecified (principal); K50.10 Crohn's disease of large intestine without complications; E11.42 Type 2 diabetes mellitus with diabetic polyneuropathy; E86.0 Dehydration; E66.9 Obesity, unspecified; F17.200 Nicotine dependence, unspecified, uncomplicated; I25.10 Atherosclerotic heart disease of native coronary artery without angina pectoris; E78.5 Hyperlipidemia, unspecified; I10 Essential (primary) hypertension; J44.9 Chronic obstructive pulmonary disease, unspecified; K21.9 Gastro-esophageal reflux disease without esophagitis; D86.89 Sarcoidosis of other sites; F32.9 Major depressive disorder, single episode, unspecified; R63.0 Anorexia; Z79.82 Long term (current) use of aspirin; Z79.4 Long term (current) use of insulin; Z79.52 Long term (current) use of systemic steroids; Z79.899 Other long term (current) drug therapy; Z88.8 Allergy status to other drugs, medicaments and biological substances; Z91.012 Allergy to eggs; Z68.39 Body mass index [BMI] 39.0-39.9, adult; Z83.3 Family history of diabetes mellitus; Z82.49 Family history of ischemic heart disease and other diseases of the circulatory system
CPT/HCPCS: 36415; 74177; 80053; 80307; 81001; 82803; 82962; 83690; 83735; 84484; 85025; 87040; 87086; 93005; 93010; 96361; 96365; 96366; 96367; 96368; 96375; 96376; 99291; 99292; J1644; J1956; J2765; J3010; J3475; J3480; J3490; J7030

== ENCOUNTER 2020-03-10 21:17 | Emergency (ER) | payer MEDICARE, MEDICAID ==
--- NOTE | 2020-03-10 22:47 | RADIOLOGY REPORT (SQ) ---
EXAM DESCRIPTION: XR RIBS UNILATERAL WITH CHEST COMPLETED DATE/TME: 03/10/2020 00:00 CLINICAL HISTORY: 50 years, Male, rib injury COMPARISON: Chest x-ray 04/16/2019 NUMBER OF VIEWS: 4 TECHNIQUE: Frontal view the chest and 3 views of the right ribs LIMITATIONS: None. FINDINGS: Heart size is normal. Mild atheromatous change thoracic aorta. Minimal scarring left lung base. Lungs are otherwise clear. No pneumothorax. Negative for right rib fracture. Soft tissues are unremarkable IMPRESSION: Negative for right rib fracture. No acute cardiopulmonary process copyright 2010 [employer]- All Rights Reserved
[2020-03-10] MEDS ORDERED: OXYCODONE-ACETAMINOPHEN 5-325 MG TABLET PO ONE (23:37)
--- NOTE | 2020-03-10 23:45 | ER Document Report ---
ED General - General Chief Complaint: Rib Pain Stated Complaint: SIDE PAIN Time Seen by Provider: 03/10/20 23:27 Primary Care Provider: LEOPOLDO RODRIGUEZ DO [Primary Care Provider] - Follow up as needed TRAVEL OUTSIDE OF THE [place] IN LAST 30 DAYS: No - HPI Notes: Patient is a 50-year-old male who presents to the emergency department for evaluation of right-sided chest pain. He was transporting furniture. He was standing in the doorway of a truck, trying to move some furniture, when he slipped, striking the right side of his chest against the truck. He denies hitting his head or losing consciousness. No neck or back pain. He has pain that he rates a 4 out of 5. Is currently controlled without taking deep breaths. He denies any cough. No shortness of breath. - Related Data Allergies/Adverse Reactions: atenolol Adverse Reaction (Verified 02/23/20 18:26) LOWER B/P eggs Adverse Reaction (Uncoded 02/23/20 18:26) DIARRHEA, SULFA BURPS IF EAT TWO DAYS IN A ROW Home Medications: Losartan. Chorthalidone. gabapentin. Fluoxetine. Prednisone. Protonix. Jardiance Past Medical History - General Information source: Patient - Social History Smoking Status: Current Every Day Smoker Frequency of alcohol use: Rare Drug Abuse: None Family History: CAD, DM, Hypertension, Malignancy Patient has homicidal ideation: No - Past Medical History Cardiac Medical History: Reports: Hx Coronary Artery Disease, Hx Hypercholesterolemia, Hx Hypertension Denies: Hx Atrial Fibrillation, Hx Congestive Heart Failure, Hx DVT, Hx Heart Attack, Hx Pulmonary Embolism Pulmonary Medical History: Reports: Hx Asthma, Hx Bronchitis, Hx COPD Denies: Hx Pneumonia Neurological Medical History: Denies: Hx Cerebrovascular Accident, Hx Seizures Endocrine Medical History: Reports: Hx Diabetes Mellitus Type 2. Denies: Hx Diabetes Mellitus Type 1, Hx Hyperthyroidism, Hx Hypothyroidism Renal/ Medical History: Denies: Hx Peritoneal Dialysis GI Medical History: Reports: Hx Gastroesophageal Reflux Disease. Denies: Hx Cirrhosis, Hx Crohn's Disease, Hx Hepatitis, Hx Ulcerative Colitis Musculoskeletal Medical History: Denies Hx Arthritis, Denies Hx Fibromyalgia Skin Medical History: Denies Hx Eczema, Denies Hx Psoriasis Psychiatric Medical History: Reports: Hx Depression Infectious Medical History: Denies: Hx Hepatitis Past Surgical History: Reports: Hx Abdominal Surgery - hernia, Hx Appendectomy, Hx Cholecystectomy, Hx Oral Surgery - R Knee 1992, Hx Tonsillectomy, Other - Knee surgery. Liver and lung biopsies for sarcoidosis. - Immunizations Hx Diphtheria, Pertussis, Tetanus Vaccination: Yes Review of Systems - Review of Systems Musculoskeletal: See HPI -: Yes All other systems reviewed and negative Physical Exam - Vital signs Vitals: Temp Pulse Resp BP Pulse Ox 98.8 F 82 16 141/81 H 98 03/10/20 21:20 03/10/20 21:20 03/10/20 21:20 03/10/20 21:20 03/10/20 21:20 - Notes Notes: Vital signs reviewed, please refer to chart. Head is normocephalic, atraumatic. Pupils equal round, reactive to light. Neck is supple without meningismus. Heart is regular rate and rhythm. Lungs are clear to auscultation bilaterally. No obvious deformity to the chest wall. No ecchymosis. No subcutaneous emphysema. He is tender to palpation on ribs 8 through 10, from the anterior axillary line to the mid axillary line. No associated crepitance. Abdomen is soft, nontender, normoactive bowel sounds throughout. Extremities without cyanosis, clubbing. Posterior calves are nontender. Peripheral pulses are equal. Skin is warm and dry. Patient is awake, alert, neurological exam is nonfocal. Course - Re-evaluation Re-evalutation: 03/10/20 23:41 Patient presents to the emergency department for evaluation. His findings are consistent with a chest wall contusion. X-ray was unremarkable for any signs of fracture or injury to the underlying lung. The patient is oxygenating well, his lungs are clear. The patient is told he needs to quit smoking. I did give him some Percocet, he was taught incentive spirometry. The importance of incentive spirometry was stressed to the patient. Otherwise I will send him home with anti-inflammatories and close follow-up. He is to return to the ED with worsening or new concerning symptoms of any sort. - Vital Signs Vital signs: Temp Pulse Resp BP Pulse Ox 98.9 F 82 16 141/81 H 98 03/10/20 21:55 03/10/20 21:20 03/10/20 21:20 03/10/20 21:20 03/10/20 21:20 - Diagnostic Test Radiology reviewed: Reports reviewed Radiology results interpreted by me: 03/10/20 23:42 Ribs w/Chest X-Ray 03/10/20 00:00 IMPRESSION: Negative for right rib fracture. No acute cardiopulmonary process copyright 2011 [employer]- All Rights Reserved Discharge - Discharge Clinical Impression: Contusion of right chest wall Qualifiers: Encounter type: initial encounter Qualified Code(s): S20.211A - Contusion of right front wall of thorax, initial encounter Condition: Stable Disposition: HOME, SELF-CARE Instructions: Chest Wall Pain ([facility]) Additional Instructions: Use incentive spirometry every hour while awake. Take medications as prescribed. Be sure to take deep breaths. Follow-up with primary care next week. If you develop fever, increased pain, shortness of breath, coughing, or any other new or concerning symptoms, please return immediately to the emergency department for reevaluation. Forms: Smoking Cessation Education Referrals: LEOPOLDO RODRIGUEZ DO [Primary Care Provider] - Follow up as needed
[2020-03-10 23:59] VITALS: BP 131/79
== END 2020-03-11 00:02 | disposition home or self-care (01) ==
LOC: ER 21:17
DX: S20.211A Contusion of right front wall of thorax, initial encounter (principal); R07.81 Pleurodynia; R07.89 Other chest pain; W22.09XA Striking against other stationary object, initial encounter; F17.200 Nicotine dependence, unspecified, uncomplicated; I25.10 Atherosclerotic heart disease of native coronary artery without angina pectoris; E78.00 Pure hypercholesterolemia, unspecified; I10 Essential (primary) hypertension; J44.9 Chronic obstructive pulmonary disease, unspecified; E11.9 Type 2 diabetes mellitus without complications; Z90.49 Acquired absence of other specified parts of digestive tract
CPT/HCPCS: 99283; 71101; A9270

== ENCOUNTER 2020-03-16 16:07 | Emergency (ER) | payer MEDICARE, MEDICAID ==
[2020-03-16 16:39] VITALS: BP 108/71
--- NOTE | 2020-03-16 17:32 | ER Document Report ---
HPI - HPI Time Seen by Provider: 03/16/20 17:08 Pain Level: 5 Notes: 50-year-old male presents to the emergency room for reevaluation of right-sided chest pain after he fell approximately 1 week ago he states while transporting furniture. Patient states that he was standing in the doorway of a truck trying to move some furniture when he slipped, and he struck the right side of his chest against the truck. Denies hitting his head or change in level consciousness. Patient was evaluated in the emergency room on March 10, a chest x-ray was done which was negative for any acute fracture, pneumothorax, pneumonia. Patient was given Percocet as well as incentive spirometer. Patient has not tried any [id number] Tylenol or ibuprofen due to "not being able to afford that medication". Patient states he smokes approximately 4 cigarettes a day. Denies fevers, chills, chest pain,palpitations, shortness of breath, dyspnea, nausea, vomiting, diarrhea, abdominal pain, hematuria,blurred vision, double vision, loss of vision, speech changes, LH, dizziness, syncope, headaches, wheezing, ST, URI, neck pain, weakness, bowel or bladder dysfunction, saddle anesthesia, numbness or tingling in bilateral upper or lower extremities equally, muscle paralysis, weakness in bilateral upper or lower extremities equally or rash. REVIEW OF SYSTEMS:reviewed vital signs by RN CONSTITUTIONAL : Denies fever, chills, or sweats. Denies recent illness. EENT: Denies eye, ear, throat, or mouth pain or symptoms. Denies nasal or sinus congestion or discharge. Denies throat, tongue, or mouth swelling or difficulty swallowing. CARDIOVASCULAR: Denies chest pain. Denies palpitations or racing or irregular heart beat. Denies ankle edema. RESPIRATORY: Reports right rib chest wall pain. denies cough, cold, or chest congestion. Denies shortness of breath, difficulty breathing, or wheezing. GASTROINTESTINAL: Denies abdominal pain or distention. Denies nausea, vomiting, or diarrhea. Denies blood in vomitus, stools, or per rectum. Denies black, tarry stools. Denies constipation. GENITOURINARY: Denies difficulty urinating, painful urination, burning, frequency, blood in urine, or discharge. MUSCULOSKELETAL: Denies back or neck pain or stiffness. Denies joint pain or swelling. SKIN: Denies rash, lesions or sores. HEMATOLOGIC : Denies easy bruising or bleeding. LYMPHATIC: Denies swollen, enlarged glands. NEUROLOGICAL: Denies confusion or altered mental status. Denies passing out or loss of consciousness. Denies dizziness or lightheadedness. Denies headache. Denies weakness or paralysis or loss of use of either side. Denies problems w ith gait or speech. Denies sensory loss, numbness, or tingling. Denies seizures. PSYCHIATRIC: Denies anxiety or stress. Denies depression, suicidal ideation, or homicidal ideation. ALL OTHER SYSTEMS REVIEWED AND NEGATIVE. Dictation was performed using [employer] voice recognition software PHYSICAL EXAMINATION: GENERAL: Well-appearing, well-nourished and in no acute distress. HEAD: Atraumatic, normocephalic. EYES: Pupils equal round and reactive to light, extraocular movements intact, sclera anicteric, conjunctiva are normal. ENT: Nares patent, oropharynx clear without exudates. Moist mucous membranes. NECK: Normal range of motion, supple without lymphadenopathy LUNGS: Breath sounds clear to auscultation bilaterally and equal. No wheezes rales or rhonchi. Tenderness to right intercostal spaces from 8th-10th, no step-off noted, no ecchymosis noted. HEART: Regular rate and rhythm without murmurs ABDOMEN: Soft, nontender, nondistended abdomen. No guarding, no rebound. No m asses appreciated. Musculoskeletal: Normal range of motion, no pitting or edema. No cyanosis. NEUROLOGICAL: Cranial nerves grossly intact. Normal speech, normal gait. Normal sensory, motor exams PSYCH: Normal mood, normal affect. SKIN: Warm, Dry, normal turgor, no rashes or lesions noted. - REPRODUCTIVE Reproductive: DENIES: : Past Medical History - General Information source: Patient - Social History Smoking Status: Current Every Day Smoker Family History: CAD, DM, Hypertension, Malignancy Patient has homicidal ideation: No - Past Medical History Cardiac Medical History: Reports: Hx Coronary Artery Disease, Hx Hypercholesterolemia, Hx Hypertension Denies: Hx Atrial Fibrillation, Hx Congestive Heart Failure, Hx DVT, Hx Heart Attack, Hx Pulmonary Embolism Pulmonary Medical History: Reports: Hx Asthma, Hx Bronchitis, Hx COPD Denies: Hx Pneumonia Neurological Medical History: Denies: Hx Cerebrovascular Accident, Hx Seizures Endocrine Medical History: Reports: Hx Diabetes Mellitus Type 2. Denies: Hx Diabetes Mellitus Type 1, Hx Hyperthyroidism, Hx Hypothyroidism Renal/ Medical History: Denies: Hx Peritoneal Dialysis GI Medical History: Reports: Hx Gastroesophageal Reflux Disease. Denies: Hx Cirrhosis, Hx Crohn's Disease, Hx Hepatitis, Hx Ulcerative Colitis Musculoskeletal Medical History: Denies Hx Arthritis, Denies Hx Fibromyalgia Skin Medical History: Denies Hx Eczema, Denies Hx Psoriasis Psychiatric Medical History: Reports: Hx Depression Infectious Medical History: Denies: Hx Hepatitis Past Surgical History: Reports: Hx Abdominal Surgery - hernia, Hx Appendectomy, Hx Cholecystectomy, Hx Oral Surgery - R Knee 1992, Hx Tonsillectomy, Other - Knee surgery. Liver and lung biopsies for sarcoidosis. - Immunizations Hx Diphtheria, Pertussis, Tetanus Vaccination: Yes Vertical Provider Document - CONSTITUTIONAL Agree With Documented VS: Yes Exam Limitations: No Limitations General Appearance: WD/WN - INFECTION CONTROL TRAVEL OUTSIDE OF THE [place] IN LAST 30 DAYS: No Course - Re-evaluation Re-evalutation: 03/16/20 18:27 Afebrile vital stable no distress. X-ray negative for any acute fracture, pneumonia, pneumothorax. Discussed with patient that he is likely to have this pain for up to 4 to 6 weeks due to it being a rib contusion. Patient states he has not been using his inspirometer after it was brought up to reorder. Discussed how to use this device as well as the importance of it. Also discussed the importance of splinting while coughing. discussed smoking cessation. After performing a Medical Screening Examination, I estimate there is LOW risk for RUPTURED ESOPHAGUS, PNEUMOTHORAX, PULMONARY EMBOLISM, ACUTE CORONARY SYNDROME, OR THORACIC AORTIC DISSECTION, thus I consider the discharge disposition reasonable. I have reevaluated this patient multiple times and no significant life threatening changes are noted. The patient and I have discussed the diagnosis and risks, and we agree with discharging home with close follow- up. We also discussed returning to the Emergency Department immediately if new or worsening symptoms occur. We have discussed the symptoms which are most concerning (e.g., bloody sputum, worsening pain or shortness of breath) that necessitate immediate return. - Vital Signs Vital signs: Temp Pulse Resp BP Pulse Ox 98.5 F 86 20 108/71 98 03/16/20 17:11 03/16/20 16:36 03/16/20 16:36 03/16/20 16:36 03/16/20 16:36 Discharge - Discharge Clinical Impression: Contusion of right chest wall Condition: Stable Disposition: HOME, SELF-CARE Instructions: Rib Contusion ([facility]), Sprain ([facility]) Additional Instructions: Your x-ray today was negative for any acute fracture dislocation or pneumothorax or pneumonia. Please use an spirometer 10 deep breaths an hour as well as coughing at least twice an hour to prevent pneumonia. Take naproxen as needed for pain control. Please splint prior to coughing was to help with pain. Return immediately for any new or worsening symptoms. Follow up with primary care provider, call tomorrow to make followup appointment. Referrals: LEOPOLDO RODRIGUEZ, [Primary Care Provider] - Follow up as needed
--- NOTE | 2020-03-16 17:46 | RADIOLOGY REPORT (SQ) ---
EXAM DESCRIPTION: RIBS RIGHT W/PA CHEST IMAGES COMPLETED DATE/TIME: 03/16/2020 5:31 pm REASON FOR STUDY: s/p fall x 1 week ago, R rib pain COMPARISON: 03/10/2020 TECHNIQUE: Frontal view of the chest and additional views of the right ribs acquired. NUMBER OF VIEWS: Five view. LIMITATIONS: None. FINDINGS: FRONTAL CXR: No pneumothorax. No pleural effusion. No atelectasis or infiltrates. Stabl e scarring in the left base. RIBS: No displaced rib fractures. No lytic or blastic bony lesions. OTHER: No other significant finding. IMPRESSION: NO PNEUMOTHORAX. NO DISPLACED RIB FRACTURES. COMMENT: SITE OF TRAUMA/COMPLAINT MARKED/STAMP COMPLETED: NO. TECHNICAL DOCUMENTATION: JOB ID: [id number] 2010 [employer]- All Rights Reserved Reading location - IP/workstation name: [email or web address]
== END 2020-03-16 17:57 | disposition home or self-care (01) ==
LOC: ER 16:07
DX: S20.211A Contusion of right front wall of thorax, initial encounter (principal); W01.198A Fall on same level from slipping, tripping and stumbling with subsequent striking against other object, initial encounter; Y93.89 Activity, other specified; Y92.812 Truck as the place of occurrence of the external cause; I25.10 Atherosclerotic heart disease of native coronary artery without angina pectoris; I10 Essential (primary) hypertension; J44.9 Chronic obstructive pulmonary disease, unspecified; E11.9 Type 2 diabetes mellitus without complications; F17.210 Nicotine dependence, cigarettes, uncomplicated
CPT/HCPCS: 99283

== ENCOUNTER 2020-04-25 12:10 | Emergency (ER) | payer MEDICARE, MEDICAID ==
--- NOTE | 2020-04-25 13:21 | ER Document Report ---
ED Medical Screen (RME) - General Chief Complaint: Neck Injury Stated Complaint: FALL/NECK PAIN Time Seen by Provider: 04/25/20 13:14 Primary Care Provider: LEOPOLDO RODRIGUEZ DO [Primary Care Provider] - Follow up as needed Mode of Arrival: Ambulatory TRAVEL OUTSIDE OF THE [place] IN LAST 30 DAYS: No - HPI Notes: 04/25/20 13:17 50-year-old male who is a type II diabetic presents to the emergency room status post syncopal event a week ago where he passed out twice while applying sheet rock. States he fell on his left side hitting his head his neck and his shoulder. Since that time he has had pain with moving his neck, states he feels "things moving around my neck" along with pain with movement in his shoulder. Patient thinks this was related to the heat. States his blood sugars have ranged between 150-230's. States his [id number] was around but not sure if he saw him fall. Did not get checked out after he had 2 syncopal events last week because he did not want to "worry my ". Pain is been persistent since his fall. Has not tried any Tylenol or ibuprofen, has not tried any heat or icing. Denies having episodes of dizziness or lightheadedness since that time. Denies any heart issues, denies history of A. fib. Patient denies any past syncopal events. I have greeted and performed a rapid initial assessment of this patient. A comprehensive ED assessment and evaluation of the patient, analysis of test results and completion of the medical decision making process will be conducted by additional ED providers. PHYSICAL EXAMINATION: GENERAL: Well-appearing, well-nourished and in no acute distress. HEAD: Atraumatic, normocephalic. EYES: Pupils equal round extraocular movements intact, conjunctiva are normal. NECK: Normal range of motion CV: s1, s2 regular LUNGS: No respiratory distress Musculoskeletal: Normal range of motion. Right foot in a postop boot due to decubitus ulcerations to foot NEUROLOGICAL: Normal speech, normal gait. SKIN: Warm, Dry, normal turgor, no rashes or lesions noted. 04/25/20 13:20 - Related Data Allergies/Adverse Reactions: atenolol Adverse Reaction (Verified 02/23/20 18:26) LOWER B/P eggs Adverse Reaction (Uncoded 02/23/20 18:26) DIARRHEA, SULFA BURPS IF EAT TWO DAYS IN A ROW Past Medical History - Past Medical History Cardiac Medical History: Reports: Hx Coronary Artery Disease, Hx Hypercholesterolemia, Hx Hypertension Denies: Hx Atrial Fibrillation, Hx Congestive Heart Failure, Hx DVT, Hx Heart Attack, Hx Pulmonary Embolism Pulmonary Medical History: Reports: Hx Asthma, Hx Bronchitis, Hx COPD Denies: Hx Pneumonia Neurological Medical History: Denies: Hx Cerebrovascular Accident, Hx Seizures Endocrine Medical History: Reports: Hx Diabetes Mellitus Type 2. Denies: Hx Di abetes Mellitus Type 1, Hx Hyperthyroidism, Hx Hypothyroidism Renal/ Medical History: Denies: Hx Peritoneal Dialysis GI Medical History: Reports: Hx Gastroesophageal Reflux Disease. Denies: Hx Cirrhosis, Hx Crohn's Disease, Hx Hepatitis, Hx Ulcerative Colitis Musculoskeltal Medical History: Denies Hx Arthritis, Denies Hx Fibromyalgia Skin Medical History: Denies Hx Eczema, Denies Hx Psoriasis Psychiatric Medical History: Reports: Hx Depression Infectious Medical History: Denies: Hx Hepatitis Past Surgical History: Reports: Hx Abdominal Surgery - hernia, Hx Appendectomy, Hx Cholecystectomy, Hx Oral Surgery - R Knee 1991, Hx Tonsillectomy, Other - Knee surgery. Liver and lung biopsies for sarcoidosis. - Immunizations Hx Diphtheria, Pertussis, Tetanus Vaccination: Yes Physical Exam - Vital signs Vitals: Temp Pulse Resp BP Pulse Ox 98.7 F 86 18 115/75 98 04/25/20 12:14 04/25/20 12:14 04/25/20 12:14 04/25/20 12:14 04/25/20 12:14 Course - Vital Signs Vital signs: Temp Pulse Resp BP Pulse Ox 98.7 F 86 18 115/75 98 04/25/20 12:14 04/25/20 12:14 04/25/20 12:14 04/25/20 12:14 04/25/20 12:14 Doctor's Discharge - Discharge Referrals: LEOPOLDO RODRIGUEZ DO [Primary Care Provider] - Follow up as needed
--- NOTE | 2020-04-25 13:55 | RADIOLOGY REPORT (SQ) ---
EXAM DESCRIPTION: CT HEAD WITHOUT IMAGES COMPLETED DATE/TIME: 04/25/2020 1:35 pm REASON FOR STUDY: s/psyncopal event x1wago,+head,neck,Lshoulder pain COMPARISON: None. TECHNIQUE: Axial images acquired through the brain without intravenous contrast. Images reviewed wi th bone, brain and subdural windows. Additional sagittal and coronal reconstructions were generated. Images stored on PACS. All CT scanners at this facility use dose modulation, iterative reconstruction, and/or weight based d osing when appropriate to reduce radiation dose to as low as reasonably achievable (ALARA). [facility]: Dose Right [facility]: CareDose [facility]: Dose Right [facility]: Teradose 4D [facility]: Elixent RADIATION DOSE: CT Rad equipment meets quality standard of care and radiation dose reduction techniq ues were employed. CTDIvol: 53.2 mGy. DLP: 1097 mGy-cm. mGy. LIMITATIONS: None. FINDINGS: VENTRICLES: Normal size and contour. CEREBRUM: No masses. No hemorrhage. No midline shift. No evidence for acute infarction. Normal gra y/white matter differentiation. No areas of low density in the white matter. CEREBELLUM: No masses. No hemorrhage. No alteration of density. No evidence for acute infarction. EXTRAAXIAL SPACES: No fluid collections. No masses. ORBITS AND GLOBE: No intra- or extraconal masses. Normal contour of globe without masses. CALVARIUM: No fracture. PARANASAL SINUSES: No fluid or mucosal thickening. SOFT TISSUES: No mass or hematoma. OTHER: No other significant finding. IMPRESSION: NORMAL BRAIN CT WITHOUT CONTRAST. EVIDENCE OF ACUTE STROKE: NO. COMMENT: Quality ID # [id number]: Final reports with documentation of one or more dose reduction techniques (e.g., Automated exposure control, adjustment of the mA and/or kV according to patient size, use of iterative reconstruction technique) TECHNICAL DOCUMENTATION: JOB ID: [id number] 2010 [employer]- All Rights Reserved Reading location - IP/workstation name: [email or web address]
--- NOTE | 2020-04-25 13:57 | RADIOLOGY REPORT (SQ) ---
EXAM DESCRIPTION: CT CERVICAL SPINE WITHOUT IMAGES COMPLETED DATE/TIME: 04/25/2020 1:35 pm REASON FOR STUDY: s/psyncopal event x1wago,+head,neck,Lshoulder pain COMPARISON: None. TECHNIQUE: Axial images acquired through the cervical spine without intravenous contrast. Images re viewed with lung, soft tissue and bone windows. Reconstructed coronal and sagittal MPR images review ed. Images stored on PACS. All CT scanners at this facility use dose modulation, iterative reconstruction, and/or weight based d osing when appropriate to reduce radiation dose to as low as reasonably achievable (ALARA). [facility]: Dose Right [facility]: CareDose [facility]: Dose Right [facility]: Teradose 4D [facility]: Fever RADIATION DOSE: CT Rad equipment meets quality standard of care and radiation dose reduction techniq ues were employed. CTDIvol: 21.9 mGy. DLP: 483 mGy-cm. mGy. LIMITATIONS: None. FINDINGS: ALIGNMENT: Anatomic. MINERALIZATION: Normal. VERTEBRAL BODIES: No fractures or dislocation. DISCS: Mild disc disease. FACETS, LATERAL MASSES, POSTERIOR ELEMENTS: No fractures. No dislocation. No acute findings. HARDWARE: None in the spine. VISUALIZED RIBS: No fractures. LUNG APICES AND SOFT TISSUES: No significant or acute findings. OTHER: No other significant finding. IMPRESSION: NO ACUTE FINDINGS IN THE CERVICAL SPINE. TECHNICAL DOCUMENTATION: JOB ID: [id number] Quality ID # [id number]: Final reports with documentation of one or more dose reduction techniques (e.g., Au tomated exposure control, adjustment of the mA and/or kV according to patient size, use of iterative reconstruction technique) 2010 [employer]- All Rights Reserved Reading location - IP/workstation name: [email or web address]
--- NOTE | 2020-04-25 14:00 | RADIOLOGY REPORT (SQ) ---
EXAM DESCRIPTION: SHOULDER LEFT 2 OR MORE VIEWS IMAGES COMPLETED DATE/TIME: 04/25/2020 1:26 pm REASON FOR STUDY: s/psyncopal event x1wago,+head,neck,Lshoulder pain COMPARISON: 01/14/2018 NUMBER OF VIEWS: Three views. TECHNIQUE: Internal rotation, external rotation, and Y view images acquired of the left shoulder. LIMITATIONS: None. FINDINGS: MINERALIZATION: Normal. BONES: No acute fracture. No worrisome bone lesions. JOINTS: No dislocation. VISUALIZED LUNGS AND RIBS: No pneumothorax. No rib fracture. SOFT TISSUES: No radiopaque foreign body. OTHER: No other significant finding. IMPRESSION: NEGATIVE STUDY OF THE LEFT SHOULDER. NO RADIOGRAPHIC EVIDENCE OF ACUTE INJURY. TECHNICAL DOCUMENTATION: JOB ID: [id number] 2010 [employer]- All Rights Reserved Reading location - IP/workstation name: [email or web address]
--- NOTE | 2020-04-25 14:43 | EKG REPORT ---
SEVERITY:- ABNORMAL ECG - SINUS RHYTHM FIRST DEGREE AV BLOCK RBBB AND LAFB PROBABLE LEFT VENTRICULAR HYPERTROPHY : Confirmed by: Zofia Melendez MD 25-Apr-2020 14:42:36
--- NOTE | 2020-04-25 18:01 | ER Document Report ---
ED General - General Chief Complaint: Fall Injury Stated Complaint: FALL/NECK PAIN Time Seen by Provider: 04/25/20 13:14 Primary Care Provider: LEOPOLDO RODRIGUEZ DO [Primary Care Provider] - Follow up as needed Mode of Arrival: Ambulatory Information source: Patient Notes: 04/25/20 16:28 - ED Nursing Note by SISI CHEN Acct Num: [id number] : 1970 Patient Age: 50 Pt states that last week he passed out twice while working and fell on his left side. Pt states since he fell, his neck, left shoulder and left hip has been kirstie ting. Pt states that he antonio not done any treatment such as motrin or tylenol or ice and heat. Pt states that his neck feels like he has two screws jiggling in his neck. Pt states that he use to be able to crack his neck on his own and now he can not. Pt denies any other pain or symptoms. Pt breathing e/u. NAD noted. Doyle notes 50-year-old male who is a type II diabetic presents to the emergency room status post syncopal event a week ago where he passed out twice while applying sheet rock. States he fell on his left side hitting his head his neck and his shoulder. Since that time he has had pain with moving his neck, states he feels "things moving around my neck" along with pain with movement in his shoulder. Patient thinks this was related to the heat. States his blood sugars have r anged between 150-230's. States his [id number]-hh-xfo was around but not sure if he saw him fall. Did not get checked out after he had 2 syncopal events last week because he did not want to "worry my ". Pain is been persistent since his fall. Has not tried any Tylenol or ibuprofen, has not tried any heat or icing. Denies having episodes of dizziness or lightheadedness since that time. Denies any heart issues, denies history of A. fib. Patient denies any past syncopal events. my notes 50-year-old male with a history of diabetes and neuropathy and on disability because of the same since 2005.. 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 He reports he think he hit his head and left neck and left shoulder and has been complaining of dorsal neck left trapezial muscle pain and left shoulder pain and mild pain to his lateral hip since this occurred. He was here today with his daughter when she was getting checked and and he decided to check in as well. He has been waiting here for 5 hours when I saw the patient. I advised him of the negative CT and x-ray findings and also advised him he needs a gate mortiser operator like Dr. Moy and also orthopedics like Dr. Barrera for referral he agrees with these referrals. Patient reports his blood sugars have been ranging between 120 and 250 over the last week. TRAVEL OUTSIDE OF THE [place] IN LAST 30 DAYS: No - HPI Onset: Just prior to arrival Onset/Duration: Sudden, Persistent Quality of pain: Achy Severity: Mild Pain Level: 1 Associated symptoms: Body/muscle aches Exacerbated by: Movement Relieved by: Remaining still Similar symptoms previously: No Recently seen / treated by doctor: No - Related Data Allergies/Adverse Reactions: atenolol Adverse Reaction (Verified 04/25/20 16:31) LOWER B/P eggs Adverse Reaction (Uncoded 04/25/20 16:31) DIARRHEA, SULFA BURPS IF EAT TWO DAYS IN A ROW Past Medical History - General Information source: Patient - Social History Smoking Status: Unknown if Ever Smoked Cigarette use (# per day): No Chew tobacco use (# tins/day): No Smoking Education Provided: No Frequency of alcohol use: None Drug Abuse: None Lives with: Family Family History: Reviewed & Not Pertinent, CAD, DM, Hypertension, Malignancy Patient has suicidal ideation: No Patient has homicidal ideation: No - Past Medical History Cardiac Medical History: Reports: Hx Coronary Artery Disease, Hx Hypercholesterolemia, Hx Hypertension Denies: Hx Atrial Fibrillation, Hx Congestive Heart Failure, Hx DVT, Hx Heart Attack, Hx Pulmonary Embolism Pulmonary Medical History: Reports: Hx Asthma, Hx Bronchitis, Hx COPD Denies: Hx Pneumonia Neurological Medical History: Denies: Hx Cerebrovascular Accident, Hx Seizures Endocrine Medical History: Reports: Hx Diabetes Mellitus Type 2. Denies: Hx Diabetes Mellitus Type 1, Hx Hyperthyroidism, Hx Hypothyroidism Renal/ Medical History: Denies: Hx Peritoneal Dialysis GI Medical History: Reports: Hx Gastroesophageal Reflux Disease. Denies: Hx Cirrhosis, Hx Crohn's Disease, Hx Hepatitis, Hx Ulcerative Colitis Musculoskeletal Medical History: Denies Hx Arthritis, Denies Hx Fibromyalgia Skin Medical History: Denies Hx Eczema, Denies Hx Psoriasis Psychiatric Medical History: Reports: Hx Depression Infectious Medical History: Denies: Hx Hepatitis Past Surgical History: Reports: Hx Abdominal Surgery - hernia, Hx Appendectomy, Hx Cholecystectomy, Hx Oral Surgery - R Knee 1992, Hx Tonsillectomy, Other - Knee surgery. Liver and lung biopsies for sarcoidosis. - Immunizations Hx Diphtheria, Pertussis, Tetanus Vaccination: Yes Review of Systems - Review of Systems Constitutional: No symptoms reported EENT: No symptoms reported Cardiovascular: No symptoms reported Respiratory: No symptoms reported Gastrointestinal: No symptoms reported Genitourinary: No symptoms reported Male Genitourinary: No symptoms reported Musculoskeletal: No symptoms reported, Joint pain - left shoulder, Muscle pain, Neck pain Skin: No symptoms reported Hematologic/Lymphatic: No symptoms reported Neurological/Psychological: No symptoms reported Physical Exam - Vital signs Vitals: Temp Pulse Resp BP Pulse Ox 98.7 F 86 18 115/75 98 04/25/20 12:14 04/25/20 12:14 04/25/20 12:14 04/25/20 12:14 04/25/20 12:14 Interpretation: Normal - General General appearance: Appears well - HEENT Head: Normocephalic, Atraumatic Eyes: Normal Pupils: PERRL Neck: Normal, Other - but dorsal neck pain on p/p rom left or right - Respiratory Respiratory status: No respiratory distress Chest status: Nontender Breath sounds: Normal Chest palpation: Normal - Cardiovascular Rhythm: Regular Heart sounds: Normal auscultation Murmur: No - Abdominal Inspection: Normal Distension: No distension Bowel sounds: Normal Tenderness: Nontender Organomegaly: No organomegaly - Rectal Hemorrhoids: Other - deferred - Genitourinary Scrotum: Other - deferred - Back Back: Normal - Extremities General upper extremity: Tender, Other - left shoulder tenderness and rom General lower extremity: Tender - left lat hip on p/p - Neurological Neuro grossly intact: Yes Cognition: Normal Orientation: AAOx4 Shaniqua Coma Scale Eye Opening: Spontaneous Shaniqua Coma Scale Verbal: Oriented Kenner Coma Scale Motor: Obeys Commands Shaniqua Coma Scale Total: 15 Speech: Normal Motor strength normal: LUE, RUE, LLE, RLE Sensory: Normal - Psychological Associated symptoms: Normal affect - Skin Skin Temperature: Warm Skin Moisture: Dry Skin Color: Normal Course - Vital Signs Vital signs: Temp Pulse Resp BP Pulse Ox 98.7 F 86 18 115/75 98 04/25/20 12:14 04/25/20 12:14 04/25/20 12:14 04/25/20 12:14 04/25/20 12:14 - Diagnostic Test Radiology reviewed: Reports reviewed Critical Care Note - Critical Care Note Total time excluding time spent on procedures (mins): 60 Discharge - Discharge Clinical Impression: Atypical syncope, Neuropathy, Neck pain on left side Left shoulder pain Qualifiers: Chronicity: acute Qualified Code(s): M25.512 - Pain in left shoulder Condition: Good Disposition: HOME, SELF-CARE Additional Instructions: Follow-up with Dr. Moy gate mortiser operator because of your syncopy and with Cara b/o your neck and left shoulder pain. Keep your sugars under control return to ER as needed take medicines as directed; avoid driving while taking Parafon forte Prescriptions: Chlorzoxazone [Parafon Forte Dsc 500 Mg Tablet] 500 mg PO BID PRN #20 tablet PRN Reason: Pain Scale Of 1 Referrals: LEOPOLDO RODRIGUEZ DO [Primary Care Provider] - Follow up as needed
[2020-04-25 18:39] VITALS: BP 116/78
== END 2020-04-25 18:37 | disposition home or self-care (01) ==
LOC: ER 12:10
DX: R55 Syncope and collapse (principal); M54.2 Cervicalgia; M25.512 Pain in left shoulder; W19.XXXA Unspecified fall, initial encounter; Y99.0 Civilian activity done for income or pay; E11.40 Type 2 diabetes mellitus with diabetic neuropathy, unspecified; E78.00 Pure hypercholesterolemia, unspecified; I25.10 Atherosclerotic heart disease of native coronary artery without angina pectoris; I10 Essential (primary) hypertension; J44.9 Chronic obstructive pulmonary disease, unspecified; Z90.49 Acquired absence of other specified parts of digestive tract
CPT/HCPCS: 70450; 72125; 82962; 93005; 93010; 99291

== ENCOUNTER → 2020-05-04 | Outpatient (CLI) | payer MEDICARE, MEDICAID ==
[2020-05-04 14:49] LABS: ABSOLUTE BASOPHILS # (AUTO) 0.1 10^3/uL (0.0-0.2); ABSOLUTE EOSINOPHILS # (AUTO) 0.2 10^3/uL (0.0-0.6); ABSOLUTE LYMPHOCYTES (AUTO) 2.1 10^3/uL (0.5-4.7); ABSOLUTE MONOCYTES (AUTO) 0.9 10^3/uL (0.1-1.4); ABSOLUTE NEUT (AUTO) 5.1 10^3/uL (1.7-8.2); BASOPHILS % (AUTO) 0.9 % (0-2); EOSINOPHILS % (AUTO) 2.8 % (0-6); HEMOGLOBIN 14.9 g/dL (13.5-17.0); LYMPHOCYTES % (AUTO) 24.7 % (13-45); MEAN CORPUSCULAR HEMOGLOBIN 29.8 pg (27.0-33.4); MEAN CORPUSCULAR HGB CONC 34.8 g/dL (32.0-36.0); MEAN CORPUSCULAR VOLUME 86 fl (80-97); PLATELET COUNT 234 10^3/uL (150-450); RED BLOOD COUNT 5.02 10^6/uL (4.35-5.55); RED CELL DISTRIBUTION WIDTH 14.7 % (11.5-14.0); SEGMENTED NEUTROPHILS % (AUTO) 60.6 % (42-78); TOTAL CELLS COUNTED % (AUTO) 100 %; WHITE BLOOD COUNT 8.3 10^3/uL (4.0-10.5)
[2020-05-04 15:30] LABS: ERYTHROCYTE SEDIMENTATION RATE 52 mm/hr (0-20)
--- NOTE | 2020-05-04 15:51 | RADIOLOGY REPORT (SQ) ---
EXAM DESCRIPTION: FOOT RIGHT COMPLETE IMAGES COMPLETED DATE/TIME: 05/04/2020 2:30 pm REASON FOR STUDY: NON-PRS CHRONIC ULCER OTH PRT RIGHT FOOT W FAT LAYER EXPOSED L97.512 NON-PRS DECKHAND SHRIMP BOAT LYLE ULCER OTH PRT RIGHT FOOT W FAT LAYER E11.621 TYPE 2 DIABETES MELLITUS WITH FOOT ULCER COMPARISON: None. NUMBER OF VIEWS: Three views. TECHNIQUE: AP, lateral and oblique radiographic images acquired of the right foot. LIMITATIONS: None. FINDINGS: MINERALIZATION: Normal. BONES: No acute fracture or dislocation. No osteomyelitis. No worrisome bone lesions. JOINTS: No effusions. SOFT TISSUES: There appears to be an ulcer adjacent to the 5th metatarsal-phalangeal joint. OTHER: No other significant finding. IMPRESSION: No osteomyelitis. TECHNICAL DOCUMENTATION: JOB ID: [id number] 2010 [employer]- All Rights Reserved Reading location - IP/workstation name: [email or web address]
[2020-05-04 15:57] LABS: ALBUMIN 4.1 g/dL (3.5-5.0); ALKALINE PHOSPHATASE 100 U/L (38-126); ANION GAP 8 (5-19); ASPARTATE AMINO TRANSFERASE 24 U/L (17-59); BILIRUBIN,TOTAL 0.6 mg/dL (0.2-1.3); BLOOD UREA NITROGEN 13 mg/dL (7-20); C-REACTIVE PROTEIN 17.1 mg/L (<10.0); CALCIUM 9.3 mg/dL (8.4-10.2); CARBON DIOXIDE 28 mmol/L (22-30); CHLORIDE 98 mmol/L (98-107); GLUCOSE 250 mg/dL (75-110); TOTAL PROTEIN 7.5 g/dL (6.3-8.2)
[2020-05-04 16:02] LABS: POTASSIUM 2.9 mmol/L (3.6-5.0)
== END ==
LOC: WC 14:07
PROVIDERS: ATTEND Preventive Medicine Undersea and Hyperbaric Medicine
DX: E11.621 Type 2 diabetes mellitus with foot ulcer (principal); L97.512 Non-pressure chronic ulcer of other part of right foot with fat layer exposed
CPT/HCPCS: 36415; 80053; 83036; 85025; 85652; 86140

== ENCOUNTER → 2020-05-24 | Outpatient (CLI) | payer MEDICARE ==
--- NOTE | 2020-05-24 10:42 | RADIOLOGY REPORT (SQ) ---
EXAM DESCRIPTION: CT CHEST WITHOUT IMAGES COMPLETED DATE/TIME: 05/24/2020 9:27 am REASON FOR STUDY: SOLITARY PULMONARY NODULE R91.1 SOLITARY PULMONARY NODULE COMPARISON: 04/13/2019 TECHNIQUE: CT scan performed of the chest without intravenous contrast. Images reviewed with lung, soft tissue and bone windows. Reconstructed coronal and sagittal MPR images reviewed. All images st ored on PACS. All CT scanners at this facility use dose modulation, iterative reconstruction, and/or weight based d osing when appropriate to reduce radiation dose to as low as reasonably achievable (ALARA). [facility]: Dose Right [facility]: CareDose [facility]: Dose Right [facility]: Teradose 4D [facility]: Smart MediaSite RADIATION DOSE: CT Rad equipment meets quality standard of care and radiation dose reduction techniq ues were employed. CTDIvol: 17.7 mGy. DLP: 768 mGy-cm. mGy. LIMITATIONS: No technical limitations. FINDINGS: LUNGS AND PLEURA: Stable linear opacity within the basilar left upper lobe, likely scarrin g. Stable 5 mm nodule along the right minor fissure, likely perifissural lymph node (series 4, image 57). Stable additional right upper lobe pulmonary nodule along the posterior aspect (series 4, imag e 301). No new discrete nodules or masses. No focal airspace disease. No pleural effusion or pneum othorax. HILAR AND MEDIASTINAL STRUCTURES: Mildly decreased size of the mediastinal lymph nodes. For referenc e largest right paratracheal node measures 8 mm in short axis, previously 10 mm (series 4, image 281) . HEART AND VASCULAR STRUCTURES: Multifocal extensive calcified coronary atherosclerosis. Normal heart size. No pericardial effusion. UPPER ABDOMEN: No acute intra-abdominal findings. Prior cholecystectomy. THYROID AND OTHER SOFT TISSUES: No masses. No adenopathy. BONES: No significant finding. HARDWARE: None in the chest. OTHER: No other significant findings. IMPRESSION: 1. Stable few scattered pulmonary nodules, largest measuring 5 mm. No new nodules or m asses. 2. Decreased size of previously described mediastinal adenopathy. 3. No evidence of acute intrathoracic process. COMMENT: FLEISCHNER CRITERIA FOR FOLLOW-UP OF PULMONARY NODULES Incidentally detected new nodules in persons 35 or older. HIGH RISK: History of smoking or other known risk factors. <6 mm single solid nodule: LOW RISK: no routine followup. HIGH RISK: optional CT 12 mo. TECHNICAL DOCUMENTATION: JOB ID: [id number] Quality ID # [id number]: Final reports with documentation of one or more dose reduction techniques (e.g., Au tomated exposure control, adjustment of the mA and/or kV according to patient size, use of iterative reconstruction technique) 2010 [employer]- All Rights Reserved Reading location - IP/workstation name: [email or web address]
== END ==
LOC: RAD 09:08
PROVIDERS: ATTEND Internal Medicine Pulmonary Disease
DX: R91.1 Solitary pulmonary nodule (principal)
CPT/HCPCS: 71250

== ENCOUNTER → 2020-05-25 | Outpatient (CLI) | payer MEDICARE, MEDICAID ==
--- NOTE | 2020-05-25 15:40 | RADIOLOGY REPORT (SQ) ---
EXAM DESCRIPTION: FOOT RIGHT COMPLETE IMAGES COMPLETED DATE/TIME: 05/25/2020 2:56 pm REASON FOR STUDY: NON-PRS CHRONIC ULCER OTH PRT RIGHT FOOT W FAT LAYER EXPOSED, TYPE 2 DIABET L97.51 2 NON-PRS CHRONIC ULCER OTH PRT RIGHT FOOT W FAT LAYER E11.621 TYPE 2 DIABETES MELLITUS WITH FOOT U LCER COMPARISON: 05/04/2020 NUMBER OF VIEWS: Three views. TECHNIQUE: AP, lateral and oblique radiographic images acquired of the right foot. LIMITATIONS: None. FINDINGS: MINERALIZATION: Normal. BONES: No acute fracture or dislocation. No worrisome bone lesions. JOINTS: No effusions. SOFT TISSUES: Vascular calcifications. Calcifications in the soft tissues lateral to the 5th metatar sophalangeal joint. OTHER: No other significant finding. IMPRESSION: No evidence of osteomyelitis. TECHNICAL DOCUMENTATION: JOB ID: [id number] 2010 [employer]- All Rights Reserved Reading location - IP/workstation name: [email or web address]
[2020-05-25 15:45] LABS: ABSOLUTE BASOPHILS # (AUTO) 0.1 10^3/uL (0.0-0.2); ABSOLUTE EOSINOPHILS # (AUTO) 0.2 10^3/uL (0.0-0.6); ABSOLUTE LYMPHOCYTES (AUTO) 2.4 10^3/uL (0.5-4.7); ABSOLUTE MONOCYTES (AUTO) 1.1 10^3/uL (0.1-1.4); ABSOLUTE NEUT (AUTO) 5.2 10^3/uL (1.7-8.2); BASOPHILS % (AUTO) 0.9 % (0-2); EOSINOPHILS % (AUTO) 1.9 % (0-6); HEMATOCRIT 45.3 % (37.9-51.0); HEMOGLOBIN 15.4 g/dL (13.5-17.0); LYMPHOCYTES % (AUTO) 26.7 % (13-45); MEAN CORPUSCULAR HEMOGLOBIN 29.2 pg (27.0-33.4); MEAN CORPUSCULAR VOLUME 86 fl (80-97); MONOCYTES % (AUTO) 11.9 % (3-13); PLATELET COUNT 283 10^3/uL (150-450); RED BLOOD COUNT 5.27 10^6/uL (4.35-5.55); RED CELL DISTRIBUTION WIDTH 14.2 % (11.5-14.0); SEGMENTED NEUTROPHILS % (AUTO) 58.6 % (42-78); TOTAL CELLS COUNTED % (AUTO) 100 %; WHITE BLOOD COUNT 8.9 10^3/uL (4.0-10.5)
[2020-05-25 16:05] LABS: ALBUMIN 4.1 g/dL (3.5-5.0); ALKALINE PHOSPHATASE 82 U/L (38-126); ANION GAP 9 (5-19); ASPARTATE AMINO TRANSFERASE 27 U/L (17-59); BILIRUBIN,DIRECT 0.1 mg/dL (0.0-0.4); BILIRUBIN,TOTAL 0.9 mg/dL (0.2-1.3); BLOOD UREA NITROGEN 14 mg/dL (7-20); C-REACTIVE PROTEIN 15.1 mg/L (<10.0); CALCIUM 9.5 mg/dL (8.4-10.2); CARBON DIOXIDE 30 mmol/L (22-30); CHLORIDE 96 mmol/L (98-107); GLUCOSE 277 mg/dL (75-110); POTASSIUM 3.3 mmol/L (3.6-5.0); TOTAL PROTEIN 7.9 g/dL (6.3-8.2)
[2020-05-25 16:34] LABS: ERYTHROCYTE SEDIMENTATION RATE 48 mm/hr (0-20)
== END ==
LOC: WC 14:18
PROVIDERS: ATTEND Preventive Medicine Undersea and Hyperbaric Medicine
DX: E11.621 Type 2 diabetes mellitus with foot ulcer (principal); L97.512 Non-pressure chronic ulcer of other part of right foot with fat layer exposed
CPT/HCPCS: 36415; 80053; 83036; 85025; 85652; 86140

== ENCOUNTER → 2020-06-06 | Outpatient (CLI) | payer MEDICARE ==
--- NOTE | 2020-06-07 10:26 | RADIOLOGY REPORT (SQ) ---
EXAM DESCRIPTION: MRI RT LOWER EXTREMITY COMBO IMAGES COMPLETED DATE/TIME: 06/06/2020 1:46 pm REASON FOR STUDY: L97.512 NON-PRS CHRONIC ULCER OTH PRT RIGHT FOOT W FAT LAYER EXPOSED L97.512 NON- PRS CHRONIC ULCER OTH PRT RIGHT FOOT W FAT LAYER COMPARISON: None. TECHNIQUE: Multiplanar imaging of the right forefoot to include T1-weighted, postcontrast T1-weighte d, and T2-weighted images. CONTRAST TYPE AND DOSE: 20 mL Prohance. RENAL FUNCTION: Not indicated. ACR Type II contrast agent associated with few, if any, unconfounded cases of NSF LIMITATIONS: Motion. FINDINGS: BONE MARROW: There is decreased T1 and increased T2 signal in the 5th metatarsal with spar ing of the base. There is a pathologic fracture of the head, nondisplaced. SOFT TISSUES: Adjacent plantar skin ulcer. OTHER: No other significant finding. IMPRESSION: Osteomyelitis 5th metatarsal with pathologic fracture of the metatarsal head. TECHNICAL DOCUMENTATION: JOB ID: [id number] 2010 [employer]- All Rights Reserved Reading location - IP/workstation name: [email or web address]
== END ==
LOC: RAD 12:47
PROVIDERS: ATTEND Preventive Medicine Undersea and Hyperbaric Medicine
DX: L97.512 Non-pressure chronic ulcer of other part of right foot with fat layer exposed (principal)
CPT/HCPCS: 73720; A9576

== ENCOUNTER 2020-06-07 15:16 | Inpatient (IN) | payer MEDICARE, MEDICAID ==
[2020-06-07] MEDS ORDERED: NORMAL SALINE 1000 ML 1,000 ML IV ONE ×2 (15:57→16:10)
[2020-06-07] MEDS ORDERED: AMPICILLIN SOD/SULBACTAM 3 GM VIAL IV ONE (15:59)
[2020-06-07] MEDS ORDERED: VANCOMYCIN HCL INJ 1000 MG VIAL IV ONE (16:00)
--- NOTE | 2020-06-07 16:02 | ER Document Report ---
ED Medical Screen (RME) - General Chief Complaint: Foot Pain Stated Complaint: RIGHT FOOT PAIN, LEG PAIN Time Seen by Provider: 06/07/20 15:56 Primary Care Provider: ANNA KIM DPM [Primary Care Provider] - Follow up as needed Mode of Arrival: Wheelchair Information source: Patient Notes: 50-year-old male presented to ED for complaint of pain to his foot. He states he had a MRI done on the foot yesterday due to the pain. The MRI does show osteomyelitis of the fifth metatarsal. I have spoken with Dr. Leon I have ordered vancomycin and Unasyn as well as IV fluids Accu-Chek blood work and chest x-ray. I have greeted and performed a rapid initial assessment of this patient. A comprehensive ED assessment and evaluation of the patient, analysis of test results and completion of medical decision making process will be conducted by an additional ED providers. TRAVEL OUTSIDE OF THE [place] IN LAST 30 DAYS: No - Related Data Allergies/Adverse Reactions: atenolol Adverse Reaction (Verified 06/07/20 15:57) LOWER B/P eggs Adverse Reaction (Uncoded 06/07/20 15:57) DIARRHEA, SULFA BURPS IF EAT TWO DAYS IN A ROW Past Medical History - Past Medical History Cardiac Medical History: Reports: Hx Coronary Artery Disease, Hx Hypercholesterolemia, Hx Hypertension Denies: Hx Atrial Fibrillation, Hx Congestive Heart Failure, Hx DVT, Hx Heart Attack, Hx Pulmonary Embolism Pulmonary Medical History: Reports: Hx Asthma, Hx Bronchitis, Hx COPD Denies: Hx Pneumonia Neurological Medical History: Denies: Hx Cerebrovascular Accident, Hx Seizures Endocrine Medical History: Reports: Hx Diabetes Mellitus Type 2. Denies: Hx Diabetes Mellitus Type 1, Hx Hyperthyroidism, Hx Hypothyroidism Renal/ Medical History: Denies: Hx Peritoneal Dialysis GI Medical History: Reports: Hx Gastroesophageal Reflux Disease. Denies: Hx Cirrhosis, Hx Crohn's Disease, Hx Hepatitis, Hx Ulcerative Colitis Musculoskeltal Medical History: Denies Hx Arthritis, Denies Hx Fibromyalgia Skin Medical History: Denies Hx Eczema, Denies Hx Psoriasis Psychiatric Medical History: Reports: Hx Depression Infectious Medical History: Denies: Hx Hepatitis Past Surgical History: Reports: Hx Abdominal Surgery - hernia, Hx Appendectomy, Hx Cholecystectomy, Hx Oral Surgery - R Knee 1992, Hx Tonsillectomy, Other - Knee surgery. Liver and lung biopsies for sarcoidosis. - Immunizations Hx Diphtheria, Pertussis, Tetanus Vaccination: Yes Physical Exam - Vital signs Vitals: Temp Pulse Resp BP Pulse Ox 99.4 F 91 18 114/64 98 06/07/20 15:39 06/07/20 15:39 06/07/20 15:39 06/07/20 15:39 06/07/20 15:39 Course - Vital Signs Vital signs: Temp Pulse Resp BP Pulse Ox 99.4 F 91 18 114/64 98 06/07/20 15:39 06/07/20 15:39 06/07/20 15:39 06/07/20 15:39 06/07/20 15:39 Doctor's Discharge - Discharge Referrals: ANNA KIM DPM [Primary Care Provider] - Follow up as needed
--- NOTE | 2020-06-07 16:08 | ER Document Report ---
ED General - General Chief Complaint: Foot Pain Stated Complaint: RIGHT FOOT PAIN, LEG PAIN Time Seen by Provider: 06/07/20 15:56 Mode of Arrival: Wheelchair TRAVEL OUTSIDE OF THE [place] IN LAST 30 DAYS: No - HPI Patient complains to provider of: Right foot pain Notes: Patient endorsing 10/10 throbbing right foot pain lateral aspect foot base of fifth metatarsal, patient is some surrounding cellulitis area of chronic diabetic wound in the foot. Patient had MRI performed yesterday. Results in nature osteomyelitis. Patient denies fever chills or constitutional symptoms. - Related Data Allergies/Adverse Reactions: atenolol Adverse Reaction (Verified 06/07/20 15:57) LOWER B/P eggs Adverse Reaction (Uncoded 06/07/20 15:57) DIARRHEA, SULFA BURPS IF EAT TWO DAYS IN A ROW Home Medications: jardiance.... Past Medical History - General Information source: Patient - Social History Smoking Status: Current Every Day Smoker Chew tobacco use (# tins/day): No Frequency of alcohol use: Rare Drug Abuse: None Family History: Reviewed & Not Pertinent, CAD, DM, Hypertension, Malignancy Patient has homicidal ideation: No - Past Medical History Cardiac Medical History: Reports: Hx Coronary Artery Disease, Hx Hypercho lesterolemia, Hx Hypertension Denies: Hx Atrial Fibrillation, Hx Congestive Heart Failure, Hx DVT, Hx Heart Attack, Hx Pulmonary Embolism Pulmonary Medical History: Reports: Hx Asthma, Hx Bronchitis, Hx COPD Denies: Hx Pneumonia Neurological Medical History: Denies: Hx Cerebrovascular Accident, Hx Seizures Endocrine Medical History: Reports: Hx Diabetes Mellitus Type 2. Denies: Hx Diabetes Mellitus Type 1, Hx Hyperthyroidism, Hx Hypothyroidism Renal/ Medical History: Denies: Hx Peritoneal Dialysis GI Medical History: Reports: Hx Gastroesophageal Reflux Disease. Denies: Hx Cirrhosis, Hx Crohn's Disease, Hx Hepatitis, Hx Ulcerative Colitis Musculoskeletal Medical History: Denies Hx Arthritis, Denies Hx Fibromyalgia Skin Medical History: Denies Hx Eczema, Denies Hx Psoriasis Psychiatric Medical History: Reports: Hx Depression Infectious Medical History: Denies: Hx Hepatitis Past Surgical History: Reports: Hx Abdominal Surgery - hernia, Hx Appendectomy, Hx Cholecystectomy, Hx Oral Surgery - R Knee 1992, Hx Tonsillectomy, Other - Kne e surgery. Liver and lung biopsies for sarcoidosis. - Immunizations Hx Diphtheria, Pertussis, Tetanus Vaccination: Yes Review of Systems - Review of Systems Notes: REVIEW OF SYSTEMS: CONSTITUTIONAL: -fevers, -chills EENT: -eye pain, -difficulty swallowing, -nasal congestion CARDIOVASCULAR: -chest pain, -syncope. RESPIRATORY: -cough, -SOB GASTROINTESTINAL: -abdominal pain, -nausea, -vomiting, -diarrhea GENITOURINARY: -dysuria, -hematuria MUSCULOSKELETAL: foot pain SKIN: cellulitis right foot HEMATOLOGIC: -easy bruising or bleeding. LYMPHATIC: -swollen, enlarged glands. NEUROLOGICAL: -altered mental status or loss of consciousness, -headache, - neurologic symptoms PSYCHIATRIC: -anxiety, -depression. ALL OTHER SYSTEMS REVIEWED AND NEGATIVE. Physical Exam - Vital signs Vitals: Temp Pulse Resp BP Pulse Ox 99.4 F 91 18 114/64 98 06/07/20 15:39 06/07/20 15:39 06/07/20 15:39 06/07/20 15:39 06/07/20 15:39 - Notes Notes: PHYSICAL EXAMINATION: GENERAL: Well-appearing, well-nourished and in no acute distress. HEAD: Atraumatic, normocephalic. EYES: Pupils equal round, sclera anicteric, conjunctiva are normal. ENT: Surgical mask in place. NECK: Normal range of motion, LUNGS: No respiratory Distress, normal chest rise EXTREMITIES: Bandage in place on lateral aspect right foot base of fifth metatarsal surrounding area of cellulitis noted exquisite pain to palpation NEUROLOGICAL: Cranial nerves grossly intact. Normal speech, PSYCH: Normal mood, normal affect. SKIN: Warm, Dry, Course - Re-evaluation Re-evalutation: 06/07/20 18:09 Unfortunate 50-year-old male presents with apparent osteomyelitis in his right foot with surrounding cellulitis. Patient given aggressive fluid resuscitation, IV antibiotics and opioids. Pain feeling markedly improved. Patient's blood work shows profound leukocytosis, elevated ESR and CRP. Patient will be admitted to the hospital medical service consult orthopedic surgery. - Vital Signs Vital signs: Temp Pulse Resp BP Pulse Ox 99.4 F 91 18 114/64 98 06/07/20 15:39 06/07/20 15:39 06/07/20 15:39 06/07/20 15:39 06/07/20 15:39 - Laboratory Result Diagrams: 06/07/20 16:33 06/07/20 16:33 Laboratory results interpreted by me: 06/07/20 06/07/20 06/07/20 16:33 16:33 16:33 WBC 12.4 H RDW 14.6 H Absolute Neuts (auto) 9.0 H Absolute Monos (auto) 1.5 H ESR Sodium 136.4 L Potassium 3.3 L Glucose 257 H C-Reactive Protein Urine Glucose (UA) >=500 H 06/07/20 06/07/20 16:33 16:33 WBC RDW Absolute Neuts (auto) Absolute Monos (auto) ESR 105 H Sodium Potassium Glucose C-Reactive Protein 144.9 H Urine Glucose (UA) Discharge - Discharge Clinical Impression: Cellulitis Qualifiers: Site of cellulitis: extremity Site of cellulitis of extremity: lower extremity Laterality: right Qualified Code(s): L03.115 - Cellulitis of right lower limb Osteomyelitis Qualifiers: Osteomyelitis type: chronic, with draining sinus Osteomyelitis location: foot Laterality: right Qualified Code(s): M86.471 - Chronic osteomyelitis with draining sinus, right ankle and foot Condition: Stable Disposition: ADMITTED INPATIENT Admitting Provider: Kvng (Hospitalist) Unit Admitted: Medical Floor
[2020-06-07] MEDS ORDERED: HYDROMORPHONE HCL INJ/PF 2 MG/ML AMPULE IV ONE (16:11)
[2020-06-07 16:58] LABS: ABSOLUTE BASOPHILS # (AUTO) 0.1 10^3/uL (0.0-0.2); ABSOLUTE EOSINOPHILS # (AUTO) 0.2 10^3/uL (0.0-0.6); ABSOLUTE LYMPHOCYTES (AUTO) 1.7 10^3/uL (0.5-4.7); ABSOLUTE MONOCYTES (AUTO) 1.5 10^3/uL (0.1-1.4); BASOPHILS % (AUTO) 0.7 % (0-2); EOSINOPHILS % (AUTO) 1.4 % (0-6); HEMATOCRIT 43.3 % (37.9-51.0); HEMOGLOBIN 14.6 g/dL (13.5-17.0); LYMPHOCYTES % (AUTO) 13.7 % (13-45); MEAN CORPUSCULAR HEMOGLOBIN 28.8 pg (27.0-33.4); MEAN CORPUSCULAR HGB CONC 33.6 g/dL (32.0-36.0); MEAN CORPUSCULAR VOLUME 86 fl (80-97); MONOCYTES % (AUTO) 12.1 % (3-13); PLATELET COUNT 283 10^3/uL (150-450); RED BLOOD COUNT 5.05 10^6/uL (4.35-5.55); RED CELL DISTRIBUTION WIDTH 14.6 % (11.5-14.0); SEGMENTED NEUTROPHILS % (AUTO) 72.1 % (42-78); TOTAL CELLS COUNTED % (AUTO) 100 %; WHITE BLOOD COUNT 12.4 10^3/uL (4.0-10.5)
[2020-06-07] MEDS ORDERED: VANCOMYCIN HCL 0 MG in DEXTROSE 5%-WATER 250 ML IV NR (17:00)
--- NOTE | 2020-06-07 17:01 | PDOC H&P ---
History of Present Illness Admission Date/PCP: ANNA KIM DPM History of Present Illness: ED PEDRAZA is a 50 year old male past medical history of diabetes, CAD, morbid obesity, COPD, hypertension, sarcoid on chronic steroid, presented to ED complaining worsening chronic right foot pain. Patient is stating that he has about 1/2 years ago he was diagnosed with diabetic foot and has been cared for by a box truck owner operator at the wound care clinic fortunately his wound has not getting better. Recently he has noticed worsening swelling and erythema and purulent discharge from right fifth metatarsal base, pain is throbbing, 5/5 worse with ambulation or movement, denies any fever, ch ills, nausea, vomiting, chest pain, shortness of breath, diarrhea, constipation or any urinary symptoms. Patient had an MRI yesterday and the report is positive for fifth metatarsal osteomyelitis. In ED he was started on empiric IV antibiotics and hospitalist consulted for admission. Past Medical History Cardiac Medical History: Reports: Coronary Artery Disease, Hyperlipidema, Hypertension Denies: Atrial Fibrillation, Congestive Heart Failure, DVT, Myocardial Infarction, Pulmonary Embolism Pulmonary Medical History: Reports: Asthma, Bronchitis, Chronic Obstructive Pulmonary Disease (COPD) Denies: Pneumonia Neurological Medical History: Denies: Seizures Endocrine Medical History: Reports: Diabetes Mellitus Type 2 Denies: Diabetes Mellitus Type 1, Hyperthyroidism, Hypothyroidism GI Medical History: Reports: Gastroesophageal Reflux Disease Denies: Cirrhosis, Crohn's Disease, Hepatitis, Ulcerative Colitis Musculoskeltal Medical History: Denies: Arthritis, Fibromyalgia Skin Medical History: Denies: Eczema, Psoriasis Psychiatric Medical History: Reports: Depression Hematology: Denies: Anemia, Bleeding Tendencies Past Surgical History Past Surgical History: Reports: Appendectomy, Cholecystectomy, Tonsillectomy, Other - Knee surgery. Liver and lung biopsies for sarcoidosis. Social History Smoking Status: Current Every Day Smoker Electronic Cigarette use?: No Frequency of Alcohol Use: Occasional Hx Recreational Drug Use: No Drugs: None, Other Hx Prescription Drug Abuse: No Family History Family History: Reviewed & Not Pertinent, CAD, DM, Hypertension, Malignancy Parental Family History Reviewed: Yes Children Family History Reviewed: Yes Sibling(s) Family History Reviewed.: Yes Medication/Allergy Home Medications: Atorvastatin Calcium [Lipitor 20 mg Tablet] 20 mg PO QHS 07/19/18 Chlorthalidone [Chlorthalidone 25 mg Tablet] 25 mg PO DAILY 07/19/18 Fluoxetine HCl [Prozac] 80 mg PO QAM 07/19/18 Gabapentin [Neurontin] 600 mg PO Q6 07/19/18 Insulin Aspart [Novolog Flexpen] 0 units SQ .SLIDING SCALE 07/19/18 Insulin Glargine,Hum.rec.anlog [Toujeo Solostar] 80 units SQ Q12 07/19/18 Losartan Potassium [Cozaar 50 mg Tablet] 50 mg PO DAILY 07/19/18 Pantoprazole Sodium [Protonix [address] Tablet] 20 mg PO QAM #30 tablet. 02/13/20 Aspirin [Ecotrin 81 mg EC Tablet] 81 mg PO DAILY 02/24/20 Budesonide/Formoterol Fumarate [Symbicort HFA 160-4.5 mcg Inhaler 6 gm] 2 puff IN Q12 02/24/20 Ciprofloxacin HCl [Cipro 500 mg Tablet] 500 mg PO BID #20 tablet 02/24/20 Empagliflozin [Jardiance] 25 mg PO DAILY 02/24/20 Hydrocodone/Acetaminophen [Sharon 7.5-325 mg Tablet] 1 tab PO Q6HP PRN 02/24/20 Ipratropium/Albuterol Sulfate [Duoneb 3 ml Ampul] 1 vial NEB QIDP PRN 02/24/20 Metronidazole [Flagyl 500 mg Tablet] 500 mg PO TID #30 tablet 02/24/20 Prednisone [Deltasone 10 mg Tablet] 10 mg PO DAILY 02/24/20 Promethazine HCl [Phenergan 25 mg Tablet] 25 mg PO Q6H PRN #10 tablet 02/24/20 Naproxen 375 mg PO BID #10 tablet. 03/10/20 Naproxen 500 mg PO BID #10 tablet 03/16/20 Chlorzoxazone [Parafon Forte Dsc 500 Mg Tablet] 500 mg PO BID PRN #20 tablet 04/25/20 Allergies/Adverse Reactions: atenolol Adverse Reaction (Verified 06/07/20 15:57) LOWER B/P eggs Adverse Reaction (Uncoded 06/07/20 15:57) DIARRHEA, SULFA BURPS IF EAT TWO DAYS IN A ROW Review of Systems Review of Systems: as per hpi Physical Exam Vital Signs: Temp Pulse Resp BP Pulse Ox 99.4 F 91 18 114/64 98 06/07/20 15:39 06/07/20 15:39 06/07/20 15:39 06/07/20 15:39 06/07/20 15:39 Intake & Output 06/06/20 06/07/20 06/08/20 06:59 06:59 06:59 Weight 103.873 kg General appearance: PRESENT: no acute distress, obese, well-developed, well- nourished Head exam: PRESENT: atraumatic, normocephalic Cardiovascular exam: PRESENT: RRR. ABSENT: diastolic murmur, rubs, systolic murmur GI/Abdominal exam: PRESENT: normal bowel sounds, soft. ABSENT: distended, guarding, mass, organolmegaly, rebound, tenderness Neurological exam: PRESENT: alert, awake, oriented to person, oriented to place, oriented to time, oriented to situation, CN II-XII grossly intact. ABSENT: motor sensory deficit Skin exam: PRESENT: other - Right foot erythema and swelling extending to midcalf, exquisitely tender, right lateral foot base of fifth metatarsal draining sinus with purulent discharge. Assessment and Plan - Diagnosis (1) Osteomyelitis Qualifiers: Osteomyelitis type: chronic, with draining sinus Osteomyelitis location: foot Laterality: right Qualified Code(s): M86.471 - Chronic osteomyelitis with draining sinus, right ankle and foot Is this a current diagnosis for this admission?: Yes Plan: Right foot erythema and swelling extending to midcalf, exquisitely tender, right lateral foot base of fifth metatarsal draining sinus with purulent discharge. MRI 06/06/2020 positive for osteomyelitis. We will start on empiric broad-spectrum IV antibiotics. Consult surgery. (2) Hypertension Is this a current diagnosis for this admission?: Yes Plan: Appears euvolemic. Normotensive. Resume home meds. Adjust meds as needed. (3) Diabetes mellitus type 2 in obese Is this a current diagnosis for this admission?: Yes Plan: History of uncontrolled diabetes. Hemoglobin A1c 10.0%. Diabetic diet, sliding scale insulin, long-acting insulin, basal insulin, correctional insulin, Accu-Chek, hypoglycemia protocol. Resume home meds upon discharge. Diabetic education. (4) Sarcoidosis Is this a current diagnosis for this admission?: Yes Plan: History of sarcoidosis on chronic steroids. Resume home meds. Outpatient PCP follow-up. (5) Tobacco use disorder, continuous Is this a current diagnosis for this admission?: Yes Plan: Counseled on quitting. NicoDerm patch will be provided. - Time Time Spent with patient: 35 or more minutes Smoking Cessation Education: 3 to 10 minutes Medications reviewed and adjusted accordingly: Yes Anticipated Discharge Disposition: Home with Home Health Anticipated Discharge Timeframe: within 72 hours
[2020-06-07] MEDS ORDERED: IPRATROPIUM/ALBUTEROL 0.5-2.5 MG/3 ML AMPUL NEB PRN (17:03)
[2020-06-07] MEDS ORDERED: MAGNESIUM HYDROXIDE SUSP 30 ML UDCUP PO PRN (17:03)
[2020-06-07] MEDS ORDERED: ONDANSETRON HCL INJ/PF 4 MG/2 ML SDV IV PRN (17:03)
[2020-06-07] MEDS ORDERED: PROMETHAZINE HCL INJ 25 MG/1 ML VIAL IV PRN (17:03)
[2020-06-07] MEDS ORDERED: ACETAMINOPHEN 325 MG TABLET PO PRN (17:03)
[2020-06-07] MEDS ORDERED: DEXTROSE 50%-WATER 25 GM/50 ML DISP.SYRIN IV PRN ×2 (17:07)
[2020-06-07] MEDS ORDERED: DEXTROSE 40% GEL 15 GM TUBE PO PRN ×2 (17:07)
[2020-06-07] MEDS ORDERED: GLUCAGON,HUMAN RECOMB 1 MG INJ IM PRN (17:07)
[2020-06-07 17:08] LABS: ALBUMIN 3.7 g/dL (3.5-5.0); ALKALINE PHOSPHATASE 84 U/L (38-126); ANION GAP 8 (5-19); APPEARANCE,URINE CLEAR; ASPARTATE AMINO TRANSFERASE 21 U/L (17-59); BILIRUBIN,TOTAL 0.8 mg/dL (0.2-1.3); BILIRUBIN,URINE NEGATIVE (NEGATIVE); BLOOD UREA NITROGEN 9 mg/dL (7-20); CARBON DIOXIDE 25 mmol/L (22-30); CHLORIDE 103 mmol/L (98-107); COLOR,URINE STRAW; GLUCOSE 257 mg/dL (75-110); GLUCOSE, URINE >=500 mg/dL (NEGATIVE); KETONES,URINE NEGATIVE (NEGATIVE); LEUKOCYTE ESTERASE,URINE NEGATIVE (NEGATIVE); NITRITE,URINE NEGATIVE (NEGATIVE); POTASSIUM 3.3 mmol/L (3.6-5.0); PROTEIN,URINE NEGATIVE (NEGATIVE); TOTAL PROTEIN 7.5 g/dL (6.3-8.2); URINE SPECIFIC GRAVITY 1.038; UROBILINOGEN,URINE NEGATIVE mg/dL (<2.0)
[2020-06-07 17:52] LABS: C-REACTIVE PROTEIN 144.9 mg/L (<10.0)
[2020-06-07] MEDS ORDERED: POTASSIUM CHLORIDE 10 MEQ TABLET.ER PO ONE (18:15)
[2020-06-07] MEDS: INSULIN LISPRO 100 UNIT/ML 3 ML VIAL SUBCUT SCH (21:10)
[2020-06-07] MEDS: HEPARIN SOD (PORCINE) 5,000 UNIT/ML 1 ML VIAL SUBCUT SCH (21:42)
[2020-06-07] MEDS: INSULIN GLARGINE,HUM.REC.ANLOG 1,000 UNIT/10 ML VIAL SUBCUT SCH (21:43)
[2020-06-07] MEDS: FAMOTIDINE 20 MG TABLET PO SCH (21:43)
[2020-06-07] MEDS: MORPHINE SULFATE 10 MG/ML INJ IV PRN (21:48)
[2020-06-07] MEDS: NORMAL SALINE 1000 ML 1,000 ML IV PRN (21:48)
[2020-06-07 23:10] LABS: ABSOLUTE BASOPHILS # (AUTO) 0.1 10^3/uL (0.0-0.2); ABSOLUTE EOSINOPHILS # (AUTO) 0.3 10^3/uL (0.0-0.6); ABSOLUTE MONOCYTES (AUTO) 1.2 10^3/uL (0.1-1.4); ABSOLUTE NEUT (AUTO) 6.5 10^3/uL (1.7-8.2); BASOPHILS % (AUTO) 0.7 % (0-2); EOSINOPHILS % (AUTO) 2.8 % (0-6); HEMATOCRIT 39.2 % (37.9-51.0); HEMOGLOBIN 13.3 g/dL (13.5-17.0); LYMPHOCYTES % (AUTO) 19.9 % (13-45); MEAN CORPUSCULAR HEMOGLOBIN 28.9 pg (27.0-33.4); MEAN CORPUSCULAR HGB CONC 33.8 g/dL (32.0-36.0); MEAN CORPUSCULAR VOLUME 85 fl (80-97); MONOCYTES % (AUTO) 12.4 % (3-13); PLATELET COUNT 245 10^3/uL (150-450); RED BLOOD COUNT 4.59 10^6/uL (4.35-5.55); RED CELL DISTRIBUTION WIDTH 14.6 % (11.5-14.0); SEGMENTED NEUTROPHILS % (AUTO) 64.2 % (42-78); TOTAL CELLS COUNTED % (AUTO) 100 %; WHITE BLOOD COUNT 10.1 10^3/uL (4.0-10.5)
[2020-06-08] MEDS: HEPARIN SOD (PORCINE) 5,000 UNIT/ML 1 ML VIAL SUBCUT SCH ×3 (05:41→22:21)
[2020-06-08] MEDS: VANCOMYCIN HCL 1,500 MG in DEXTROSE 5%-WATER 250 ML IV SCH ×3 (05:41→18:22)
[2020-06-08 05:58] LABS: ABSOLUTE BASOPHILS # (AUTO) 0.1 10^3/uL (0.0-0.2); ABSOLUTE EOSINOPHILS # (AUTO) 0.3 10^3/uL (0.0-0.6); ABSOLUTE LYMPHOCYTES (AUTO) 1.9 10^3/uL (0.5-4.7); ABSOLUTE NEUT (AUTO) 5.1 10^3/uL (1.7-8.2); BASOPHILS % (AUTO) 0.7 % (0-2); EOSINOPHILS % (AUTO) 3.8 % (0-6); HEMATOCRIT 38.8 % (37.9-51.0); HEMOGLOBIN 13.1 g/dL (13.5-17.0); LYMPHOCYTES % (AUTO) 22.1 % (13-45); MEAN CORPUSCULAR HEMOGLOBIN 28.8 pg (27.0-33.4); MEAN CORPUSCULAR HGB CONC 33.7 g/dL (32.0-36.0); MEAN CORPUSCULAR VOLUME 85 fl (80-97); MONOCYTES % (AUTO) 12.3 % (3-13); PLATELET COUNT 228 10^3/uL (150-450); RED BLOOD COUNT 4.55 10^6/uL (4.35-5.55); RED CELL DISTRIBUTION WIDTH 14.3 % (11.5-14.0); SEGMENTED NEUTROPHILS % (AUTO) 61.1 % (42-78); TOTAL CELLS COUNTED % (AUTO) 100 %; WHITE BLOOD COUNT 8.4 10^3/uL (4.0-10.5)
[2020-06-08 06:04] LABS: INTERNATIONAL RATION (INR) 1.16
[2020-06-08 06:20] LABS: ALBUMIN 2.9 g/dL (3.5-5.0); ALKALINE PHOSPHATASE 106 U/L (38-126); ANION GAP 7 (5-19); ASPARTATE AMINO TRANSFERASE 60 U/L (17-59); BILIRUBIN,DIRECT 0.1 mg/dL (0.0-0.4); BILIRUBIN,TOTAL 0.9 mg/dL (0.2-1.3); BLOOD UREA NITROGEN 8 mg/dL (7-20); CALCIUM 8.1 mg/dL (8.4-10.2); CARBON DIOXIDE 24 mmol/L (22-30); CHLORIDE 106 mmol/L (98-107); CHOLESTEROL 102.64 mg/dL (0-200); GLUCOSE 90 mg/dL (75-110); PHOSPHORUS 3.5 mg/dL (2.5-4.5); POTASSIUM 3.2 mmol/L (3.6-5.0); TOTAL PROTEIN 6.4 g/dL (6.3-8.2); TRIGLYCERIDES 91 mg/dL (<150)
[2020-06-08 06:30] LABS: DIRECT LDL 55 mg/dL (<100)
--- NOTE | 2020-06-08 07:18 | PDOC CONSULTATION ---
Consultation Consult Date: 06/08/20 Provider Consulted: SURGICAL SURGICALIST MD Consult reason:: diabetic foot infection History of Present Illness Admission Date/PCP: 06/07/20 17:04 LEOPOLDO RODRIGUEZ DO Patient complains of: Pain, purulent drainage, and redness of the right foot History of Present Illness: ED PEDRAZA is a 50 year old diabetic male with a long history of a right foot ulcer. It is on the plantar surface, and beneath the fifth metatarsal. The patient sees the wound care clinic for diabetic foot care. He reports increasing pain and redness over the last several days. The ulcer has begun to drain purulent material. He denies fevers, chills, nausea, vomiting, chest pain, shortness of breath, headache, dizziness, blurry vision. He does report increasing amounts of pain. He reports that his pain is 5 out of 10. It is constant. Walking makes it worse. Nothing makes it better. The patient underwent MRI as an outpatient. He does have evidence of osteomyelitis of the fifth metatarsal. Past Medical History Cardiac Medical History: Reports: Coronary Artery Disease, Hyperlipidema, Hypertension Denies: Atrial Fibrillation, Congestive Heart Failure, DVT, Myocardial Infarction, Pulmonary Embolism Pulmonary Medical History: Reports: Asthma, Bronchitis, Chronic Obstructive Pu lmonary Disease (COPD) Denies: Pneumonia Neurological Medical History: Denies: Seizures Endocrine Medical History: Reports: Diabetes Mellitus Type 2 Denies: Diabetes Mellitus Type 1, Hyperthyroidism, Hypothyroidism GI Medical History: Reports: Gastroesophageal Reflux Disease Denies: Cirrhosis, Crohn's Disease, Hepatitis, Ulcerative Colitis Musculoskeltal Medical History: Denies: Arthritis, Fibromyalgia Skin Medical History: Denies: Eczema, Psoriasis Psychiatric Medical History: Reports: Depression Hematology: Denies: Anemia, Bleeding Tendencies Past Surgical History Past Surgical History: Reports: Appendectomy, Cholecystectomy, Tonsillectomy, Other - Knee surgery. Liver and lung biopsies for sarcoidosis. Social History Smoking Status: Current Every Day Smoker Cigarettes Packs Per Day: 1 Electronic Cigarette use?: Yes - OCCATIONAL Number of Years Smokin Last Time Smoked: TODAY Frequency of Alcohol Use: Rare Hx Recreational Drug Use: No Drugs: None, Other Hx Prescription Drug Abuse: No Family History Family History: Reviewed & Not Pertinent, CAD, DM, Hypertension, Malignancy Parental Family History Reviewed: Yes Children Family History Reviewed: Yes Sibling(s) Family History Reviewed.: Yes Medication/Allergy Home Medications: Atorvastatin Calcium [Lipitor 20 mg Tablet] 20 mg PO QHS 07/19/18 Chlorthalidone [Chlorthalidone 25 mg Tablet] 25 mg PO DAILY 07/19/18 Fluoxetine HCl [Prozac] 80 mg PO QAM 07/19/18 Gabapentin [Neurontin] 600 mg PO Q6 07/19/18 Insulin Aspart [Novolog Flexpen] 0 units SQ .SLIDING SCALE 07/19/18 Insulin Glargine,Hum.rec.anlog [Toujeo Solostar] 80 units SQ Q12 07/19/18 Losartan Potassium [Cozaar 50 mg Tablet] 50 mg PO DAILY 07/19/18 Pantoprazole Sodium [Protonix [address] Tablet] 20 mg PO QAM #30 tablet.dr 02/13/20 Aspirin [Ecotrin 81 mg EC Tablet] 81 mg PO DAILY 02/24/20 Budesonide/Formoterol Fumarate [Symbicort HFA 160-4.5 mcg Inhaler 6 gm] 2 puff IN Q12 02/24/20 Empagliflozin [Jardiance] 25 mg PO DAILY 02/24/20 Hydrocodone/Acetaminophen [[place] 7.5-325 mg Tablet] 1 tab PO Q6HP PRN 02/24/20 Prednisone [Deltasone 10 mg Tablet] 10 mg PO DAILY 02/24/20 Levalbuterol Tartrate [Levalbuterol Tartrate Hfa] 1 puff IH Q4HP PRN 06/07/20 Allergies/Adverse Reactions: atenolol Adverse Reaction (Verified 06/07/20 15:57) LOWER B/P eggs Adverse Reaction (Uncoded 06/07/20 15:57) DIARRHEA, SULFA BURPS IF EAT TWO DAYS IN A ROW Review of Systems Constitutional: ABSENT: anorexia, chills, fatigue Eyes: ABSENT: visual disturbances Ears: ABSENT: hearing changes Nose, Mouth, and Throat: ABSENT: sore throat Cardiovascular: ABSENT: chest pain Respiratory: ABSENT: cough Gastrointestinal: ABSENT: abdominal pain, bloating Genitourinary: ABSENT: difficulty urinating Musculoskeletal: ABSENT: back pain Integumentary: PRESENT: erythema, wounds, other - Purulent drainage from ulcer on the right plantar foot Neurological: ABSENT: confusion, convulsions, dizziness Psychiatric: ABSENT: anxiety, depression Endocrine: ABSENT: cold intolerance Hematologic/Lymphatic: ABSENT: easy bleeding, easy bruising Physical Exam Vital Signs: Temp Pulse Resp BP Pulse Ox 98.2 F 82 19 133/79 H 99 06/07/20 18:38 06/07/20 18:38 06/07/20 18:38 06/07/20 18:38 06/07/20 18:38 Intake & Output 06/06/20 06/07/20 06/08/20 06:59 06:59 06:59 Intake Total 1000 Balance 1000 Weight 103.5 kg General appearance: ABSENT: no acute distress, cooperative Head exam: ABSENT: atraumatic, normocephalic Eye exam: ABSENT: EOMI, PERRLA, scleral icterus Mouth exam: ABSENT: moist, neck supple Neck exam: ABSENT: meningismus, tenderness, thyromegaly, tracheal deviation Respiratory exam: PRESENT: unlabored. ABSENT: tachypnea, wheezes Cardiovascular exam: ABSENT: tachycardia Vascular exam: PRESENT: normal capillary refill. ABSENT: pallor GI/Abdominal exam: PRESENT: soft. ABSENT: distended, tenderness Rectal exam: PRESENT: deferred Extremities exam: PRESENT: other - Erythema of the right foot, extending from the toes, to the midfoot. There is tenderness to palpation of the right foot. There is purulent drainage from a plantar foot ulcer, beneath the fifth metatarsal head.. ABSENT: clubbing Neurological exam: PRESENT: alert, awake, oriented to person, oriented to place, oriented to time, oriented to situation, CN II-XII grossly intact Psychiatric exam: ABSENT: agitated, anxious, depressed Focused psych exam: ABSENT: delusional Skin exam: ABSENT: cyanosis, erythema, jaundice Results Laboratory Results: 06/07/20 16:33 06/07/20 16:33 06/07/20 06/07/20 06/07/20 16:33 16:33 16:33 WBC 12.4 H RBC 5.05 Hgb 14.6 Hct 43.3 MCV 86 MCH 28.8 MCHC 33.6 RDW 14.6 H Plt Count 283 Seg Neutrophils % 72.1 Sodium 136.4 L Potassium 3.3 L Chloride 103 Carbon Dioxide 25 Anion Gap 8 BUN 9 Creatinine 0.67 Est GFR ( Amer) > 60 Glucose 257 H Calcium 9.0 Magnesium Total Bilirubin 0.8 AST 21 Alkaline Phosphatase 84 C-Reactive Protein Total Protein 7.5 Albumin 3.7 Urine Color STRAW Urine Appearance CLEAR Urine pH 5.0 Ur Specific [place] 1.038 Urine Protein NEGATIVE Urine Glucose (UA) >=500 H Urine Ketones NEGATIVE Urine Blood NEGATIVE Urine Nitrite NEGATIVE Ur Leukocyte Esterase NEGATIVE Urine RBC (Auto) 0 06/07/20 16:33 WBC RBC Hgb Hct MCV MCH MCHC RDW Plt Count Seg Neutrophils % Sodium Potassium Chloride Carbon Dioxide Anion Gap BUN Creatinine Est GFR ( Amer) Glucose Calcium Magnesium 2.3 Total Bilirubin AST Alkaline Phosphatase C-Reactive Protein 144.9 H Total Protein Albumin Urine Color Urine Appearance Urine pH Ur Specific [place] Urine Protein Urine Glucose (UA) Urine Ketones Urine Blood Urine Nitrite Ur Leukocyte Esterase Urine RBC (Auto) Assessment & Plan - Diagnosis (1) Foot abscess, right Is this a current diagnosis for this admission?: Yes (2) Diabetic foot infection Is this a current diagnosis for this admission?: Yes (3) Osteomyelitis Qualifiers: Osteomyelitis type: chronic, with draining sinus Osteomyelitis location: foot Laterality: right Qualified Code(s): M86.471 - Chronic osteomyelitis with draining sinus, right ankle and foot Is this a current diagnosis for this admission?: Yes (4) Diabetes mellitus type 2 in obese Is this a current diagnosis for this admission?: Yes - Plan Summary Plan Summary: 50-year-old diabetic male with a severe diabetic foot infection on the right. The patient has increasing erythema, drainage, and evidence of osteomyelitis on MRI. The patient has involvement of at least the fifth metatarsal, and I suspect the fourth metatarsal as well. Plan for opening of the foot, amputation of the fifth digit and fifth metatarsal, with possible amputation of the fourth digit and metatarsal. Patient appears to have a large abscess, and surgery is necessary in order to allow adequate healing. The patient has agreed to this. Risks/benefits discussed, informed consent obtained, and all questions answered.
[2020-06-08] MEDS: INSULIN LISPRO 100 UNIT/ML 3 ML VIAL SUBCUT SCH ×4 (08:10→22:21)
[2020-06-08] MEDS ORDERED: POTASSIUM CHLORIDE 10 MEQ TABLET.ER PO ONE (08:30)
[2020-06-08] MEDS ORDERED: PROMETHAZINE HCL INJ 25 MG/1 ML VIAL IV PRN ×3 (08:30→14:47)
[2020-06-08] MEDS ORDERED: ONDANSETRON HCL INJ/PF 4 MG/2 ML SDV IV PRN (08:30)
[2020-06-08] MEDS ORDERED: PHARMACY COMMUNICATION ORDER MC SCH (09:30)
[2020-06-08] MEDS: DOCUSATE SODIUM 100 MG CAPSULE PO SCH (10:22)
[2020-06-08] MEDS: MORPHINE SULFATE 10 MG/ML INJ IV PRN ×3 (10:23→22:22)
[2020-06-08] MEDS: FAMOTIDINE 20 MG TABLET PO SCH ×2 (10:23→22:21)
[2020-06-08] MEDS: INSULIN GLARGINE,HUM.REC.ANLOG 1,000 UNIT/10 ML VIAL SUBCUT SCH ×2 (10:36→22:22)
--- NOTE | 2020-06-08 12:51 | PDOC PROGRESS REPORT ---
Subjective Progress Note for:: 06/08/20 Subjective:: ED PEDRAZA is a 50 year old male past medical history of diabetes, CAD, morbid obesity, COPD, hypertension, sarcoid on chronic steroid, presented to ED complaining worsening chronic right foot pain. Patient is stating that he has about 1/2 years ago he was diagnosed with diabetic foot and has been cared for by a blending technician at the wound care clinic fortunately his wound has not getting better. Recently he has noticed worsening swelling and erythema and purulent discharge from right fifth metatarsal base, pain is throbbing, 5/5 worse with ambulation or movement, denies any fever, chills, nausea, vomiting, chest pain, shortness of breath, diarrhea, consti pation or any urinary symptoms. Patient had an MRI yesterday and the report is positive for fifth metatarsal osteomyelitis. In ED he was started on empiric IV antibiotics and hospitalist consulted for admission 06/08/2020. No acute events overnight. Patient is pending septal resection by surgery, comfortably sitting mid upper distress, denies any fever, chills, nausea, vomiting, diarrhea, constipation or any urinary symptoms. Currently n.p.o. Reason For Visit: OSTEOMYELITIS Physical Exam Vital Signs: Temp Pulse Resp BP Pulse Ox 97.7 F 66 20 107/62 99 06/08/20 11:25 06/08/20 11:25 06/08/20 11:25 06/08/20 11:25 06/08/20 11:25 Intake & Output 06/07/20 06/08/20 06/09/20 06:59 06:59 06:59 Intake Total 1260 250 Balance 1260 250 Weight 103.5 kg General appearance: PRESENT: no acute distress, obese Head exam: PRESENT: atraumatic, normocephalic Respiratory exam: PRESENT: clear to auscultation vern. ABSENT: rales, rhonchi, wheezes Cardiovascular exam: PRESENT: RRR. ABSENT: diastolic murmur, rubs, systolic murmur GI/Abdominal exam: PRESENT: normal bowel sounds, soft. ABSENT: distended, guarding, mass, organolmegaly, rebound, tenderness Extremities exam: PRESENT: full ROM. ABSENT: calf tenderness, clubbing, pedal edema Musculoskeletal exam: PRESENT: other - Right fifth metatarsal base erythema and sinus drainage. Neurological exam: PRESENT: alert, awake, oriented to person, oriented to place, oriented to time, oriented to situation, CN II-XII grossly intact. ABSENT: motor sensory deficit Results Laboratory Results: 06/08/20 04:30 06/08/20 04:30 06/07/20 06/07/20 06/07/20 16:33 16:33 16:33 WBC 12.4 H RBC 5.05 Hgb 14.6 Hct 43.3 MCV 86 MCH 28.8 MCHC 33.6 RDW 14.6 H Plt Count 283 Seg Neutrophils % 72.1 Sodium 136.4 L Potassium 3.3 L Chloride 103 Carbon Dioxide 25 Anion Gap 8 BUN 9 Creatinine 0.67 Est GFR ( Amer) > 60 Glucose 257 H Calcium 9.0 Phosphorus Magnesium Total Bilirubin 0.8 AST 21 Alkaline Phosphatase 84 C-Reactive Protein Total Protein 7.5 Albumin 3.7 Triglycerides Cholesterol LDL Cholesterol Direct VLDL Cholesterol HDL Cholesterol Urine Color STRAW Urine Appearance CLEAR Urine pH 5.0 Ur Specific [place] 1.038 Urine Protein NEGATIVE Urine Glucose (UA) >=500 H Urine Ketones NEGATIVE Urine Blood NEGATIVE Urine Nitrite NEGATIVE Ur Leukocyte Esterase NEGATIVE Urine RBC (Auto) 0 06/07/20 06/07/20 06/08/20 16:33 23:03 04:30 WBC 10.1 8.4 RBC 4.59 4.55 Hgb 13.3 L 13.1 L Hct 39.2 38.8 MCV 85 85 MCH 28.9 28.8 MCHC 33.8 33.7 RDW 14.6 H 14.3 H Plt Count 245 228 Seg Neutrophils % 64.2 61.1 Sodium Potassium Chloride Carbon Dioxide Anion Gap BUN Creatinine Est GFR ( Amer) Glucose Calcium Phosphorus Magnesium 2.3 Total Bilirubin AST Alkaline Phosphatase C-Reactive Protein 144.9 H Total Protein Albumin Triglycerides Cholesterol LDL Cholesterol Direct VLDL Cholesterol HDL Cholesterol Urine Color Urine Appearance Urine pH Ur Specific [place] Urine Protein Urine Glucose (UA) Urine Ketones Urine Blood Urine Nitrite Ur Leukocyte Esterase Urine RBC (Auto) 06/08/20 04:30 WBC RBC Hgb Hct MCV MCH MCHC RDW Plt Count Seg Neutrophils % Sodium 137.4 Potassium 3.2 L Chloride 106 Carbon Dioxide 24 Anion Gap 7 BUN 8 Creatinine 0.55 Est GFR ( Amer) > 60 Glucose 90 Calcium 8.1 L Phosphorus 3.5 Magnesium 2.3 Total Bilirubin 0.9 AST 60 H Alkaline Phosphatase 106 C-Reactive Protein Total Protein 6.4 Albumin 2.9 L Triglycerides 91 Cholesterol 102.64 LDL Cholesterol Direct 55 VLDL Cholesterol 18.0 HDL Cholesterol 34 L Urine Color Urine Appearance Urine pH Ur Specific [place] Urine Protein Urine Glucose (UA) Urine Ketones Urine Blood Urine Nitrite Ur Leukocyte Esterase Urine RBC (Auto) Assessment and Plan - Diagnosis (1) Osteomyelitis Qualifiers: Osteomyelitis type: chronic, with draining sinus Osteomyelitis location: foot Laterality: right Qualified Code(s): M86.471 - Chronic osteomyelitis with draining sinus, right ankle and foot Is this a current diagnosis for this admission?: Yes Plan: Right foot erythema and swelling extending to midcalf, exquisitely tender, right lateral foot base of fifth metatarsal draining sinus with purulent discharge. MRI 06/06/2020 positive for osteomyelitis. Day 2 IV antibiotics. Day 2 IV vancomycin. Surgery consulted. Pending right metatarsal resection. (2) Hypertension Is this a current diagnosis for this admission?: Yes Plan: Appears euvolemic. Normotensive. Resume home meds. Adjust meds as needed. (3) Diabetes mellitus type 2 in obese Is this a current diagnosis for this admission?: Yes Plan: History of uncontrolled diabetes. Hemoglobin A1c 10.0%. Diabetic diet, sliding scale insulin, long-acting insulin, basal insulin, correctional insulin, Accu-Chek, hypoglycemia protocol. Resume home meds upon discharge. Diabetic education. (4) Sarcoidosis Is this a current diagnosis for this admission?: Yes Plan: History of sarcoidosis on chronic steroids. Resume home meds. Outpatient PCP follow-up. (5) Tobacco use disorder, continuous Is this a current diagnosis for this admission?: Yes Plan: Counseled on quitting. NicoDerm patch will be provided. - Time Time Spent with patient: 25-34 minutes Medications reviewed and adjusted accordingly: Yes Anticipated Discharge Disposition: Home with Home Health Anticipated Discharge Timeframe: within 72 hours
[2020-06-08] MEDS ORDERED: PROPOFOL INJ 200 MG/20 ML VIAL IV ONE (14:15)
[2020-06-08] MEDS ORDERED: FENTANYL CITRATE INJ/PF 100 MCG/2 ML AMPUL ONE ×2 (14:15→14:16)
[2020-06-08] MEDS ORDERED: KETAMINE HCL INJ 500 MG/10 ML VIAL ONE (14:15)
[2020-06-08] MEDS ORDERED: MIDAZOLAM 2 MG/2 ML INJ ONE (14:15)
[2020-06-08] MEDS ORDERED: BUPIVACAINE HCL 0.25 % INJ/PF (2.5 MG/1 ML) 30 ML VIAL ONE (14:36)
[2020-06-08] MEDS ORDERED: LIDOCAINE 1% INJ-PF (10 MG/ML) 30 ML SDV ONE (14:36)
[2020-06-08] MEDS ORDERED: FENTANYL CITRATE INJ/PF 100 MCG/2 ML AMPUL IV PRN ×3 (14:47)
[2020-06-08] MEDS ORDERED: MEPERIDINE HCL/PF INJ 25 MG/1 ML DISP.SYRIN IV PRN (14:47)
[2020-06-08] MEDS ORDERED: DIPHENHYDRAMINE HCL 50 MG/ML VIAL IV PRN (14:47)
[2020-06-08] MEDS ORDERED: HYDROMORPHONE HCL INJ/PF 2 MG/ML AMPULE IV PRN (14:47)
--- NOTE | 2020-06-08 15:54 | PDOC PROGRESS REPORT ---
Subjective Progress Note for:: 06/08/20 Subjective:: This is a 50-year-old male with a severe diabetic foot infection. The patient is scheduled for surgery today. He denies fevers, chills, nausea, vomiting, chest pain, shortness of breath. Reason For Visit: OSTEOMYELITIS Physical Exam Vital Signs: Temp Pulse Resp BP Pulse Ox 97.7 F 66 20 107/62 99 06/08/20 11:25 06/08/20 11:25 06/08/20 11:25 06/08/20 11:25 06/08/20 11:25 Intake & Output 06/07/20 06/08/20 06/09/20 06:59 06:59 06:59 Intake Total 1260 250 Balance 1260 250 Weight 103.5 kg General appearance: PRESENT: no acute distress, cooperative Head exam: PRESENT: atraumatic, normocephalic Eye exam: PRESENT: EOMI, PERRLA. ABSENT: scleral icterus Mouth exam: PRESENT: neck supple Neck exam: ABSENT: meningismus, tenderness, thyromegaly, tracheal deviation Respiratory exam: PRESENT: unlabored. ABSENT: tachypnea, wheezes Cardiovascular exam: ABSENT: tachycardia GI/Abdominal exam: PRESENT: soft. ABSENT: tenderness Rectal exam: PRESENT: deferred Extremities exam: PRESENT: other - Right foot ulcer with purulent drainage and erythema.. ABSENT: clubbing Neurological exam: PRESENT: alert, awake, oriented to person, oriented to place, oriented to time, oriented to situation Psychiatric exam: ABSENT: agitated, anxious, depressed Focused psych exam: ABSENT: delusional Skin exam: ABSENT: cyanosis, erythema, jaundice Results Laboratory Results: 06/08/20 04:30 06/08/20 04:30 06/07/20 06/07/20 06/07/20 16:33 16:33 16:33 WBC 12.4 H RBC 5.05 Hgb 14.6 Hct 43.3 MCV 86 MCH 28.8 MCHC 33.6 RDW 14.6 H Plt Count 283 Seg Neutrophils % 72.1 Sodium 136.4 L Potassium 3.3 L Chloride 103 Carbon Dioxide 25 Anion Gap 8 BUN 9 Creatinine 0.67 Est GFR ( Amer) > 60 Glucose 257 H Calcium 9.0 Phosphorus Magnesium Total Bilirubin 0.8 AST 21 Alkaline Phosphatase 84 C-Reactive Protein Total Protein 7.5 Albumin 3.7 Triglycerides Cholesterol LDL Cholesterol Direct VLDL Cholesterol HDL Cholesterol Urine Color STRAW Urine Appearance CLEAR Urine pH 5.0 Ur Specific Union 1.038 Urine Protein NEGATIVE Urine Glucose (UA) >=500 H Urine Ketones NEGATIVE Urine Blood NEGATIVE Urine Nitrite NEGATIVE Ur Leukocyte Esterase NEGATIVE Urine RBC (Auto) 0 06/07/20 06/07/20 06/08/20 16:33 23:03 04:30 WBC 10.1 8.4 RBC 4.59 4.55 Hgb 13.3 L 13.1 L Hct 39.2 38.8 MCV 85 85 MCH 28.9 28.8 MCHC 33.8 33.7 RDW 14.6 H 14.3 H Plt Count 245 228 Seg Neutrophils % 64.2 61.1 Sodium Potassium Chloride Carbon Dioxide Anion Gap BUN Creatinine Est GFR ( Amer) Glucose Calcium Phosphorus Magnesium 2.3 Total Bilirubin AST Alkaline Phosphatase C-Reactive Protein 144.9 H Total Protein Albumin Triglycerides Cholesterol LDL Cholesterol Direct VLDL Cholesterol HDL Cholesterol Urine Color Urine Appearance Urine pH Ur Specific Union Urine Protein Urine Glucose (UA) Urine Ketones Urine Blood Urine Nitrite Ur Leukocyte Esterase Urine RBC (Auto) 06/08/20 04:30 WBC RBC Hgb Hct MCV MCH MCHC RDW Plt Count Seg Neutrophils % Sodium 137.4 Potassium 3.2 L Chloride 106 Carbon Dioxide 24 Anion Gap 7 BUN 8 Creatinine 0.55 Est GFR ( Amer) > 60 Glucose 90 Calcium 8.1 L Phosphorus 3.5 Magnesium 2.3 Total Bilirubin 0.9 AST 60 H Alkaline Phosphatase 106 C-Reactive Protein Total Protein 6.4 Albumin 2.9 L Triglycerides 91 Cholesterol 102.64 LDL Cholesterol Direct 55 VLDL Cholesterol 18.0 HDL Cholesterol 34 L Urine Color Urine Appearance Urine pH Ur Specific Union Urine Protein Urine Glucose (UA) Urine Ketones Urine Blood Urine Nitrite Ur Leukocyte Esterase Urine RBC (Auto) Assessment & Plan - Diagnosis (1) Foot abscess, right Is this a current diagnosis for this admission?: Yes (2) Diabetic foot infection Is this a current diagnosis for this admission?: Yes (3) Osteomyelitis Qualifiers: Osteomyelitis type: chronic, with draining sinus Osteomyelitis location: foot Laterality: right Qualified Code(s): M86.471 - Chronic osteomyelitis with draining sinus, right ankle and foot Is this a current diagnosis for this admission?: Yes (4) Diabetes mellitus type 2 in obese Is this a current diagnosis for this admission?: Yes - Time Anticipated Discharge Disposition: Home with Home Health Anticipated Discharge Timeframe: unknown - Plan Summary Plan Summary: Is a 50-year-old male with a severe diabetic foot infection. Plan for operative intervention today. I anticipate amputation of the fifth toe and metatarsal on the right, with possible amputation of the fourth toe as well (depending upon how severe the infection is). This has been discussed with the patient at length, and he is in agreement. Risks/benefits discussed, informed consent obtained, and all questions answered.
--- NOTE | 2020-06-08 16:01 | Operative Report ---
Nonrecallable Operative Report DATE OF SURGERY: 06/08/20 PREOPERATIVE DIAGNOSIS: Severe diabetic foot infection. Osteomyelitis. POSTOPERATIVE DIAGNOSIS: Same as above OPERATION: Amputation of the right fifth toe and metatarsal SURGEON: ANUSHA DAVIES ANESTHESIA: LMAC TISSUE REMOVED OR ALTERED: Right fifth toe and metatarsal COMPLICATIONS: None apparent ESTIMATED BLOOD LOSS: 20 cc PROCEDURE: Drain/implants: 4 x 4 gauze soaked in Betadine. Procedure in detail: After informed consent was obtained, the patient was brought to the operating room and laid in the supine position. The area of the right foot was prepped and draped in a normal sterile fashion. An incision was created around the base of the right toe. The incision was extended on the lateral aspect of the toe, proximally up the foot. There was a large ulcer to the plantar surface, at the metatarsal head. This was excised sharply. The foot was opened, and the metatarsal bone was exposed. The bone was brittle, with obvious osteomyelitis. This encompassed the entire distal one half of the metatarsal. Dissection was taken proximally, in order to expose healthy appearing bone. The metatarsal was divided in a very proximal location, to ensure that all infected tissue was resected. The metatarsal, toe, and surrounding inflammatory tissue was excised using electrocautery. After this was completed, hemostasis was achieved. The proximal skin was reapproximated using 2-0 Vicryl suture in interrupted subcuticular fashion. The distal portion was left open. The wound was packed with a 4 x 4 soaked in Betadine. A dressing was then placed, and the procedure was concluded. All sponge, instrument, and needle counts were correct x2. Condition: Stable.
[2020-06-08] MEDS: NORMAL SALINE 1000 ML 1,000 ML IV PRN (18:27)
[2020-06-09] MEDS: VANCOMYCIN HCL 1,500 MG in DEXTROSE 5%-WATER 250 ML IV SCH ×3 (02:18→17:26)
[2020-06-09] MEDS: MORPHINE SULFATE 10 MG/ML INJ IV PRN ×3 (02:22→17:37)
[2020-06-09] MEDS: HEPARIN SOD (PORCINE) 5,000 UNIT/ML 1 ML VIAL SUBCUT SCH ×3 (06:02→13:47)
[2020-06-09] MEDS: NORMAL SALINE 1000 ML 1,000 ML IV PRN (07:37)
[2020-06-09] MEDS: INSULIN LISPRO 100 UNIT/ML 3 ML VIAL SUBCUT SCH ×4 (07:47→21:18)
[2020-06-09] MEDS: DOCUSATE SODIUM 100 MG CAPSULE PO SCH (10:15)
[2020-06-09] MEDS: FAMOTIDINE 20 MG TABLET PO SCH ×2 (10:17→21:36)
[2020-06-09] MEDS: INSULIN GLARGINE,HUM.REC.ANLOG 1,000 UNIT/10 ML VIAL SUBCUT SCH ×2 (10:18→21:36)
--- NOTE | 2020-06-09 12:04 | PDOC PROGRESS REPORT ---
Subjective Progress Note for:: 06/09/20 Reason For Visit: OSTEOMYELITIS Physical Exam Vital Signs: Temp Pulse Resp BP Pulse Ox 97.9 F 65 17 109/63 98 06/09/20 07:50 06/09/20 07:50 06/09/20 07:50 06/09/20 07:50 06/09/20 07:50 Intake & Output 06/08/20 06/09/20 06/10/20 06:59 06:59 06:59 Intake Total 1260 4795 0 Output Total 605 Balance 1260 4190 0 Weight 103.5 kg 110.1 kg Results Laboratory Results: 06/08/20 04:30 06/09/20 09:05 06/09/20 09:05 Creatinine 0.51 L Est GFR ( Amer) > 60 Assessment & Plan - Diagnosis (1) Foot abscess, right Is this a current diagnosis for this admission?: Yes (2) Diabetic foot infection Is this a current diagnosis for this admission?: Yes (3) Osteomyelitis Qualifiers: Osteomyelitis type: chronic, with draining sinus Osteomyelitis location: foot Laterality: right Qualified Code(s): M86.471 - Chronic osteomyelitis with draining sinus, right ankle and foot Is this a current diagnosis for this admission?: Yes (4) Diabetes mellitus type 2 in obese Is this a current diagnosis for this admission?: Yes - Time Anticipated Discharge Disposition: Home with Home Health Anticipated Discharge Timeframe: unknown - Plan Summary Plan Summary: 50-year-old male status post amputation of the right fifth toe and metatarsal. The patient had significant osteomyelitis, with involvement of the soft tissue. The wound was left open, with packing in place. I have removed his packing this morning. I have re-dressed the wound (with packing). Start damp to dry dressing changes twice daily. There was no obvious purulence or necrosis of the wound on examination today. His erythema appears to be improving. Continue with intravenous antibiotics. Continue with aggressive blood sugar control. Consult health social work professor for home health for dressing changes.
[2020-06-09] MEDS ORDERED: (PENDING PHARMACY ID) (Levalbuterol Tartrate [Levalbuterol Tartrate Hfa] 1 PUFF) IH PRN (13:04)
--- NOTE | 2020-06-09 13:16 | PDOC PROGRESS REPORT ---
Subjective Progress Note for:: 06/09/20 Subjective:: ED PEDRAZA is a 50 year old male past medical history of diabetes, CAD, morbid obesity, COPD, hypertension, sarcoid on chronic steroid, presented to ED complaining worsening chronic right foot pain. Patient is stating that he has about 1/2 years ago he was diagnosed with diabetic foot and has been cared for by a beauty operator apprentice at the wound care clinic fortunately his wound has not getting better. Recently he has noticed worsening swelling and erythema and purulent discharge from right fifth metatarsal base, pain is throbbing, 5/5 worse with ambulation or movement, denies any fever, chills, nausea, vomiting, chest pain, shortness of breath, diarrhea, consti pation or any urinary symptoms. Patient had an MRI yesterday and the report is positive for fifth metatarsal osteomyelitis. In ED he was started on empiric IV antibiotics and hospitalist consulted for admission 06/08/2020. No acute events overnight. Patient is pending fifth metatarsal resection by surgery, comfortably sitting mid upper distress, denies any fever, chills, nausea, vomiting, diarrhea, constipation or any urinary symptoms. Currently n.p.o. 06/09/2020. No acute events overnight. Patient status post right fifth metatarsal resection, saw patient this morning when was having dressing changes by Dr. Bay surgeon, wound looks clean, patient does not seem to be in any apparent distress, denies any fever, chills, nausea, vomiting, diarrhea, constipation or any urinary symptoms. Reason For Visit: OSTEOMYELITIS Physical Exam Vital Signs: Temp Pulse Resp BP Pulse Ox 97.9 F 65 17 109/63 98 06/09/20 07:50 06/09/20 07:50 06/09/20 07:50 06/09/20 07:50 06/09/20 07:50 Intake & Output 06/08/20 06/09/20 06/10/20 06:59 06:59 06:59 Intake Total 1260 4795 0 Output Total 605 Balance 1260 4190 0 Weight 103.5 kg 110.1 kg General appearance: PRESENT: obese Head exam: PRESENT: atraumatic, normocephalic Respiratory exam: PRESENT: clear to auscultation vern. ABSENT: rales, rhonchi, wheezes Cardiovascular exam: PRESENT: RRR. ABSENT: diastolic murmur, rubs, systolic murmur GI/Abdominal exam: PRESENT: normal bowel sounds, soft. ABSENT: distended, guarding, mass, organolmegaly, rebound, tenderness Musculoskeletal exam: PRESENT: other - Status post right fifth metatarsal resection, wound looks clean, no sign of discharge. Neurological exam: PRESENT: alert, awake, oriented to person, oriented to place, oriented to time, oriented to situation, CN II-XII grossly intact. ABSENT: motor sensory deficit Results Laboratory Results: 06/08/20 04:30 06/09/20 09:05 06/09/20 09:05 Creatinine 0.51 L Est GFR ( Amer) > 60 Assessment and Plan - Diagnosis (1) Osteomyelitis Qualifiers: Osteomyelitis type: chronic, with draining sinus Osteomyelitis location: foot Laterality: right Qualified Code(s): M86.471 - Chronic osteomyelitis with draining sinus, right ankle and foot Is this a current diagnosis for this admission?: Yes Plan: Status post right fifth metatarsal resection on 06/08/2020. Wound culture growing gram-positive cocci in clusters pending sensitivity. Presented with right foot erythema and swelling extending to midcalf, exquisitely tender, right lateral foot base of fifth metatarsal draining sinus with purulent discharge. MRI 06/06/2020 positive for osteomyelitis. Day 3 IV antibiotics. Day 3 IV vancomycin. Continue antibiotics follow-up culture and sensitivity. Continue wound care. (2) Hypertension Is this a current diagnosis for this admission?: Yes Plan: Appears euvolemic. Normotensive. Resume home meds. Adjust meds as needed. (3) Diabetes mellitus type 2 in obese Is this a current diagnosis for this admission?: Yes Plan: History of uncontrolled diabetes. Hemoglobin A1c 10.0%. Patient is on high-dose insulin and Jardiance at home. Patient has normal renal function and will benefit from more oral hypoglycemic. I have discussed with him adding metformin and sitagliptin on his regimen and hopefully in the future will need less insulin than his current regimen. Continue diabetic diet, sliding scale insulin, long-acting insulin, basal insulin, correctional insulin, Accu-Chek, hypoglycemia protocol. Adjust dosage as needed. Resume home meds upon discharge. Diabetic education. (4) Sarcoidosis Is this a current diagnosis for this admission?: Yes Plan: History of sarcoidosis on chronic steroids. Resume home meds. Outpatient PCP follow-up. (5) Tobacco use disorder, continuous Is this a current diagnosis for this admission?: Yes Plan: Counseled on quitting. NicoDerm patch will be provided. - Time Time Spent with patient: 25-34 minutes Medications reviewed and adjusted accordingly: Yes Anticipated Discharge Disposition: Home with Home Health Anticipated Discharge Timeframe: within 72 hours
[2020-06-09] MEDS ORDERED: ALBUTEROL SULFATE HFA (90 MCG/PUFF) 200 PUFF/8.5 GM MDI IH PRN (15:27)
[2020-06-09] MEDS: SITAGLIPTIN PHOSPHATE 50 MG TABLET PO SCH (17:22)
[2020-06-09] MEDS: METFORMIN HCL 500 MG TABLET PO SCH (17:26)
[2020-06-09] MEDS: ATORVASTATIN CALCIUM 20 MG TABLET PO SCH (21:36)
[2020-06-10] MEDS: VANCOMYCIN HCL 1,500 MG in DEXTROSE 5%-WATER 250 ML IV SCH ×3 (01:54→17:41)
[2020-06-10 05:30] LABS: ABSOLUTE BASOPHILS # (AUTO) 0.1 10^3/uL (0.0-0.2); ABSOLUTE EOSINOPHILS # (AUTO) 0.2 10^3/uL (0.0-0.6); ABSOLUTE LYMPHOCYTES (AUTO) 1.2 10^3/uL (0.5-4.7); ABSOLUTE MONOCYTES (AUTO) 0.9 10^3/uL (0.1-1.4); ABSOLUTE NEUT (AUTO) 6.3 10^3/uL (1.7-8.2); BASOPHILS % (AUTO) 0.7 % (0-2); HEMATOCRIT 38.7 % (37.9-51.0); HEMOGLOBIN 13.2 g/dL (13.5-17.0); LYMPHOCYTES % (AUTO) 13.3 % (13-45); MEAN CORPUSCULAR HGB CONC 34.1 g/dL (32.0-36.0); MEAN CORPUSCULAR VOLUME 85 fl (80-97); MONOCYTES % (AUTO) 10.5 % (3-13); PLATELET COUNT 265 10^3/uL (150-450); RED BLOOD COUNT 4.55 10^6/uL (4.35-5.55); RED CELL DISTRIBUTION WIDTH 14.4 % (11.5-14.0); SEGMENTED NEUTROPHILS % (AUTO) 73.5 % (42-78); TOTAL CELLS COUNTED % (AUTO) 100 %; WHITE BLOOD COUNT 8.7 10^3/uL (4.0-10.5)
[2020-06-10 05:56] LABS: BLOOD UREA NITROGEN 3 mg/dL (7-20); CALCIUM 8.1 mg/dL (8.4-10.2); GLUCOSE 126 mg/dL (75-110)
[2020-06-10 06:01] LABS: CARBON DIOXIDE 26 mmol/L (22-30); CHLORIDE 107 mmol/L (98-107)
[2020-06-10 06:07] LABS: POTASSIUM 2.9 mmol/L (3.6-5.0)
[2020-06-10 06:09] LABS: ANION GAP 4 (5-19)
[2020-06-10] MEDS: INSULIN LISPRO 100 UNIT/ML 3 ML VIAL SUBCUT SCH ×4 (08:34→22:31)
[2020-06-10] MEDS: MORPHINE SULFATE 10 MG/ML INJ IV PRN (08:49)
[2020-06-10] MEDS: PANTOPRAZOLE SODIUM 20 MG TABLET.DR PO SCH (08:52)
[2020-06-10] MEDS: METFORMIN HCL 500 MG TABLET PO SCH ×2 (08:52→17:41)
[2020-06-10] MEDS: POTASSIUM CHLORIDE 10 MEQ TABLET.ER PO SCH ×2 (08:53→17:41)
[2020-06-10] MEDS: FLUOXETINE HCL 20 MG CAPSULE PO SCH (08:56)
[2020-06-10] MEDS: POTASSI CL 20 MEQ/50 ML RIDER 20 MEQ/50 ML RTUPB IV SCH ×2 (09:02→10:51)
--- NOTE | 2020-06-10 09:44 | PDOC PROGRESS REPORT ---
Subjective Progress Note for:: 06/10/20 Subjective:: Feels well Reason For Visit: OSTEOMYELITIS Physical Exam Vital Signs: Temp Pulse Resp BP Pulse Ox 97.9 F 85 23 H 127/80 H 100 06/10/20 07:27 06/10/20 07:27 06/10/20 07:27 06/10/20 07:27 06/10/20 07:27 Intake & Output 06/09/20 06/10/20 06/11/20 06:59 06:59 06:59 Intake Total 4707 2935 Output Total 605 1555 Balance 4190 1380 Weight 110.1 kg 110.2 kg General appearance: PRESENT: no acute distress Head exam: PRESENT: normocephalic Eye exam: PRESENT: EOMI Ear exam: PRESENT: normal external ear exam Mouth exam: PRESENT: moist Neck exam: PRESENT: full ROM Respiratory exam: PRESENT: clear to auscultation vern Cardiovascular exam: PRESENT: RRR Pulses: PRESENT: normal radial pulses, normal femoral pulses, +1 pedal pulses bilateral GI/Abdominal exam: PRESENT: soft Rectal exam: PRESENT: deferred Gentrourinary exam: PRESENT: other Extremities exam: PRESENT: pedal edema - Right lateral foot wound is examined dressing removed there is some minimal necrosis from cautery burn but there is no evidence of any purulent drainage cellulitis on the lateral aspect of the foot is resolving Neurological exam: PRESENT: alert, awake, oriented to person Psychiatric exam: PRESENT: appropriate affect Skin exam: PRESENT: dry Results Laboratory Results: 06/10/20 04:43 06/10/20 04:43 06/09/20 06/10/20 06/10/20 09:05 04:43 04:43 WBC 8.7 RBC 4.55 Hgb 13.2 L Hct 38.7 MCV 85 MCH 29.0 MCHC 34.1 RDW 14.4 H Plt Count 265 Seg Neutrophils % 73.5 Sodium 136.6 L Potassium 2.9 L* Chloride 107 Carbon Dioxide 26 Anion Gap 4 L BUN 3 L Creatinine 0.51 L 0.46 L Est GFR ( Amer) > 60 > 60 Glucose 126 H Calcium 8.1 L Magnesium 2.2 Assessment & Plan - Time Anticipated Discharge Disposition: Home, Self Care Anticipated Discharge Timeframe: within 72 hours - Plan Summary Plan Summary: Status post right fifth toe and meta tarsal amputation for osteomyelitis wound is improving we will continue wet-to-dry dressings for now
[2020-06-10] MEDS ORDERED: (PENDING PHARMACY ID) (Empagliflozin [Jardiance] 25 MG) PO SCH (10:00)
[2020-06-10] MEDS: SITAGLIPTIN PHOSPHATE 50 MG TABLET PO SCH ×2 (10:46→17:43)
[2020-06-10] MEDS: FLUTICASONE/VILANTEROL 200-25 MCG/DOSE IH SCH (10:47)
[2020-06-10] MEDS: LOSARTAN POTASSIUM 50 MG TABLET PO SCH (10:51)
[2020-06-10] MEDS: FAMOTIDINE 20 MG TABLET PO SCH ×2 (10:51→22:23)
[2020-06-10] MEDS: ASPIRIN 81 MG TABLET, ENT COATED PO SCH (10:51)
[2020-06-10] MEDS: INSULIN GLARGINE,HUM.REC.ANLOG 1,000 UNIT/10 ML VIAL SUBCUT SCH ×2 (10:55→22:24)
[2020-06-10] MEDS: DOCUSATE SODIUM 100 MG CAPSULE PO SCH (15:29)
--- NOTE | 2020-06-10 17:23 | PDOC PROGRESS REPORT ---
Subjective Progress Note for:: 06/10/20 Subjective:: Patient feels okay in terms of the pain. He was noted to be significantly hypokalemic this morning. However he denies any diarrhea or vomiting. Reason For Visit: OSTEOMYELITIS Physical Exam Vital Signs: Temp Pulse Resp BP Pulse Ox 97.9 F 73 24 H 139/78 H 100 06/10/20 15:45 06/10/20 15:45 06/10/20 15:45 06/10/20 15:45 06/10/20 15:45 Intake & Output 06/09/20 06/10/20 06/11/20 06:59 06:59 06:59 Intake Total 4795 2935 1031 Output Total 605 1555 1025 Balance 4190 1380 6 Weight 110.1 kg 110.2 kg General appearance: PRESENT: no acute distress, cooperative Neck exam: ABSENT: JVD Respiratory exam: PRESENT: clear to auscultation vern, symmetrical, unlabored. ABSENT: tachypnea, wheezes Cardiovascular exam: PRESENT: RRR, +S1, +S2. ABSENT: tachycardia GI/Abdominal exam: PRESENT: soft. ABSENT: distended, firm, guarding, rebound, rigid, tenderness Neurological exam: PRESENT: alert, awake, oriented to person, oriented to place, oriented to time, oriented to situation Results Laboratory Results: 06/10/20 04:43 06/10/20 04:43 06/10/20 06/10/20 04:43 04:43 WBC 8.7 RBC 4.55 Hgb 13.2 L Hct 38.7 MCV 85 MCH 29.0 MCHC 34.1 RDW 14.4 H Plt Count 265 Seg Neutrophils % 73.5 Sodium 136.6 L Potassium 2.9 L* Chloride 107 Carbon Dioxide 26 Anion Gap 4 L BUN 3 L Creatinine 0.46 L Est GFR ( Amer) > 60 Glucose 126 H Calcium 8.1 L Magnesium 2.2 Assessment and Plan - Diagnosis (1) Osteomyelitis Qualifiers: Osteomyelitis type: chronic, with draining sinus Osteomyelitis location: foot Laterality: right Qualified Code(s): M86.471 - Chronic osteomyelitis with draining sinus, right ankle and foot Is this a current diagnosis for this admission?: Yes Plan: Associated with diabetes. Status post right fifth metatarsal resection on 06/08/2020. Wound culture growing gram-positive cocci in clusters pending sensitivity. MRI 06/06/2020 positive for osteomyelitis. Day 4 IV vancomycin. Continue antibiotics follow-up culture and sensitivity. Continue wound care. (2) Hypertension Is this a current diagnosis for this admission?: Yes Plan: Appears euvolemic. Normotensive. Resume home meds. Adjust meds as needed. (3) Diabetes mellitus type 2 in obese Is this a current diagnosis for this admission?: Yes Plan: History of uncontrolled diabetes. Hemoglobin A1c 10.0%. Patient is on high-dose insulin and Jardiance at home. Patient has normal renal function and will benefit from more oral hypoglycemic. I have discussed with him adding metformin and sitagliptin on his regimen and hopefully in the future will need less insulin than his current regimen. Continue diabetic diet, sliding scale insulin, long-acting insulin, basal insulin, correctional insulin, Accu-Chek, hypoglycemia protocol. Adjust dosage as needed. Resume home meds upon discharge. Diabetic education. (4) Sarcoidosis Is this a current diagnosis for this admission?: Yes Plan: History of sarcoidosis on chronic steroids which we will continue (5) Tobacco use disorder, continuous Is this a current diagnosis for this admission?: Yes - Time Time Spent with patient: Less than 15 minutes Anticipated Discharge Disposition: Home, Self Care Anticipated Discharge Timeframe: within 72 hours
[2020-06-10 18:24] LABS: BLOOD UREA NITROGEN 4 mg/dL (7-20); GLUCOSE 132 mg/dL (75-110); POTASSIUM 3.5 mmol/L (3.6-5.0)
[2020-06-10 18:30] LABS: CARBON DIOXIDE 26 mmol/L (22-30); CHLORIDE 106 mmol/L (98-107)
[2020-06-10 18:34] LABS: ANION GAP 4 (5-19)
[2020-06-10] MEDS: ATORVASTATIN CALCIUM 20 MG TABLET PO SCH (22:23)
[2020-06-11] MEDS: VANCOMYCIN HCL 1,500 MG in DEXTROSE 5%-WATER 250 ML IV SCH ×3 (01:44→18:07)
[2020-06-11 06:43] LABS: ANION GAP 7 (5-19); BLOOD UREA NITROGEN 4 mg/dL (7-20); CALCIUM 8.4 mg/dL (8.4-10.2); CARBON DIOXIDE 23 mmol/L (22-30); CHLORIDE 108 mmol/L (98-107); GLUCOSE 71 mg/dL (75-110); POTASSIUM 3.7 mmol/L (3.6-5.0)
[2020-06-11] MEDS: INSULIN LISPRO 100 UNIT/ML 3 ML VIAL SUBCUT SCH ×4 (08:11→22:34)
[2020-06-11] MEDS: PANTOPRAZOLE SODIUM 20 MG TABLET.DR PO SCH (08:14)
[2020-06-11] MEDS: METFORMIN HCL 500 MG TABLET PO SCH ×2 (08:15→15:18)
[2020-06-11] MEDS: FLUOXETINE HCL 20 MG CAPSULE PO SCH (08:15)
--- NOTE | 2020-06-11 09:43 | PDOC PROGRESS REPORT ---
Subjective Progress Note for:: 06/11/20 Subjective:: sleeping Reason For Visit: OSTEOMYELITIS Physical Exam Vital Signs: Temp Pulse Resp BP Pulse Ox 97.7 F 68 19 136/75 H 100 06/11/20 07:30 06/11/20 07:30 06/11/20 07:30 06/11/20 07:30 06/11/20 07:30 Intake & Output 06/10/20 06/11/20 06/12/20 06:59 06:59 06:59 Intake Total 2935 2026 480 Output Total 1555 1025 Balance 1380 1001 480 Weight 110.2 kg 110.1 kg General appearance: PRESENT: no acute distress Head exam: PRESENT: normocephalic Eye exam: PRESENT: EOMI Ear exam: PRESENT: normal external ear exam Mouth exam: PRESENT: moist Neck exam: PRESENT: full ROM Respiratory exam: PRESENT: clear to auscultation vern Cardiovascular exam: PRESENT: RRR Pulses: PRESENT: +2 pedal pulses bilateral Breast: PRESENT: Normal GI/Abdominal exam: PRESENT: soft Rectal exam: PRESENT: deferred Extremities exam: PRESENT: full ROM, other - rt foot dressing intact reported less cellulits by nurse Musculoskeletal exam: PRESENT: full ROM Psychiatric exam: PRESENT: appropriate affect Skin exam: PRESENT: dry Results Laboratory Results: 06/10/20 04:43 06/11/20 05:37 06/10/20 06/11/20 17:55 05:37 Sodium 135.7 L 138.0 Potassium 3.5 L 3.7 Chloride 106 108 H Carbon Dioxide 26 23 Anion Gap 4 L 7 BUN 4 L 4 L Creatinine 0.55 0.49 L Est GFR ( Amer) > 60 > 60 Glucose 132 H 71 L Calcium 8.0 L 8.4 Magnesium 2.0 Assessment & Plan - Time Anticipated Discharge Disposition: Home, Self Care Anticipated Discharge Timeframe: within 72 hours - Plan Summary Plan Summary: s/p rt fifth toe amputation for osteo wound being packed on iv abx will cont dressing changes for another day or two then consider wound vac.
[2020-06-11] MEDS ORDERED: INSULIN GLARGINE,HUM.REC.ANLOG 1,000 UNIT/10 ML VIAL SUBCUT SCH ×2 (10:00→22:00)
[2020-06-11] MEDS ORDERED: CEFTRIAXONE 2 GM/D5W RTU 2 GM/50 ML RTUPB IV SCH (10:00)
[2020-06-11] MEDS: LOSARTAN POTASSIUM 50 MG TABLET PO SCH (10:07)
[2020-06-11] MEDS: FLUTICASONE/VILANTEROL 200-25 MCG/DOSE IH SCH (10:07)
[2020-06-11] MEDS: ASPIRIN 81 MG TABLET, ENT COATED PO SCH (10:07)
[2020-06-11] MEDS: FAMOTIDINE 20 MG TABLET PO SCH ×2 (10:08→22:34)
[2020-06-11] MEDS: PREDNISONE 10 MG TABLET PO SCH (10:08)
[2020-06-11] MEDS: DOCUSATE SODIUM 100 MG CAPSULE PO SCH (10:36)
--- NOTE | 2020-06-11 12:56 | PDOC PROGRESS REPORT ---
Subjective Progress Note for:: 06/11/20 Subjective:: Patient feels okay in terms of the pain. He states he eats a lot of sugars when he is at home but he is trying to work on his diet. His sugars seems to have been much better controlled on lower amount of insulin due to carb restriction. Reason For Visit: OSTEOMYELITIS Physical Exam Vital Signs: Temp Pulse Resp BP Pulse Ox 97.7 F 68 19 136/75 H 100 06/11/20 07:30 06/11/20 07:30 06/11/20 07:30 06/11/20 07:30 06/11/20 07:30 Intake & Output 06/10/20 06/11/20 06/12/20 06:59 06:59 06:59 Intake Total 2935 2026 530 Output Total 1555 1025 Balance 1380 1001 530 Weight 110.2 kg 110.1 kg General appearance: PRESENT: no acute distress, cooperative Neck exam: ABSENT: JVD Respiratory exam: PRESENT: unlabored. ABSENT: accessory muscle use, retraction Neurological exam: PRESENT: alert, awake, oriented to person, oriented to place, oriented to time Results Laboratory Results: 06/10/20 04:43 06/11/20 05:37 06/10/20 06/11/20 17:55 05:37 Sodium 135.7 L 138.0 Potassium 3.5 L 3.7 Chloride 106 108 H Carbon Dioxide 26 23 Anion Gap 4 L 7 BUN 4 L 4 L Creatinine 0.55 0.49 L Est GFR ( Amer) > 60 > 60 Glucose 132 H 71 L Calcium 8.0 L 8.4 Magnesium 2.0 06/08/20 15:29 Foot - Right Gram Stain - Final 06/08/20 15:29 Foot - Right Wound Culture - Final Mrsa (Meth Resis Staph Aureus) No Anaerobic Organisms Assessment and Plan - Diagnosis (1) Osteomyelitis Qualifiers: Osteomyelitis type: chronic, with draining sinus Osteomyelitis location: foot Laterality: right Qualified Code(s): M86.471 - Chronic osteomyelitis with draining sinus, right ankle and foot Is this a current diagnosis for this admission?: Yes Plan: Associated with diabetes. Status post right fifth metatarsal resection on 06/08/2020. Wound culture growing gram-positive cocci in clusters pending sensitivity. MRI 06/06/2020 positive for osteomyelitis. Bone culture growing MRSA Day 5 IV vancomycin. Awaiting pathology specimen to evaluate if surgical margins were clear of infection to determine duration of IV ABX. Surgery following and managing surgical wound. (2) Hypertension Qualifiers: Hypertension type: essential hypertension Qualified Code(s): I10 - Essential (primary) hypertension Is this a current diagnosis for this admission?: Yes Plan: Continue losartan (3) Diabetes mellitus type 2 in obese Is this a current diagnosis for this admission?: Yes Plan: History of uncontrolled diabetes. Hemoglobin A1c 10.0%. Patient is on Jardiance and Lantus 80 units twice daily at home. He eats a lot of sweets at home. He was started on metformin during hospitalization. Continue Januvia. Sugars have been better controlled on much smaller doses of Lantus so I will keep him on Lantus 20 units twice daily while in the hospital. (4) Sarcoidosis Is this a current diagnosis for this admission?: Yes Plan: History of sarcoidosis on chronic steroids which we will continue (5) Tobacco use disorder, continuous Is this a current diagnosis for this admission?: Yes - Time Time Spent with patient: Less than 15 minutes Anticipated Discharge Disposition: Home, Self Care Anticipated Discharge Timeframe: within 48 hours
[2020-06-11] MEDS: MORPHINE SULFATE 10 MG/ML INJ IV PRN (15:18)
[2020-06-11] MEDS: SITAGLIPTIN PHOSPHATE 50 MG TABLET PO SCH (16:45)
[2020-06-11] MEDS: INSULIN GLARGINE,HUM.REC.ANLOG 1,000 UNIT/10 ML VIAL SUBCUT SCH (20:42)
[2020-06-11] MEDS: ATORVASTATIN CALCIUM 20 MG TABLET PO SCH (22:34)
[2020-06-12] MEDS: VANCOMYCIN HCL 1,500 MG in DEXTROSE 5%-WATER 250 ML IV SCH ×3 (03:02→17:52)
[2020-06-12] MEDS: METFORMIN HCL 500 MG TABLET PO SCH ×2 (08:03→16:35)
[2020-06-12] MEDS: INSULIN LISPRO 100 UNIT/ML 3 ML VIAL SUBCUT SCH ×4 (08:04→21:46)
[2020-06-12] MEDS: PANTOPRAZOLE SODIUM 20 MG TABLET.DR PO SCH (08:05)
[2020-06-12] MEDS: FLUOXETINE HCL 20 MG CAPSULE PO SCH (08:05)
[2020-06-12] MEDS: SITAGLIPTIN PHOSPHATE 50 MG TABLET PO SCH ×2 (08:06→16:35)
[2020-06-12] MEDS: LOSARTAN POTASSIUM 50 MG TABLET PO SCH (10:58)
[2020-06-12] MEDS: PREDNISONE 10 MG TABLET PO SCH (10:58)
[2020-06-12] MEDS: ASPIRIN 81 MG TABLET, ENT COATED PO SCH (10:58)
[2020-06-12] MEDS: FAMOTIDINE 20 MG TABLET PO SCH ×2 (11:01→21:52)
[2020-06-12] MEDS: DOCUSATE SODIUM 100 MG CAPSULE PO SCH (11:01)
[2020-06-12] MEDS: FLUTICASONE/VILANTEROL 200-25 MCG/DOSE IH SCH (11:02)
[2020-06-12] MEDS: INSULIN GLARGINE,HUM.REC.ANLOG 1,000 UNIT/10 ML VIAL SUBCUT SCH ×2 (11:07→21:52)
[2020-06-12] MEDS ORDERED: TRAMADOL HCL 50 MG TABLET PO PRN (11:59)
--- NOTE | 2020-06-12 12:26 | PDOC PROGRESS REPORT ---
Subjective Progress Note for:: 06/12/20 Subjective:: Patient feels okay in terms of the pain. He states he eats a lot of sugars when he is at home but he is trying to work on his diet. His sugars seems to have been much better controlled on lower amount of insulin due to carb restriction. He has not been needing much in terms of the morphine for control of his pain. Reason For Visit: OSTEOMYELITIS Physical Exam Vital Signs: Temp Pulse Resp BP Pulse Ox 97.9 F 66 19 154/75 H 100 06/12/20 07:20 06/12/20 07:20 06/12/20 07:20 06/12/20 07:20 06/12/20 07:20 Intake & Output 06/11/20 06/12/20 06/13/20 06:59 06:59 06:59 Intake Total 2025 2350 200 Output Total 1025 700 Balance 1001 1650 200 Weight 110.1 kg 106.9 kg General appearance: PRESENT: no acute distress, cooperative Neck exam: ABSENT: JVD Respiratory exam: PRESENT: symmetrical, unlabored. ABSENT: accessory muscle use, retraction, tachypnea Neurological exam: PRESENT: alert, awake Results Laboratory Results: 06/10/20 04:43 06/11/20 05:37 06/08/20 15:29 Foot - Right Gram Stain - Final 06/08/20 15:29 Foot - Right Wound Culture - Final Mrsa (Meth Resis Staph Aureus) No Anaerobic Organisms Assessment and Plan - Diagnosis (1) Osteomyelitis Qualifiers: Osteomyelitis type: chronic, with draining sinus Osteomyelitis location: foot Laterality: right Qualified Code(s): M86.471 - Chronic osteomyelitis with draining sinus, right ankle and foot Is this a current diagnosis for this admission?: Yes Plan: Associated with diabetes. Status post right fifth metatarsal resection on 06/08/2020. Wound culture growing gram-positive cocci in clusters pending sensitivity. MRI 06/06/2020 positive for osteomyelitis. Bone culture growing MRSA Day 6 IV vancomycin. Awaiting pathology specimen to evaluate if surgical margins were clear of infection to determine if there is any need for continued IV antibiotics. Pathologist informs me that it should be ready by tomorrow. Surgery following and managing surgical wound. Discontinue IV morphine as he is barely needing it. Tylenol as needed. We will add tramadol as needed. (2) Hypertension Qualifiers: Hypertension type: essential hypertension Qualified Code(s): I10 - Essential (primary) hypertension Is this a current diagnosis for this admission?: Yes Plan: Continue losartan (3) Diabetes mellitus type 2 in obese Is this a current diagnosis for this admission?: Yes Plan: History of uncontrolled diabetes. Hemoglobin A1c 10.0%. Patient is on Jardiance and Lantus 80 units twice daily at home. He eats a lot of sweets at home. He was started on metformin during hospitalization. Continue Januvia. Sugars have been better controlled on much smaller doses of Lantus so I will keep him on Lantus 20 units twice daily while in the hospital. With metformin, Januvia and proper dieting, patient's insulin requirements could likely be cut down. (4) Sarcoidosis Is this a current diagnosis for this admission?: Yes Plan: History of sarcoidosis on chronic steroids which we will continue (5) Tobacco use disorder, continuous Is this a current diagnosis for this admission?: Yes Plan: Counseled on quitting. NicoDerm patch will be provided. - Time Time Spent with patient: Less than 15 minutes Anticipated Discharge Disposition: Home, Self Care Anticipated Discharge Timeframe: within 24 hours
--- NOTE | 2020-06-12 12:33 | PDOC PROGRESS REPORT ---
Subjective Progress Note for:: 06/12/20 Subjective:: Denies any pains from the amputation site right fifth toe area Reason For Visit: OSTEOMYELITIS Physical Exam Vital Signs: Temp Pulse Resp BP Pulse Ox 97.9 F 66 19 154/75 H 100 06/12/20 07:20 06/12/20 07:20 06/12/20 07:20 06/12/20 07:20 06/12/20 07:20 Intake & Output 06/11/20 06/12/20 06/13/20 06:59 06:59 06:59 Intake Total 6 2350 200 Output Total 1025 700 Balance 1001 1650 200 Weight 110.1 kg 106.9 kg Exam: The amputation site appears to be relatively clean. Minimal dark discoloration on proximal skin edge but no definite need for debridement at this time. Results Laboratory Results: 06/10/20 04:43 06/11/20 05:37 06/08/20 15:29 Foot - Right Gram Stain - Final 06/08/20 15:29 Foot - Right Wound Culture - Final Mrsa (Meth Resis Staph Aureus) No Anaerobic Organisms Assessment & Plan - Time Critical Time spent with patient: 15-24 minutes Anticipated Discharge Disposition: Home, Self Care Anticipated Discharge Timeframe: within 72 hours - Plan Summary Plan Summary: Fifth postop day post right fifth toe and metatarsal head amputation by for osteomyelitis. The amputation site looks relatively clean. Discussed with Dr. Grant. A wound VAC may be applied today and plan on discharge per hospitalist. Arrange follow- up at the wound care center in 2 weeks.
[2020-06-12] MEDS: ATORVASTATIN CALCIUM 20 MG TABLET PO SCH (21:52)
[2020-06-13] MEDS: VANCOMYCIN HCL 1,500 MG in DEXTROSE 5%-WATER 250 ML IV SCH ×3 (02:33→17:13)
[2020-06-13] MEDS: INSULIN LISPRO 100 UNIT/ML 3 ML VIAL SUBCUT SCH ×4 (07:55→21:55)
[2020-06-13] MEDS: ASPIRIN 81 MG TABLET, ENT COATED PO SCH (09:15)
[2020-06-13] MEDS: METFORMIN HCL 500 MG TABLET PO SCH ×2 (09:15→17:13)
[2020-06-13] MEDS: LOSARTAN POTASSIUM 50 MG TABLET PO SCH (09:15)
[2020-06-13] MEDS: DOCUSATE SODIUM 100 MG CAPSULE PO SCH (09:15)
[2020-06-13] MEDS: PREDNISONE 10 MG TABLET PO SCH (09:15)
[2020-06-13] MEDS: PANTOPRAZOLE SODIUM 20 MG TABLET.DR PO SCH (09:15)
[2020-06-13] MEDS: FLUOXETINE HCL 20 MG CAPSULE PO SCH (09:15)
[2020-06-13] MEDS: FAMOTIDINE 20 MG TABLET PO SCH ×2 (09:15→22:07)
[2020-06-13] MEDS: FLUTICASONE/VILANTEROL 200-25 MCG/DOSE IH SCH (09:16)
[2020-06-13] MEDS: SITAGLIPTIN PHOSPHATE 50 MG TABLET PO SCH ×2 (09:16→17:13)
[2020-06-13] MEDS: INSULIN GLARGINE,HUM.REC.ANLOG 1,000 UNIT/10 ML VIAL SUBCUT SCH ×2 (09:17→22:07)
--- NOTE | 2020-06-13 16:29 | PDOC PROGRESS REPORT ---
Subjective Progress Note for:: 06/13/20 Subjective:: 06/13/2020 We are still waiting on the pathology results of the patient's right fifth toe amputation to determine if we have clean margins. He is continued on antibiot ics for now. Infectious disease consulted today by me. Will need antibiotic recommendations for both scenarios of clean margins or persistently infected margins. Patient very eagerly awaiting discharge but he states he understands the reasoning for waiting on the pathology results. Other than some mild right foot pain he has no specific complaints. Reason For Visit: OSTEOMYELITIS Physical Exam Vital Signs: Temp Pulse Resp BP Pulse Ox 98.0 F 77 17 147/76 H 100 06/13/20 10:57 06/13/20 10:49 06/13/20 10:49 06/13/20 10:49 06/13/20 10:49 Intake & Output 06/12/20 06/13/20 06/14/20 06:59 06:59 06:59 Intake Total 2350 1655 940 Output Total 700 650 400 Balance 1650 1005 540 Weight 106.9 kg 106.5 kg General appearance: PRESENT: no acute distress, well-developed, well-nourished Head exam: PRESENT: atraumatic, normocephalic Eye exam: PRESENT: conjunctiva pink Mouth exam: PRESENT: moist Respiratory exam: PRESENT: clear to auscultation vern. ABSENT: rales, rhonchi, wheezes Cardiovascular exam: PRESENT: RRR. ABSENT: diastolic murmur, rubs, systolic murmur GI/Abdominal exam: PRESENT: normal bowel sounds, soft. ABSENT: distended, guarding, mass, organolmegaly, rebound, tenderness Musculoskeletal exam: PRESENT: tenderness - Right foot surgical site clean and healing, mildly tender Neurological exam: PRESENT: alert, awake, oriented to person, oriented to place, oriented to time, oriented to situation Psychiatric exam: PRESENT: appropriate affect, normal mood Skin exam: PRESENT: dry, warm Results Laboratory Results: 06/10/20 04:43 06/11/20 05:37 06/07/20 17:45 Blood Blood Culture - Final NO GROWTH IN 5 DAYS 06/07/20 16:33 Blood Blood Culture - Final NO GROWTH IN 5 DAYS Assessment and Plan - Diagnosis (1) Osteomyelitis Qualifiers: Osteomyelitis type: chronic, with draining sinus Osteomyelitis location: foot Laterality: right Qualified Code(s): M86.471 - Chronic osteomyelitis with draining sinus, right ankle and foot Is this a current diagnosis for this admission?: Yes Plan: Per previous physician: "Associated with diabetes. Status post right fifth metatarsal resection on 06/08/2020. Wound culture growing gram-positive cocci in clusters pending sensitivity. MRI 06/06/2020 positive for osteomyelitis. Bone culture growing MRSA Day 6 IV vancomycin. Awaiting pathology specimen to evaluate if surgical margins were clear of infection to determine if there is any need for continued IV antibiotics. Pathologist informs me that it should be ready by tomorrow. Surgery following and managing surgical wound. Discontinue IV morphine as he is barely needing it. Tylenol as needed. We will add tramadol as needed." 06/13/2020 Await pathology results to determine need for continued antibiotics and how long versus additional surgery ID consulted (2) Diabetes mellitus type 2 in obese Is this a current diagnosis for this admission?: Yes Plan: History of uncontrolled diabetes. Hemoglobin A1c 10.0%. Patient is on Jardiance and Lantus 80 units twice daily at home. He eats a lot of sweets at home. He was started on metformin during hospitalization. Continue Januvia. Sugars have been better controlled on much smaller doses of Lantus so I will keep him on Lantus 20 units twice daily while in the hospital. With metformin, Januvia and proper dieting, patient's insulin requirements could likely be cut down. 06/13/2020 Continue oral medications and Lantus, SSI, Accu-Cheks (3) Sarcoidosis Is this a current diagnosis for this admission?: Yes Plan: History of sarcoidosis on chronic steroids, continued Wound healing and infections may be slow to clear due to chronic steroids (4) Tobacco use disorder, continuous Is this a current diagnosis for this admission?: Yes Plan: Counseled on quitting. NicoDerm patch (6) Foot abscess, right Is this a current diagnosis for this admission?: Yes - Time Time Spent with patient: 15-24 minutes Medications reviewed and adjusted accordingly: Yes Anticipated Discharge Disposition: Home, Self Care Anticipated Discharge Timeframe: within 24 hours - Inpatient Certification Based on my medical assessment, after consideration of the patient's comorbidities, presenting symptoms, or acuity I expect that the services needed warrant INPATIENT care.: Yes I certify that my determination is in accordance with my understanding of Medicare's requirements for reasonable and necessary INPATIENT services [42 CFR 412.3e].: Yes Medical Necessity: Significant Comorbidiites Make Outpatient Treatment Too Risky, Need Close Monitoring Due to Risk of Patient Decompensation, Need for IV Antibiotics, Risk of Complication if Not Cared For in Hospital, Risk of Diagnosis Which Will Require Inpatient Eval/Care/Monitoring
--- NOTE | 2020-06-13 18:07 | PDOC PROGRESS REPORT ---
Subjective Progress Note for:: 06/13/20 Subjective:: Denies any pains. Reason For Visit: OSTEOMYELITIS Physical Exam Vital Signs: Temp Pulse Resp BP Pulse Ox 98.0 F 77 17 147/76 H 100 06/13/20 10:57 06/13/20 10:49 06/13/20 10:49 06/13/20 10:49 06/13/20 10:49 Intake & Output 06/12/20 06/13/20 06/14/20 06:59 06:59 06:59 Intake Total 2350 1655 940 Output Total 700 650 400 Balance 1650 1005 540 Weight 106.9 kg 106.5 kg Exam: Amputation site on the right foot appears to be clean and dry. Results Laboratory Results: 06/10/20 04:43 06/11/20 05:37 06/07/20 17:45 Blood Blood Culture - Final NO GROWTH IN 5 DAYS 06/07/20 16:33 Blood Blood Culture - Final NO GROWTH IN 5 DAYS Assessment & Plan - Diagnosis (1) Diabetic foot infection Is this a current diagnosis for this admission?: Yes (2) Osteomyelitis Qualifiers: Osteomyelitis type: chronic, with draining sinus Osteomyelitis location: foot Laterality: right Qualified Code(s): M86.471 - Chronic osteomyelitis with draining sinus, right ankle and foot Is this a current diagnosis for this admission?: Yes - Time Critical Time spent with patient: 15-24 minutes Anticipated Discharge Disposition: Home with Home Health Anticipated Discharge Timeframe: within 72 hours - Inpatient Certification Medical Necessity: Need for IV Antibiotics - Plan Summary Plan Summary: Patient is about postop day #5 post right fifth toe amputation for osteomyelitis. The wound looks relatively clean. Continue with wet-to-dry dressings every 12 hours. This regimen can be continued at home when discharged. Follow-up at the wound care center in 2weeks. We will sign off.
[2020-06-13] MEDS: ATORVASTATIN CALCIUM 20 MG TABLET PO SCH (22:07)
[2020-06-14] MEDS: VANCOMYCIN HCL 1,500 MG in DEXTROSE 5%-WATER 250 ML IV SCH ×3 (02:00→18:10)
[2020-06-14] MEDS: FLUOXETINE HCL 20 MG CAPSULE PO SCH (07:56)
[2020-06-14] MEDS: SITAGLIPTIN PHOSPHATE 50 MG TABLET PO SCH ×2 (07:56→18:06)
[2020-06-14] MEDS: INSULIN LISPRO 100 UNIT/ML 3 ML VIAL SUBCUT SCH ×3 (07:57→18:06)
[2020-06-14] MEDS: METFORMIN HCL 500 MG TABLET PO SCH ×2 (07:57→18:05)
[2020-06-14] MEDS: PANTOPRAZOLE SODIUM 20 MG TABLET.DR PO SCH (07:57)
[2020-06-14] MEDS: FAMOTIDINE 20 MG TABLET PO SCH (10:17)
[2020-06-14] MEDS: FLUTICASONE/VILANTEROL 200-25 MCG/DOSE IH SCH (10:17)
[2020-06-14] MEDS: PREDNISONE 10 MG TABLET PO SCH (10:18)
[2020-06-14] MEDS: LOSARTAN POTASSIUM 50 MG TABLET PO SCH (10:18)
[2020-06-14] MEDS: INSULIN GLARGINE,HUM.REC.ANLOG 1,000 UNIT/10 ML VIAL SUBCUT SCH (10:18)
[2020-06-14] MEDS: DOCUSATE SODIUM 100 MG CAPSULE PO SCH (10:18)
[2020-06-14] MEDS: ASPIRIN 81 MG TABLET, ENT COATED PO SCH (10:18)
[2020-06-14 10:46] LABS: ABSOLUTE BASOPHILS # (AUTO) 0.1 10^3/uL (0.0-0.2); ABSOLUTE EOSINOPHILS # (AUTO) 0.4 10^3/uL (0.0-0.6); ABSOLUTE LYMPHOCYTES (AUTO) 1.6 10^3/uL (0.5-4.7); ABSOLUTE MONOCYTES (AUTO) 1.1 10^3/uL (0.1-1.4); ABSOLUTE NEUT (AUTO) 4.4 10^3/uL (1.7-8.2); BASOPHILS % (AUTO) 0.7 % (0-2); EOSINOPHILS % (AUTO) 5.3 % (0-6); HEMATOCRIT 39.6 % (37.9-51.0); HEMOGLOBIN 13.5 g/dL (13.5-17.0); MEAN CORPUSCULAR VOLUME 85 fl (80-97); MONOCYTES % (AUTO) 14.9 % (3-13); PLATELET COUNT 324 10^3/uL (150-450); RED BLOOD COUNT 4.65 10^6/uL (4.35-5.55); RED CELL DISTRIBUTION WIDTH 14.7 % (11.5-14.0); SEGMENTED NEUTROPHILS % (AUTO) 58.1 % (42-78); TOTAL CELLS COUNTED % (AUTO) 100 %; WHITE BLOOD COUNT 7.6 10^3/uL (4.0-10.5)
[2020-06-14 11:02] LABS: ANION GAP 8 (5-19); BLOOD UREA NITROGEN 10 mg/dL (7-20); CALCIUM 9.2 mg/dL (8.4-10.2); CARBON DIOXIDE 25 mmol/L (22-30); CHLORIDE 103 mmol/L (98-107); GLUCOSE 124 mg/dL (75-110)
[2020-06-14 11:06] LABS: VANCOMYCIN,TROUGH 14.3 ug/mL (5.0-20.0)
--- NOTE | 2020-06-14 16:16 | Progress Note ---
Provider Note Provider Note: [facility] ID Telephone Advice Consultation Chart reviewed. Patient is a 50-year-old man with DM2, CAD, obesity, COPD, hypertension, sarcoidosis on steroids. Patient developed an ulcer on his right foot. He has had follow up with podiatry and unfortunately, the ulcer worsened, there was worsening erythema, edema, drainage at the base of the 5th metatarsal base. He had an MRI and it showed osteomyelitis of the 5th metatarsal. Patient was evaluated by surgery on 06/07. He had surgery on 06/08, amputation of the 5th toe and MT. Pathology report showed acute on chronic osteomyelitis, but margins were viable and free of inflammation. Bone culture was positive for MRSA but apparently not from the margins. Patient will have a wound vac placed and is currently on vancomycin since 06/08, currently day 6. ID consulted for recommendations. PMH: CAD DM COPD Obesity Hypertension Sarcoidosis PSH: Appendectomy Cholecystectomy Knee surgery Liver and Lung biopsies Allergies: atenolol Adverse Reaction (Verified 06/07/20 15:57) LOWER B/P eggs Adverse Reaction (Uncoded 06/07/20 15:57) DIARRHEA, SULFA BURPS IF EAT TWO DAYS IN A ROW Medications: Atorvastatin Calcium [Lipitor 20 mg Tablet] 20 mg PO QHS 07/19/18 Chlorthalidone [Chlorthalidone 25 mg Tablet] 25 mg PO DAILY 07/19/18 Fluoxetine HCl [Prozac] 80 mg PO QAM 07/19/18 Gabapentin [Neurontin] 600 mg PO Q6 07/19/18 Insulin Aspart [Novolog Flexpen] 0 units SQ .SLIDING SCALE 07/19/18 Insulin Glargine,Hum.rec.anlog [Toujeo Solostar] 80 units SQ Q12 07/19/18 Losartan Potassium [Cozaar 50 mg Tablet] 50 mg PO DAILY 07/19/18 Aspirin [Ecotrin 81 mg EC Tablet] 81 mg PO DAILY 02/24/20 Budesonide/Formoterol Fumarate [Symbicort HFA 160-4.5 mcg Inhaler 6 gm] 2 puff IN Q12 02/24/20 Empagliflozin [Jardiance] 25 mg PO DAILY 02/24/20 Hydrocodone/Acetaminophen [Baker 7.5-325 mg Tablet] 1 tab PO Q6HP PRN 02/24/20 Prednisone [Deltasone 10 mg Tablet] 10 mg PO DAILY 02/24/20 Levalbuterol Tartrate [Levalbuterol Tartrate Hfa] 1 puff IH Q4HP PRN 06/07/20 Vital Signs: Temp Pulse Resp BP Pulse Ox 98.3 F 71 20 140/75 H 100 06/14/20 11:57 06/14/20 11:57 06/14/20 11:57 06/14/20 11:57 06/14/20 11:57 Intake & Output 06/13/20 06/14/20 06/15/20 06:59 06:59 06:59 Intake Total 1655 1875 720 Output Total 650 1000 Balance 1005 875 720 Weight 106.5 kg 103.7 kg Weight/Height Weight 103.7 kg Height 6 ft 1 in Laboratories: 06/14/20 09:43 06/14/20 09:43 MCV 85 fl (80-97) 06/14/20 09:43 MCH 29.0 pg (27.0-33.4) 06/14/20 09:43 MCHC 34.0 g/dL (32.0-36.0) 06/14/20 09:43 RDW 14.7 % (11.5-14.0) H 06/14/20 09:43 Seg Neutrophils % 58.1 % (42-78) 06/14/20 09:43 Chloride 103 mmol/L (98-107) 06/14/20 09:43 Carbon Dioxide 25 mmol/L (22-30) 06/14/20 09:43 Anion Gap 8 (5-19) 06/14/20 09:43 Est GFR ( Amer) > 60 (>60) 06/14/20 09:43 Est GFR ( Amer) Cancelled 06/14/20 09:43 Est GFR (Non-Af Amer) Cancelled 06/14/20 09:43 Glucose 124 mg/dL (75-110) H 06/14/20 09:43 Calcium 9.2 mg/dL (8.4-10.2) 06/14/20 09:43 Phosphorus 3.5 mg/dL (2.5-4.5) 06/08/20 04:30 Magnesium 2.0 mg/dL (1.6-2.3) 06/11/20 05:37 Total Bilirubin 0.9 mg/dL (0.2-1.3) 06/08/20 04:30 AST 60 U/L (17-59) H 06/08/20 04:30 Alkaline Phosphatase 106 U/L (38-126) 06/08/20 04:30 C-Reactive Protein 144.9 mg/L (<10.0) H 06/07/20 16:33 Total Protein 6.4 g/dL (6.3-8.2) 06/08/20 04:30 Albumin 2.9 g/dL (3.5-5.0) L 06/08/20 04:30 Triglycerides 91 mg/dL (<150) 06/08/20 04:30 Cholesterol 102.64 mg/dL (0-200) 06/08/20 04:30 LDL Cholesterol Direct 55 mg/dL (<100) 06/08/20 04:30 VLDL Cholesterol 18.0 mg/dL (10-31) 06/08/20 04:30 HDL Cholesterol 34 mg/dL (>40) L 06/08/20 04:30 Urine Color STRAW 06/07/20 16:33 Urine Appearance CLEAR 06/07/20 16:33 Urine pH 5.0 (5.0-9.0) 06/07/20 16:33 Ur Specific Dresher 1.038 06/07/20 16:33 Urine Protein NEGATIVE mg/dL (NEGATIVE) 06/07/20 16:33 Urine Glucose (UA) >=500 mg/dL (NEGATIVE) H 06/07/20 16:33 Urine Ketones NEGATIVE mg/dL (NEGATIVE) 06/07/20 16:33 Urine Blood NEGATIVE (NEGATIVE) 06/07/20 16:33 Urine Nitrite NEGATIVE (NEGATIVE) 06/07/20 16:33 Ur Leukocyte Esterase NEGATIVE (NEGATIVE) 06/07/20 16:33 Urine RBC (Auto) 0 /HPF 06/07/20 16:33 Microbiology: Blood Culture 06/07 NGTD Wound culture 06/08 MRSA Radiology: MRI (outpatient) Osteomyelitis of the 5th toe and metatarsal Assessment and Recommendations: Patient evaluated due to osteomyelitis of the right 5th toe and metatarsal bone. He has had a chronic ulcer without improvement as outpatient. He ultimately had amputation of the 5th toe and metatarsal. Per surgery note, bone was healthy and hard at the margins. Pathology demonstrated acute on chronic inflammation but margins were free of osteomyelitis, margins were viable. Wound/Bone culture was positive, but it is unclear if it was form the margins. In the setting of clean margins and surgical impression of source control, there is no justification to prolong antibiotic therapy. Patient did have cellulitis, therefore will continue antibiotics to treat for skin and soft tissue infection for 10-14 days. Can transition to Bactrim DS 1 tab BID for another 7 days. Please call if any questions Qiana Yi MD [facility] ID [id number]
--- NOTE | 2020-06-14 18:10 | PDOC DISCHARGE SUMMARY ---
Impression - Admit/DC Date/PCP Admission Date/Primary Care Provider: 06/07/20 17:04 LEOPOLDO MCCAINUMADO KHRIS Discharge Date: 06/14/20 - Discharge Diagnosis (1) Osteomyelitis Is this a current diagnosis for this admission?: Yes (2) Diabetes mellitus type 2 in obese Is this a current diagnosis for this admission?: Yes (3) Sarcoidosis Is this a current diagnosis for this admission?: Yes (4) Tobacco use disorder, continuous Is this a current diagnosis for this admission?: Yes (5) Type 2 diabetes mellitus Is this a current diagnosis for this admission?: Yes (6) Foot abscess, right Is this a current diagnosis for this admission?: Yes - Additional Information Resuscitation Status: Full Code Discharge Diet: Diabetic Discharge Activity: Activity As Tolerated, Balance Activity w/Rest Referrals: Wound Care [Provider Group] - 06/22/20 2:00 pm ANNA KIM DPM [ACTIVE STAFF] - Follow up as needed ('S OFFICE WILL CONTACT THE PATIENT WITH A FOLLOW UP APPT ) Prescriptions: Sulfamethoxazole/Trimethoprim [Bactrim Ds Tablet] 1 each PO BID 7 Days #14 tablet Sitagliptin Phosphate [Januvia 50 mg Tablet] 50 mg PO BIDACBS #60 tablet Metformin HCl [Metformin ER Osmotic] 1,000 mg PO DAILY #30 tab.er.24 Home Medications: Atorvastatin Calcium [Lipitor 20 mg Tablet] 20 mg PO QHS 07/19/18 Chlorthalidone [Chlorthalidone 25 mg Tablet] 25 mg PO DAILY 07/19/18 Fluoxetine HCl [Prozac] 80 mg PO QAM 07/19/18 Gabapentin [Neurontin] 600 mg PO Q6 07/19/18 Insulin Aspart [Novolog Flexpen] 0 units SQ .SLIDING SCALE 07/19/18 Losartan Potassium [Cozaar 50 mg Tablet] 50 mg PO DAILY 07/19/18 Pantoprazole Sodium [Protonix [address] Tablet] 20 mg PO QAM #30 tablet. 02/13/20 Aspirin [Ecotrin 81 mg EC Tablet] 81 mg PO DAILY 02/24/20 Budesonide/Formoterol Fumarate [Symbicort HFA 160-4.5 mcg Inhaler 6 gm] 2 puff IN Q12 02/24/20 Empagliflozin [Jardiance] 25 mg PO DAILY 02/24/20 Hydrocodone/Acetaminophen [Cypress 7.5-325 mg Tablet] 1 tab PO Q6HP PRN 02/24/20 Prednisone [Deltasone 10 mg Tablet] 10 mg PO DAILY 02/24/20 Levalbuterol Tartrate [Levalbuterol Tartrate Hfa] 1 puff IH Q4HP PRN 06/07/20 Insulin Glargine,Hum.rec.anlog [Toujeo Solostar] 24 units SQ Q12 #0 06/14/20 Metformin HCl [Metformin ER Osmotic] 1,000 mg PO DAILY #30 tab.er.24 06/14/20 Sitagliptin Phosphate [Januvia 50 mg Tablet] 50 mg PO BIDACBS #60 tablet 06/14/20 Sulfamethoxazole/Trimethoprim [Bactrim Ds Tablet] 1 each PO BID 7 Days #14 tablet 06/14/20 History of Present Illiness History of Present Illness: Per Admitting Physician: "ED PEDRAZA is a 50 year old male past medical history of diabetes, CAD, morbid obesity, COPD, hypertension, sarcoid on chronic steroid, presented to ED complaining worsening chronic right foot pain. Patient is stating that he has about 1/2 years ago he was diagnosed with diabetic foot and has been cared for by a event sales manager at the wound care clinic fortunately his wound has not getting better. Recently he has noticed worsening swelling and erythema and purulent discharge from right fifth metatarsal base, pain is throbbing, 5/5 worse with ambulation or movement, denies any fever, chills, nausea, vomiting, chest pain, shortness of breath, diarrhea, constipation or any urinary symptoms. Patient had an MRI yesterday and the report is positive for fifth metatarsal osteomyelitis. In ED he was started on empiric IV antibiotics and hospitalist consulted for admission." Hospital Course Hospital Course: Patient went for osteomyelitis of right first toe and metatarsal status post amputation by surgery here. Completed IV antibiotic course and will be continued on oral Bactrim for 7 days per ID recommendations. Patient was counseled on smoking cessation, wound care, diabetes control. He must follow-up with wound clinic for wound care. Patient will need to follow-up with his PCP as well as his surgeon who performed his amputation. Patient is discharged on metformin and Januvia with a significant reduction in his Toujeo dosing based on his blood sugar here. He was instructed to gradually increase or decrease his Toujeo dosing based on the sugars he sees on his glucometer over the next several days. He should do this under the supervision of his PCP. Per ID: "Assessment and Recommendations: Patient evaluated due to osteomyelitis of the right 5th toe and metatarsal bone. He has had a chronic ulcer without improvement as outpatient. He ultimately had amputation of the 5th toe and metatarsal. Per surgery note, bone was healthy and hard at the margins. Pathology demonstrated acute on chronic inflammation b ut margins were free of osteomyelitis, margins were viable. Wound/Bone culture was positive, but it is unclear if it was form the margins. In the setting of clean margins and surgical impression of source control, there is no justification to prolong antibiotic therapy. Patient did have cellulitis, therefore will continue antibiotics to treat for skin and soft tissue infection for 10-14 days. Can transition to Bactrim DS 1 tab BID for another 7 days. Please call if any questions Qiana Yi MD [facility] ID [phone]" Physical Exam Vital Signs: Temp Pulse Resp BP Pulse Ox 98.3 F 71 20 140/75 H 100 06/14/20 11:57 06/14/20 11:57 06/14/20 11:57 06/14/20 11:57 06/14/20 11:57 Intake & Output 06/13/20 06/14/20 06/15/20 06:59 06:59 06:59 Intake Total 1655 1875 720 Output Total 650 1000 Balance 1005 875 720 Weight 106.5 kg 103.7 kg General appearance: PRESENT: no acute distress, well-developed, well-nourished Head exam: PRESENT: atraumatic, normocephalic Eye exam: PRESENT: conjunctiva pink Respiratory exam: PRESENT: clear to auscultation vern. ABSENT: rales, rhonchi, wheezes Cardiovascular exam: PRESENT: RRR. ABSENT: diastolic murmur, rubs, systolic murmur GI/Abdominal exam: PRESENT: normal bowel sounds, soft. ABSENT: distended, guarding, mass, organolmegaly, rebound, tenderness Neurological exam: PRESENT: alert, awake, oriented to person, oriented to place, oriented to time, oriented to situation Psychiatric exam: PRESENT: appropriate affect, normal mood Skin exam: PRESENT: dry, warm, other - Surgical site clean and healing right foot Results Laboratory Results: WBC 7.6 10^3/uL (4.0-10.5) 06/14/20 09:43 RBC 4.65 10^6/uL (4.35-5.55) 06/14/20 09:43 Hgb 13.5 g/dL (13.5-17.0) 06/14/20 09:43 Hct 39.6 % (37.9-51.0) 06/14/20 09:43 MCV 85 fl (80-97) 06/14/20 09:43 MCH 29.0 pg (27.0-33.4) 06/14/20 09:43 MCHC 34.0 g/dL (32.0-36.0) 06/14/20 09:43 RDW 14.7 % (11.5-14.0) H 06/14/20 09:43 Plt Count 324 10^3/uL (150-450) 06/14/20 09:43 Lymph % (Auto) 21.0 % (13-45) 06/14/20 09:43 [place] % (Auto) 14.9 % (3-13) H 06/14/20 09:43 Eos % (Auto) 5.3 % (0-6) 06/14/20 09:43 Baso % (Auto) 0.7 % (0-2) 06/14/20 09:43 Absolute Neuts (auto) 4.4 10^3/uL (1.7-8.2) 06/14/20 09:43 Absolute Lymphs (auto) 1.6 10^3/uL (0.5-4.7) 06/14/20 09:43 Absolute Monos (auto) 1.1 10^3/uL (0.1-1.4) 06/14/20 09:43 Absolute Eos (auto) 0.4 10^3/uL (0.0-0.6) 06/14/20 09:43 Absolute Basos (auto) 0.1 10^3/uL (0.0-0.2) 06/14/20 09:43 Seg Neutrophils % 58.1 % (42-78) 06/14/20 09:43 ESR 105 mm/hr (0-20) H 06/07/20 16:33 PT 15.0 SEC (11.4-15.4) 06/08/20 04:30 INR 1.16 06/08/20 04:30 Sodium 136.2 mmol/L (137-145) L 06/14/20 09:43 Potassium 4.0 mmol/L (3.6-5.0) 06/14/20 09:43 Chloride 103 mmol/L (98-107) 06/14/20 09:43 Carbon Dioxide 25 mmol/L (22-30) 06/14/20 09:43 Anion Gap 8 (5-19) 06/14/20 09:43 BUN 10 mg/dL (7-20) 06/14/20 09:43 Creatinine 0.60 mg/dL (0.52-1.25) 06/14/20 09:43 Creatinine Cancelled 06/14/20 09:43 Est GFR ( Amer) > 60 (>60) 06/14/20 09:43 Est GFR ( Amer) Cancelled 06/14/20 09:43 Est GFR (Non-Af Amer) Cancelled 06/14/20 09:43 Est GFR (MDRD) Non-Af > 60 (>60) 06/14/20 09:43 Est GFR (MDRD) Non-Af Cancelled 06/14/20 09:43 Glucose 124 mg/dL (75-110) H 06/14/20 09:43 POC Glucose 200 mg/dL (70-110) H 06/14/20 16:45 Hemoglobin A1c % 10.3 % (4.7-6.0) H 06/08/20 04:30 Calcium 9.2 mg/dL (8.4-10.2) 06/14/20 09:43 Phosphorus 3.5 mg/dL (2.5-4.5) 06/08/20 04:30 Magnesium 2.0 mg/dL (1.6-2.3) 06/11/20 05:37 Total Bilirubin 0.9 mg/dL (0.2-1.3) 06/08/20 04:30 Direct Bilirubin 0.1 mg/dL (0.0-0.4) 06/08/20 04:30 Neonat Total Bilirubin Not Reportable 06/08/20 04:30 Neonat Direct Bilirubin Not Reportable 06/08/20 04:30 Neonat Indirect Bili Not Reportable 06/08/20 04:30 AST 60 U/L (17-59) H 06/08/20 04:30 ALT 29 U/L (<50) 06/08/20 04:30 Alkaline Phosphatase 106 U/L (38-126) 06/08/20 04:30 C-Reactive Protein 144.9 mg/L (<10.0) H 06/07/20 16:33 Total Protein 6.4 g/dL (6.3-8.2) 06/08/20 04:30 Albumin 2.9 g/dL (3.5-5.0) L 06/08/20 04:30 Triglycerides 91 mg/dL (<150) 06/08/20 04:30 Cholesterol 102.64 mg/dL (0-200) 06/08/20 04:30 LDL Cholesterol Direct 55 mg/dL (<100) 06/08/20 04:30 VLDL Cholesterol 18.0 mg/dL (10-31) 06/08/20 04:30 HDL Cholesterol 34 mg/dL (>40) L 06/08/20 04:30 EGFR Cancelled 06/14/20 09:43 Urine Color STRAW 06/07/20 16:33 Urine Appearance CLEAR 06/07/20 16:33 Urine pH 5.0 (5.0-9.0) 06/07/20 16:33 Ur Specific [place] 1.038 06/07/20 16:33 Urine Protein NEGATIVE mg/dL (NEGATIVE) 06/07/20 16:33 Urine Glucose (UA) >=500 mg/dL (NEGATIVE) H 06/07/20 16:33 Urine Ketones NEGATIVE mg/dL (NEGATIVE) 06/07/20 16:33 Urine Blood NEGATIVE (NEGATIVE) 06/07/20 16:33 Urine Nitrite NEGATIVE (NEGATIVE) 06/07/20 16:33 Urine Bilirubin NEGATIVE (NEGATIVE) 06/07/20 16:33 Urine Urobilinogen NEGATIVE mg/dL (<2.0) 06/07/20 16:33 Ur Leukocyte Esterase NEGATIVE (NEGATIVE) 06/07/20 16:33 Urine RBC (Auto) 0 /HPF 06/07/20 16:33 Urine Ascorbic Acid NEGATIVE (NEGATIVE) 06/07/20 16:33 Time Trough Drawn 0943 06/14/20 09:43 Vancomycin Trough 14.3 ug/mL (5.0-20.0) 06/14/20 09:43 SARS-CoV-2 (PCR) NEGATIVE (NEGATIVE) 06/07/20 20:05 Plan Time Spent: Greater than 30 Minutes Stroke Is this a Stroke Patient?: No Acute Heart Failure - Is this a Heart Failure Patient?: No
[2020-06-14 20:53] VITALS: BP 139/80
--- NOTE | 2020-06-21 10:47 | Progress Note ---
Provider Note Provider Note: In response to the query: There was no clinical evidence of gangrene or abscess. There was significant osteomyelitis, which was noted in the operative report. Please see this report for details.
== END 2020-06-14 18:45 | disposition home or self-care (01) | DRG 617 ==
LOC: ER 15:16 → EH 17:04 → 4N 18:01
PROVIDERS: ADMIT Internal Medicine; ATTEND Internal Medicine
PROC: 0Y6M0Z8 Detachment at Right Foot, Complete 5th Ray, Open Approach (ICD-10-PCS; principal; 2020-06-08 14:45)
DX: E11.69 Type 2 diabetes mellitus with other specified complication (principal); L02.611 Cutaneous abscess of right foot; M86.471 Chronic osteomyelitis with draining sinus, right ankle and foot; L03.115 Cellulitis of right lower limb; D86.9 Sarcoidosis, unspecified; I25.10 Atherosclerotic heart disease of native coronary artery without angina pectoris; E66.01 Morbid (severe) obesity due to excess calories; J44.9 Chronic obstructive pulmonary disease, unspecified; I10 Essential (primary) hypertension; E78.5 Hyperlipidemia, unspecified; F32.9 Major depressive disorder, single episode, unspecified; K21.9 Gastro-esophageal reflux disease without esophagitis; F17.210 Nicotine dependence, cigarettes, uncomplicated; B95.62 Methicillin resistant Staphylococcus aureus infection as the cause of diseases classified elsewhere; E78.00 Pure hypercholesterolemia, unspecified; Z11.59 Encounter for screening for other viral diseases; Z79.82 Long term (current) use of aspirin; Z79.4 Long term (current) use of insulin; Z79.51 Long term (current) use of inhaled steroids; Z79.899 Other long term (current) drug therapy; Z88.8 Allergy status to other drugs, medicaments and biological substances; Z91.012 Allergy to eggs
CPT/HCPCS: 01480; 36415; 80048; 80053; 80061; 80202; 81001; 82565; 82962; 83036; 83735; 84100; 85025; 85610; 85652; 86140; 87040; 87070; 87075; 87077; 87186; 87205; 87635; 88305; 88311; 94640; 96374; 96375; 99285; A9576; C9803; J0295; J0696; J1170; J1644; J1815; J2250; J2270; J2704; J3010; J3370; J3480; J3490; J7030; J7060; J7512

== ENCOUNTER 2020-07-04 02:20 | Inpatient (IN) | payer MEDICARE, MEDICAID ==
--- NOTE | 2020-07-04 02:51 | ER Document Report ---
ED General - General Chief Complaint: Foot Pain Stated Complaint: FOOT PAIN Time Seen by Provider: 07/04/20 02:50 Primary Care Provider: LEOPOLDO RODRIGUEZ DO [Primary Care Provider] - Follow up as needed TRAVEL OUTSIDE OF THE [place] IN LAST 30 DAYS: No - HPI Notes: 50-year-old male presents with foot pain and fever. Patient underwent amputation of his right fifth toe and metatarsal at the end of May secondary to MRSA osteomyelitis. He reports that his wound has been healing, he has a home health nurse who changes his dressings. He notes that since yesterday he has had increasing pain, swelling and redness to the foot. He states that the foot now looks like it did before surgery. He states he is now unable to walk on his foot. States that his took his temperature at home and was 101.5F, febrile with EMS as well. He is unsure what prompted his to take his temperature, he did not know he had a fever. He reports feeling tired. Denies cough, shortness of breath, or known COVID exposure. Denies abdominal pain, and/V/D. He completed a course of Bactrim, states he is now on doxycycline. - Related Data Allergies/Adverse Reactions: atenolol Adverse Reaction (Verified 06/07/20 15:57) LOWER B/P eggs Adverse Reaction (Uncoded 06/07/20 15:57) DIARRHEA, SULFA BURPS IF EAT TWO DAYS IN A ROW Past Medical History - General Information source: Patient - Social History Smoking Status: Unknown if Ever Smoked Family History: Reviewed & Not Pertinent, CAD, DM, Hypertension, Malignancy - Past Medical History Cardiac Medical History: Reports: Hx Coronary Artery Disease, Hx Hypercholesterolemia, Hx Hypertension Denies: Hx Atrial Fibrillation, Hx Congestive Heart Failure, Hx DVT, Hx Heart Attack, Hx Pulmonary Embolism Pulmonary Medical History: Reports: Hx Asthma, Hx Bronchitis, Hx COPD Denies: Hx Pneumonia Neurological Medical History: Denies: Hx Cerebrovascular Accident, Hx Seizures Endocrine Medical History: Reports: Hx Diabetes Mellitus Type 2. Denies: Hx Diabetes Mellitus Type 1, Hx Hyperthyroidism, Hx Hypothyroidism Renal/ Medical History: Denies: Hx Peritoneal Dialysis GI Medical History: Reports: Hx Gastroesophageal Reflux Disease. Denies: Hx Cirrhosis, Hx Crohn's Disease, Hx Hepatitis, Hx Ulcerative Colitis Musculoskeletal Medical History: Denies Hx Arthritis, Denies Hx Fibromyalgia Skin Medical History: Denies Hx Eczema, Denies Hx Psoriasis Psychiatric Medical History: Reports: Hx Depression Infectious Medical History: Denies: Hx Hepatitis Past Surgical History: Reports: Hx Abdominal Surgery - hernia, Hx Appendectomy, Hx Cholecystectomy, Hx Oral Surgery - R Knee 1991, Hx Tonsillectomy, Other - Knee surgery. Liver and lung biopsies for sarcoidosis. - Immunizations Hx Diphtheria, Pertussis, Tetanus Vaccination: Yes Review of Systems - Review of Systems Constitutional: Fever EENT: No symptoms reported Cardiovascular: denies: Chest pain Respiratory: denies: Cough, Short of breath Gastrointestinal: denies: Abdominal pain, Diarrhea, Nausea, Vomiting Genitourinary: denies: Dysuria Musculoskeletal: Joint pain Skin: Change in color Neurological/Psychological: denies: Headaches Physical Exam - Vital signs Vitals: Temp 100.1 F 07/04/20 02:20 - General General appearance: Alert Notes: Ill-appearing - HEENT Head: Normocephalic, Atraumatic Extraocular movements intact: Yes Pupils: PERRL - Respiratory Chest status: Nontender Breath sounds: Normal - Cardiovascular Rhythm: Other - Normal rate, irregular rhythm Normal capillary refill: Yes - Abdominal Inspection: Obese Tenderness: Nontender - Extremities Foot: Other - There is a large area of open wound to the lateral aspect of the r ight foot. There is some exudative material. There is some erythema around the wound which extends to the dorsum and posterior aspect of the foot. There is some swelling as well. - Neurological Neuro grossly intact: Yes Cognition: Normal Orientation: AAOx4 - Psychological Associated symptoms: Normal affect - Skin Skin Temperature: Warm Course - Re-evaluation Re-evalutation: 07/04/20 03:25 50-year-old male status post fifth toe and metatarsal amputation on 813, per operative report clean margins were obtained, bone grew out MRSA. Patient had a course of antibiotics while inpatient, he then completed a course of Bactrim and per his report is now on doxycycline. He has a large wound to the lateral aspect of the right foot, there is an exudative material, there is streaking erythema and some swelling as well. I am concerned for re-infection of the wou nd. Will obtain x-ray to evaluate for gas. Start on linezolid and Zosyn given his weight. Febrile at home, 100.1 here, will give Tylenol. Hyperglycemic, check VBG to evaluate for acidosis. Start with 1 L of fluid as he is not hypotensive at this time. We will additionally obtain urine and chest x-ray to evaluate for other source of infection as well. Immunosuppresed given chronic prednisone use. 07/04/20 04:18 Labs reviewed. Patient has new leukocytosis and left shift. Electrolytes okay, suspect mild low sodium is from hyperglycemia. CRP is now elevated much higher than previous value. Foot x-ray reviewed, there is no obvious gas. Went in and updated patient on need for admission and results. 07/04/20 04:[address] Galan for admission - Vital Signs Vital signs: Temp Pulse Resp BP Pulse Ox 100.1 F 97 07/04/20 02:20 07/04/20 02:53 - Laboratory Result Diagrams: 07/04/20 02:40 07/04/20 02:40 Laboratory results interpreted by me: 07/04/20 07/04/20 07/04/20 02:40 02:40 02:40 WBC 15.2 H RDW 15.5 H Seg Neuts % (Manual) 86 H Lymphocytes % (Manual) 7 L Abs Neuts (Manual) 13.1 H PT 15.6 H Sodium 133.4 L Carbon Dioxide 21 L Glucose 370 H Direct Bilirubin 0.5 H C-Reactive Protein 07/04/20 02:40 WBC RDW Seg Neuts % (Manual) Lymphocytes % (Manual) Abs Neuts (Manual) PT Sodium Carbon Dioxide Glucose Direct Bilirubin C-Reactive Protein 395.2 H - Diagnostic Test Radiology reviewed: Image reviewed, Reports reviewed - EKG Interpretation by Me Additional EKG results interpreted by me: 07/04/20 04:22 EKG is interpreted by me, normal sinus rhythm, rate 92. Wide QRS, borderline prolonged QTc. Evidence of LVH. No ST elevation. Discharge - Discharge Clinical Impression: Diabetic foot infection Hyperglycemia due to type 2 diabetes mellitus Qualifiers: Diabetes mellitus long term care phlebotomist insulin use: with long term care phlebotomist use Qualified Code(s): E11.65 - Type 2 diabetes mellitus with hyperglycemia; Z79.4 - long-term (current) use of insulin Sepsis Qualifiers: Sepsis type: sepsis due to unspecified organism Sepsis acute organ dysfunction status: without acute organ dysfunction Qualified Code(s): A41.9 - Sepsis, unspecified organism Disposition: ADMITTED INPATIENT Admitting Provider: Angelia (Hospitalist) Unit Admitted: Medical Floor Referrals: LEOPOLDO RODRIGUEZ DO [Primary Care Provider] - Follow up as needed
[2020-07-04] MEDS ORDERED: ACETAMINOPHEN 325 MG TABLET PO ONE (03:05)
[2020-07-04] MEDS ORDERED: RINGERS SOLUTION,LACTATED 1,000 ML IV ONE (03:06)
[2020-07-04] MEDS ORDERED: PIPERACILLIN/TAZOBACTAM 4.5 GM VIAL IV ONE (03:06)
[2020-07-04] MEDS ORDERED: LINEZOLID 600 MG/300 ML RTUPB IV ONE ×2 (03:06→03:51)
[2020-07-04 03:08] LABS: HEMATOCRIT 41.4 % (37.9-51.0); HEMOGLOBIN 14.1 g/dL (13.5-17.0); MEAN CORPUSCULAR HEMOGLOBIN 28.9 pg (27.0-33.4); MEAN CORPUSCULAR VOLUME 85 fl (80-97); PLATELET COUNT 268 10^3/uL (150-450); RED BLOOD COUNT 4.86 10^6/uL (4.35-5.55); RED CELL DISTRIBUTION WIDTH 15.5 % (11.5-14.0); WHITE BLOOD COUNT 15.2 10^3/uL (4.0-10.5)
[2020-07-04 03:14] LABS: INTERNATIONAL RATION (INR) 1.22; PROTHROMBIN TIME 15.6 SEC (11.4-15.4)
[2020-07-04 03:16] LABS: ALBUMIN 3.7 g/dL (3.5-5.0); ALKALINE PHOSPHATASE 103 U/L (38-126); ANION GAP 12 (5-19); ASPARTATE AMINO TRANSFERASE 25 U/L (17-59); BILIRUBIN,DIRECT 0.5 mg/dL (0.0-0.4); BILIRUBIN,TOTAL 1.3 mg/dL (0.2-1.3); BLOOD UREA NITROGEN 12 mg/dL (7-20); CALCIUM 9.7 mg/dL (8.4-10.2); CARBON DIOXIDE 21 mmol/L (22-30); CHLORIDE 100 mmol/L (98-107); GLUCOSE 370 mg/dL (75-110); TOTAL PROTEIN 7.2 g/dL (6.3-8.2)
[2020-07-04 03:43] LABS: ABSOLUTE LYMPHOCYTES# (MANUAL) 1.1 10^3/uL (0.5-4.7); ABSOLUTE MONOCYTES # (MANUAL) 1.1 10^3/uL (0.1-1.4); BASOPHILS % (MANUAL) 0 % (0-2); EOSINOPHILS % (MANUAL) 0 % (0-6); LYMPHOCYTES % (MANUAL) 7 % (13-45); MONOCYTES % (MANUAL) 7 % (3-13); SEGMENTED NEUTROPHILS % (MAN) 86 % (42-78); TOTAL CELLS COUNTED 100
[2020-07-04 03:44] LABS: ANISOCYTOSIS SLIGHT; PLATELET COMMENT ADEQUATE; POIKILOCYTOSIS SLIGHT; TEAR DROP CELLS SLIGHT; TOXIC GRANULATION SLIGHT; TOXIC VACUOLATION PRESENT
--- NOTE | 2020-07-04 03:55 | RADIOLOGY REPORT (SQ) ---
Right foot x-ray three views on 07/04/2020 at 3:18 AM CLINICAL INDICATION: Status post fifth metatarsal amputation, new infection, evaluate gas COMPARISON: 05/25/2020 FINDINGS: The patient is status post interval amputation of the fifth toe and fifth metatarsal to the level of the base of the fifth metatarsal with the base of the fifth metatarsal remaining. There is apparent open wound in the lateral distal foot soft tissues. There is some air within the site of the wound but there is no air elsewhere to suggest necrotizing fasciitis. There is irregularity of the residual base of the fifth metatarsal that may just be postsurgical but cannot exclude osteomyelitis involving the residual base of the fifth metatarsal. If this is of clinical concern consider MRI. No other definite plain radiographic evidence of osteomyelitis is noted. There are no fractures. Visualized joints are well aligned. IMPRESSION: Postsurgical changes in the lateral foot without definite changes of necrotizing fasciitis. If there is high clinical concern for osteomyelitis involving the residual base of the fifth metatarsal would recommend follow-up MRI.
[2020-07-04 04:37] LABS: APPEARANCE,URINE CLEAR; BILIRUBIN,URINE NEGATIVE (NEGATIVE); COLOR,URINE STRAW; GLUCOSE, URINE >=500 mg/dL (NEGATIVE); KETONES,URINE 20 mg/dL (NEGATIVE); LEUKOCYTE ESTERASE,URINE NEGATIVE (NEGATIVE); NITRITE,URINE NEGATIVE (NEGATIVE); PROTEIN,URINE NEGATIVE (NEGATIVE); URINE SPECIFIC GRAVITY 1.035; UROBILINOGEN,URINE NEGATIVE mg/dL (<2.0)
--- NOTE | 2020-07-04 04:42 | RADIOLOGY REPORT (SQ) ---
EXAM DESCRIPTION: XR CHEST 1 VIEW COMPLETED DATE/TME: 07/04/2020 03:14 CLINICAL HISTORY: 50 years, Male, eval consolidaion COMPARISON: 04/16/2019 NUMBER OF VIEWS: One TECHNIQUE: AP view of the chest LIMITATIONS: None. FINDINGS: The lungs are clear. The heart is normal in size. There is no pneumothorax or pleural effusion. No intraperitoneal free air. Bones are unremarkable. IMPRESSION: No acute cardiopulmonary abnormality. copyright 2010 [employer]- All Rights Reserved
[2020-07-04] MEDS ORDERED: MAGNESIUM HYDROXIDE SUSP 30 ML UDCUP PO PRN (05:05)
[2020-07-04] MEDS ORDERED: PROMETHAZINE HCL INJ 25 MG/1 ML VIAL IV PRN ×2 (05:05→10:00)
[2020-07-04] MEDS ORDERED: LEVALBUTEROL HCL NEB 0.63 MG/3 ML AMPUL NEB PRN (05:05)
[2020-07-04] MEDS ORDERED: MAG HYDROX/AL HYDROX/SIMETH SUSP 30 ML UDCUP PO PRN (05:05)
[2020-07-04] MEDS ORDERED: MORPHINE SULFATE 10 MG/ML INJ IV PRN ×4 (05:09→15:30)
[2020-07-04] MEDS ORDERED: LORAZEPAM INJ 2 MG/1 ML VIAL IV PRN (05:09)
[2020-07-04] MEDS ORDERED: HYDRALAZINE HCL INJ/PF 20 MG/1 ML SDV IV PRN (05:09)
[2020-07-04] MEDS ORDERED: INSULIN REG, HUMAN 100 UNIT/ML 3 ML VIAL (PYX) SUBCUT PRN (05:09)
[2020-07-04] MEDS ORDERED: NICOTINE 21 MG/24 HR PATCH.TD24 TD PRN (05:09)
[2020-07-04] MEDS ORDERED: MELATONIN 5 MG TABLET PO PRN (05:09)
[2020-07-04] MEDS ORDERED: GUAIFENESIN SYRP 200 MG/10 ML UDC PO PRN (05:09)
[2020-07-04] MEDS ORDERED: ACETAMINOPHEN 325 MG TABLET PO PRN (05:09)
[2020-07-04] MEDS ORDERED: DEXTROSE 50%-WATER 25 GM/50 ML DISP.SYRIN IV PRN ×2 (05:10)
[2020-07-04] MEDS ORDERED: GLUCAGON,HUMAN RECOMB 1 MG INJ IM PRN (05:10)
[2020-07-04] MEDS ORDERED: DEXTROSE 40% GEL 15 GM TUBE PO PRN ×2 (05:10)
[2020-07-04 05:57] LABS: VENOUS BLOOD BASE EXCESS -1.5 mmol/L; VENOUS BLOOD HCO3 22.8 mmol/L (20-32); VENOUS BLOOD PCO2 37.1 mmHg (35-63); VENOUS BLOOD PH 7.41 (7.30-7.42)
[2020-07-04] MEDS ORDERED: CEFEPIME 2 GM/D5W RTU 2 GM/50 ML RTUPB IV SCH (06:00)
[2020-07-04] MEDS: HEPARIN SOD (PORCINE) 5,000 UNIT/ML 1 ML VIAL SUBCUT SCH ×2 (06:22→15:03)
--- NOTE | 2020-07-04 06:52 | PDOC H&P ---
History of Present Illness Admission Date/PCP: LEOPOLDO RODRIGUEZ DO Patient complains of: Right foot pain History of Present Illness: ED PEDRAZA is a 50 year old male who presented to the emergency room with a one-day history of right foot pain. He admits having an amputation of his right fifth toe and metatarsal in May of this year due to MRSA osteomyelitis. Dr. Bay did his surgery and he has been followed postoperatively with the assistance of home health. He had generally been improving until yesterday when he developed rapidly worsening pain, swelling and redness around the area of his operative wound. His foot pain has been accompanied by general fatigue and has been associated with a fever of 101.5 F. He denies other associated or acc ompanying signs and symptoms. He admits that he has been taking antibiotic therapy as prescribed initially last and after course of therapy he has been started on doxycycline. He admits his foot pain is worsened by walking and other weightbearing. He has not identified any additional aggravating or ameliorating factors for his right foot pain. In the emergency room he was noted to have a leukocytosis of 15,200 and a CRP of 395. He was started on IV antibiotic therapy with Zosyn and Zyvox in the ER and was subsequently admitted to the hospitalist service for further evaluation and treatment. Past Medical History Cardiac Medical History: Reports: Coronary Artery Disease, Hyperlipidema, Hypertension Denies: Atrial Fibrillation, Congestive Heart Failure, DVT, Myocardial Infarction, Pulmonary Embolism Pulmonary Medical History: Reports: Asthma, Bronchitis, Chronic Obstructive Pulmonary Disease (COPD), Other - Sarcoidosis Denies: Pneumonia EENT Medical History: Denies: Cataracts, Ears - Hearing aids Neurological Medical History: Denies: Hemorrhagic CVA, Ischemic CVA, Seizures Endocrine Medical History: Reports: Diabetes Mellitus Type 2 Denies: Diabetes Mellitus Type 1, Hyperthyroidism, Hypothyroidism Renal/ Medical History: Denies: Chronic Kidney Disease, Nephrolithiasis Malignancy Medical History: Reports: None GI Medical History: Reports: Gastroesophageal Reflux Disease Denies: Cirrhosis, Crohn's Disease, Hepatitis, Peptic Ulcer Disease, Ulcerative Colitis Musculoskeltal Medical History: Denies: Arthritis, Fibromyalgia Skin Medical History: Denies: Eczema, Psoriasis Psychiatric Medical History: Reports: Depression, Tobacco Dependency Denies: Alcohol Dependency, Substance Abuse Hematology: Denies: Anemia, Bleeding Tendencies Past Surgical History Past Surgical History: Reports: Appendectomy, Cholecystectomy, Tonsillectomy, Other - Knee surgery. Liver and lung biopsies for sarcoidosis. Social History Information Source: Patient Lives with: Spouse/Significant other Smoking Status: Current Every Day Smoker Electronic Cigarette use?: No Frequency of Alcohol Use: Occasional Hx Recreational Drug Use: No Drugs: None, Other Hx Prescription Drug Abuse: No - Advance Directive Resuscitation Status: Full Code Surrogate healthcare decision maker:: Ramonita Pedraza Family History Family History: CAD, DM, Hypertension, Malignancy Parental Family History Reviewed: Yes Children Family History Reviewed: No Sibling(s) Family History Reviewed.: Yes Medication/Allergy Home Medications: Atorvastatin Calcium [Lipitor 20 mg Tablet] 20 mg PO QHS 07/19/18 Chlorthalidone [Chlorthalidone 25 mg Tablet] 25 mg PO DAILY 07/19/18 Fluoxetine HCl [Prozac] 80 mg PO QAM 07/19/18 Gabapentin [Neurontin] 600 mg PO Q6 07/19/18 Insulin Aspart [Novolog Flexpen] 0 units SQ .SLIDING SCALE 07/19/18 Losartan Potassium [Cozaar 50 mg Tablet] 50 mg PO DAILY 07/19/18 Pantoprazole Sodium [Protonix [address] Tablet] 20 mg PO QAM #30 tablet.dr 02/13/20 Aspirin [Ecotrin 81 mg EC Tablet] 81 mg PO DAILY 02/24/20 Budesonide/Formoterol Fumarate [Symbicort HFA 160-4.5 mcg Inhaler 6 gm] 2 puff IN Q12 02/24/20 Empagliflozin [Jardiance] 25 mg PO DAILY 02/24/20 Hydrocodone/Acetaminophen [[place] 7.5-325 mg Tablet] 1 tab PO Q6HP PRN 02/24/20 Prednisone [Deltasone 10 mg Tablet] 10 mg PO DAILY 02/24/20 Levalbuterol Tartrate [Levalbuterol Tartrate Hfa] 1 puff IH Q4HP PRN 06/07/20 Insulin Glargine,Hum.rec.anlog [Toujeo Solostar] 24 units SQ Q12 #0 06/14/20 Sitagliptin Phosphate [Januvia 50 mg Tablet] 50 mg PO BIDACBS #60 tablet 06/14/20 Sulfamethoxazole/Trimethoprim [Bactrim Ds Tablet] 1 each PO BID 7 Days #14 tablet 06/14/20 Metformin HCl [Metformin HCl ER] 500 mg PO DAILY #30 tab.er.24h 06/19/20 Allergies/Adverse Reactions: atenolol Adverse Reaction (Verified 06/07/20 15:57) LOWER B/P eggs Adverse Reaction (Uncoded 06/07/20 15:57) DIARRHEA, SULFA BURPS IF EAT TWO DAYS IN A ROW Review of Systems Constitutional: PRESENT: as per HPI, fatigue, fever(s). ABSENT: chills Eyes: ABSENT: visual disturbances, other - Eye pain Ears: ABSENT: hearing changes, other - Ear pain Nose, Mouth, and Throat: ABSENT: headache(s), sore throat Cardiovascular: ABSENT: chest pain, palpitations Respiratory: ABSENT: cough, dyspnea Gastrointestinal: ABSENT: abdominal pain, constipation, diarrhea, nausea, vomiting Genitourinary: ABSENT: dysuria, hematuria Musculoskeletal: ABSENT: back pain, joint swelling Integumentary: PRESENT: wounds - Erythema edema and tenderness in the area of his recent surgical wound.. ABSENT: pruritus, rash Neurological: ABSENT: confusion, convulsions, focal weakness, memory loss, syncope Psychiatric: ABSENT: anxiety, depression Endocrine: ABSENT: cold intolerance, heat intolerance Hematologic/Lymphatic: ABSENT: easy bleeding, easy bruising Allergic/Immunologic: ABSENT: seasonal rhinorrhea Physical Exam Vital Signs: Temp Pulse Resp BP Pulse Ox 100.1 F 97 07/04/20 02:20 07/04/20 02:53 Intake & Output 07/02/20 07/03/20 07/04/20 23:59 23:59 23:59 Intake Total 100 Balance 100 Weight 103.873 kg General appearance: PRESENT: no acute distress, cooperative, morbidly obese Head exam: PRESENT: atraumatic, normocephalic Eye exam: PRESENT: conjunctiva pink. ABSENT: conjunctival injection, scleral icterus Ear exam: PRESENT: normal external ear exam. ABSENT: bleeding, drainage Mouth exam: PRESENT: dry mucosa, neck supple Neck exam: ABSENT: thyromegaly, tracheal deviation Respiratory exam: PRESENT: clear to auscultation vern, symmetrical, unlabored Cardiovascular exam: PRESENT: RRR. ABSENT: clicks, gallop, rubs Pulses: PRESENT: normal radial pulses, +1 pedal pulses bilateral Vascular exam: PRESENT: normal capillary refill. ABSENT: pallor GI/Abdominal exam: PRESENT: normal bowel sounds, soft. ABSENT: tenderness Rectal exam: PRESENT: deferred Extremities exam: PRESENT: tenderness - Right forefoot. ABSENT: joint swelling, +1 edema - Right forefoot Musculoskeletal exam: ABSENT: deformity, dislocation Neurological exam: PRESENT: alert, oriented to person, oriented to place, oriented to time, oriented to situation, CN II-XII grossly intact. ABSENT: motor sensory deficit Psychiatric exam: PRESENT: appropriate affect, normal mood Skin exam: PRESENT: dry, intact, warm, other - Right foot surgical wound with local erythema and edema as well as tenderness to palpation.. ABSENT: jaundice, rash, urticaria Results Laboratory Results: 07/04/20 02:40 07/04/20 02:40 07/04/20 07/04/20 07/04/20 02:40 02:40 02:40 WBC 15.2 H RBC 4.86 Hgb 14.1 Hct 41.4 MCV 85 MCH 28.9 MCHC 34.0 RDW 15.5 H Plt Count 268 Seg Neutrophils % Not Reportable Sodium 133.4 L Potassium 4.0 Chloride 100 Carbon Dioxide 21 L Anion Gap 12 BUN 12 Creatinine 0.70 Est GFR ( Amer) > 60 Glucose 370 H Lactic Acid 1.3 Calcium 9.7 Total Bilirubin 1.3 AST 25 Alkaline Phosphatase 103 C-Reactive Protein Total Protein 7.2 Albumin 3.7 07/04/20 02:40 WBC RBC Hgb Hct MCV MCH MCHC RDW Plt Count Seg Neutrophils % Sodium Potassium Chloride Carbon Dioxide Anion Gap BUN Creatinine Est GFR ( Amer) Glucose Lactic Acid Calcium Total Bilirubin AST Alkaline Phosphatase C-Reactive Protein 395.2 H Total Protein Albumin Impressions: Foot X-Ray 07/04/20 03:04 IMPRESSION: Postsurgical changes in the lateral foot without definite changes of necrotizing fasciitis. If there is high clinical concern for osteomyelitis involving the residual base of the fifth metatarsal would recommend follow-up MRI. Chest X-Ray 07/04/20 03:14 IMPRESSION: No acute cardiopulmonary abnormality. copyright 2010 [employer] [facility]- All Rights Reserved Assessment and Plan - Diagnosis (1) Diabetic foot infection Is this a current diagnosis for this admission?: Yes (2) Diabetes mellitus type 2 in obese Is this a current diagnosis for this admission?: Yes (3) Hypertension Qualifiers: Hypertension type: essential hypertension Qualified Code(s): I10 - Essential (primary) hypertension Is this a current diagnosis for this admission?: Yes (4) Sarcoidosis Is this a current diagnosis for this admission?: Yes (5) Tobacco use disorder, continuous Is this a current diagnosis for this admission?: Yes (6) Morbid obesity Is this a current diagnosis for this admission?: Yes - Plan Summary Summary: Patient will be admitted to the medical service on the medical floor where he will receive routine supportive and symptomatic cares. Routine consultation with Dr. Bay will be obtained for surgical evaluation of the patient's diabetic foot infection. Patient will be treated with Zyvox and cefepime intravenously. He will receive morphine sulfate 2 to 4 mg IV every 2 hours as needed pain and he will receive Ativan 1 mg IV every 4 hours as needed anxiety or restlessness. He will be maintained on a diabetic and cardiac restricted diet. Before meals and at bedtime Accu-Cheks will be obtained and a sliding scale insulin will be used for control of hyperglycemia with a hypoglycemic protocol in place. Smoking cessation is advised and counseled briefly at the bedside. A nicotine replacement patch is available for the patient's use, if desired. Patient will be continued on his usual home medications, as appropriate, as soon as his medication list has been verified and reconciled. CBCs, metabolic profiles and magnesium levels will be obtained as appropriate with other laboratory and/or radiographic evaluations obtained as needed. - Time Time Spent with patient: 15-24 minutes Smoking Cessation Education: 3 to 10 minutes Medications reviewed and adjusted accordingly: Yes Anticipated Discharge Disposition: Home with Home Health Anticipated Discharge Timeframe: Undetermined - Inpatient Certification Based on my medical assessment, after consideration of the patient's comorbidities, presenting symptoms, or acuity I expect that the services needed warrant INPATIENT care.: Yes I certify that my determination is in accordance with my understanding of Medicare's requirements for reasonable and necessary INPATIENT services [42 CFR 412.3e].: Yes Medical Necessity: Failure to Improve With Outpatient Therapy, Need Close Monitoring Due to Risk of Patient Decompensation, Need for Pain Control, Need for IV Antibiotics, Risk of Complication if Not Cared For in Hospital, Risk of Diagnosis Which Will Require Inpatient Eval/Care/Monitoring
--- NOTE | 2020-07-04 08:49 | EKG REPORT ---
SEVERITY:- ABNORMAL ECG - SINUS RHYTHM RBBB AND LAFB PROBABLE LEFT VENTRICULAR HYPERTROPHY : Confirmed by: Dread Moy MD 04-Jul-2020 08:48:10
--- NOTE | 2020-07-04 09:30 | PDOC CONSULTATION ---
Consultation Consult Date: 07/04/20 Provider Consulted: RUSTY MARCH Consult reason:: Right foot open wound History of Present Illness Admission Date/PCP: 07/04/20 04:46 LEOPOLDO RODRIGUEZ DO History of Present Illness: ED PEDRAZA is a 50 year old male, type I diabetic, status post right fifth toe with partial metatarsal amputation almost 10/15/2020. The patient did well postoperatively. However, the wound opened after discharge and started draining: This was associated with redness of the foot and pain. Patient presented to the emergency room with the above complaints. An x-ray of the foot was done in the emergency room yesterday; Possible osteomyelitis of the remaining stump of the fifth metatarsal bone was identified. In addition, the patient stating blood sugar is elevated about 370. Past Medical History Cardiac Medical History: Reports: Coronary Artery Disease, Hyperlipidema, Hypertension Denies: Atrial Fibrillation, Congestive Heart Failure, DVT, Myocardial Infarction, Pulmonary Embolism Pulmonary Medical History: Reports: Asthma, Bronchitis, Chronic Obstructive Pulmonary Disease (COPD), Other - Sarcoidosis Denies: Pneumonia EENT Medical History: Denies: Cataracts, Ears - Hearing aids Neurological Medical History: Denies: Hemorrhagic CVA, Ischemic CVA, Seizures Endocrine Medical History: Reports: Diabetes Mellitus Type 2 Denies: Diabetes Mellitus Type 1, Hyperthyroidism, Hypothyroidism Renal/ Medical History: Denies: Chronic Kidney Disease, Nephrolithiasis Malignancy Medical History: Reports: None GI Medical History: Reports: Gastroesophageal Reflux Disease Denies: Cirrhosis, Crohn's Disease, Hepatitis, Peptic Ulcer Disease, U lcerative Colitis Musculoskeltal Medical History: Denies: Arthritis, Fibromyalgia Skin Medical History: Denies: Eczema, Psoriasis Psychiatric Medical History: Reports: Depression, Tobacco Dependency Denies: Alcohol Dependency, Substance Abuse Hematology: Denies: Anemia, Bleeding Tendencies Past Surgical History Past Surgical History: Reports: Appendectomy, Cholecystectomy, Tonsillectomy, Other - Knee surgery. Liver and lung biopsies for sarcoidosis. Social History Lives with: Spouse/Significant other Smoking Status: Current Every Day Smoker Electronic Cigarette use?: No Frequency of Alcohol Use: Occasional Hx Recreational Drug Use: No Drugs: None, Other Hx Prescription Drug Abuse: No - Advance Directive Resuscitation Status: Full Code Family History Family History: CAD, DM, Hypertension, Malignancy Parental Family History Reviewed: Yes - Malignancy and hypertension, diabetes Children Family History Reviewed: No Sibling(s) Family History Reviewed.: No Medication/Allergy Home Medications: Atorvastatin Calcium [Lipitor 20 mg Tablet] 20 mg PO QHS 07/19/18 Chlorthalidone [Chlorthalidone 25 mg Tablet] 25 mg PO DAILY 07/19/18 Fluoxetine HCl [Prozac] 80 mg PO QAM 07/19/18 Gabapentin [Neurontin] 600 mg PO Q6 07/19/18 Insulin Aspart [Novolog Flexpen] 0 units SQ .SLIDING SCALE 07/19/18 Losartan Potassium [Cozaar 50 mg Tablet] 50 mg PO DAILY 07/19/18 Pantoprazole Sodium [Protonix [address] Tablet] 20 mg PO QAM #30 tablet.dr 02/13/20 Aspirin [Ecotrin 81 mg EC Tablet] 81 mg PO DAILY 02/24/20 Budesonide/Formoterol Fumarate [Symbicort HFA 160-4.5 mcg Inhaler 6 gm] 2 puff IN Q12 02/24/20 Empagliflozin [Jardiance] 25 mg PO DAILY 02/24/20 Hydrocodone/Acetaminophen [[place] 7.5-325 mg Tablet] 1 tab PO Q6HP PRN 02/24/20 Prednisone [Deltasone 10 mg Tablet] 10 mg PO DAILY 02/24/20 Levalbuterol Tartrate [Levalbuterol Tartrate Hfa] 1 puff IH Q4HP PRN 06/07/20 Insulin Glargine,Hum.rec.anlog [Toujeo Solostar] 24 units SQ Q12 #0 06/14/20 Sitagliptin Phosphate [Januvia 50 mg Tablet] 50 mg PO BIDACBS #60 tablet 06/14/20 Sulfamethoxazole/Trimethoprim [Bactrim Ds Tablet] 1 each PO BID 7 Days #14 tablet 06/14/20 Metformin HCl [Metformin HCl ER] 500 mg PO DAILY #30 tab.er.24h 06/19/20 Allergies/Adverse Reactions: atenolol Adverse Reaction (Verified 06/07/20 15:57) LOWER B/P eggs Adverse Reaction (Uncoded 06/07/20 15:57) DIARRHEA, SULFA BURPS IF EAT TWO DAYS IN A ROW Physical Exam Vital Signs: Temp Pulse Resp BP Pulse Ox 98.5 F 83 16 133/75 H 83 L 07/04/20 08:54 07/04/20 08:16 07/04/20 08:54 07/04/20 08:54 07/04/20 08:54 Intake & Output 07/03/20 07/04/20 07/05/20 06:59 06:59 06:59 Intake Total 450 Balance 450 Weight 103.873 kg 100.1 kg Results Laboratory Results: 07/04/20 02:40 07/04/20 02:40 07/04/20 07/04/20 07/04/20 02:40 02:40 02:40 WBC 15.2 H RBC 4.86 Hgb 14.1 Hct 41.4 MCV 85 MCH 28.9 MCHC 34.0 RDW 15.5 H Plt Count 268 Seg Neutrophils % Not Reportable VBG pH VBG pCO2 VBG HCO3 VBG Base Excess Sodium 133.4 L Potassium 4.0 Chloride 100 Carbon Dioxide 21 L Anion Gap 12 BUN 12 Creatinine 0.70 Est GFR ( Amer) > 60 Glucose 370 H Lactic Acid 1.3 Calcium 9.7 Total Bilirubin 1.3 AST 25 Alkaline Phosphatase 103 C-Reactive Protein Total Protein 7.2 Albumin 3.7 Urine Color Urine Appearance Urine pH Ur Specific [place] Urine Protein Urine Glucose (UA) Urine Ketones Urine Blood Urine Nitrite Ur Leukocyte Esterase Urine WBC (Auto) Urine RBC (Auto) 07/04/20 07/04/20 07/04/20 02:40 03:50 05:30 WBC RBC Hgb Hct MCV MCH MCHC RDW Plt Count Seg Neutrophils % VBG pH 7.41 VBG pCO2 37.1 VBG HCO3 22.8 VBG Base Excess -1.5 Sodium Potassium Chloride Carbon Dioxide Anion Gap BUN Creatinine Est GFR ( Amer) Glucose Lactic Acid Calcium Total Bilirubin AST Alkaline Phosphatase C-Reactive Protein 395.2 H Total Protein Albumin Urine Color STRAW Urine Appearance CLEAR Urine pH 5.0 Ur Specific [place] 1.035 Urine Protein NEGATIVE Urine Glucose (UA) >=500 H Urine Ketones 20 H Urine Blood NEGATIVE Urine Nitrite NEGATIVE Ur Leukocyte Esterase NEGATIVE Urine WBC (Auto) 0 Urine RBC (Auto) 0 Impressions: Foot X-Ray 07/04/20 03:04 IMPRESSION: Postsurgical changes in the lateral foot without definite changes of necrotizing fasciitis. If there is high clinical concern for osteomyelitis involving the residual base of the fifth metatarsal would recommend follow-up MRI. Chest X-Ray 07/04/20 03:14 IMPRESSION: No acute cardiopulmonary abnormality. copyright 2011 [employer]- All Rights Reserved Assessment & Plan - Diagnosis (1) Osteomyelitis Qualifiers: Osteomyelitis type: chronic, with draining sinus Osteomyelitis location: foot Laterality: right Qualified Code(s): M86.471 - Chronic osteomyelitis with draining sinus, right ankle and foot Is this a current diagnosis for this admission?: Yes (2) Diabetic foot infection Is this a current diagnosis for this admission?: Yes (3) Hyperglycemia due to type 2 diabetes mellitus Qualifiers: Diabetes mellitus long-term insulin use: with termite control representative use Qualified Code(s): E11.65 - Type 2 diabetes mellitus with hyperglycemia; Z79.4 - rodent exterminator (current) use of insulin Is this a current diagnosis for this admission?: Yes (4) Cellulitis Qualifiers: Site of cellulitis: extremity Site of cellulitis of extremity: lower extremity Laterality: right Qualified Code(s): L03.115 - Cellulitis of right lower limb Is this a current diagnosis for this admission?: Yes - Plan Summary Plan Summary: Assessment: 50-year-old diabetic status post right fifth toe and partial metatarsal amputation was 12 Surgical wound open with drainage X-ray of the right foot demonstrates possible osteomyelitis of the residual metatarsal bone Sarcoidosis Bilateral knee disease Comment: Right leg and foot MRI with and without contrast to rule out osteomyelitis today Continue IV antibiotics as per hospitalist Surgical plan as per the MRI findings and discussion with the patient
[2020-07-04] MEDS: RINGERS SOLUTION,LACTATED 1,000 ML IV PRN ×2 (09:31→21:28)
[2020-07-04] MEDS: INSULIN GLARGINE,HUM.REC.ANLOG 1,000 UNIT/10 ML VIAL SUBCUT SCH ×2 (10:35→22:15)
[2020-07-04] MEDS: FAMOTIDINE 20 MG TABLET PO SCH ×2 (10:35→21:26)
[2020-07-04] MEDS: DOCUSATE SODIUM 100 MG CAPSULE PO SCH ×2 (10:35→21:26)
--- NOTE | 2020-07-04 11:15 | EKG REPORT ---
SEVERITY:- ABNORMAL ECG - SINUS RHYTHM FIRST DEGREE AV BLOCK RBBB AND LAFB : Confirmed by: Dread Moy MD 04-Jul-2020 11:14:22
[2020-07-04] MEDS: INSULIN LISPRO 100 UNIT/ML 3 ML VIAL SUBCUT SCH ×3 (14:56→22:16)
--- NOTE | 2020-07-04 20:18 | RADIOLOGY REPORT (SQ) ---
MR LOWER EXTREMITY WITHOUT THEN WITH IV CONTRAST HISTORY: Right foot ulceration and swelling. Evaluate for acute osteomyelitis. COMPARISON: Radiographs from earlier the same day. TECHNIQUE: Multiplanar, multisequence MR imaging of the right foot was performed without and with the administration of intravenous gadolinium. FINDINGS: There has been prior amputation of the fifth digit to the level of the metatarsal base. There is a large overlying soft tissue defect. At the fifth metatarsal stump site, there is abnormally decreased T1 signal with increased bone marrow edema with increased enhancement. No fluid collection or abscess is seen in this region. There is also mild bone marrow edema at the fourth metatarsal base but without abnormally decreased T1 signal, which is likely reactive osteitis. Diffuse edema throughout the intrinsic foot musculature with fatty atrophy is consistent with myositis, which may be neurogenic or reactive. The visualized tendons are intact. IMPRESSION: 1. Prior amputation of the fifth digit with abnormal bone marrow signal at the fifth metatarsal stump site, which may represent either postsurgical sequela versus acute osteomyelitis. 2. No abscess or fluid collection is seen.
--- NOTE | 2020-07-04 21:19 | Progress Note ---
Provider Note Provider Note: MRI right foot reviewd: osteomyelitis right foot 5th metatarsal stump Plan: Completion amputation right 5th metatarsal bone and right foot debridment tomorrow Procedure, risks, benefits complications including bleeding, infection, scarring, and loss of limb discussed with the patient, his questions were answered, and he decides to proceed.
[2020-07-04] MEDS: LINEZOLID 600 MG/300 ML RTUPB IV SCH (21:24)
[2020-07-04] MEDS: CEFEPIME HCL 2 GM in DEXTROSE 5%-WATER 50 ML IV SCH (21:24)
[2020-07-05] MEDS: CEFEPIME HCL 2 GM in DEXTROSE 5%-WATER 50 ML IV SCH ×2 (05:52→18:34)
[2020-07-05] MEDS: LINEZOLID 600 MG/300 ML RTUPB IV SCH ×2 (05:53→18:07)
[2020-07-05 07:21] LABS: HEMATOCRIT 37.6 % (37.9-51.0); HEMOGLOBIN 12.5 g/dL (13.5-17.0); MEAN CORPUSCULAR HEMOGLOBIN 28.4 pg (27.0-33.4); MEAN CORPUSCULAR HGB CONC 33.4 g/dL (32.0-36.0); MEAN CORPUSCULAR VOLUME 85 fl (80-97); PLATELET COUNT 259 10^3/uL (150-450); RED BLOOD COUNT 4.42 10^6/uL (4.35-5.55); WHITE BLOOD COUNT 13.9 10^3/uL (4.0-10.5)
[2020-07-05 07:36] LABS: ANION GAP 12 (5-19); BLOOD UREA NITROGEN 15 mg/dL (7-20); CALCIUM 8.8 mg/dL (8.4-10.2); CARBON DIOXIDE 22 mmol/L (22-30); CHLORIDE 101 mmol/L (98-107); GLUCOSE 117 mg/dL (75-110); POTASSIUM 3.5 mmol/L (3.6-5.0)
[2020-07-05] MEDS: INSULIN LISPRO 100 UNIT/ML 3 ML VIAL SUBCUT SCH ×4 (08:20→22:16)
[2020-07-05] MEDS ORDERED: POTASSIUM CHLORIDE 10 MEQ TABLET.ER PO ONE (09:00)
[2020-07-05] MEDS: DOCUSATE SODIUM 100 MG CAPSULE PO SCH ×2 (11:15→18:33)
[2020-07-05] MEDS: FAMOTIDINE 20 MG TABLET PO SCH ×2 (11:16→22:22)
[2020-07-05] MEDS: INSULIN GLARGINE,HUM.REC.ANLOG 1,000 UNIT/10 ML VIAL SUBCUT SCH (11:17)
[2020-07-05] MEDS ORDERED: MIDAZOLAM 2 MG/2 ML INJ ONE (17:03)
[2020-07-05] MEDS ORDERED: FENTANYL CITRATE INJ/PF 100 MCG/2 ML AMPUL ONE (17:03)
[2020-07-05] MEDS ORDERED: PROPOFOL INJ 200 MG/20 ML VIAL IV ONE (17:04)
[2020-07-05] MEDS ORDERED: ONDANSETRON HCL INJ/PF 4 MG/2 ML SDV ONE (17:04)
[2020-07-05] MEDS ORDERED: LIDOCAINE 1% INJ-PF (10 MG/ML) 30 ML SDV ONE (18:07)
[2020-07-05] MEDS ORDERED: BUPIVACAINE HCL 0.5 % INJ/PF 30 ML SDV ONE (18:07)
--- NOTE | 2020-07-05 18:19 | PDOC PROGRESS REPORT ---
Subjective Progress Note for:: 07/05/20 Reason For Visit: DIABETIC FOOT INFECTION Physical Exam Vital Signs: Temp Pulse Resp BP Pulse Ox 98.2 F 74 17 141/73 H 100 07/05/20 15:55 07/05/20 15:55 07/05/20 15:55 07/05/20 15:55 07/05/20 15:55 Intake & Output 07/04/20 07/05/20 07/06/20 06:59 06:59 06:59 Intake Total 450 2726 Output Total 700 400 Balance 450 2026 -400 Weight 103.873 kg 100.1 kg General appearance: PRESENT: no acute distress, cooperative Neck exam: ABSENT: JVD Respiratory exam: PRESENT: symmetrical, unlabored. ABSENT: accessory muscle use, tachypnea GI/Abdominal exam: PRESENT: soft. ABSENT: rebound, rigid, tenderness Neurological exam: PRESENT: alert, awake Results Laboratory Results: 07/05/20 06:56 07/05/20 06:56 07/05/20 07/05/20 06:56 06:56 WBC 13.9 H RBC 4.42 Hgb 12.5 L Hct 37.6 L MCV 85 MCH 28.4 MCHC 33.4 RDW 15.0 H Plt Count 259 Sodium 134.7 L Potassium 3.5 L Chloride 101 Carbon Dioxide 22 Anion Gap 12 BUN 15 Creatinine 0.57 Est GFR ( Amer) > 60 Glucose 117 H Calcium 8.8 Magnesium 2.2 07/04/20 02:40 Blood Blood Culture (PCR) - Final Staphylococcus Species Impressions: Lower Extremity MRI 07/04/20 00:00 IMPRESSION: 1. Prior amputation of the fifth digit with abnormal bone marrow signal at the fifth metatarsal stump site, which may represent either postsurgical sequela versus acute osteomyelitis. 2. No abscess or fluid collection is seen. Foot X-Ray 07/04/20 03:04 IMPRESSION: Postsurgical changes in the lateral foot without definite changes of necrotizing fasciitis. If there is high clinical concern for osteomyelitis involving the residual base of the fifth metatarsal would recommend follow-up MRI. Chest X-Ray 07/04/20 03:14 IMPRESSION: No acute cardiopulmonary abnormality. copyright 2010 [employer]- All Rights Reserved Assessment and Plan - Diagnosis (1) Osteomyelitis Qualifiers: Osteomyelitis type: chronic, with draining sinus Osteomyelitis location: foot Laterality: right Qualified Code(s): M86.471 - Chronic osteomyelitis with draining sinus, right ankle and foot Is this a current diagnosis for this admission?: Yes (2) Sarcoidosis Is this a current diagnosis for this admission?: Yes (3) Tobacco use disorder, continuous Is this a current diagnosis for this admission?: Yes (4) Type 2 diabetes mellitus Is this a current diagnosis for this admission?: Yes - Plan Summary Summary: 07/04/2020 Patient will be admitted to the medical service on the medical floor where he will receive routine supportive and symptomatic cares. Routine consultation with Dr. Bay will be obtained for surgical evaluation of the patient's diabetic foot infection. Patient will be treated with Zyvox and cefepime intravenously. He will receive morphine sulfate 2 to 4 mg IV every 2 hours as needed pain and he will receive Ativan 1 mg IV every 4 hours as needed anxiety or restlessness. He will be maintained on a diabetic and cardiac restricted diet. Before meals and at bedtime Accu-Cheks will be obtained and a sliding scale insulin will be used for control of hyperglycemia with a hypoglycemic protocol in place. Smoking cessation is advised and counseled briefly at the bedside. A nicotine replacement patch is available for the patient's use, if desired. Patient will be continued on his usual home medications, as appropriate, as soon as his medication list has been verified and reconciled. CBCs, metabolic profiles and magnesium levels will be obtained as appropriate with other laboratory and/or radiographic evaluations obtained as needed. 07/05/2020 MRI of the foot showing findings concerning for osteomyelitis persistence. Will be taken to the OR this evening by Dr. Gayle. Continue broad-spectrum antibiotics. Continue Accu-Cheks and sliding scale insulin. Will hold Lantus while n.p.o. Continue pain control - Time Time Spent with patient: Less than 15 minutes Anticipated Discharge Disposition: Home, Self Care Anticipated Discharge Timeframe: undetermined
[2020-07-05] MEDS ORDERED: DIPHENHYDRAMINE HCL 50 MG/ML VIAL IV PRN (18:33)
[2020-07-05] MEDS ORDERED: MORPHINE SULFATE 10 MG/ML INJ IV PRN (18:33)
[2020-07-05] MEDS ORDERED: MEPERIDINE HCL/PF INJ 25 MG/1 ML DISP.SYRIN IV PRN (18:33)
[2020-07-05] MEDS ORDERED: FENTANYL CITRATE INJ/PF 100 MCG/2 ML AMPUL IV PRN ×3 (18:33)
[2020-07-05] MEDS ORDERED: PROMETHAZINE HCL INJ 25 MG/1 ML VIAL IV PRN (18:33)
--- NOTE | 2020-07-05 18:50 | Operative Report ---
Operative Report DATE OF SURGERY: 07/05/20 PREOPERATIVE DIAGNOSIS: Osteomyelitis right fifth metatarsal bone; chronic open wound right lateral foot POSTOPERATIVE DIAGNOSIS: Same OPERATION: Completion amputation proximal stump right fifth metatarsal bone; superficial debridement right lateral foot chronic wound SURGEON: RUSTY MARCH ANESTHESIA: LMAC - 40 mL's half percent Marcaine mixed with 1% lidocaine TISSUE REMOVED OR ALTERED: Right proximal fifth metatarsal head COMPLICATIONS: None ESTIMATED BLOOD LOSS: Approximately 20 mL INTRAOPERATIVE FINDINGS: The right foot lateral wound appears to be well granulating; the proximal had of the right fifth metatarsal bone was completely removed and purulent drainage was noted in the surgical field PROCEDURE: The procedure was done in the operating room, the patient was placed in supine position, deep intravenous sedation was induced by the nurse labor conciliator, the right leg and foot prepped and draped in usual fashion, the right foot wound was injected with a solution of 50% Marcaine and 50% lidocaine as above; the right lateral foot wound was extended posteriorly for about 2 inches in length. The proximal head of the fifth metatarsal bone was palpated, with the use of periosteum elevators, Bovie, and sharp dissection the proximal head of the fifth metatarsal bone was fully removed and sent to pathology for the identification of osteomyelitis. The soft tissue of the right lateral foot wound was debrided gently with curette, post debridement granulation tissue was sent for culture and Gram stain. The right lateral foot wound was irrigated with normal saline, packed with Surgicel, Gelfoam, moist 4 x 4's, dry 4 x 4's, ABDs, Kerlix rolls, and Carlos A. The patient tolerated procedure well and transferred to the recovery room in satisfactory conditions.
[2020-07-05] MEDS: FENTANYL CITRATE INJ/PF 100 MCG/2 ML AMPUL ONE ×2 (19:05→19:15)
[2020-07-06] MEDS: RINGERS SOLUTION,LACTATED 1,000 ML IV PRN (00:25)
[2020-07-06] MEDS: MORPHINE SULFATE 10 MG/ML INJ IV PRN ×3 (00:32→17:15)
[2020-07-06] MEDS: CEFEPIME HCL 2 GM in DEXTROSE 5%-WATER 50 ML IV SCH ×2 (05:18→18:14)
[2020-07-06] MEDS: LINEZOLID 600 MG/300 ML RTUPB IV SCH ×2 (06:01→19:26)
[2020-07-06] MEDS: INSULIN LISPRO 100 UNIT/ML 3 ML VIAL SUBCUT SCH ×4 (09:03→22:30)
[2020-07-06] MEDS: DOCUSATE SODIUM 100 MG CAPSULE PO SCH ×2 (09:41→17:14)
[2020-07-06] MEDS: FAMOTIDINE 20 MG TABLET PO SCH ×2 (09:41→22:29)
[2020-07-06] MEDS ORDERED: ACETAMINOPHEN 325 MG TABLET PO PRN (10:34)
--- NOTE | 2020-07-06 10:55 | PDOC PROGRESS REPORT ---
Subjective Progress Note for:: 07/06/20 Subjective:: Patient still complaining of very mild pain in his right foot. He does have neuropathy so his pain is usually minimal. Denies any shortness of breath fevers or chills. I did speak to his was concerned about patient having overexerted himself when he went to after his most recent hospitalization. 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 She juarez sed concerns about adaptive devices that may help him in the house and if you need to go to a rehabilitation center upon discharge. Advised her that I will have social service manager look into getting adaptive devices and I will also have him work with physical therapy. Reason For Visit: DIABETIC FOOT INFECTION Physical Exam Vital Signs: Temp Pulse Resp BP Pulse Ox 98.2 F 69 16 137/73 H 97 07/06/20 10:00 07/06/20 00:00 07/06/20 00:00 07/06/20 00:00 07/06/20 00:00 Intake & Output 07/05/20 07/06/20 07/07/20 06:59 06:59 06:59 Intake Total 3726 850 1300 Output Total 700 1625 Balance 3026 -775 1300 Weight 100.1 kg 100.1 kg General appearance: PRESENT: no acute distress, cooperative Neck exam: ABSENT: JVD Respiratory exam: PRESENT: clear to auscultation vern, symmetrical, unlabored. ABSENT: tachypnea, wheezes Cardiovascular exam: PRESENT: RRR, +S1, +S2. ABSENT: tachycardia GI/Abdominal exam: PRESENT: normal bowel sounds, soft. ABSENT: rebound, rigid, tenderness Extremities exam: PRESENT: other - RIGHT FOOT IN DRESSING Neurological exam: PRESENT: alert, awake, oriented to person, oriented to place, oriented to time, oriented to situation Psychiatric exam: PRESENT: normal mood. ABSENT: agitated, anxious, depressed Results Laboratory Results: 07/05/20 06:56 07/05/20 06:56 07/04/20 02:40 Blood Blood Culture (PCR) - Final Staphylococcus Species 07/04/20 02:40 Blood Blood Culture - Final Group B Beta Streptococcus Staphylococcus Haemolyticus 07/04/20 10:42 Foot - Diabetic Ulcer Gram Stain - Final 07/04/20 10:42 Foot - Diabetic Ulcer Wound Culture - Final Group B Beta Streptococcus Impressions: Lower Extremity MRI 07/04/20 00:00 IMPRESSION: 1. Prior amputation of the fifth digit with abnormal bone marrow signal at the fifth metatarsal stump site, which may represent either postsurgical sequela versus acute osteomyelitis. 2. No abscess or fluid collection is seen. Foot X-Ray 07/04/20 03:04 IMPRESSION: Postsurgical changes in the lateral foot without definite changes of necrotizing fasciitis. If there is high clinical concern for osteomyelitis involving the residual base of the fifth metatarsal would recommend follow-up MRI. Chest X-Ray 07/04/20 03:14 IMPRESSION: No acute cardiopulmonary abnormality. copyright 2010 [employer]- All Rights Reserved Assessment and Plan - Diagnosis (1) Osteomyelitis Qualifiers: Osteomyelitis type: chronic, with draining sinus Osteomyelitis location: foot Laterality: right Qualified Code(s): M86.471 - Chronic osteomyelitis with draining sinus, right ankle and foot Is this a current diagnosis for this admission?: Yes (2) Bacteremia due to group B Streptococcus Is this a current diagnosis for this admission?: Yes (3) Sarcoidosis Is this a current diagnosis for this admission?: Yes (4) Type 2 diabetes mellitus Is this a current diagnosis for this admission?: Yes (5) Tobacco use disorder, continuous Is this a current diagnosis for this admission?: Yes - Plan Summary Summary: 07/04/2020 Patient will be admitted to the medical service on the medical floor where he will receive routine supportive and symptomatic cares. Routine consultation with Dr. Bay will be obtained for surgical evaluation of the patient's diabetic foot infection. Patient will be treated with Zyvox and cefepime intravenously. He will receive morphine sulfate 2 to 4 mg IV every 2 hours as needed pain and he will receive Ativan 1 mg IV every 4 hours as needed anxiety or restlessness. He will be maintained on a diabetic and cardiac restricted diet. Before meals and at bedtime Accu-Cheks will be obtained and a sliding scale insulin will be used for control of hyperglycemia with a hypoglycemic protocol in place. Smoking cessation is advised and counseled briefly at the bedside. A nicotine replacement patch is available for the patient's use, if desired. Patient will be continued on his usual home medications, as appropriate, as soon as his medication list has been verified and reconciled. CBCs, metabolic profiles and magnesium levels will be obtained as appropriate with other laboratory and/or radiographic evaluations obtained as needed. 07/05/2020 MRI of the foot showing findings concerning for osteomyelitis persistence. Will be taken to the OR this evening by Dr. Gayle. Continue broad-spectrum antibiotics. Continue Accu-Cheks and sliding scale insulin. Will hold Lantus while n.p.o. Continue pain control 07/06/2020 Patient was taken to the OR yesterday evening and underwent completion amputation of the right fifth digit and debridement of his lateral wound. Continue linezolid and cefepime Group B strep bacteremia secondary to his wound infection. Notably on last visit he grew MRSA in his wound. Continue Lantus for management of diabetes. Discontinue IV fluids. Repeat blood cultures today. Discussed case with and patient. expressed concerns with patient's adaptation once he gets back home especially given her disability and the disability of her daughter. Physical therapy, Occupational Therapy, social work consult for need assessment and provision of adaptive devices. Surgery following and will continue to manage surgical wound - Time Anticipated Discharge Disposition: Home with Home Health Anticipated Discharge Timeframe: UNDETERMINED
[2020-07-06] MEDS: HYDROCODONE/ACETAMINOPHEN 7.5-325 MG TABLET PO PRN (11:06)
[2020-07-06] MEDS: LOSARTAN POTASSIUM 50 MG TABLET PO SCH (11:07)
[2020-07-06] MEDS: GABAPENTIN 300 MG CAPSULE PO SCH ×2 (12:49→17:14)
--- NOTE | 2020-07-06 17:15 | PDOC PROGRESS REPORT ---
Subjective Progress Note for:: 07/06/20 Reason For Visit: DIABETIC FOOT INFECTION Physical Exam Vital Signs: Temp Pulse Resp BP Pulse Ox 98.2 F 74 16 134/60 H 98 07/06/20 10:00 07/06/20 09:01 07/06/20 09:01 07/06/20 09:01 07/06/20 09:01 Intake & Output 07/05/20 07/06/20 07/07/20 06:59 06:59 06:59 Intake Total 3726 850 1300 Output Total 700 1625 Balance 3026 -775 1300 Weight 100.1 kg 100.1 kg Results Laboratory Results: 07/05/20 06:56 07/05/20 06:56 07/04/20 02:40 Blood Blood Culture (PCR) - Final Staphylococcus Species 07/04/20 02:40 Blood Blood Culture - Final Group B Beta Streptococcus Staphylococcus Haemolyticus 07/04/20 10:42 Foot - Diabetic Ulcer Gram Stain - Final 07/04/20 10:42 Foot - Diabetic Ulcer Wound Culture - Final Group B Beta Streptococcus Impressions: Lower Extremity MRI 07/04/20 00:00 IMPRESSION: 1. Prior amputation of the fifth digit with abnormal bone marrow signal at the fifth metatarsal stump site, which may represent either postsurgical sequela versus acute osteomyelitis. 2. No abscess or fluid collection is seen. Foot X-Ray 07/04/20 03:04 IMPRESSION: Postsurgical changes in the lateral foot without definite changes of necrotizing fasciitis. If there is high clinical concern for osteomyelitis involving the residual base of the fifth metatarsal would recommend follow-up MRI. Chest X-Ray 07/04/20 03:14 IMPRESSION: No acute cardiopulmonary abnormality. copyright 2011 [employer]- All Rights Reserved Assessment & Plan - Time Anticipated Discharge Disposition: Unknown Anticipated Discharge Timeframe: Unknown - Plan Summary Plan Summary: 50-year-old male status post complete excision of the right fifth metatarsal due to osteomyelitis. The patient still has erythema and induration of the foot. His dressing was removed today, and the wound was inspected. There is no active bleeding or active purulence. Initiate damp to dry dressing changes twice daily. Once stable, the patient can have a wound VAC placed. Surgery will continue to follow with you.
[2020-07-06] MEDS: ATORVASTATIN CALCIUM 20 MG TABLET PO SCH (22:29)
[2020-07-06] MEDS: INSULIN GLARGINE,HUM.REC.ANLOG 1,000 UNIT/10 ML VIAL SUBCUT SCH (22:30)
[2020-07-07] MEDS: GABAPENTIN 300 MG CAPSULE PO SCH ×4 (00:10→17:47)
[2020-07-07] MEDS: CEFEPIME HCL 2 GM in DEXTROSE 5%-WATER 50 ML IV SCH (05:05)
[2020-07-07] MEDS: HYDROCODONE/ACETAMINOPHEN 7.5-325 MG TABLET PO PRN ×2 (05:14→12:42)
[2020-07-07] MEDS: LINEZOLID 600 MG/300 ML RTUPB IV SCH ×2 (06:23→18:17)
[2020-07-07 06:33] LABS: ANION GAP 7 (5-19); BLOOD UREA NITROGEN 9 mg/dL (7-20); CALCIUM 8.4 mg/dL (8.4-10.2); CARBON DIOXIDE 26 mmol/L (22-30); CHLORIDE 101 mmol/L (98-107); GLUCOSE 166 mg/dL (75-110); HEMATOCRIT 36.4 % (37.9-51.0); HEMOGLOBIN 12.4 g/dL (13.5-17.0); MEAN CORPUSCULAR HEMOGLOBIN 28.8 pg (27.0-33.4); MEAN CORPUSCULAR HGB CONC 34.2 g/dL (32.0-36.0); MEAN CORPUSCULAR VOLUME 84 fl (80-97); PLATELET COUNT 251 10^3/uL (150-450); POTASSIUM 3.9 mmol/L (3.6-5.0); RED BLOOD COUNT 4.32 10^6/uL (4.35-5.55); RED CELL DISTRIBUTION WIDTH 15.5 % (11.5-14.0); WHITE BLOOD COUNT 7.3 10^3/uL (4.0-10.5)
[2020-07-07] MEDS: MORPHINE SULFATE 10 MG/ML INJ IV PRN ×2 (09:06→17:01)
--- NOTE | 2020-07-07 09:16 | PDOC PROGRESS REPORT ---
Subjective Progress Note for:: 07/07/20 Subjective:: Patient comfortable Reason For Visit: DIABETIC FOOT INFECTION Physical Exam Vital Signs: Temp Pulse Resp BP Pulse Ox 98.0 F 68 16 122/78 100 07/07/20 08:13 07/07/20 08:13 07/07/20 08:13 07/07/20 08:13 07/07/20 08:13 Intake & Output 07/06/20 07/07/20 07/08/20 06:59 06:59 06:59 Intake Total 850 3070 Output Total 1625 2400 Balance -775 670 Weight 100.1 kg 100.8 kg General appearance: PRESENT: no acute distress Musculoskeletal exam: PRESENT: other - Right foot= surgical site granulating, no drainage, no odor, residual surrounding erythema Results Laboratory Results: 07/07/20 06:03 07/07/20 06:03 07/07/20 07/07/20 06:03 06:03 WBC 7.3 RBC 4.32 L Hgb 12.4 L Hct 36.4 L MCV 84 MCH 28.8 MCHC 34.2 RDW 15.5 H Plt Count 251 Sodium 133.9 L Potassium 3.9 Chloride 101 Carbon Dioxide 26 Anion Gap 7 BUN 9 Creatinine 0.52 Est GFR ( Amer) > 60 Glucose 166 H Calcium 8.4 07/05/20 18:13 Foot - Right Gram Stain - Final 07/05/20 18:13 Foot - Right Wound Culture - Final Group B Beta Streptococcus No Anaerobic Organisms 07/04/20 02:40 Blood Blood Culture (PCR) - Final Staphylococcus Species 07/04/20 02:40 Blood Blood Culture - Final Group B Beta Streptococcus Staphylococcus Haemolyticus 07/04/20 10:42 Foot - Diabetic Ulcer Gram Stain - Final 07/04/20 10:42 Foot - Diabetic Ulcer Wound Culture - Final Group B Beta Streptococcus Impressions: Lower Extremity MRI 07/04/20 00:00 IMPRESSION: 1. Prior amputation of the fifth digit with abnormal bone marrow signal at the fifth metatarsal stump site, which may represent either postsurgical sequela versus acute osteomyelitis. 2. No abscess or fluid collection is seen. Foot X-Ray 07/04/20 03:04 IMPRESSION: Postsurgical changes in the lateral foot without definite changes of necrotizing fasciitis. If there is high clinical concern for osteomyelitis involving the residual base of the fifth metatarsal would recommend follow-up MRI. Chest X-Ray 07/04/20 03:14 IMPRESSION: No acute cardiopulmonary abnormality. copyright 2010 [employer]- All Rights Reserved Assessment & Plan - Diagnosis (1) Osteomyelitis Qualifiers: Osteomyelitis type: chronic, with draining sinus Osteomyelitis location: foot Laterality: right Qualified Code(s): M86.471 - Chronic osteomyelitis with draining sinus, right ankle and foot Is this a current diagnosis for this admission?: Yes (2) Diabetic foot infection Is this a current diagnosis for this admission?: Yes (3) Hyperglycemia due to type 2 diabetes mellitus Qualifiers: Diabetes mellitus care home insulin use: with tank terminal gauger use Qualified Code(s): E11.65 - Type 2 diabetes mellitus with hyperglycemia; Z79.4 - shelter (current) use of insulin Is this a current diagnosis for this admission?: Yes (4) Cellulitis Qualifiers: Site of cellulitis: extremity Site of cellulitis of extremity: lower extremity Laterality: right Qualified Code(s): L03.115 - Cellulitis of right lower limb Is this a current diagnosis for this admission?: Yes - Time Anticipated Discharge Disposition: Home, Self Care Anticipated Discharge Timeframe: Per PCP - Plan Summary Plan Summary: Assessment: Postoperative day #2 following completion amputation right fifth metatarsal bone and wound debridement Physical exam demonstrates a well granulating wound with no drainage or odor, persistent residual surrounding erythema Patient on Zosyn and linezolid Right foot culture significant for Streptococcus Plan: Continue every 12 hours normal saline wet-to-dry dressing changes Continue IV antibiotics Continue no right lower extremity weight bearing, strict bedrest, right foot elevation Patient will be discharged in the next 2 to 3 days once the erythema has disappeared Patient to resume wound VAC usage day Continue wound VAC at home at home following discharge
[2020-07-07] MEDS: ASPIRIN 81 MG TABLET, ENT COATED PO SCH (11:09)
[2020-07-07] MEDS: FLUOXETINE HCL 20 MG CAPSULE PO SCH (11:10)
[2020-07-07] MEDS: DOCUSATE SODIUM 100 MG CAPSULE PO SCH ×2 (11:10→17:48)
[2020-07-07] MEDS: LOSARTAN POTASSIUM 50 MG TABLET PO SCH (11:13)
[2020-07-07] MEDS: FAMOTIDINE 20 MG TABLET PO SCH ×2 (11:13→21:24)
[2020-07-07] MEDS: INSULIN GLARGINE,HUM.REC.ANLOG 1,000 UNIT/10 ML VIAL SUBCUT SCH ×2 (11:16→21:31)
[2020-07-07] MEDS: AMPICILLIN SODIUM/SULBACTAM NA 3 GM in NORMAL SALINE 100 ML IV SCH ×3 (11:18→21:24)
[2020-07-07] MEDS ORDERED: AMPICILLIN SOD/SULBACTAM 3 GM VIAL IV SCH (12:00)
[2020-07-07] MEDS: INSULIN LISPRO 100 UNIT/ML 3 ML VIAL SUBCUT SCH ×5 (12:51→21:31)
--- NOTE | 2020-07-07 15:58 | PDOC PROGRESS REPORT ---
Subjective Progress Note for:: 07/07/20 Subjective:: Patient is complaining of pain in his foot. Denies fever or chills. Plan is for wound VAC placement today as per surgery. Reason For Visit: DIABETIC FOOT INFECTION Physical Exam Vital Signs: Temp Pulse Resp BP Pulse Ox 98.6 F 72 18 138/75 H 100 07/07/20 11:41 07/07/20 11:41 07/07/20 11:41 07/07/20 11:41 07/07/20 11:41 Intake & Output 07/06/20 07/07/20 07/08/20 06:59 06:59 06:59 Intake Total 850 3070 880 Output Total 1625 2400 500 Balance -775 670 380 Weight 100.1 kg 100.8 kg General appearance: PRESENT: no acute distress, cooperative Neck exam: ABSENT: JVD Respiratory exam: PRESENT: unlabored. ABSENT: accessory muscle use, retraction Neurological exam: PRESENT: alert, awake, oriented to person, oriented to place, oriented to time Psychiatric exam: ABSENT: agitated, anxious Results Laboratory Results: 07/07/20 06:03 07/07/20 06:03 07/07/20 07/07/20 06:03 06:03 WBC 7.3 RBC 4.32 L Hgb 12.4 L Hct 36.4 L MCV 84 MCH 28.8 MCHC 34.2 RDW 15.5 H Plt Count 251 Sodium 133.9 L Potassium 3.9 Chloride 101 Carbon Dioxide 26 Anion Gap 7 BUN 9 Creatinine 0.52 Est GFR ( Amer) > 60 Glucose 166 H Calcium 8.4 07/05/20 18:13 Foot - Right Gram Stain - Final 07/05/20 18:13 Foot - Right Wound Culture - Final Group B Beta Streptococcus No Anaerobic Organisms Impressions: Lower Extremity MRI 07/04/20 00:00 IMPRESSION: 1. Prior amputation of the fifth digit with abnormal bone marrow signal at the fifth metatarsal stump site, which may represent either postsurgical sequela versus acute osteomyelitis. 2. No abscess or fluid collection is seen. Foot X-Ray 07/04/20 03:04 IMPRESSION: Postsurgical changes in the lateral foot without definite changes of necrotizing fasciitis. If there is high clinical concern for osteomyelitis involving the residual base of the fifth metatarsal would recommend follow-up MRI. Chest X-Ray 07/04/20 03:14 IMPRESSION: No acute cardiopulmonary abnormality. copyright 2010 [employer]- All Rights Reserved Assessment and Plan - Diagnosis (1) Osteomyelitis Qualifiers: Osteomyelitis type: chronic, with draining sinus Osteomyelitis location: foot Laterality: right Qualified Code(s): M86.471 - Chronic osteomyelitis with draining sinus, right ankle and foot Is this a current diagnosis for this admission?: Yes (2) Bacteremia due to group B Streptococcus Is this a current diagnosis for this admission?: Yes (3) Sarcoidosis Is this a current diagnosis for this admission?: Yes (4) Type 2 diabetes mellitus Is this a current diagnosis for this admission?: Yes (5) Tobacco use disorder, continuous Is this a current diagnosis for this admission?: Yes - Plan Summary Summary: 07/04/2020 Patient will be admitted to the medical service on the medical floor where he will receive routine supportive and symptomatic cares. Routine consultation with Dr. Bay will be obtained for surgical evaluation of the patient's diabetic foot infection. Patient will be treated with Zyvox and cefepime intravenously. He will receive morphine sulfate 2 to 4 mg IV every 2 hours as needed pain and he will receive Ativan 1 mg IV every 4 hours as needed anxiety or restlessness. He will be maintained on a diabetic and cardiac restricted diet. Before meals and at bedtime Accu-Cheks will be obtained and a sliding scale insulin will be used for control of hyperglycemia with a hypoglycemic protocol in place. Smoking cessation is advised and counseled briefly at the bedside. A nicotine replacement patch is available for the patient's use, if desired. Patient will be continued on his usual home medications, as appropriate, as soon as his medication list has been verified and reconciled. CBCs, metabolic profiles and magnesium levels will be obtained as appropriate with other laboratory and/or radiographic evaluations obtained as needed. 07/05/2020 MRI of the foot showing findings concerning for osteomyelitis persistence. Will be taken to the OR this evening by Dr. Gayle. Continue broad-spectrum antibiotics. Continue Accu-Cheks and sliding scale insulin. Will hold Lantus while n.p.o. Continue pain control 07/06/2020 Patient was taken to the OR yesterday evening and underwent completion amputation of the right fifth digit and debridement of his lateral wound. Continue linezolid and cefepime Group B strep bacteremia secondary to his wound infection. Notably on last visit he grew MRSA in his wound. Continue Lantus for management of diabetes. Discontinue IV fluids. Repeat blood cultures today. Discussed case with and patient. expressed concerns with patient's adaptation once he gets back home especially given her disability and the disability of her daughter. Physical therapy, Occupational Therapy, social work consult for need assessment and provision of adaptive devices. Surgery following and will continue to manage surgical wound 07/07/2020 Wound culture showing group B strep. Blood culture positive for staph hemolyticus and group B strep. Notably on last PCT grew MRSA in his wound but not currently. We will leave on linezolid but will change cefepime to Unasyn. Repeat blood cultures negative so far. Surgeon recommending placement of wound VAC today. Patient will be here for the next few days and surgery will continue to manage patient's wound. Continue gabapentin. Switch [facility] to Percocet. Morphine for breakthrough. Continue diabetes medications. Sliding scale also available. Resume metformin - Time Time Spent with patient: Less than 15 minutes Anticipated Discharge Disposition: Home, Self Care Anticipated Discharge Timeframe: within 72 hours
[2020-07-07] MEDS ORDERED: METFORMIN HCL 500 MG TABLET PO ONE (16:30)
[2020-07-07] MEDS: ATORVASTATIN CALCIUM 20 MG TABLET PO SCH (21:24)
[2020-07-08] MEDS: GABAPENTIN 300 MG CAPSULE PO SCH ×4 (00:27→17:54)
[2020-07-08] MEDS: AMPICILLIN SODIUM/SULBACTAM NA 3 GM in NORMAL SALINE 100 ML IV SCH ×4 (03:07→22:09)
[2020-07-08] MEDS: LINEZOLID 600 MG/300 ML RTUPB IV SCH ×2 (05:46→17:54)
--- NOTE | 2020-07-08 09:23 | PDOC PROGRESS REPORT ---
Subjective Progress Note for:: 07/08/20 Subjective:: comfortable Reason For Visit: DIABETIC FOOT INFECTION Physical Exam Vital Signs: Temp Pulse Resp BP Pulse Ox 98.9 F 80 16 152/79 H 100 07/08/20 07:01 07/08/20 07:01 07/08/20 07:01 07/08/20 07:01 07/08/20 07:01 Intake & Output 07/07/20 07/08/20 07/09/20 06:59 06:59 06:59 Intake Total 3070 2330 Output Total 2400 2600 Balance 670 -270 Weight 100.8 kg 99 kg General appearance: PRESENT: no acute distress Extremities exam: PRESENT: other - Right lower extremity = lateral foot wound covered by wound VAC, surrounding skin pink without erythema, minimal edema Results Laboratory Results: 07/07/20 06:03 07/07/20 06:03 07/05/20 18:13 Foot - Right Gram Stain - Final 07/05/20 18:13 Foot - Right Wound Culture - Final Group B Beta Streptococcus No Anaerobic Organisms Impressions: Lower Extremity MRI 07/04/20 00:00 IMPRESSION: 1. Prior amputation of the fifth digit with abnormal bone marrow signal at the fifth metatarsal stump site, which may represent either postsurgical sequela versus acute osteomyelitis. 2. No abscess or fluid collection is seen. Foot X-Ray 07/04/20 03:04 IMPRESSION: Postsurgical changes in the lateral foot without definite changes of necrotizing fasciitis. If there is high clinical concern for osteomyelitis involving the residual base of the fifth metatarsal would recommend follow-up MRI. Chest X-Ray 07/04/20 03:14 IMPRESSION: No acute cardiopulmonary abnormality. copyright 2010 [employer]- All Rights Reserved Assessment & Plan - Diagnosis (1) Osteomyelitis Qualifiers: Osteomyelitis type: chronic, with draining sinus Osteomyelitis location: foot Laterality: right Qualified Code(s): M86.471 - Chronic osteomyelitis with draining sinus, right ankle and foot Is this a current diagnosis for this admission?: Yes (2) Diabetic foot infection Is this a current diagnosis for this admission?: Yes (3) Hyperglycemia due to type 2 diabetes mellitus Qualifiers: Diabetes mellitus fci insulin use: with fci use Qualified Code(s): E11.65 - Type 2 diabetes mellitus with hyperglycemia; Z79.4 - group home (current) use of insulin Is this a current diagnosis for this admission?: Yes (4) Cellulitis Qualifiers: Site of cellulitis: extremity Site of cellulitis of extremity: lower extremity Laterality: right Qualified Code(s): L03.115 - Cellulitis of right lower limb Is this a current diagnosis for this admission?: Yes - Time Anticipated Discharge Disposition: Home, Self Care Anticipated Discharge Timeframe: within 24 hours - Plan Summary Plan Summary: Assessment: Postoperative day #3 following completion amputation of the right foot stump of the fifth metatarsal bone Wound culture positive for Streptococcus and MSSA Staphylococcus Patient on both Unasyn and linezolid Right foot wound clean, no evidence of cellulitis, cover wound VAC Plan: Patient can be discharged home anytime by the general surgery viewpoint Continue wound VAC routine care with changes every 3 days Nonweightbearing and right foot elevation for the next 6 weeks Follow-up in the surgery office in 3 weeks Sponge bath only, unless patient uses a shower chair and the right foot is covered with plastic bag Oral antibiotic as per the hospitalist service. I will sign off. Please call us with questions
[2020-07-08] MEDS: FAMOTIDINE 20 MG TABLET PO SCH ×2 (09:28→22:11)
[2020-07-08] MEDS: METFORMIN HCL 500 MG TABLET PO SCH (09:28)
[2020-07-08] MEDS: LOSARTAN POTASSIUM 50 MG TABLET PO SCH (09:29)
[2020-07-08] MEDS: DOCUSATE SODIUM 100 MG CAPSULE PO SCH ×2 (09:29→18:24)
[2020-07-08] MEDS: INSULIN LISPRO 100 UNIT/ML 3 ML VIAL SUBCUT SCH ×4 (09:29→22:10)
[2020-07-08] MEDS: ASPIRIN 81 MG TABLET, ENT COATED PO SCH (09:29)
[2020-07-08] MEDS: FLUOXETINE HCL 20 MG CAPSULE PO SCH (09:29)
[2020-07-08] MEDS: INSULIN GLARGINE,HUM.REC.ANLOG 1,000 UNIT/10 ML VIAL SUBCUT SCH ×2 (09:29→22:10)
--- NOTE | 2020-07-08 18:24 | PDOC PROGRESS REPORT ---
Subjective Progress Note for:: 07/08/20 Reason For Visit: DIABETIC FOOT INFECTION Physical Exam Vital Signs: Temp Pulse Resp BP Pulse Ox 98.5 F 76 16 138/72 H 99 07/08/20 12:16 07/08/20 12:16 07/08/20 12:16 07/08/20 12:16 07/08/20 12:16 Intake & Output 07/07/20 07/08/20 07/09/20 06:59 06:59 06:59 Intake Total 3070 2330 1675 Output Total 2400 2600 1650 Balance 670 -270 25 Weight 100.8 kg 99 kg General appearance: PRESENT: no acute distress, cooperative Respiratory exam: PRESENT: unlabored GI/Abdominal exam: PRESENT: soft. ABSENT: tenderness Extremities exam: PRESENT: other - Wound VAC present extremity right Neurological exam: PRESENT: alert, awake, oriented to person, oriented to place, oriented to time, oriented to situation Results Laboratory Results: 07/07/20 06:03 07/07/20 06:03 Impressions: Lower Extremity MRI 07/04/20 00:00 IMPRESSION: 1. Prior amputation of the fifth digit with abnormal bone marrow signal at the fifth metatarsal stump site, which may represent either postsurgical sequela versus acute osteomyelitis. 2. No abscess or fluid collection is seen. Foot X-Ray 07/04/20 03:04 IMPRESSION: Postsurgical changes in the lateral foot without definite changes of necrotizing fasciitis. If there is high clinical concern for osteomyelitis involving the residual base of the fifth metatarsal would recommend follow-up MRI. Chest X-Ray 07/04/20 03:14 IMPRESSION: No acute cardiopulmonary abnormality. copyright 2010 [employer]- All Rights Reserved Assessment and Plan - Diagnosis (1) Osteomyelitis Qualifiers: Osteomyelitis type: chronic, with draining sinus Osteomyelitis location: foot Laterality: right Qualified Code(s): M86.471 - Chronic osteomyelitis with draining sinus, right ankle and foot Is this a current diagnosis for this admission?: Yes (2) Bacteremia due to group B Streptococcus Is this a current diagnosis for this admission?: Yes (3) Sarcoidosis Is this a current diagnosis for this admission?: Yes (4) Type 2 diabetes mellitus Is this a current diagnosis for this admission?: Yes (5) Tobacco use disorder, continuous Is this a current diagnosis for this admission?: Yes - Plan Summary Summary: 07/04/2020 Patient will be admitted to the medical service on the medical floor where he will receive routine supportive and symptomatic cares. Routine consultation with Dr. Bay will be obtained for surgical evaluation of the patient's diabetic foot infection. Patient will be treated with Zyvox and cefepime intravenously. He will receive morphine sulfate 2 to 4 mg IV every 2 hours as needed pain and he will receive Ativan 1 mg IV every 4 hours as needed anxiety or restlessness. He will be maintained on a diabetic and cardiac restricted diet. Before meals and at bedtime Accu-Cheks will be obtained and a sliding scale insulin will be used for control of hyperglycemia with a hypoglycemic protocol in place. Smoking cessation is advised and counseled briefly at the bedside. A nicotine replacement patch is available for the patient's use, if desired. Patient will be continued on his usual home medications, as appropriate, as soon as his medication list has been verified and reconciled. CBCs, metabolic profiles and magnesium levels will be obtained as appropriate with other laboratory and/or radiographic evaluations obtained as needed. 07/05/2020 MRI of the foot showing findings concerning for osteomyelitis persistence. Will be taken to the OR this evening by Dr. Gayle. Continue broad-spectrum antibiotics. Continue Accu-Cheks and sliding scale insulin. Will hold Lantus while n.p.o. Continue pain control 07/06/2020 Patient was taken to the OR yesterday evening and underwent completion amputation of the right fifth digit and debridement of his lateral wound. Continue linezolid and cefepime Group B strep bacteremia secondary to his wound infection. Notably on last visit he grew MRSA in his wound. Continue Lantus for management of diabetes. Discontinue IV fluids. Repeat blood cultures today. Discussed case with and patient. expressed concerns with patient's adaptation once he gets back home especially given her disability and the disability of her daughter. Physical therapy, Occupational Therapy, social work consult for need assessment and provision of adaptive devices. Surgery following and will continue to manage surgical wound 07/07/2020 Wound culture showing group B strep. Blood culture positive for staph hemolyticus and group B strep. Notably on last PCT grew MRSA in his wound but not currently. We will leave on linezolid but will change cefepime to Unasyn. Repeat blood cultures negative so far. Surgeon recommending placement of wound VAC today. Patient will be here for the next few days and surgery will continue to manage patient's wound. Continue gabapentin. Switch [place] to Percocet. Morphine for breakthrough. Continue diabetes medications. Sliding scale also available. Resume metformin 07/08/2020 Wound VAC placed. According to surgery's assessment of surgeical wound site, there does not appear to be any evidence of left bone infection or surrounding cellulitis following the surgical debridement and amputation. I will keep patient on IV antibiotics for today. Surgery has recommended discharge with wound VAC and oral antibiotic. Plan is to discharge patient home with Keflex tomorrow and have patient follow- up in the [facility]. - Time Time Spent with patient: Less than 15 minutes Anticipated Discharge Disposition: Home, Self Care Anticipated Discharge Timeframe: within 24 hours
[2020-07-08] MEDS: OXYCODONE-ACETAMINOPHEN 5-325 MG TABLET PO PRN (19:28)
[2020-07-08] MEDS: ATORVASTATIN CALCIUM 20 MG TABLET PO SCH (22:11)
[2020-07-09] MEDS: GABAPENTIN 300 MG CAPSULE PO SCH ×3 (01:11→12:46)
[2020-07-09] MEDS: AMPICILLIN SODIUM/SULBACTAM NA 3 GM in NORMAL SALINE 100 ML IV SCH ×3 (03:12→10:48)
[2020-07-09] MEDS: LINEZOLID 600 MG/300 ML RTUPB IV SCH (05:54)
[2020-07-09] MEDS: OXYCODONE-ACETAMINOPHEN 5-325 MG TABLET PO PRN (07:45)
[2020-07-09] MEDS: INSULIN LISPRO 100 UNIT/ML 3 ML VIAL SUBCUT SCH ×2 (08:40→14:14)
[2020-07-09] MEDS: ASPIRIN 81 MG TABLET, ENT COATED PO SCH (10:19)
[2020-07-09] MEDS: DOCUSATE SODIUM 100 MG CAPSULE PO SCH (10:19)
[2020-07-09] MEDS: LOSARTAN POTASSIUM 50 MG TABLET PO SCH (10:19)
[2020-07-09] MEDS: FAMOTIDINE 20 MG TABLET PO SCH (10:19)
[2020-07-09] MEDS: METFORMIN HCL 500 MG TABLET PO SCH (10:20)
[2020-07-09] MEDS: FLUOXETINE HCL 20 MG CAPSULE PO SCH (10:20)
[2020-07-09] MEDS: INSULIN GLARGINE,HUM.REC.ANLOG 1,000 UNIT/10 ML VIAL SUBCUT SCH (10:20)
[2020-07-09 12:52] VITALS: BP 134/87
--- NOTE | 2020-07-09 14:29 | PDOC DISCHARGE SUMMARY ---
Impression - Admit/DC Date/PCP Admission Date/Primary Care Provider: 07/04/20 04:46 LEOPOLDO RODRIGUEZ DO Discharge Date: 07/09/20 - Discharge Diagnosis (1) Osteomyelitis Is this a current diagnosis for this admission?: Yes (2) Diabetic foot infection Is this a current diagnosis for this admission?: Yes (3) Bacteremia due to group B Streptococcus Is this a current diagnosis for this admission?: Yes (4) Sarcoidosis Is this a current diagnosis for this admission?: Yes (5) Type 2 diabetes mellitus Is this a current diagnosis for this admission?: Yes (6) Tobacco use disorder, continuous Is this a current diagnosis for this admission?: Yes - Assessment Summary: . - Additional Information Resuscitation Status: Full Code Discharge Diet: Diabetic Discharge Activity: Activity As Tolerated Referrals: RUSTY MARCH MD [ACTIVE STAFF] - (In 3 weeks.) LEOPOLDO RODRIGUEZ DO [Primary Care Provider] - Prescriptions: Docusate Sodium 100 mg PO DAILY #30 tablet Cephalexin Monohydrate [Keflex 500 mg Capsule] 500 mg PO QID 10 Days #40 capsule Oxycodone HCl/Acetaminophen [Percocet 5-325 mg Tablet] 1 tab PO Q6HP PRN #15 tablet PRN Reason: Home Medications: Atorvastatin Calcium [Lipitor 20 mg Tablet] 20 mg PO QHS 07/19/18 Fluoxetine HCl [Prozac] 80 mg PO QAM 07/19/18 Gabapentin [Neurontin] 600 mg PO Q6 07/19/18 Losartan Potassium [Cozaar 50 mg Tablet] 50 mg PO DAILY 07/19/18 Aspirin [Ecotrin 81 mg EC Tablet] 81 mg PO DAILY 02/24/20 Levalbuterol Tartrate [Levalbuterol Tartrate Hfa] 1 puff IH Q4HP PRN 06/07/20 Insulin Glargine,Hum.rec.anlog [Toujeo Solostar] 24 units SQ Q12 #0 06/14/20 Metformin HCl [Metformin HCl ER] 500 mg PO DAILY #30 tab.er.24h 06/19/20 Cephalexin Monohydrate [Keflex 500 mg Capsule] 500 mg PO QID 10 Days #40 capsule 07/09/20 Docusate Sodium 100 mg PO DAILY #30 tablet 07/09/20 Oxycodone HCl/Acetaminophen [Percocet 5-325 mg Tablet] 1 tab PO Q6HP PRN #15 tablet 07/09/20 History of Present Illiness History of Present Illness: According to admitting provider: ED PEDRAZA is a 50 year old male who presented to the emergency room with a one-day history of right foot pain. He admits having an amputation of his right fifth toe and metatarsal in May of this year due to MRSA osteomyelitis. Dr. Bay did his surgery and he has been followed postoperatively with the assistance of home health. He had generally been improving until yesterday when he developed rapidly worsening pain, swelling and redness around the area of his operative wound. His foot pain has been accompanied by general fatigue and has been associated with a fever of 101.5 F. He denies other associated or accompanying signs and symptoms. He admits that he has been taking antibiotic therapy as prescribed initially last and after course of therapy he has been started on doxycycline. He admits his foot pain is worsened by walking and other weightbearing. He has not identified any additional aggravating or ameliorating factors for his right foot pain. In the emergency room he was noted to have a leukocytosis of 15,200 and a CRP of 395. He was started on IV antibiotic therapy with Zosyn and Zyvox in the ER and was subsequently admitted to the hospitalist service for further evaluation and treatment. Hospital Course Hospital Course: Patient was admitted for evaluation of infection of his diabetic ulcer wound in his right lateral foot as well as some concern for residual infection from his recent surgical amputation of his right fifth toe. Of note he had just had this done for osteomyelitis. On presentation, he was evaluated by surgery who recommended an MRI. MRI revealed abnormal bone marrow signal at the fifth metatarsal stump site warehouse representative of either postsurgical site changes or acute osteomyelitis. Patient was subsequently taken to the OR by surgeon Dr. March for completion amputation of the fifth metatarsal stump given the findings that way concerning for possible osteomyelitis. During the operation, he also performed incision and debridement of his infected diabetic wound on his right lateral foot. His tissue culture grew group B strep. Blood culture was also positive for group B strep in 1 of the blood culture sets. His group B strep bacteremia is certainly secondary to his infected wound. Patient has received IV antibiotics throughout the course of his stay initially with linezolid and cefepime then changed to linezolid and ampicillin. His repeat blood cultures have been negative. Good source control has been achieved and Dr. March has indicated that the surgical site looks completely clear of any infection at this point without residual cellulitis. The pathology report is not yet back but patient would like to go home today and as such does not want to wait for the pathology report. Have discussed with him that he should follow-up to see if the margins were clear of infection but that the surgeon has indicated that it is clear on his examination and has cleared him for discharge. Wound VAC was placed which patient is being discharged with. Patient walked with physical therapy. Set up for home health and adaptive devices. He also has an offset boot at home. Patient was discharged with 10 days of Keflex to complete treatment of any potential residual infection. He is to follow-up at the surgical clinic with his primary care provider for further care. Physical Exam Vital Signs: Temp Pulse Resp BP Pulse Ox 98.3 F 73 18 149/85 H 100 07/09/20 11:34 07/09/20 11:34 07/09/20 11:34 07/09/20 11:34 07/09/20 11:34 Intake & Output 07/08/20 07/09/20 07/10/20 06:59 06:59 06:59 Intake Total 2330 2397 300 Output Total 2600 2500 Balance -270 -103 300 Weight 99 kg 102.9 kg General appearance: PRESENT: no acute distress, cooperative Neck exam: ABSENT: JVD Respiratory exam: PRESENT: unlabored Neurological exam: PRESENT: alert, awake, oriented to person, oriented to place, oriented to time Psychiatric exam: ABSENT: agitated, anxious Results Laboratory Results: WBC 7.3 10^3/uL (4.0-10.5) 07/07/20 06:03 RBC 4.32 10^6/uL (4.35-5.55) L 07/07/20 06:03 Hgb 12.4 g/dL (13.5-17.0) L 07/07/20 06:03 Hct 36.4 % (37.9-51.0) L 07/07/20 06:03 MCV 84 fl (80-97) 07/07/20 06:03 MCH 28.8 pg (27.0-33.4) 07/07/20 06:03 MCHC 34.2 g/dL (32.0-36.0) 07/07/20 06:03 RDW 15.5 % (11.5-14.0) H 07/07/20 06:03 Plt Count 251 10^3/uL (150-450) 07/07/20 06:03 Lymph % (Auto) Not Reportable 07/04/20 02:40 [facility] % (Auto) Not Reportable 07/04/20 02:40 Eos % (Auto) Not Reportable 07/04/20 02:40 Baso % (Auto) Not Reportable 07/04/20 02:40 Absolute Neuts (auto) Not Reportable 07/04/20 02:40 Absolute Lymphs (auto) Not Reportable 07/04/20 02:40 Absolute Monos (auto) Not Reportable 07/04/20 02:40 Absolute Eos (auto) Not Reportable 07/04/20 02:40 Absolute Basos (auto) Not Reportable 07/04/20 02:40 Total Counted 100 07/04/20 02:40 Seg Neutrophils % Not Reportable 07/04/20 02:40 Seg Neuts % (Manual) 86 % (42-78) H 07/04/20 02:40 Lymphocytes % (Manual) 7 % (13-45) L 07/04/20 02:40 Monocytes % (Manual) 7 % (3-13) 07/04/20 02:40 Eosinophils % (Manual) 0 % (0-6) 07/04/20 02:40 Basophils % (Manual) 0 % (0-2) 07/04/20 02:40 Abs Neuts (Manual) 13.1 10^3/uL (1.7-8.2) H 07/04/20 02:40 Abs Lymphs (Manual) 1.1 10^3/uL (0.5-4.7) 07/04/20 02:40 Abs Monocytes (Manual) 1.1 10^3/uL (0.1-1.4) 07/04/20 02:40 Absolute Eos (Manual) 0.0 10^3/uL (0.0-0.6) 07/04/20 02:40 Abs Basophils (Manual) 0.0 10^3/uL (0.0-0.2) 07/04/20 02:40 Toxic Granulation SLIGHT 07/04/20 02:40 Toxic Vacuolation PRESENT 07/04/20 02:40 Platelet Comment ADEQUATE 07/04/20 02:40 Poikilocytosis SLIGHT 07/04/20 02:40 Anisocytosis SLIGHT 07/04/20 02:40 Tear Drop Cells SLIGHT 07/04/20 02:40 PT 15.6 SEC (11.4-15.4) H 07/04/20 02:40 INR 1.22 07/04/20 02:40 VBG pH 7.41 (7.30-7.42) 07/04/20 05:30 VBG pCO2 37.1 mmHg (35-63) 07/04/20 05:30 VBG HCO3 22.8 mmol/L (20-32) 07/04/20 05:30 VBG Base Excess -1.5 mmol/L 07/04/20 05:30 Sodium 133.9 mmol/L (137-145) L 07/07/20 06:03 Potassium 3.9 mmol/L (3.6-5.0) 07/07/20 06:03 Chloride 101 mmol/L (98-107) 07/07/20 06:03 Carbon Dioxide 26 mmol/L (22-30) 07/07/20 06:03 Anion Gap 7 (5-19) 07/07/20 06:03 BUN 9 mg/dL (7-20) 07/07/20 06:03 Creatinine 0.52 mg/dL (0.52-1.25) 07/07/20 06:03 Est GFR ( Amer) > 60 (>60) 07/07/20 06:03 Est GFR (MDRD) Non-Af > 60 (>60) 07/07/20 06:03 Glucose 166 mg/dL (75-110) H 07/07/20 06:03 POC Glucose 208 mg/dL (70-110) H 07/09/20 11:35 Lactic Acid 1.3 mmol/L (0.7-2.1) 07/04/20 02:40 Calcium 8.4 mg/dL (8.4-10.2) 07/07/20 06:03 Magnesium 2.2 mg/dL (1.6-2.3) 07/05/20 06:56 Total Bilirubin 1.3 mg/dL (0.2-1.3) 07/04/20 02:40 Direct Bilirubin 0.5 mg/dL (0.0-0.4) H 07/04/20 02:40 Neonat Total Bilirubin Not Reportable 07/04/20 02:40 Neonat Direct Bilirubin Not Reportable 07/04/20 02:40 Neonat Indirect Bili Not Reportable 07/04/20 02:40 AST 25 U/L (17-59) 07/04/20 02:40 ALT 26 U/L (<50) 07/04/20 02:40 Alkaline Phosphatase 103 U/L (38-126) 07/04/20 02:40 C-Reactive Protein 395.2 mg/L (<10.0) H 07/04/20 02:40 Total Protein 7.2 g/dL (6.3-8.2) 07/04/20 02:40 Albumin 3.7 g/dL (3.5-5.0) 07/04/20 02:40 Urine Color STRAW 07/04/20 03:50 Urine Appearance CLEAR 07/04/20 03:50 Urine pH 5.0 (5.0-9.0) 07/04/20 03:50 Ur Specific [place] 1.035 07/04/20 03:50 Urine Protein NEGATIVE mg/dL (NEGATIVE) 07/04/20 03:50 Urine Glucose (UA) >=500 mg/dL (NEGATIVE) H 07/04/20 03:50 Urine Ketones 20 mg/dL (NEGATIVE) H 07/04/20 03:50 Urine Blood NEGATIVE (NEGATIVE) 07/04/20 03:50 Urine Nitrite NEGATIVE (NEGATIVE) 07/04/20 03:50 Urine Bilirubin NEGATIVE (NEGATIVE) 07/04/20 03:50 Urine Urobilinogen NEGATIVE mg/dL (<2.0) 07/04/20 03:50 Ur Leukocyte Esterase NEGATIVE (NEGATIVE) 07/04/20 03:50 Urine WBC (Auto) 0 /HPF 07/04/20 03:50 Urine RBC (Auto) 0 /HPF 07/04/20 03:50 Urine Mucus (Auto) RARE /LPF 07/04/20 03:50 Urine Ascorbic Acid NEGATIVE (NEGATIVE) 07/04/20 03:50 Impressions: Lower Extremity MRI 07/04/20 00:00 IMPRESSION: 1. Prior amputation of the fifth digit with abnormal bone marrow signal at the fifth metatarsal stump site, which may represent either postsurgical sequela versus acute osteomyelitis. 2. No abscess or fluid collection is seen. Foot X-Ray 07/04/20 03:04 IMPRESSION: Postsurgical changes in the lateral foot without definite changes of necrotizing fasciitis. If there is high clinical concern for osteomyelitis involving the residual base of the fifth metatarsal would recommend follow-up MRI. Chest X-Ray 07/04/20 03:14 IMPRESSION: No acute cardiopulmonary abnormality. copyright 2010 [employer]- All Rights Reserved Plan Time Spent: Greater than 30 Minutes Stroke Is this a Stroke Patient?: No Acute Heart Failure Is this a Heart Failure Patient?: No
== END 2020-07-09 01:45 | disposition home health service (06) | DRG 617 ==
LOC: ER 02:20 → EH 04:46 → 5 07:24
PROVIDERS: ADMIT Emergency Medicine; ATTEND Internal Medicine
PROC: 0Y6M0Z8 Detachment at Right Foot, Complete 5th Ray, Open Approach (ICD-10-PCS; principal; 2020-07-05 17:30)
DX: E11.69 Type 2 diabetes mellitus with other specified complication (principal); M86.171 Other acute osteomyelitis, right ankle and foot; R78.81 Bacteremia; L03.115 Cellulitis of right lower limb; B95.1 Streptococcus, group B, as the cause of diseases classified elsewhere; E10.65 Type 1 diabetes mellitus with hyperglycemia; D86.9 Sarcoidosis, unspecified; I25.10 Atherosclerotic heart disease of native coronary artery without angina pectoris; E78.5 Hyperlipidemia, unspecified; I10 Essential (primary) hypertension; J44.9 Chronic obstructive pulmonary disease, unspecified; K21.9 Gastro-esophageal reflux disease without esophagitis; F32.9 Major depressive disorder, single episode, unspecified; F17.200 Nicotine dependence, unspecified, uncomplicated; E66.01 Morbid (severe) obesity due to excess calories; E10.40 Type 1 diabetes mellitus with diabetic neuropathy, unspecified; Z79.82 Long term (current) use of aspirin; Z79.4 Long term (current) use of insulin; Z79.52 Long term (current) use of systemic steroids; Z79.899 Other long term (current) drug therapy; Z88.8 Allergy status to other drugs, medicaments and biological substances; Z91.012 Allergy to eggs; Z89.421 Acquired absence of other right toe(s); Z83.3 Family history of diabetes mellitus; Z82.49 Family history of ischemic heart disease and other diseases of the circulatory system
CPT/HCPCS: 01480; 36415; 71045; 80048; 80053; 81001; 82803; 82962; 83605; 83735; 85025; 85027; 85610; 86140; 87040; 87070; 87075; 87077; 87150; 87186; 87205; 88305; 88311; 93005; 93010; 96365; 96367; 99140; 99285; A9576; J0295; J0692; J1644; J1815; J2020; J2250; J2270; J2405; J2543; J2704; J3010; J3490; J7050; J7060; J7120

== ENCOUNTER → 2020-07-24 | Outpatient (CLI) | payer MEDICARE, MEDICAID ==
[2020-07-24 11:24] LABS: ABSOLUTE BASOPHILS # (AUTO) 0.1 10^3/uL (0.0-0.2); ABSOLUTE EOSINOPHILS # (AUTO) 0.2 10^3/uL (0.0-0.6); ABSOLUTE LYMPHOCYTES (AUTO) 2.2 10^3/uL (0.5-4.7); ABSOLUTE MONOCYTES (AUTO) 0.9 10^3/uL (0.1-1.4); ABSOLUTE NEUT (AUTO) 5.7 10^3/uL (1.7-8.2); BASOPHILS % (AUTO) 0.7 % (0-2); EOSINOPHILS % (AUTO) 2.5 % (0-6); HEMATOCRIT 39.5 % (37.9-51.0); HEMOGLOBIN 13.5 g/dL (13.5-17.0); LYMPHOCYTES % (AUTO) 24.2 % (13-45); MEAN CORPUSCULAR HEMOGLOBIN 28.6 pg (27.0-33.4); MEAN CORPUSCULAR HGB CONC 34.2 g/dL (32.0-36.0); MEAN CORPUSCULAR VOLUME 84 fl (80-97); MONOCYTES % (AUTO) 9.9 % (3-13); PLATELET COUNT 374 10^3/uL (150-450); RED BLOOD COUNT 4.73 10^6/uL (4.35-5.55); RED CELL DISTRIBUTION WIDTH 15.7 % (11.5-14.0); SEGMENTED NEUTROPHILS % (AUTO) 62.7 % (42-78); TOTAL CELLS COUNTED % (AUTO) 100 %; WHITE BLOOD COUNT 9.1 10^3/uL (4.0-10.5)
--- NOTE | 2020-07-24 11:36 | RADIOLOGY REPORT (SQ) ---
EXAM DESCRIPTION: CHEST PA/LATERAL IMAGES COMPLETED DATE/TIME: 07/24/2020 11:07 am REASON FOR STUDY: PNEUMOTHORAX, UNSPECIFIED COMPARISON: AP view of the chest from 07/04/2020. EXAM PARAMETERS: NUMBER OF VIEWS: Two views. TECHNIQUE: PA and lateral views of the chest were obtained. RADIATION DOSE: NA. LIMITATIONS: None. FINDINGS: LUNGS AND PLEURA: No consolidation, pleural effusion or pneumothorax. MEDIASTINUM AND HILAR STRUCTURES: No mediastinal or hilar contour abnormality. HEART AND VASCULAR STRUCTURES: The cardiac silhouette and pulmonary vasculature are within normal gar[place] its. BONES: No acute findings. HARDWARE: None in the chest. OTHER: No other finding. IMPRESSION: No acute cardiopulmonary process. TECHNICAL DOCUMENTATION: JOB ID: [id number] 2010 [employer]- All Rights Reserved Reading location - IP/workstation name: [email or web address]
[2020-07-24 11:56] LABS: ALBUMIN 3.8 g/dL (3.5-5.0); ALKALINE PHOSPHATASE 164 U/L (38-126); ANION GAP 12 (5-19); ASPARTATE AMINO TRANSFERASE 23 U/L (17-59); BILIRUBIN,DIRECT 0.3 mg/dL (0.0-0.4); BILIRUBIN,TOTAL 0.5 mg/dL (0.2-1.3); BLOOD UREA NITROGEN 11 mg/dL (7-20); CALCIUM 9.6 mg/dL (8.4-10.2); CARBON DIOXIDE 21 mmol/L (22-30); CHLORIDE 103 mmol/L (98-107); GLUCOSE 347 mg/dL (75-110); POTASSIUM 4.4 mmol/L (3.6-5.0); TOTAL PROTEIN 7.8 g/dL (6.3-8.2)
[2020-07-24 12:05] LABS: C-REACTIVE PROTEIN 31.2 mg/L (<10.0); ERYTHROCYTE SEDIMENTATION RATE 91 mm/hr (0-20)
--- NOTE | 2020-07-24 12:23 | RADIOLOGY REPORT (SQ) ---
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 NUMBER OF VIEWS: Three views. TECHNIQUE: AP, lateral and oblique radiographic images acquired of the right foot. LIMITATIONS: None. FINDINGS: MINERALIZATION: Normal. BONES: Prior resection of the entire 5th ray including the metatarsal. No acute fracture or dislocat ion. No evidence of acute osteomyelitis. JOINTS: No effusions. SOFT TISSUES: No soft tissue swelling. No foreign body. OTHER: No other significant finding. IMPRESSION: No evidence of osteomyelitis. Surgical changes. TECHNICAL DOCUMENTATION: JOB ID: [id number] 2010 [employer]- All Rights Reserved Reading location - IP/workstation name: [email or web address]
== END ==
LOC: WC 10:14
PROVIDERS: ATTEND Preventive Medicine Undersea and Hyperbaric Medicine
DX: E11.621 Type 2 diabetes mellitus with foot ulcer (principal); J93.9 Pneumothorax, unspecified; L97.512 Non-pressure chronic ulcer of other part of right foot with fat layer exposed
CPT/HCPCS: 36415; 71046; 80053; 83036; 85025; 85652; 86140

== ENCOUNTER 2020-08-12 17:26 | Emergency (ER) | payer MEDICARE, MEDICAID ==
--- NOTE | 2020-08-12 18:00 | ER Document Report ---
ED Medical Screen (RME) - General Stated Complaint: RIGHT FOOT PAIN Time Seen by Provider: 08/12/20 17:51 Primary Care Provider: ANNA KIM DPM [Primary Care Provider] - Follow up as needed Notes: Patient is a 50-year-old diabetic who presents the emergency department with a chief complaint of right foot pain. Patient has a diabetic foot ulcer. He also has a wound VAC to the area. Patient also has history of osteomyelitis. Patient states that whenever he walks on the foot, he gets excruciating pain. Denies any fever, body aches, or chills. He states that he does get nauseous when he steps on his foot. Exam: Wound VAC noted to right foot. Erythema noted to the medial aspect of right foot. I have greeted and performed a rapid initial assessment of this patient. A comprehensive ED assessment and evaluation of the patient, analysis of test results and completion of medical decision making process will be conducted by an additional ED providers. TRAVEL OUTSIDE OF THE [place] IN LAST 30 DAYS: No - Related Data Allergies/Adverse Reactions: atenolol Adverse Reaction (Verified 06/07/20 15:57) LOWER B/P egg Adverse Reaction (Verified 07/04/20 09:41) Diarrhea Past Medical History - Past Medical History Cardiac Medical History: Reports: Hx Coronary Artery Disease, Hx Hypercholesterolemia, Hx Hypertension Denies: Hx Atrial Fibrillation, Hx Congestive Heart Failure, Hx DVT, Hx Heart Attack, Hx Pulmonary Embolism Pulmonary Medical History: Reports: Hx Asthma, Hx Bronchitis, Hx COPD Denies: Hx Pneumonia Neurological Medical History: Denies: Hx Cerebrovascular Accident, Hx Seizures Endocrine Medical History: Reports: Hx Diabetes Mellitus Type 2. Denies: Hx Diabetes Mellitus Type 1, Hx Hyperthyroidism, Hx Hypothyroidism Renal/ Medical History: Denies: Hx Peritoneal Dialysis GI Medical History: Reports: Hx Gastroesophageal Reflux Disease. Denies: Hx Cirrhosis, Hx Crohn's Disease, Hx Hepatitis, Hx Ulcerative Colitis Musculoskeltal Medical History: Denies Hx Arthritis, Denies Hx Fibromyalgia Skin Medical History: Denies Hx Eczema, Denies Hx Psoriasis Psychiatric Medical History: Reports: Hx Depression Infectious Medical History: Denies: Hx Hepatitis Past Surgical History: Reports: Hx Abdominal Surgery - hernia, Hx Appendectomy, Hx Cholecystectomy, Hx Oral Surgery - R Knee 1992, Hx Tonsillectomy, Other - Knee surgery. Liver and lung biopsies for sarcoidosis. - Immunizations Hx Diphtheria, Pertussis, Tetanus Vaccination: Yes Physical Exam - Vital signs Vitals: Temp Pulse Resp BP Pulse Ox 98.7 F 90 18 131/76 H 100 08/12/20 17:30 08/12/20 17:30 08/12/20 17:30 08/12/20 17:30 08/12/20 17:30 Course - Vital Signs Vital signs: Temp Pulse Resp BP Pulse Ox 98.7 F 90 18 131/76 H 100 08/12/20 17:30 08/12/20 17:30 08/12/20 17:30 08/12/20 17:30 08/12/20 17:30 Doctor's Discharge - Discharge Referrals: ANNA KIM DPM [Primary Care Provider] - Follow up as needed
[2020-08-12 18:39] LABS: ABSOLUTE BASOPHILS # (AUTO) 0.1 10^3/uL (0.0-0.2); ABSOLUTE EOSINOPHILS # (AUTO) 0.4 10^3/uL (0.0-0.6); ABSOLUTE LYMPHOCYTES (AUTO) 1.7 10^3/uL (0.5-4.7); ABSOLUTE NEUT (AUTO) 6.6 10^3/uL (1.7-8.2); BASOPHILS % (AUTO) 0.8 % (0-2); EOSINOPHILS % (AUTO) 3.7 % (0-6); HEMATOCRIT 35.9 % (37.9-51.0); HEMOGLOBIN 12.8 g/dL (13.5-17.0); LYMPHOCYTES % (AUTO) 17.2 % (13-45); MEAN CORPUSCULAR HEMOGLOBIN 28.9 pg (27.0-33.4); MEAN CORPUSCULAR HGB CONC 35.6 g/dL (32.0-36.0); MEAN CORPUSCULAR VOLUME 81 fl (80-97); MONOCYTES % (AUTO) 10.4 % (3-13); PLATELET COUNT 327 10^3/uL (150-450); RED BLOOD COUNT 4.44 10^6/uL (4.35-5.55); RED CELL DISTRIBUTION WIDTH 15.9 % (11.5-14.0); SEGMENTED NEUTROPHILS % (AUTO) 67.9 % (42-78); TOTAL CELLS COUNTED % (AUTO) 100 %; WHITE BLOOD COUNT 9.7 10^3/uL (4.0-10.5)
[2020-08-12 18:54] LABS: INTERNATIONAL RATION (INR) 1.09; PROTHROMBIN TIME 14.3 SEC (11.4-15.4)
[2020-08-12 18:57] LABS: ALBUMIN 3.6 g/dL (3.5-5.0); ALKALINE PHOSPHATASE 133 U/L (38-126); ANION GAP 13 (5-19); ASPARTATE AMINO TRANSFERASE 28 U/L (17-59); BILIRUBIN,DIRECT 0.4 mg/dL (0.0-0.4); BILIRUBIN,TOTAL 0.5 mg/dL (0.2-1.3); BLOOD UREA NITROGEN 13 mg/dL (7-20); CALCIUM 9.3 mg/dL (8.4-10.2); CARBON DIOXIDE 21 mmol/L (22-30); CHLORIDE 105 mmol/L (98-107); GLUCOSE 289 mg/dL (75-110); POTASSIUM 3.8 mmol/L (3.6-5.0); TOTAL PROTEIN 7.5 g/dL (6.3-8.2)
--- NOTE | 2020-08-12 19:08 | RADIOLOGY REPORT (SQ) ---
EXAM DESCRIPTION: ANKLE RIGHT COMPLETE; FOOT RIGHT COMPLETE IMAGES COMPLETED DATE/TIME: 08/12/2020 6:43 pm REASON FOR STUDY: pain; eval osteomyelitis COMPARISON: None. NUMBER OF VIEWS: Six views. TECHNIQUE: AP, lateral, and oblique without weight bearing radiographic images acquired of the right foot and ankle. LIMITATIONS: None. FINDINGS: MINERALIZATION: Focal osteopenia of the midfoot. BONES: Status post amputation of the right ray with periosteal reactions seen along the lateral aspec t of the 4th metatarsal with few dystrophic calcifications seen adjacent to this finding. Midfoot deg enerative changes. JOINTS: No effusions. SOFT TISSUES: Circumferential soft tissue swelling without subcutaneous gas demonstrated. OTHER: No other significant finding. IMPRESSION: Status post amputation of the right ray with maturing periosteal reaction along the 4th metatarsal and few dystrophic calcifications which likewise appear matured in the study interval. Fo alberto osteopenia seen of the midfoot may be related to disuse; complex regional pain syndrome or osteom yelitis may have a similar appearance. Circumferential soft tissue edema without subcutaneous gas. TECHNICAL DOCUMENTATION: JOB ID: [id number] 2010 [employer]- All Rights Reserved Reading location - IP/workstation name: [email or web address]
--- NOTE | 2020-08-12 19:08 | RADIOLOGY REPORT (SQ) ---
EXAM DESCRIPTION: ANKLE RIGHT COMPLETE; FOOT RIGHT COMPLETE IMAGES COMPLETED DATE/TIME: 08/12/2020 6:43 pm REASON FOR STUDY: pain; eval osteomyelitis COMPARISON: None. NUMBER OF VIEWS: Six views. TECHNIQUE: AP, lateral, and oblique without weight bearing radiographic images acquired of the right foot and ankle. LIMITATIONS: None. FINDINGS: MINERALIZATION: Focal osteopenia of the midfoot. BONES: Status post amputation of the right ray with periosteal reactions seen along the lateral aspec t of the 4th metatarsal with few dystrophic calcifications seen adjacent to this finding. Midfoot deg enerative changes. JOINTS: No effusions. SOFT TISSUES: Circumferential soft tissue swelling without subcutaneous gas demonstrated. OTHER: No other significant finding. IMPRESSION: Status post amputation of the right ray with maturing periosteal reaction along the 4th metatarsal and few dystrophic calcifications which likewise appear matured in the study interval. Fo alberto osteopenia seen of the midfoot may be related to disuse; complex regional pain syndrome or osteom yelitis may have a similar appearance. Circumferential soft tissue edema without subcutaneous gas. TECHNICAL DOCUMENTATION: JOB ID: [id number] 2010 [employer]- All Rights Reserved Reading location - IP/workstation name: [email or web address]
[2020-08-12] MEDS ORDERED: OXYCODONE HCL IR 5 MG TABLET PO ONE (20:52)
[2020-08-12] MEDS ORDERED: ONDANSETRON 4 MG TAB.RAPDIS PO ONE (20:52)
--- NOTE | 2020-08-12 20:57 | ER Document Report ---
ED Extremity Problem, Lower - General Chief Complaint: Foot Pain Stated Complaint: RIGHT FOOT PAIN Time Seen by Provider: 08/12/20 17:51 Notes: Patient is a 50-year-old insulin-dependent type 2 diabetic that comes emergency department for chief complaint of right foot pain. Patient states that normally he can walk on this foot with some discomfort but starting yesterday he has had significantly worsened pain radiating from the base of the great toe down along the medial side of the foot towards the ankle. He states that the pain was so s harp with walking on her earlier that he felt somewhat nauseated. He denies vomiting. He denies fever/chills. He denies developing redness over the area. Patient states that patient is postoperative initially in May [address] Bay where the fifth toe and part of the fifth metatarsal were removed, patient was admitted again on 07/04/[address] Gayle, he had additional surgery where there is remaining metatarsal was removed and patient has been at home with a wound VAC over the area. He states he is following with wound care and is doing hyperbaric treatments. He also states that he sees Dr. Galaviz, podiatry, and he is currently on doxycycline with this. TRAVEL OUTSIDE OF THE [place] IN LAST 30 DAYS: No - Related Data Allergies/Adverse Reactions: atenolol Adverse Reaction (Verified 06/07/20 15:57) LOWER B/P egg Adverse Reaction (Verified 07/04/20 09:41) Diarrhea Past Medical History - General Information source: Patient - Social History Smoking Status: Current Every Day Smoker Chew tobacco use (# tins/day): No Frequency of alcohol use: None Drug Abuse: None Lives with: Family Family History: CAD, DM, Hypertension, Malignancy - Past Medical History Cardiac Medical History: Reports: Hx Coronary Artery Disease, Hx Hyperch olesterolemia, Hx Hypertension Denies: Hx Atrial Fibrillation, Hx Congestive Heart Failure, Hx DVT, Hx Heart Attack, Hx Pulmonary Embolism Pulmonary Medical History: Reports: Hx Asthma, Hx Bronchitis, Hx COPD Denies: Hx Pneumonia Neurological Medical History: Denies: Hx Cerebrovascular Accident, Hx Seizures Endocrine Medical History: Reports: Hx Diabetes Mellitus Type 2. Denies: Hx Diabetes Mellitus Type 1, Hx Hyperthyroidism, Hx Hypothyroidism Renal/ Medical History: Denies: Hx Peritoneal Dialysis GI Medical History: Reports: Hx Gastroesophageal Reflux Disease. Denies: Hx Cirrhosis, Hx Crohn's Disease, Hx Hepatitis, Hx Ulcerative Colitis Musculoskeletal Medical History: Denies Hx Arthritis, Denies Hx Fibromyalgia Skin Medical History: Denies Hx Eczema, Denies Hx Psoriasis Psychiatric Medical History: Reports: Hx Depression Infectious Medical History: Denies: Hx Hepatitis Past Surgical History: Reports: Hx Abdominal Surgery - hernia, Hx Appendectomy, Hx Cholecystectomy, Hx Oral Surgery - R Knee 1992, Hx Tonsillectomy, Other - Kn ee surgery. Liver and lung biopsies for sarcoidosis. - Immunizations Hx Diphtheria, Pertussis, Tetanus Vaccination: Yes Review of Systems - Review of Systems Constitutional: No symptoms reported EENT: No symptoms reported Cardiovascular: No symptoms reported Respiratory: No symptoms reported Gastrointestinal: No symptoms reported Genitourinary: No symptoms reported Male Genitourinary: No symptoms reported Musculoskeletal: See HPI Skin: No symptoms reported Hematologic/Lymphatic: No symptoms reported Neurological/Psychological: No symptoms reported Physical Exam - Vital signs Vitals: Temp Pulse Resp BP Pulse Ox 98.7 F 90 18 131/76 H 100 08/12/20 17:30 08/12/20 17:30 08/12/20 17:30 08/12/20 17:30 08/12/20 17:30 - Notes Notes: GENERAL: Alert, interacts well. No acute distress. HEAD: Normocephalic, atraumatic. EYES: Pupils equal, round, and reactive to light. Extraocular movements intact. ENT: Oral mucosa moist, tongue midline. Oropharynx unremarkable. Airway patent. NECK: Full range of motion. Supple. Trachea midline. No lymphadenopathy. LUNGS: Clear to auscultation bilaterally, no wheezes, rales, or rhonchi. No respiratory distress. Non-tender chest wall. HEART: Regular rate and rhythm. No murmur ABDOMEN: Soft, non-tender. Non-distended. EXTREMITIES: Upper extremities unremarkable, left leg unremarkable. Right leg with amputated fifth toe, wound VAC in the place of the fifthMTP area, there is mild soft tissue swelling of the foot but there is no overt erythema, no noted tenderness. Patient complains of pain indicated with very mild tenderness palpation along the medial aspect of the foot and underneath the great toe. Cap refill and sensation are intact. Ankle and leg exam unremarkable. Unremarkable otherwise. BACK: no cervical, thoracic, lumbar midline tenderness. No saddle anesthesia, normal distal neurovascular exam. Moves all extremities in full range of motion. NEUROLOGICAL: Alert and oriented x3. Normal speech. Cranial nerves II through XII grossly intact. Strength 5/5 in all extremities. PSYCH: Normal affect, normal mood. SKIN: Warm, dry, normal turgor. No rashes or lesions noted. Course - Re-evaluation Re-evalutation: Patient examination is actually reassuring. He has a wound VAC in place without surrounding cellulitis or concern pain, he has no streaking away from the area, he has no fever, no leukocytosis. However CRP and ESR were added and are slightly elevated, x-ray is also nonspecific with large range of possibilities including unfortunately osteomyelitis. However patient's pain is mainly over the great toe and along the medial aspect of the foot which is significantly away from the surgical site. I called and spoke with Dr. Peralta, general surgery on-call from the group that has been following with the patient, he states he will evaluate the patient. Dr. Peralta evaluated the patient, based on his location of pain and work-up he recommends patient remain on doxycycline and be seen in close follow-up on Friday for additional evaluation at the wound clinic with return precautions. I reevaluated patient, patient is very satisfied with this, he states understandin g and agreement with plan. - Vital Signs Vital signs: Temp Pulse Resp BP Pulse Ox 98.2 F 74 14 120/89 H 100 08/12/20 23:33 08/12/20 23:33 08/12/20 23:33 08/12/20 23:33 08/12/20 23:33 - Laboratory Result Diagrams: 08/12/20 18:15 08/12/20 18:15 Laboratory results interpreted by me: 08/12/20 08/12/20 08/12/20 18:15 18:15 18:15 Hgb 12.8 L Hct 35.9 L RDW 15.9 H ESR 85 H Carbon Dioxide 21 L Glucose 289 H Alkaline Phosphatase 133 H C-Reactive Protein 08/12/20 18:15 Hgb Hct RDW ESR Carbon Dioxide Glucose Alkaline Phosphatase C-Reactive Protein 61.5 H Discharge - Discharge Clinical Impression: Right foot pain, Post-op pain Condition: Stable Disposition: HOME, SELF-CARE Additional Instructions: You were evaluated tonight by Dr. Peralta, general surgery. Recommendation is to avoid weightbearing, use your walker, and follow-up with [facility] wound care clinic on Friday. Continue your doxycycline. Return if you worsen including developing or spreading redness, severe worsening swelling or pain, developing fever, or any other concerning or worsening symptoms.
[2020-08-12 23:34] VITALS: BP 120/89
--- NOTE | 2020-08-12 23:43 | PDOC CONSULTATION ---
Consultation Consult Date: 08/12/20 Provider Consulted: LORAINE CONTRERAS Consult reason:: Pains right foot History of Present Illness Admission Date/PCP: LEOPOLDO RODRIGUEZ DO History of Present Illness: ED PEDRAZA is a 50 year old male diabetic had amputation of the right fifth toe in May and subsequent further amputation of the fifth metatarsal bone in June by Dr. Gayle. Patient is being followed wound care center and by his pick up who has kept him on doxycycline. Yesterday started complaining of pains along the right foot primarily on the medial side were he could barely ambulate. His white count is normal and the x-ray showed no definite evidence of osteomyelitis. Denies any fever. He he has an appointment with the wound care center 08/14/2020. He feels that the pain appears to be subsiding when I saw him in the ED. Past Medical History Cardiac Medical History: Reports: Coronary Artery Disease, Hyperlipidema, Hypertension Denies: Atrial Fibrillation, Congestive Heart Failure, DVT, Myocardial Infarction, Pulmonary Embolism Pulmonary Medical History: Reports: Asthma, Bronchitis, Chronic Obstructive Pulmonary Disease (COPD) Denies: Pneumonia Neurological Medical History: Denies: Seizures Endocrine Medical History: Reports: Diabetes Mellitus Type 2 Denies: Diabetes Mellitus Type 1, Hyperthyroidism, Hypothyroidism GI Medical History: Reports: Gastroesophageal Reflux Disease Denies: Cirrhosis, Crohn's Disease, Hepatitis, Ulcerative Colitis Musculoskeltal Medical History: Denies: Arthritis, Fibromyalgia Skin Medical History: Denies: Eczema, Psoriasis Psychiatric Medical History: Reports: Depression Hematology: Denies: Anemia, Bleeding Tendencies Past Surgical History Past Surgical History: Reports: Appendectomy, Cholecystectomy, Tonsillectomy, Other - Knee surgery. Liver and lung biopsies for sarcoidosis. Social History Smoking Status: Current Every Day Smoker Electronic Cigarette use?: No Frequency of Alcohol Use: Occasional Hx Recreational Drug Use: No Drugs: None, Other Hx Prescription Drug Abuse: No Family History Family History: CAD, DM, Hypertension, Malignancy Parental Family History Reviewed: Yes Children Family History Reviewed: No Sibling(s) Family History Reviewed.: No Medication/Allergy Home Medications: Atorvastatin Calcium [Lipitor 20 mg Tablet] 20 mg PO QHS 07/19/18 Fluoxetine HCl [Prozac] 80 mg PO QAM 07/19/18 Gabapentin [Neurontin] 600 mg PO Q6 07/19/18 Losartan Potassium [Cozaar 50 mg Tablet] 50 mg PO DAILY 07/19/18 Aspirin [Ecotrin 81 mg EC Tablet] 81 mg PO DAILY 02/24/20 Levalbuterol Tartrate [Levalbuterol Tartrate Hfa] 1 puff IH Q4HP PRN 06/07/20 Insulin Glargine,Hum.rec.anlog [Sean Granadosostar] 24 units SQ Q12 #0 06/14/20 Metformin HCl [Metformin HCl ER] 500 mg PO DAILY #30 tab.er.24h 06/19/20 Cephalexin Monohydrate [Keflex 500 mg Capsule] 500 mg PO QID 10 Days #40 capsule 07/09/20 Docusate Sodium 100 mg PO DAILY #30 tablet 07/09/20 Oxycodone HCl/Acetaminophen [Percocet 5-325 mg Tablet] 1 tab PO Q6HP PRN #15 tablet 07/09/20 Allergies/Adverse Reactions: atenolol Adverse Reaction (Verified 06/07/20 15:57) LOWER B/P egg Adverse Reaction (Verified 07/04/20 09:41) Diarrhea Review of Systems Constitutional: PRESENT: as per HPI Musculoskeletal: PRESENT: other - Wound VAC in place without any pains. More pains on the medial side of the foot. Physical Exam Vital Signs: Temp Pulse Resp BP Pulse Ox 98.7 F 90 18 131/76 H 100 08/12/20 17:30 08/12/20 17:30 08/12/20 17:30 08/12/20 17:30 08/12/20 17:30 Intake & Output 08/11/20 08/12/20 08/13/20 06:59 06:59 06:59 Weight 95.254 kg General appearance: PRESENT: no acute distress Head exam: PRESENT: atraumatic Eye exam: PRESENT: conjunctiva pink Mouth exam: PRESENT: moist Neck exam: PRESENT: full ROM Respiratory exam: PRESENT: clear to auscultation vern Cardiovascular exam: PRESENT: RRR Pulses: PRESENT: normal dorsalis pedis pul Vascular exam: PRESENT: normal capillary refill Rectal exam: PRESENT: deferred Extremities exam: PRESENT: other - Wound VAC to the lateral part of the foot where the amputation was is intact. There is no erythema and no tenderness. On the medial side of the foot there is some mild erythema and tenderness. Neurological exam: PRESENT: alert, oriented to person, oriented to place, oriented to time, oriented to situation Psychiatric exam: PRESENT: appropriate affect Skin exam: PRESENT: normal color, warm Results Laboratory Results: 08/12/20 18:15 08/12/20 18:15 08/12/20 08/12/20 08/12/20 18:15 18:15 18:15 WBC 9.7 RBC 4.44 Hgb 12.8 L Hct 35.9 L MCV 81 MCH 28.9 MCHC 35.6 RDW 15.9 H Plt Count 327 Seg Neutrophils % 67.9 Sodium 138.7 Potassium 3.8 Chloride 105 Carbon Dioxide 21 L Anion Gap 13 BUN 13 Creatinine 0.53 Est GFR ( Amer) > 60 Glucose 289 H Calcium 9.3 Total Bilirubin 0.5 AST 28 Alkaline Phosphatase 133 H C-Reactive Protein 61.5 H Total Protein 7.5 Albumin 3.6 Impressions: Ankle X-Ray 08/12/20 17:54 IMPRESSION: Status post amputation of the right ray with maturing periosteal reaction along the 4th metatarsal and few dystrophic calcifications which likewise appear matured in the study interval. Focal osteopenia seen of the midfoot may be related to disuse; complex regional pain syndrome or osteomyelitis may have a similar appearance. Circumferential soft tissue edema without subcutaneous gas. Foot X-Ray 08/12/20 17:54 IMPRESSION: Status post amputation of the right ray with maturing periosteal reaction along the 4th metatarsal and few dystrophic calcifications which likewise appear matured in the study interval. Focal osteopenia seen of the midfoot may be related to disuse; complex regional pain syndrome or osteomyelitis may have a similar appearance. Circumferential soft tissue edema without subcutaneous gas. Assessment & Plan - Diagnosis (1) Right foot pain Is this a current diagnosis for this admission?: Yes (2) Cellulitis Qualifiers: Site of cellulitis: extremity Site of cellulitis of extremity: lower extremity Laterality: right Qualified Code(s): L03.115 - Cellulitis of right lower limb Is this a current diagnosis for this admission?: Yes (3) Type 2 diabetes mellitus Is this a current diagnosis for this admission?: Yes - Time Time Spent: 30 to 50 Minutes - Plan Summary Plan Summary: 51-year-old male diabetic had amputation of the right fifth toe in May and subsequent amputation of the right fifth metatarsal bone in June by Dr. Gayle. He has a wound VAC on the amputation site and being followed at the wound care center as well as by his pick up does place him on doxycycline. Started complaining of pains along the right foot especially on ambulation which started yesterday. In the ED an x-ray of the right foot was done which showed no definite evidence of osteomyelitis. His white count is normal and no fever. His pains appears to be improving when I saw him in the ED. He is amenable to use his walker at home to avoid weightbearing on the right foot. He is supposed to be followed up at the wound care center Friday. He is tender on the medial aspect of the right foot with mild erythema. The pain starts from the right big toe with worn-out toenail. There is no evidence of drainage or swelling or tenderness on the right big toe. Patient may be developing a cellulitis of the right foot. He was advised to continue taking the doxycycline and to avoid weightbearing on the right foot until he is seen in the wound care center Friday. Pictures of the foot were taken so the wound care center can compare it when seen Friday.
== END 2020-08-12 23:34 | disposition home or self-care (01) ==
LOC: ER 17:26
DX: G89.18 Other acute postprocedural pain (principal); M79.671 Pain in right foot; F17.200 Nicotine dependence, unspecified, uncomplicated; E11.9 Type 2 diabetes mellitus without complications; I25.10 Atherosclerotic heart disease of native coronary artery without angina pectoris; E78.00 Pure hypercholesterolemia, unspecified; I10 Essential (primary) hypertension; Z79.4 Long term (current) use of insulin; Z89.421 Acquired absence of other right toe(s)
CPT/HCPCS: 99284; 36415; 85025; 85652; 85610; 86140; 80053; 73610; 73630; A9270 ×2; S0119

== ENCOUNTER → 2020-08-17 | Outpatient (CLI) | payer MEDICARE ==
--- NOTE | 2020-08-18 17:50 | RADIOLOGY REPORT (SQ) ---
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 CONTRAST TYPE AND DOSE: 20 mL Prohance. RENAL FUNCTION: Not indicated. ACR Type II contrast agent associated with few, if any, unconfounded cases of NSF LIMITATIONS: None. FINDINGS: BONE MARROW: Prior amputation of the 5th ray. There is now cortical disruption and altera tion of cortex in the seconds, 3rd and 4th proximal metatarsals well as the navicula, cuneiforms, and distal cuboid. SOFT TISSUES: Generalized soft tissue swelling in the foot. There is no focal fluid collection. OTHER: No other significant finding. IMPRESSION: Osteomyelitis of the proximal seconds, 3rd, 4th metatarsals as well as the cuneiforms, n avicular and distal cuboid. Prior amputation of the 5th ray. No abscess. TECHNICAL DOCUMENTATION: JOB ID: [id number] 2010 [employer]- All Rights Reserved Reading location - IP/workstation name: [email or web address]
== END ==
LOC: RAD 12:46
PROVIDERS: ATTEND Preventive Medicine Undersea and Hyperbaric Medicine
DX: L97.514 Non-pressure chronic ulcer of other part of right foot with necrosis of bone (principal); M14.671 Charcot's joint, right ankle and foot; M86.8X7 Other osteomyelitis, ankle and foot
CPT/HCPCS: 73720; A9576

== ENCOUNTER 2020-08-19 10:33 | Inpatient (IN) | payer MEDICARE ==
--- NOTE | 2020-08-19 10:58 | ER Document Report ---
ED Medical Screen (RME) - General Chief Complaint: Foot Pain Stated Complaint: FOOT PAIN Time Seen by Provider: 08/19/20 10:48 Primary Care Provider: LEOPOLDO RODRIGUEZ DO [Primary Care Provider] - Follow up as needed Mode of Arrival: Wheelchair Information source: Patient Notes: Patient presents complaining of increased right foot pain since the past 3 days. Patient states he is unable to bear weight to the right foot today. Patient reports having an MRI 2 days ago. Patient states he has been going Friday through Friday to the wound clinic for hyperbaric treatment. Patient states he did get a prescription for an antibiotic but did not pick it up yesterday. I have greeted and performed a rapid initial assessment of this patient. A comprehensive ED assessment and evaluation of the patient, analysis of test results and completion of the medical decision making process will be conducted by additional ED providers. TRAVEL OUTSIDE OF THE [place] IN LAST 30 DAYS: No - Related Data Allergies/Adverse Reactions: atenolol Adverse Reaction (Verified 06/07/20 15:57) LOWER B/P egg Adverse Reaction (Verified 07/04/20 09:41) Diarrhea Past Medical History - Past Medical History Cardiac Medical History: Reports: Hx Coronary Artery Disease, Hx Hypercholesterolemia, Hx Hypertension Denies: Hx Atrial Fibrillation, Hx Congestive Heart Failure, Hx DVT, Hx Heart Attack, Hx Pulmonary Embolism Pulmonary Medical History: Reports: Hx Asthma, Hx Bronchitis, Hx COPD Denies: Hx Pneumonia Neurological Medical History: Denies: Hx Cerebrovascular Accident, Hx Seizures Endocrine Medical History: Reports: Hx Diabetes Mellitus Type 2. Denies: Hx Diabetes Mellitus Type 1, Hx Hyperthyroidism, Hx Hypothyroidism Renal/ Medical History: Denies: Hx Peritoneal Dialysis GI Medical History: Reports: Hx Gastroesophageal Reflux Disease. Denies: Hx Cirrhosis, Hx Crohn's Disease, Hx Hepatitis, Hx Ulcerative Colitis Musculoskeltal Medical History: Denies Hx Arthritis, Denies Hx Fibromyalgia Skin Medical History: Denies Hx Eczema, Denies Hx Psoriasis Psychiatric Medical History: Reports: Hx Depression Infectious Medical History: Denies: Hx Hepatitis Past Surgical History: Reports: Hx Abdominal Surgery - hernia, Hx Appendectomy, Hx Cholecystectomy, Hx Oral Surgery - R Knee 1992, Hx Tonsillectomy, Other - Knee surgery. Liver and lung biopsies for sarcoidosis. - Immunizations Hx Diphtheria, Pertussis, Tetanus Vaccination: Yes Physical Exam - Vital signs Vitals: Temp Pulse Resp BP Pulse Ox 98.2 F 92 16 124/74 98 08/19/20 10:42 08/19/20 10:42 08/19/20 10:42 08/19/20 10:42 08/19/20 10:42 - General General appearance: Alert Notes: Right foot tenderness, right ankle tenderness, bulky dressing in place over wound. Course - Vital Signs Vital signs: Temp Pulse Resp BP Pulse Ox 98.2 F 92 16 124/74 98 08/19/20 10:42 08/19/20 10:42 08/19/20 10:42 08/19/20 10:42 08/19/20 10:42 Doctor's Discharge - Discharge Referrals: LEOPOLDO RODRIGUEZ DO [Primary Care Provider] - Follow up as needed
[2020-08-19 11:25] LABS: ABSOLUTE BASOPHILS # (AUTO) 0.1 10^3/uL (0.0-0.2); ABSOLUTE EOSINOPHILS # (AUTO) 0.3 10^3/uL (0.0-0.6); ABSOLUTE LYMPHOCYTES (AUTO) 1.5 10^3/uL (0.5-4.7); ABSOLUTE MONOCYTES (AUTO) 1.4 10^3/uL (0.1-1.4); ABSOLUTE NEUT (AUTO) 7.7 10^3/uL (1.7-8.2); BASOPHILS % (AUTO) 0.5 % (0-2); EOSINOPHILS % (AUTO) 2.6 % (0-6); HEMATOCRIT 39.9 % (37.9-51.0); HEMOGLOBIN 13.5 g/dL (13.5-17.0); LYMPHOCYTES % (AUTO) 13.8 % (13-45); MEAN CORPUSCULAR HEMOGLOBIN 27.4 pg (27.0-33.4); MEAN CORPUSCULAR HGB CONC 33.9 g/dL (32.0-36.0); MEAN CORPUSCULAR VOLUME 81 fl (80-97); MONOCYTES % (AUTO) 12.7 % (3-13); PLATELET COUNT 445 10^3/uL (150-450); RED BLOOD COUNT 4.93 10^6/uL (4.35-5.55); SEGMENTED NEUTROPHILS % (AUTO) 70.4 % (42-78); TOTAL CELLS COUNTED % (AUTO) 100 %; WHITE BLOOD COUNT 10.9 10^3/uL (4.0-10.5)
[2020-08-19 11:48] LABS: ALBUMIN 3.9 g/dL (3.5-5.0); ALKALINE PHOSPHATASE 166 U/L (38-126); ANION GAP 13 (5-19); ASPARTATE AMINO TRANSFERASE 22 U/L (17-59); BILIRUBIN,DIRECT 0.5 mg/dL (0.0-0.4); BILIRUBIN,TOTAL 0.9 mg/dL (0.2-1.3); BLOOD UREA NITROGEN 9 mg/dL (7-20); CALCIUM 9.8 mg/dL (8.4-10.2); CARBON DIOXIDE 24 mmol/L (22-30); CHLORIDE 100 mmol/L (98-107); GLUCOSE 258 mg/dL (75-110); POTASSIUM 3.5 mmol/L (3.6-5.0); TOTAL PROTEIN 8.2 g/dL (6.3-8.2)
--- NOTE | 2020-08-19 11:49 | RADIOLOGY REPORT (SQ) ---
EXAM DESCRIPTION: FOOT RIGHT COMPLETE IMAGES COMPLETED DATE/TIME: 08/19/2020 11:38 am REASON FOR STUDY: r foot pain, diabetic wound COMPARISON: 08/12/2020 NUMBER OF VIEWS: Three views. TECHNIQUE: AP, lateral and oblique radiographic images acquired of the right foot. LIMITATIONS: None. FINDINGS: MINERALIZATION: Normal. BONES: Based on MRI of the previous day, there is osteomyelitis of the seconds 3rd and 4th proximal m etatarsals as well is the entire forefoot including cuneiforms, cuboid, navicula. 5th ray amputation . JOINTS: No effusions. SOFT TISSUES: No soft tissue swelling. No foreign body. OTHER: No other significant finding. IMPRESSION: No acute fracture. Osteomyelitis of the proximal seconds 3rd and 4th metatarsals as well is the cuboid, cuneiforms, ana cular. This based on MRI previous day. TECHNICAL DOCUMENTATION: JOB ID: [id number] 2010 [employer]- All Rights Reserved Reading location - IP/workstation name: [email or web address]
[2020-08-19] MEDS ORDERED: CEFEPIME 1 GM/D5W RTU 1 GM/50 ML RTUPB IV ONE (12:24)
[2020-08-19] MEDS ORDERED: LINEZOLID 600 MG/300 ML RTUPB IV ONE (12:25)
--- NOTE | 2020-08-19 12:28 | ER Document Report ---
ED General - General Chief Complaint: Wound Infection Stated Complaint: FOOT PAIN Time Seen by Provider: 08/19/20 10:48 Primary Care Provider: LEOPOLDO RODRIGUEZ DO [Primary Care Provider] - Follow up as needed Mode of Arrival: Wheelchair TRAVEL OUTSIDE OF THE [place] IN LAST 30 DAYS: No - HPI Notes: Patient is a 50-year-old male, diabetic, with known recent osteomyelitis status post amputation of the fifth metatarsal and toe on the right foot, who presents to the emergency department for evaluation of increased pain and redness. He has been seeing Dr. Galaviz for wound care. He has an open wound, had wound VAC on yesterday. There was an issue with it, so he removed it. He is had wet-to-dry dressings on since then. He has had increased pain over the last 3 days. He had an antibiotic called in by Dr. Galaviz, but he admits he did not fill it. He had an MRI performed on , for which he does not know the results. No fevers or chills. He states his blood sugars have been "normal" for him. He puts his pain at a 4 out of 10. Describes it as a throbbing. He has significant difficulty bearing weight. Otherwise he has been taking his me dications as prescribed. - Related Data Allergies/Adverse Reactions: atenolol Adverse Reaction (Verified 08/19/20 10:57) LOWER B/P egg Adverse Reaction (Verified 08/19/20 10:57) Diarrhea Home Medications: insulins. dm. losartan. gabapentin. certriline. gerd. atorvastatin Past Medical History - General Information source: Patient - Social History Smoking Status: Current Every Day Smoker Chew tobacco use (# tins/day): No Frequency of alcohol use: None Drug Abuse: None Family History: CAD, DM, Hypertension, Malignancy Patient has homicidal ideation: No - Past Medical History Cardiac Medical History: Reports: Hx Coronary Artery Disease, Hx Hyperchol esterolemia, Hx Hypertension Denies: Hx Atrial Fibrillation, Hx Congestive Heart Failure, Hx DVT, Hx Heart Attack, Hx Pulmonary Embolism Pulmonary Medical History: Reports: Hx Asthma, Hx Bronchitis, Hx COPD Denies: Hx Pneumonia Neurological Medical History: Denies: Hx Cerebrovascular Accident, Hx Seizures Endocrine Medical History: Reports: Hx Diabetes Mellitus Type 2. Denies: Hx Diabetes Mellitus Type 1, Hx Hyperthyroidism, Hx Hypothyroidism Renal/ Medical History: Denies: Hx Peritoneal Dialysis GI Medical History: Reports: Hx Gastroesophageal Reflux Disease. Denies: Hx Cirrhosis, Hx Crohn's Disease, Hx Hepatitis, Hx Ulcerative Colitis Musculoskeletal Medical History: Denies Hx Arthritis, Denies Hx Fibromyalgia Skin Medical History: Denies Hx Eczema, Denies Hx Psoriasis Psychiatric Medical History: Reports: Hx Depression Infectious Medical History: Denies: Hx Hepatitis Past Surgical History: Reports: Hx Abdominal Surgery - hernia, Hx Appendectomy, Hx Cholecystectomy, Hx Oral Surgery - R Knee 1992, Hx Tonsillectomy, Other - Knee surgery. Liver and lung biopsies for sarcoidosis. - Immunizations Hx Diphtheria, Pertussis, Tetanus Vaccination: Yes Review of Systems - Review of Systems Constitutional: No symptoms reported EENT: No symptoms reported Cardiovascular: No symptoms reported Respiratory: No symptoms reported Gastrointestinal: No symptoms reported Genitourinary: No symptoms reported Musculoskeletal: See HPI Skin: See HPI Neurological/Psychological: No symptoms reported Physical Exam - Vital signs Vitals: Temp Pulse Resp BP Pulse Ox 98.2 F 92 16 124/74 98 08/19/20 10:42 08/19/20 10:42 08/19/20 10:42 08/19/20 10:42 08/19/20 10:42 - Notes Notes: Vital signs reviewed, please refer to chart. Head is normocephalic, atraumatic. Pupils equal round, reactive to light. Neck is supple without meningismus. Heart is regular rate and rhythm. Lungs are clear to auscultation bilaterally. Abdomen is soft, nontender, normoactive bowel sounds throughout. Extremities without cyanosis, clubbing. Posterior calves are nontender. Peripheral pulses are equal. Examination of the right lower extremity yields a 9-1/2 cm x 2 cm open wound overlying the lateral aspect of the foot, recent area of removal of fifth metatarsal. He has diffuse erythema over the medial aspect of the foot, overlying the navicular. Sensation is diminished to light touch, capillary refill is brisk, dorsalis pedis and posterior tibial pulses are easily palpable. Course - Re-evaluation Re-evalutation: 08/19/20 12:27 Patient presents to the emergency department for evaluation. He had laboratory investigations as ordered through triage. I did review his MRI, which shows osteomyelitis in the second, third, fourth proximal metatarsals, with involvement of the navicular, cuneiform, and distal cuboid bones. I did order cefepime and linezolid. Blood cultures ordered. Will contact medicine for admission. 08/19/20 12:[address] Gaona, he will admit the patient for further care. - Vital Signs Vital signs: Temp Pulse Resp BP Pulse Ox 98.2 F 92 16 124/74 98 08/19/20 10:52 08/19/20 10:42 08/19/20 10:42 08/19/20 10:42 08/19/20 10:42 - Laboratory Result Diagrams: 08/19/20 11:04 08/19/20 11:04 Laboratory results interpreted by me: 08/19/20 08/19/20 11:04 11:04 WBC 10.9 H RDW 16.0 H Sodium 136.8 L Potassium 3.5 L Glucose 258 H Direct Bilirubin 0.5 H Alkaline Phosphatase 166 H - Diagnostic Test Radiology reviewed: Reports reviewed Radiology results interpreted by me: 08/19/20 12:28 Foot X-Ray 08/19/20 10:56 IMPRESSION: No acute fracture. Osteomyelitis of the proximal seconds 3rd and 4th metatarsals as well is the cuboid, cuneiforms, navicular. This based on MRI previous day. Discharge - Discharge Clinical Impression: Osteomyelitis Qualifiers: Osteomyelitis type: unspecified type Osteomyelitis location: foot Laterality: right Qualified Code(s): M86.9 - Osteomyelitis, unspecified Cellulitis Qualifiers: Site of cellulitis: extremity Laterality: right Condition: Stable Disposition: ADMITTED INPATIENT Admitting Provider: Candelaria (Hospitalist) Unit Admitted: Medical Floor Referrals: LEOPOLDO RODRIGUEZ DO [Primary Care Provider] - Follow up as needed
[2020-08-19] MEDS ORDERED: ONDANSETRON HCL INJ/PF 4 MG/2 ML SDV IV PRN (13:53)
[2020-08-19] MEDS ORDERED: ACETAMINOPHEN 325 MG TABLET PO PRN (13:53)
[2020-08-19] MEDS ORDERED: DEXTROSE 40% GEL 15 GM TUBE PO PRN ×4 (13:53→13:57)
[2020-08-19] MEDS ORDERED: DEXTROSE 50%-WATER 25 GM/50 ML DISP.SYRIN IV PRN ×4 (13:53→13:57)
[2020-08-19] MEDS ORDERED: TEMAZEPAM 15 MG CAPSULE PO PRN (13:53)
[2020-08-19] MEDS ORDERED: GLUCAGON,HUMAN RECOMB 1 MG INJ SUBCUT PRN (13:53)
[2020-08-19] MEDS ORDERED: IPRATROPIUM/ALBUTEROL 0.5-2.5 MG/3 ML AMPUL NEB PRN (13:53)
[2020-08-19] MEDS ORDERED: PROMETHAZINE HCL INJ 25 MG/1 ML VIAL IV PRN (13:53)
[2020-08-19] MEDS ORDERED: GLUCAGON,HUMAN RECOMB 1 MG INJ IM PRN (13:57)
[2020-08-19] MEDS ORDERED: VANCOMYCIN HCL 0 MG in DEXTROSE 5%-WATER 250 ML IV NR (14:00)
[2020-08-19] MEDS ORDERED: HYDRALAZINE HCL INJ/PF 20 MG/1 ML SDV IV PRN (14:13)
--- NOTE | 2020-08-19 14:13 | PDOC H&P ---
History of Present Illness Admission Date/PCP: 08/19/20 13:19 LEOPOLDO RODRIGUEZ DO History of Present Illness: ED PEDRAZA is a 50 year old male past medical history of CAD, hypertension, dyslipidemia, diabetes, depression, COPD, tobacco abuse, osteomyelitis who was recently discharged from [facility] with a wound VAC after undergoing a resection of fifth metatarsal for osteomyelitis, patient was following up with Dr. Galaviz for wound care. Presenting to ED complaining of worsening redness and pain in the right lateral aspect of his foot, patient has been wearing a wound VAC, removed it yesterday, noticed drainage from the wound area, which started about 3 days ago, started with a dry with no significant improvement, had an MRI of right lower extremity done yesterday which was positive for second, third and fourth metatarsal osteomyelitis. Patient is reporting compliance to his antibiotics and wound care, taking good care of his diabetes, fortunately still smoking, denies any trauma to the right foot, denies any fever, chills, shortness of breath, headache, nausea, vomiting, abdominal pain, diarrhea, constipation or any urinary symptoms. Hospital was consulted for admission. Past Medical History Cardiac Medical History: Reports: Coronary Artery Disease, Hyperlipidema, Hypertension Denies: Atrial Fibrillation, Congestive Heart Failure, DVT, Myocardial Infarction, Pulmonary Embolism Pulmonary Medical History: Reports: Asthma, Bronchitis, Chronic Obstructive Pulmonary Disease (COPD) Denies: Pneumonia Neurological Medical History: Denies: Seizures Endocrine Medical History: Reports: Diabetes Mellitus Type 2 Denies: Diabetes Mellitus Type 1, Hyperthyroidism, Hypothyroidism GI Medical History: Reports: Gastroesophageal Reflux Disease Denies: Cirrhosis, Crohn's Disease, Hepatitis, Ulcerative Colitis Musculoskeltal Medical History: Denies: Arthritis, Fibromyalgia Skin Medical History: Denies: Eczema, Psoriasis Psychiatric Medical History: Reports: Depression Hematology: Denies: Anemia, Bleeding Tendencies Past Surgical History Past Surgical History: Reports: Appendectomy, Cholecystectomy, Tonsillectomy, Other - Knee surgery. Liver and lung biopsies for sarcoidosis. Social History Smoking Status: Current Every Day Smoker Electronic Cigarette use?: No Frequency of Alcohol Use: Occasional Hx Recreational Drug Use: No Drugs: None, Other Hx Prescription Drug Abuse: No Family History Family History: CAD, DM, Hypertension, Malignancy Parental Family History Reviewed: Yes Children Family History Reviewed: Yes Sibling(s) Family History Reviewed.: Yes Medication/Allergy Home Medications: Atorvastatin Calcium [Lipitor 20 mg Tablet] 20 mg PO QHS 07/19/18 Fluoxetine HCl [Prozac] 80 mg PO QAM 07/19/18 Gabapentin [Neurontin] 600 mg PO Q6 07/19/18 Losartan Potassium [Cozaar 50 mg Tablet] 50 mg PO DAILY 07/19/18 Aspirin [Ecotrin 81 mg EC Tablet] 81 mg PO DAILY 02/24/20 Levalbuterol Tartrate [Levalbuterol Tartrate Hfa] 1 puff IH Q4HP PRN 06/07/20 Insulin Glargine,Hum.rec.anlog [Toujeo Solostar] 24 units SQ Q12 #0 06/14/20 Metformin HCl [Metformin HCl ER] 500 mg PO DAILY #30 tab.er.24h 06/19/20 Cephalexin Monohydrate [Keflex 500 mg Capsule] 500 mg PO QID 10 Days #40 capsule 07/09/20 Docusate Sodium 100 mg PO DAILY #30 tablet 07/09/20 Oxycodone HCl/Acetaminophen [Percocet 5-325 mg Tablet] 1 tab PO Q6HP PRN #15 tablet 07/09/20 Allergies/Adverse Reactions: atenolol Adverse Reaction (Verified 08/19/20 10:57) LOWER B/P egg Adverse Reaction (Verified 08/19/20 10:57) Diarrhea Review of Systems Review of Systems: as per hpi Physical Exam Vital Signs: Temp Pulse Resp BP Pulse Ox 97.9 F 77 16 136/74 H 100 08/19/20 13:38 08/19/20 13:38 08/19/20 13:38 08/19/20 13:38 08/19/20 13:38 Intake & Output 08/18/20 08/19/20 08/20/20 06:59 06:59 06:59 Intake Total 50 Balance 50 Weight 96.162 kg General appearance: PRESENT: no acute distress, obese, well-developed, well- nourished Respiratory exam: PRESENT: clear to auscultation vern. ABSENT: rales, rhonchi, wheezes Cardiovascular exam: PRESENT: RRR. ABSENT: diastolic murmur, rubs, systolic murmur Pulses: PRESENT: normal dorsalis pedis pul, +1 pedal pulses bilateral GI/Abdominal exam: PRESENT: normal bowel sounds, soft. ABSENT: distended, guarding, mass, organolmegaly, rebound, tenderness Musculoskeletal exam: PRESENT: other - Right foot medial aspect open surgical wound with granulation tissue, there is greenish discharge from proximal aspect of the wound, erythema and tenderness proximal to the wound. Neurological exam: PRESENT: alert, awake, oriented to person, oriented to place, oriented to time, oriented to situation, CN II-XII grossly intact. ABSENT: motor sensory deficit Results Laboratory Results: 08/19/20 11:04 08/19/20 11:04 08/19/20 08/19/20 11:04 11:04 WBC 10.9 H RBC 4.93 Hgb 13.5 Hct 39.9 MCV 81 MCH 27.4 MCHC 33.9 RDW 16.0 H Plt Count 445 Seg Neutrophils % 70.4 Sodium 136.8 L Potassium 3.5 L Chloride 100 Carbon Dioxide 24 Anion Gap 13 BUN 9 Creatinine 0.54 Est GFR ( Amer) > 60 Glucose 258 H Calcium 9.8 Total Bilirubin 0.9 AST 22 Alkaline Phosphatase 166 H Total Protein 8.2 Albumin 3.9 Impressions: Foot X-Ray 08/19/20 10:56 IMPRESSION: No acute fracture. Osteomyelitis of the proximal seconds 3rd and 4th metatarsals as well is the cuboid, cuneiforms, navicular. This based on MRI previous day. Assessment and Plan - Diagnosis (1) Osteomyelitis Qualifiers: Osteomyelitis type: unspecified type Osteomyelitis location: foot Laterality: right Qualified Code(s): M86.9 - Osteomyelitis, unspecified Is this a current diagnosis for this admission?: Yes Plan: History of recurrent osteomyelitis. Recent fifth toe metatarsal resection. Right foot MRI positive for osteomyelitis of second third and fourth metatarsal. Admit to floor, empiric broad-spectrum IV antibiotics, wound care, surgery consult. (2) Type 2 diabetes mellitus Qualifiers: Diabetes mellitus bed bug exterminator insulin use: with bed bug exterminator use Diabetes mellitus complication status: with diabetic arthropathy Is this a current diagnosis for this admission?: Yes Plan: History of uncontrolled diabetes. Hemoglobin A1c 10.1% on 06/2020. Diabetic diet, sliding scale insulin, basal insulin, prandial insulin, hypoglycemic protocol, Accu-Chek. Adjust meds as needed. Resume home meds upon discharge. Outpatient PCP follow- up. Diabetic education. (3) Hyperlipidemia Is this a current diagnosis for this admission?: Yes Plan: Resume home meds. Diet and lifestyle modification recommended. (4) Depression Is this a current diagnosis for this admission?: Yes Plan: Denies any suicidal or homicidal ideation. Resume home meds. Outpatient PCP and psychiatry follow-up. (5) Hypertension Qualifiers: Is this a current diagnosis for this admission?: Yes Plan: Euvolemic. Normotensive. Resume home meds. Adjust meds as needed. Outpatient PCP follow-up. As needed IV hydralazine and IV metoprolol. (6) Tobacco abuse Is this a current diagnosis for this admission?: Yes Plan: Extensively counseled on quitting. NicoDerm patch will be provided. - Time Time Spent with patient: 35 or more minutes Smoking Cessation Education: 3 to 10 minutes Medications reviewed and adjusted accordingly: Yes Anticipated Discharge Disposition: Home, Self Care Anticipated Discharge Timeframe: within 72 hours
[2020-08-19] MEDS: MORPHINE SULFATE 10 MG/ML INJ IV PRN ×2 (15:05→21:40)
[2020-08-19] MEDS: HEPARIN SOD (PORCINE) 5,000 UNIT/ML 1 ML VIAL SUBCUT SCH ×2 (15:06→21:43)
[2020-08-19] MEDS: VANCOMYCIN HCL 1,500 MG in DEXTROSE 5%-WATER 250 ML IV SCH ×2 (15:06→21:43)
[2020-08-19] MEDS: NORMAL SALINE 1000 ML 1,000 ML IV PRN (15:07)
[2020-08-19] MEDS: IPRATROPIUM/ALBUTEROL 0.5-2.5 MG/3 ML AMPUL NEB SCH ×2 (16:21→20:35)
[2020-08-19] MEDS: INSULIN LISPRO 100 UNIT/ML 3 ML VIAL SUBCUT SCH ×2 (17:02→21:44)
[2020-08-19] MEDS: GABAPENTIN 300 MG CAPSULE PO SCH (17:02)
[2020-08-19] MEDS ORDERED: INSULIN GLARGINE,HUM.REC.ANLOG 1,000 UNIT/10 ML VIAL (PYX) SUBCUT ONE (21:34)
[2020-08-19] MEDS: FAMOTIDINE 20 MG TABLET PO SCH (21:43)
[2020-08-19] MEDS: CEFEPIME 1 GM/D5W RTU 1 GM/50 ML RTUPB IV SCH (21:45)
[2020-08-19] MEDS: INSULIN GLARGINE,HUM.REC.ANLOG 1,000 UNIT/10 ML VIAL SUBCUT SCH (21:54)
[2020-08-19] MEDS ORDERED: ATORVASTATIN CALCIUM 20 MG TABLET PO SCH (22:00)
[2020-08-20] MEDS: GABAPENTIN 300 MG CAPSULE PO SCH ×4 (00:46→17:54)
[2020-08-20] MEDS: HEPARIN SOD (PORCINE) 5,000 UNIT/ML 1 ML VIAL SUBCUT SCH ×3 (05:12→21:08)
[2020-08-20] MEDS: VANCOMYCIN HCL 1,500 MG in DEXTROSE 5%-WATER 250 ML IV SCH ×2 (05:26→13:54)
[2020-08-20 06:43] LABS: ABSOLUTE BASOPHILS # (AUTO) 0.1 10^3/uL (0.0-0.2); ABSOLUTE EOSINOPHILS # (AUTO) 0.4 10^3/uL (0.0-0.6); ABSOLUTE LYMPHOCYTES (AUTO) 1.3 10^3/uL (0.5-4.7); ABSOLUTE MONOCYTES (AUTO) 1.3 10^3/uL (0.1-1.4); ABSOLUTE NEUT (AUTO) 6.4 10^3/uL (1.7-8.2); BASOPHILS % (AUTO) 0.9 % (0-2); HEMOGLOBIN 12.3 g/dL (13.5-17.0); LYMPHOCYTES % (AUTO) 13.8 % (13-45); MEAN CORPUSCULAR HEMOGLOBIN 27.5 pg (27.0-33.4); MEAN CORPUSCULAR HGB CONC 34.3 g/dL (32.0-36.0); MEAN CORPUSCULAR VOLUME 80 fl (80-97); MONOCYTES % (AUTO) 13.8 % (3-13); PLATELET COUNT 332 10^3/uL (150-450); RED BLOOD COUNT 4.49 10^6/uL (4.35-5.55); RED CELL DISTRIBUTION WIDTH 15.9 % (11.5-14.0); SEGMENTED NEUTROPHILS % (AUTO) 67.5 % (42-78); TOTAL CELLS COUNTED % (AUTO) 100 %; WHITE BLOOD COUNT 9.4 10^3/uL (4.0-10.5)
[2020-08-20 06:53] LABS: INTERNATIONAL RATION (INR) 1.18; PROTHROMBIN TIME 15.2 SEC (11.4-15.4)
--- NOTE | 2020-08-20 07:19 | PDOC CONSULTATION ---
Consultation Consult Date: 08/19/20 Provider Consulted: SURGICAL SURGICALIST MD Consult reason:: Osteomyelitis of the ankle, septic right foot History of Present Illness Admission Date/PCP: 08/19/20 13:19 LEOPOLDO RODRIGUEZ DO History of Present Illness: ED PEDRAZA is a 50 year old male seen in consultation at the request of the hospitalist service. The patient is well-known to the surgery service. He had an amputation of the right fifth metatarsal and phalange several weeks ago. The patient has now developed redness over the dorsum of the foot, extending onto the ankle. An MRI was performed showing osteomyelitis of multiple metatarsals and ankle bones. Patient reports discomfort with walking, tenderness to palpation, redness of the skin of the right foot. He denies chest pain, shor tness of breath, nausea, vomiting, melena, hematochezia, orthostasis, dizziness, headache. Past Medical History Cardiac Medical History: Reports: Coronary Artery Disease, Hyperlipidema, Hypertension Denies: Atrial Fibrillation, Congestive Heart Failure, DVT, Myocardial Infarction, Pulmonary Embolism Pulmonary Medical History: Reports: Asthma, Bronchitis, Chronic Obstructive Pulmonary Disease (COPD) Denies: Pneumonia Neurological Medical History: Denies: Seizures Endocrine Medical History: Reports: Diabetes Mellitus Type 2 Denies: Diabetes Mellitus Type 1, Hyperthyroidism, Hypothyroidism GI Medical History: Reports: Gastroesophageal Reflux Disease Denies: Cirrhosis, Crohn's Disease, Hepatitis, Ulcerative Colitis Musculoskeltal Medical History: Denies: Arthritis, Fibromyalgia Skin Medical History: Denies: Eczema, Psoriasis Psychiatric Medical History: Reports: Depression Hematology: Denies: Anemia, Bleeding Tendencies Past Surgical History Past Surgical History: Reports: Appendectomy, Cholecystectomy, Tonsillectomy, Other - Knee surgery. Liver and lung biopsies for sarcoidosis. Right 5th ray amp Social History Smoking Status: Current Every Day Smoker Cigarettes Packs Per Day: 0.5 Electronic Cigarette use?: No Number of Years Smokin Last Time Smoked: 0930 Frequency of Alcohol Use: None Hx Recreational Drug Use: No Drugs: None Hx Prescription Drug Abuse: No Family History Family History: CAD, DM, Hypertension, Malignancy Parental Family History Reviewed: Yes Children Family History Reviewed: Yes Sibling(s) Family History Reviewed.: Yes Medication/Allergy Home Medications: Gabapentin [Neurontin] 600 mg PO Q6 07/19/18 Losartan Potassium [Cozaar 50 mg Tablet] 50 mg PO DAILY 07/19/18 Levalbuterol Tartrate [Levalbuterol Tartrate Hfa] 1 puff IH Q4HP PRN 06/07/20 Budesonide/Formoterol Fumarate [Symbicort HFA 160-4.5 mcg Inhaler 6 gm] 2 puff IH BID 08/19/20 Chlorthalidone [Hygroton 25 mg Tablet] 25 mg PO DAILY 08/19/20 Insulin Aspart [Novolog Insulin (Aspart) 100 unit/mL] 0 units SQ .PERSLIDINGSCALE 08/19/20 Insulin Glargine,Hum.rec.anlog [Toujeo Solostar] 30 units SQ Q12 08/19/20 Metformin HCl [Metformin HCl ER] 1,000 mg PO WSUPPER 08/19/20 Oxycodone HCl [Oxy-Ir 5 mg Tablet] 5 mg PO Q6HP PRN 08/19/20 Pantoprazole Sodium [Protonix [address] Tablet] 20 mg PO QAM 08/19/20 Sertraline HCl [Zoloft 50 mg Tablet] 100 mg PO DAILY 08/19/20 Sitagliptin Phosphate [Januvia 50 mg Tablet] 50 mg PO DAILY 08/19/20 Allergies/Adverse Reactions: atenolol Adverse Reaction (Verified 08/19/20 10:57) LOWER B/P egg Adverse Reaction (Verified 08/19/20 10:57) Diarrhea Review of Systems Constitutional: ABSENT: anorexia, chills, fatigue, fever(s), headache(s), night sweats Eyes: ABSENT: visual disturbances Ears: ABSENT: hearing changes Nose, Mouth, and Throat: ABSENT: sore throat Cardiovascular: ABSENT: chest pain Respiratory: ABSENT: cough Gastrointestinal: ABSENT: abdominal pain, hematochezia, melena, nausea, vomiting Genitourinary: ABSENT: dysuria Musculoskeletal: ABSENT: back pain Integumentary: PRESENT: erythema - right foot. ABSENT: pruritus Neurological: ABSENT: confusion, convulsions, dizziness Psychiatric: ABSENT: anxiety, depression Endocrine: ABSENT: cold intolerance, heat intolerance Hematologic/Lymphatic: ABSENT: easy bleeding, easy bruising Physical Exam Vital Signs: Temp Pulse Resp BP Pulse Ox 98.1 F 79 16 120/81 94 08/19/20 16:00 08/19/20 19:00 08/19/20 16:22 08/19/20 16:00 08/19/20 16:22 Intake & Output 08/18/20 08/19/20 08/20/20 06:59 06:59 06:59 Intake Total 860 Output Total 600 Balance 260 Weight 96.162 kg General appearance: PRESENT: no acute distress, cooperative Head exam: PRESENT: atraumatic, normocephalic Eye exam: PRESENT: EOMI, PERRLA. ABSENT: scleral icterus Mouth exam: PRESENT: moist, neck supple Neck exam: ABSENT: meningismus, tenderness, thyromegaly, tracheal deviation Respiratory exam: PRESENT: unlabored. ABSENT: tachypnea, wheezes Cardiovascular exam: ABSENT: tachycardia GI/Abdominal exam: PRESENT: soft. ABSENT: distended, rebound, rigid, tenderness Rectal exam: PRESENT: deferred Extremities exam: PRESENT: other - Foot with lateral wound present. Erythema extending over the dorsum of the right foot, up to the ankle. Tenderness to palpation of the right foot.. ABSENT: clubbing Musculoskeletal exam: ABSENT: deformity Neurological exam: PRESENT: alert, awake, oriented to person, oriented to place, oriented to time, oriented to situation, CN II-XII grossly intact Psychiatric exam: ABSENT: agitated, anxious, depressed Focused psych exam: ABSENT: delusional Skin exam: PRESENT: erythema - see above. ABSENT: cyanosis, jaundice Results Laboratory Results: 08/19/20 11:04 08/19/20 11:04 08/19/20 08/19/20 08/19/20 11:04 11:04 11:04 WBC 10.9 H RBC 4.93 Hgb 13.5 Hct 39.9 MCV 81 MCH 27.4 MCHC 33.9 RDW 16.0 H Plt Count 445 Seg Neutrophils % 70.4 Sodium 136.8 L Potassium 3.5 L Chloride 100 Carbon Dioxide 24 Anion Gap 13 BUN 9 Creatinine 0.54 Est GFR ( Amer) > 60 Glucose 258 H Calcium 9.8 Total Bilirubin 0.9 AST 22 Alkaline Phosphatase 166 H C-Reactive Protein 164.2 H Total Protein 8.2 Albumin 3.9 Impressions: Foot X-Ray 08/19/20 10:56 IMPRESSION: No acute fracture. Osteomyelitis of the proximal seconds 3rd and 4th metatarsals as well is the cuboid, cuneiforms, navicular. This based on MRI previous day. Assessment & Plan - Diagnosis (1) Osteomyelitis Qualifiers: Osteomyelitis type: unspecified type Osteomyelitis location: foot Laterality: right Qualified Code(s): M86.9 - Osteomyelitis, unspecified Is this a current diagnosis for this admission?: Yes - Plan Summary Plan Summary: 50-year-old male with extensive osteomyelitis of the right foot. He has tenderness palpation, and erythema overlying the area. I suspect there is an abscess component to his infection. I discussed options with the patient. He has requested below-knee amputation, to definitively treat his extensive osteomyelitis. This is reasonable. Risk/benefits discussed, informed consent obtained, and all questions answered.
--- NOTE | 2020-08-20 07:21 | PDOC PROGRESS REPORT ---
Subjective Progress Note for:: 08/20/20 Subjective:: 50-year-old male with extensive osteomyelitis of the right foot and ankle. He denies any new complaints this morning. Reason For Visit: OSTEOMYELITIS Physical Exam Vital Signs: Temp Pulse Resp BP Pulse Ox 98.1 F 86 18 143/78 H 97 08/20/20 00:00 08/20/20 04:27 08/20/20 04:27 08/20/20 04:27 08/20/20 04:27 Intake & Output 08/19/20 08/20/20 08/21/20 06:59 06:59 06:59 Intake Total 1160 Output Total 1300 Balance -140 Weight 95.2 kg General appearance: PRESENT: no acute distress, cooperative Respiratory exam: PRESENT: unlabored. ABSENT: tachypnea, wheezes Cardiovascular exam: ABSENT: tachycardia GI/Abdominal exam: PRESENT: soft. ABSENT: tenderness Musculoskeletal exam: PRESENT: other - Erythema and tenderness of the right foot Results Laboratory Results: 08/20/20 06:06 08/19/20 08/19/20 08/19/20 11:04 11:04 11:04 WBC 10.9 H RBC 4.93 Hgb 13.5 Hct 39.9 MCV 81 MCH 27.4 MCHC 33.9 RDW 16.0 H Plt Count 445 Seg Neutrophils % 70.4 Sodium 136.8 L Potassium 3.5 L Chloride 100 Carbon Dioxide 24 Anion Gap 13 BUN 9 Creatinine 0.54 Est GFR ( Amer) > 60 Glucose 258 H Calcium 9.8 Total Bilirubin 0.9 AST 22 Alkaline Phosphatase 166 H C-Reactive Protein 164.2 H Total Protein 8.2 Albumin 3.9 08/20/20 06:06 WBC 9.4 RBC 4.49 Hgb 12.3 L Hct 36.0 L MCV 80 MCH 27.5 MCHC 34.3 RDW 15.9 H Plt Count 332 Seg Neutrophils % 67.5 Sodium Potassium Chloride Carbon Dioxide Anion Gap BUN Creatinine Est GFR ( Amer) Glucose Calcium Total Bilirubin AST Alkaline Phosphatase C-Reactive Protein Total Protein Albumin Impressions: Foot X-Ray 08/19/20 10:56 IMPRESSION: No acute fracture. Osteomyelitis of the proximal seconds 3rd and 4th metatarsals as well is the cuboid, cuneiforms, navicular. This based on MRI previous day. Assessment & Plan - Diagnosis (1) Osteomyelitis Qualifiers: Osteomyelitis type: unspecified type Osteomyelitis location: foot Laterality: right Qualified Code(s): M86.9 - Osteomyelitis, unspecified Is this a current diagnosis for this admission?: Yes - Time Anticipated Discharge Disposition: Home with Home Health Anticipated Discharge Timeframe: unknown - Plan Summary Plan Summary: 50-year-old male with extensive osteomyelitis of the right foot with suspected abscess formation. Plan for below-knee amputation today. The patient is in agreement with the treatment plan.
[2020-08-20 07:30] LABS: ALBUMIN 3.4 g/dL (3.5-5.0); ALKALINE PHOSPHATASE 145 U/L (38-126); ANION GAP 13 (5-19); ASPARTATE AMINO TRANSFERASE 30 U/L (17-59); BILIRUBIN,DIRECT 0.5 mg/dL (0.0-0.4); BILIRUBIN,TOTAL 0.7 mg/dL (0.2-1.3); BLOOD UREA NITROGEN 9 mg/dL (7-20); CARBON DIOXIDE 21 mmol/L (22-30); CHLORIDE 103 mmol/L (98-107); GLUCOSE 113 mg/dL (75-110); POTASSIUM 3.4 mmol/L (3.6-5.0); TOTAL PROTEIN 7.2 g/dL (6.3-8.2)
[2020-08-20] MEDS: IPRATROPIUM/ALBUTEROL 0.5-2.5 MG/3 ML AMPUL NEB SCH ×3 (08:19→20:48)
[2020-08-20] MEDS ORDERED: MIDAZOLAM 2 MG/2 ML INJ ONE (08:58)
[2020-08-20] MEDS ORDERED: MORPHINE SULFATE 10 MG/ML INJ ONE (08:58)
[2020-08-20] MEDS ORDERED: PROPOFOL INJ 200 MG/20 ML VIAL IV ONE (08:58)
[2020-08-20] MEDS ORDERED: PROMETHAZINE HCL INJ 25 MG/1 ML VIAL IV PRN ×2 (09:57)
[2020-08-20] MEDS ORDERED: FENTANYL CITRATE INJ/PF 100 MCG/2 ML AMPUL IV PRN ×3 (09:57)
[2020-08-20] MEDS ORDERED: MORPHINE SULFATE 10 MG/ML INJ IV PRN (09:57)
[2020-08-20] MEDS ORDERED: DIPHENHYDRAMINE HCL 50 MG/ML VIAL IV PRN (09:57)
[2020-08-20] MEDS ORDERED: ASPIRIN 81 MG TABLET, ENT COATED PO SCH (10:00)
[2020-08-20] MEDS: INSULIN LISPRO 100 UNIT/ML 3 ML VIAL SUBCUT SCH ×4 (10:07→22:24)
[2020-08-20] MEDS: DOCUSATE SODIUM 100 MG CAPSULE PO SCH ×2 (10:08→17:54)
[2020-08-20] MEDS: NICOTINE 7 MG/24 HR PATCH.TD24 TD SCH (10:09)
[2020-08-20] MEDS: FAMOTIDINE 20 MG TABLET PO SCH ×2 (10:10→21:09)
--- NOTE | 2020-08-20 10:59 | PDOC PROGRESS REPORT ---
Subjective Progress Note for:: 08/20/20 Subjective:: ED PEDRAZA is a 50 year old male past medical history of CAD, hypertension, dyslipidemia, diabetes, depression, COPD, tobacco abuse, osteomyelitis who was recently discharged from [facility] with a wound VAC after undergoing a resection of fifth metatarsal for osteomyelitis, patient was following up with Dr. Galaviz for wound care. Presenting to ED complaining of worsening redness and pain in the right lateral aspect of his foot, patient has been wearing a wound VAC, removed it yesterday, noticed drainage from the wound area, which started about 3 days ago, started with a dry with no significant improvement, had an MRI of right lower extremity done yesterday which was positive for second, third and fourth metatarsal osteomyelitis. Patient is reporting compliance to his antibiotics and wound care, taking good care of his diabetes, fortunately still smoking, de nies any trauma to the right foot, denies any fever, chills, shortness of breath, headache, nausea, vomiting, abdominal pain, diarrhea, constipation or any urinary symptoms. Hospital was consulted for admission. 08/20/2020. Saw patient after his Rt BKA, resting in his bed in no apparent distress, planing of right leg pain, denies any fever, chills, nausea, vomiting, diarrhea, constipation or any urinary symptoms. Reason For Visit: OSTEOMYELITIS Physical Exam Vital Signs: Temp Pulse Resp BP Pulse Ox 98.1 F 70 16 131/72 H 97 08/20/20 09:51 08/20/20 08:21 08/20/20 08:21 08/20/20 08:00 08/20/20 08:21 Intake & Output 08/19/20 08/20/20 08/21/20 06:59 06:59 06:59 Intake Total 1160 Output Total 1300 Balance -140 Weight 95.2 kg General appearance: PRESENT: no acute distress, well-developed, well-nourished Head exam: PRESENT: atraumatic, normocephalic Respiratory exam: PRESENT: clear to auscultation vern. ABSENT: rales, rhonchi, wheezes Cardiovascular exam: PRESENT: RRR. ABSENT: diastolic murmur, rubs, systolic murmur Pulses: PRESENT: normal dorsalis pedis pul GI/Abdominal exam: PRESENT: normal bowel sounds, soft. ABSENT: distended, guarding, mass, organolmegaly, rebound, tenderness Musculoskeletal exam: PRESENT: other - Right BKA, dressing in place. Neurological exam: PRESENT: alert, awake, oriented to person, oriented to place, oriented to time, oriented to situation, CN II-XII grossly intact. ABSENT: motor sensory deficit Results Laboratory Results: 08/20/20 06:06 08/20/20 06:06 08/19/20 08/19/20 08/19/20 11:04 11:04 11:04 WBC 10.9 H RBC 4.93 Hgb 13.5 Hct 39.9 MCV 81 MCH 27.4 MCHC 33.9 RDW 16.0 H Plt Count 445 Seg Neutrophils % 70.4 Sodium 136.8 L Potassium 3.5 L Chloride 100 Carbon Dioxide 24 Anion Gap 13 BUN 9 Creatinine 0.54 Est GFR ( Amer) > 60 Glucose 258 H Calcium 9.8 Magnesium Total Bilirubin 0.9 AST 22 Alkaline Phosphatase 166 H C-Reactive Protein 164.2 H Total Protein 8.2 Albumin 3.9 08/20/20 08/20/20 06:06 06:06 WBC 9.4 RBC 4.49 Hgb 12.3 L Hct 36.0 L MCV 80 MCH 27.5 MCHC 34.3 RDW 15.9 H Plt Count 332 Seg Neutrophils % 67.5 Sodium 136.6 L Potassium 3.4 L Chloride 103 Carbon Dioxide 21 L Anion Gap 13 BUN 9 Creatinine 0.50 L Est GFR ( Amer) > 60 Glucose 113 H Calcium 9.0 Magnesium 2.0 Total Bilirubin 0.7 AST 30 Alkaline Phosphatase 145 H C-Reactive Protein Total Protein 7.2 Albumin 3.4 L Impressions: Foot X-Ray 08/19/20 10:56 IMPRESSION: No acute fracture. Osteomyelitis of the proximal seconds 3rd and 4th metatarsals as well is the cuboid, cuneiforms, navicular. This based on MRI previous day. Assessment and Plan - Diagnosis (1) Osteomyelitis Qualifiers: Osteomyelitis type: unspecified type Osteomyelitis location: foot Laterality: right Qualified Code(s): M86.9 - Osteomyelitis, unspecified Is this a current diagnosis for this admission?: Yes Plan: History of recurrent osteomyelitis. Recent fifth toe metatarsal resection. Right foot MRI positive for osteomyelitis of second third and fourth metatarsal. Day 1 status post right BKA. Day 2 IV antibiotics. Day 2 IV cefepime. Day 2 IV vancomycin. Continue empiric broad-spectrum IV antibiotics. Follow-up culture. Follow-up pathology report. (2) Type 2 diabetes mellitus Qualifiers: Diabetes mellitus half-way insulin use: with computer terminal operator use Diabetes mellitus complication status: with diabetic arthropathy Is this a current diagnosis for this admission?: Yes Plan: History of uncontrolled diabetes. Hemoglobin A1c 10.1%. Patient will greatly benefit from maximizing his oral antidiabetic as he has normal renal function. We will start on Metformin 1000 mg p.o. twice daily, sitagliptin 50 mg p.o. twice daily. Diabetic diet, sliding scale insulin, basal insulin, prandial insulin, hypoglycemic protocol, Accu-Chek. Adjust meds as needed. Resume home meds upon discharge. Outpatient PCP follow- up. Diabetic education. (3) Hyperlipidemia Is this a current diagnosis for this admission?: Yes Plan: Resume home meds. Diet and lifestyle modification recommended. (4) Depression Is this a current diagnosis for this admission?: Yes Plan: Denies any suicidal or homicidal ideation. Resume home meds. Outpatient PCP and psychiatry follow-up. (5) Hypertension Qualifiers: Is this a current diagnosis for this admission?: Yes Plan: Euvolemic. Normotensive. Resume home meds. Adjust meds as needed. Outpatient PCP follow-up. As needed IV hydralazine and IV metoprolol. (6) Tobacco abuse Is this a current diagnosis for this admission?: Yes Plan: Extensively counseled on quitting. NicoDerm patch will be provided.
[2020-08-20] MEDS: LOSARTAN POTASSIUM 50 MG TABLET PO SCH (11:58)
[2020-08-20] MEDS: SERTRALINE HCL 50 MG TABLET PO SCH (11:58)
[2020-08-20] MEDS: CEFEPIME 1 GM/D5W RTU 1 GM/50 ML RTUPB IV SCH ×2 (11:58→21:10)
[2020-08-20] MEDS: MORPHINE SULFATE 10 MG/ML INJ IV PRN (12:51)
[2020-08-20] MEDS ORDERED: OXYCODONE-ACETAMINOPHEN 5-325 MG TABLET PO PRN (13:35)
[2020-08-20] MEDS: HYDROMORPHONE HCL INJ/PF 2 MG/ML AMPULE IV PRN ×3 (13:53→22:41)
[2020-08-20 14:22] LABS: VANCOMYCIN,TROUGH 11.5 ug/mL (5.0-20.0)
[2020-08-20] MEDS: KETOROLAC TROMETHAMINE INJ/PF 30 MG/1 ML SDV IV SCH ×2 (17:12→21:09)
[2020-08-20] MEDS: METFORMIN HCL 500 MG TABLET PO SCH (17:12)
[2020-08-20] MEDS: ACETAMINOPHEN 1,000 MG/100 ML RTUPB IV SCH ×2 (17:12→21:12)
[2020-08-20] MEDS: SITAGLIPTIN PHOSPHATE 50 MG TABLET PO SCH (17:13)
[2020-08-20] MEDS: OXYCODONE HCL IR 5 MG TABLET PO PRN (17:15)
[2020-08-20] MEDS: FLUTICASONE/VILANTEROL 200-25 MCG/DOSE IH SCH (17:55)
--- NOTE | 2020-08-20 19:20 | EKG REPORT ---
SEVERITY:- ABNORMAL ECG - SINUS RHYTHM ATRIAL PREMATURE COMPLEX FIRST DEGREE AV BLOCK RBBB AND LAFB PROBABLE LEFT VENTRICULAR HYPERTROPHY : Confirmed by: Dread Moy MD 20-Aug-2020 19:20:12
--- NOTE | 2020-08-20 19:29 | Operative Report ---
Nonrecallable Operative Report DATE OF SURGERY: 08/20/20 PREOPERATIVE DIAGNOSIS: Septic right foot with osteomyelitis POSTOPERATIVE DIAGNOSIS: Same as above OPERATION: Right below-knee amputation SURGEON: ANUSHA DAVIES ANESTHESIA: Spinal TISSUE REMOVED OR ALTERED: Right foot and lower leg COMPLICATIONS: None apparent ESTIMATED BLOOD LOSS: 200 cc PROCEDURE: Drain/implants: None. Procedure in detail: After it was obtained, the patient was brought into the operating room and laid in the supine position. The area of the right lower extremity was prepped and draped in a normal sterile fashion. A adeel was made on the anterior right lower leg 4 fingerbreadths below the tibial tuberosity. Another 5 fingerbreadths were measured, to adeel the posterior flap. Once the anterior and posterior flaps were marked, an incision was created over the markings. Dissection was carried through the subcutaneous tissues using sharp dissection and electrocautery. The muscles of the anterior compartment were divided using electrocautery. Next, the tibia was exposed. The tibia was divided, creating a bevel at a 45 degree angle of the anterior portion. Next, the fibula was cleaned. The peroneal artery was ligated with 0 Vicryl stick ties and divided. The fibula was then divided 2 cm proximal to the tibial transection. Next, the leg (tibia and fibula) was rotated anteriorly. The tibia and fibula were then cleared away from the posterior compartment using electrocautery. The anterior and posterior tibial arteries were encountered. These were ligated and divided after suture ligation with 0 Vicryl stick ties. The distal adeel of the posterior flap was reached, and the posterior flap was divided. Next, the posterior compartment was debrided away in order to facilitate posterior flap closure. Next the posterior flap was rotated anteriorly. The postrior fascia was closed to the anterior fascia using 0 Vicryl suture in [id number] fashion. The subcutaneous tissues were closed using 2-0 Vicryl suture in simple interrupted fashion. The skin was closed using skin mai. Once this was completed, the dressing was placed, and the procedure was concluded. All sponge, instrument, and needle counts were correct x2. Condition: Stable.
[2020-08-20] MEDS ORDERED: VANCOMYCIN HCL 1,250 MG in DEXTROSE 5%-WATER 250 ML IV SCH (21:00)
[2020-08-20] MEDS: VANCOMYCIN HCL 1,000 MG in DEXTROSE 5%-WATER 250 ML IV SCH (21:17)
[2020-08-20] MEDS: NORMAL SALINE 1000 ML 1,000 ML IV PRN (21:25)
[2020-08-20] MEDS ORDERED: INSULIN GLARGINE,HUM.REC.ANLOG 1,000 UNIT/10 ML VIAL (PYX) SUBCUT ONE (22:05)
[2020-08-20] MEDS: INSULIN GLARGINE,HUM.REC.ANLOG 1,000 UNIT/10 ML VIAL SUBCUT SCH (22:25)
[2020-08-21] MEDS: GABAPENTIN 300 MG CAPSULE PO SCH ×5 (00:11→23:05)
[2020-08-21] MEDS: VANCOMYCIN HCL 1,000 MG in DEXTROSE 5%-WATER 250 ML IV SCH ×4 (03:16→21:47)
[2020-08-21] MEDS: HYDROMORPHONE HCL INJ/PF 2 MG/ML AMPULE IV PRN (03:17)
[2020-08-21] MEDS: NORMAL SALINE 1000 ML 1,000 ML IV PRN ×2 (03:18→20:00)
[2020-08-21 05:21] LABS: HEMATOCRIT 34.6 % (37.9-51.0); HEMOGLOBIN 11.8 g/dL (13.5-17.0); MEAN CORPUSCULAR HEMOGLOBIN 27.2 pg (27.0-33.4); MEAN CORPUSCULAR VOLUME 80 fl (80-97); PLATELET COUNT 355 10^3/uL (150-450); RED BLOOD COUNT 4.32 10^6/uL (4.35-5.55); RED CELL DISTRIBUTION WIDTH 15.8 % (11.5-14.0); WHITE BLOOD COUNT 8.3 10^3/uL (4.0-10.5)
[2020-08-21] MEDS: HEPARIN SOD (PORCINE) 5,000 UNIT/ML 1 ML VIAL SUBCUT SCH ×3 (05:28→21:21)
[2020-08-21] MEDS: KETOROLAC TROMETHAMINE INJ/PF 30 MG/1 ML SDV IV SCH ×3 (05:29→21:21)
[2020-08-21] MEDS: ACETAMINOPHEN 1,000 MG/100 ML RTUPB IV SCH ×3 (05:29→21:21)
[2020-08-21 05:48] LABS: ANION GAP 9 (5-19); BLOOD UREA NITROGEN 7 mg/dL (7-20); CALCIUM 8.6 mg/dL (8.4-10.2); CARBON DIOXIDE 25 mmol/L (22-30); CHLORIDE 99 mmol/L (98-107); GLUCOSE 178 mg/dL (75-110); POTASSIUM 3.2 mmol/L (3.6-5.0)
[2020-08-21] MEDS ORDERED: POTASSIUM CHLORIDE 10 MEQ TABLET.ER PO ONE (07:37)
[2020-08-21] MEDS: SITAGLIPTIN PHOSPHATE 50 MG TABLET PO SCH ×2 (08:13→16:40)
[2020-08-21] MEDS: METFORMIN HCL 500 MG TABLET PO SCH ×2 (08:14→16:40)
[2020-08-21] MEDS: IPRATROPIUM/ALBUTEROL 0.5-2.5 MG/3 ML AMPUL NEB SCH ×3 (08:22→20:38)
[2020-08-21] MEDS: INSULIN LISPRO 100 UNIT/ML 3 ML VIAL SUBCUT SCH ×4 (08:24→21:23)
--- NOTE | 2020-08-21 10:07 | PDOC PROGRESS REPORT ---
Subjective Progress Note for:: 08/21/20 Subjective:: ED PEDRAZA is a 50 year old male past medical history of CAD, hypertension, dyslipidemia, diabetes, depression, COPD, tobacco abuse, osteomyelitis who was recently discharged from [facility] with a wound VAC after undergoing a resection of fifth metatarsal for osteomyelitis, patient was following up with Dr. Galaviz for wound care. Presenting to ED complaining of worsening redness and pain in the right lateral aspect of his foot, patient has been wearing a wound VAC, removed it yesterday, noticed drainage from the wound area, which started about 3 days ago, started with a dry with no significant improvement, had an MRI of right lower extremity done yesterday which was positive for second, third and fourth metatarsal osteomyelitis. Patient is reporting compliance to his antibiotics and wound care, taking good care of his diabetes, fortunately still smoking, de nies any trauma to the right foot, denies any fever, chills, shortness of breath, headache, nausea, vomiting, abdominal pain, diarrhea, constipation or any urinary symptoms. Hospital was consulted for admission. 08/20/2020. Saw patient after his Rt BKA, resting in his bed in no apparent distress, planing of right leg pain, denies any fever, chills, nausea, vomiting, diarrhea, constipation or any urinary symptoms. 08/21/2020. No acute events overnight. Patient still complaining of right low er extremity pain however improved since surgery, denies any fever, chills, nausea, vomiting, diarrhea, constipation or any urinary symptoms. Reason For Visit: OSTEOMYELITIS Physical Exam Vital Signs: Temp Pulse Resp BP Pulse Ox 98.4 F 90 16 139/74 H 97 08/21/20 07:19 08/21/20 08:25 08/21/20 08:25 08/21/20 07:19 08/21/20 08:25 Intake & Output 08/20/20 08/21/20 08/22/20 06:59 06:59 06:59 Intake Total 1410 5091 Output Total 1300 2075 Balance 110 3016 Weight 95.2 kg 95.2 kg General appearance: PRESENT: no acute distress, well-developed, well-nourished Head exam: PRESENT: atraumatic, normocephalic Respiratory exam: PRESENT: clear to auscultation vern. ABSENT: rales, rhonchi, wheezes Cardiovascular exam: PRESENT: RRR. ABSENT: diastolic murmur, rubs, systolic murmur Extremities exam: PRESENT: full ROM, other - Right BKA wound looks clean, dressing in place, no discharge.. ABSENT: calf tenderness, clubbing, pedal edema Neurological exam: PRESENT: alert, awake, oriented to person, oriented to place, oriented to time, oriented to situation, CN II-XII grossly intact. ABSENT: motor sensory deficit Skin exam: PRESENT: dry, intact, warm. ABSENT: cyanosis, rash Results Laboratory Results: 08/21/20 04:51 08/21/20 04:51 08/20/20 08/21/20 08/21/20 13:38 04:51 04:51 WBC 8.3 RBC 4.32 L Hgb 11.8 L Hct 34.6 L MCV 80 MCH 27.2 MCHC 34.0 RDW 15.8 H Plt Count 355 Sodium 132.8 L Potassium 3.2 L Chloride 99 Carbon Dioxide 25 Anion Gap 9 BUN 7 Creatinine 0.54 0.49 L Est GFR ( Amer) > 60 > 60 Glucose 178 H Calcium 8.6 Magnesium 1.9 Impressions: Foot X-Ray 08/19/20 10:56 IMPRESSION: No acute fracture. Osteomyelitis of the proximal seconds 3rd and 4th metatarsals as well is the cuboid, cuneiforms, navicular. This based on MRI previous day. Assessment and Plan - Diagnosis (1) Osteomyelitis Qualifiers: Osteomyelitis type: unspecified type Osteomyelitis location: foot Laterality: right Qualified Code(s): M86.9 - Osteomyelitis, unspecified Is this a current diagnosis for this admission?: Yes Plan: History of recurrent osteomyelitis. Recent fifth toe metatarsal resection. Right foot MRI positive for osteomyelitis of second third and fourth metatarsal. Day 2 status post right BKA. Day 3 IV antibiotics. Day 3 IV vancomycin. Received 2 days of IV cefepime. Continue empiric broad-spectrum IV antibiotics. Follow-up culture. Pending culture and pathology report. Note. Patient grew MRSA from previous culture of the same site, sensitive to clindamycin. Vancomycin potentially could be DC'd and patient started on clindamycin after wound culture is not finalized. (2) Type 2 diabetes mellitus Qualifiers: Diabetes mellitus superintendent marine oil terminal insulin use: with penitentiary use [employer] complication status: with diabetic arthropathy Is this a current diagnosis for this admission?: Yes Plan: History of uncontrolled diabetes. Hemoglobin A1c 10.1%. Patient will greatly benefit from maximizing his oral antidiabetic as he has normal renal function. We will start on Metformin 1000 mg p.o. twice daily, sitagliptin 50 mg p.o. twice daily. Diabetic diet, sliding scale insulin, basal insulin, prandial insulin, hypog lycemic protocol, Accu-Chek. Adjust meds as needed. Resume home meds upon discharge. Outpatient PCP follow- up. Diabetic education. (3) Hyperlipidemia Is this a current diagnosis for this admission?: Yes Plan: Resume home meds. Diet and lifestyle modification recommended. (4) Depression Is this a current diagnosis for this admission?: Yes Plan: Denies any suicidal or homicidal ideation. Resume home meds. Outpatient PCP and psychiatry follow-up. (5) Hypertension Qualifiers: Is this a current diagnosis for this admission?: Yes Plan: Euvolemic. Normotensive. Resume home meds. Adjust meds as needed. Outpatient PCP follow-up. As needed IV hydralazine and IV metoprolol. (6) Tobacco abuse Is this a current diagnosis for this admission?: Yes Plan: Extensively counseled on quitting. NicoDerm patch will be provided. (7) Chronic obstructive pulmonary disease Qualifiers: COPD type: chronic bronchitis Is this a current diagnosis for this admission?: Yes Plan: Does not seem to be acutely exacerbated. History of COPD not oxygen dependent. Continue LAMA, LABA, ICS. As needed duo nebs. Pulmonary toileting. As needed supplemental oxygen. Outpatient PCP and pulmonology follow-up. - Time Time Spent with patient: 25-34 minutes Medications reviewed and adjusted accordingly: Yes Anticipated Discharge Disposition: [facility] Care Facility Anticipated Discharge Timeframe: within 24 hours
[2020-08-21] MEDS: DOCUSATE SODIUM 100 MG CAPSULE PO SCH ×2 (10:34→17:57)
[2020-08-21] MEDS: FAMOTIDINE 20 MG TABLET PO SCH ×2 (10:34→21:22)
[2020-08-21] MEDS: LOSARTAN POTASSIUM 50 MG TABLET PO SCH (10:34)
[2020-08-21] MEDS: OXYCODONE HCL IR 5 MG TABLET PO PRN ×2 (10:34→16:40)
[2020-08-21] MEDS: SERTRALINE HCL 50 MG TABLET PO SCH (10:35)
[2020-08-21] MEDS: FLUTICASONE/VILANTEROL 200-25 MCG/DOSE IH SCH (10:37)
--- NOTE | 2020-08-21 10:38 | PDOC PROGRESS REPORT ---
Subjective Progress Note for:: 08/21/20 Reason For Visit: OSTEOMYELITIS Patient had an uneventful night, once his knee immobilizer adjusted and stump rewrapped. Physical Exam Vital Signs: Temp Pulse Resp BP Pulse Ox 98.4 F 90 16 139/74 H 97 08/21/20 07:19 08/21/20 08:25 08/21/20 08:25 08/21/20 07:19 08/21/20 08:25 Intake & Output 08/20/20 08/21/20 08/22/20 06:59 06:59 06:59 Intake Total 1410 5091 Output Total 1300 2075 Balance 110 3016 Weight 95.2 kg 95.2 kg General appearance: PRESENT: no acute distress Musculoskeletal exam: PRESENT: other - Knee immobilizer, dressings removed all the way down to the operative incision. Nir intact, no foul smell; posterior flap in excellent condition. Some oozing, mild discoloration of the anterior flap Results Laboratory Results: 08/21/20 04:51 08/21/20 04:51 08/20/20 08/21/20 08/21/20 13:38 04:51 04:51 WBC 8.3 RBC 4.32 L Hgb 11.8 L Hct 34.6 L MCV 80 MCH 27.2 MCHC 34.0 RDW 15.8 H Plt Count 355 Sodium 132.8 L Potassium 3.2 L Chloride 99 Carbon Dioxide 25 Anion Gap 9 BUN 7 Creatinine 0.54 0.49 L Est GFR ( Amer) > 60 > 60 Glucose 178 H Calcium 8.6 Magnesium 1.9 Impressions: Foot X-Ray 08/19/20 10:56 IMPRESSION: No acute fracture. Osteomyelitis of the proximal seconds 3rd and 4th metatarsals as well is the cuboid, cuneiforms, navicular. This based on MRI previous day. Assessment & Plan - Diagnosis (1) Osteomyelitis Qualifiers: Osteomyelitis type: unspecified type Osteomyelitis location: foot Laterality: right Qualified Code(s): M86.9 - Osteomyelitis, unspecified Plan: Impression: Patient is 1 day status post right below the knee amputation, closed, no drain, doing well with excellent early appearance of operative incision, and successful extension of stump. Plan: 1. We will get PT involved, out of bed ambulating with walker 2. Continue IV antibiotics today, wean off tomorrow. (2) Chronic obstructive pulmonary disease Qualifiers: COPD type: chronic bronchitis (5) Hyperglycemia due to type 2 diabetes mellitus Qualifiers: Diabetes mellitus care home insulin use: with metalizer use Qualified Code(s): E11.65 - Type 2 diabetes mellitus with hyperglycemia; Z79.4 - snf (current) use of insulin - Time Time Spent: 30 to 50 Minutes Critical Time spent with patient: Less than 15 minutes Smoking Cessation Education: 3 to 10 minutes Medications reviewed and adjusted accordingly: Yes Anticipated Discharge Disposition: Home with Home Health Anticipated Discharge Timeframe: within 72 hours
[2020-08-21] MEDS: NICOTINE 7 MG/24 HR PATCH.TD24 TD SCH (10:44)
[2020-08-21] MEDS ORDERED: ONDANSETRON HCL INJ/PF 4 MG/2 ML SDV IV PRN (12:30)
[2020-08-21] MEDS ORDERED: PROMETHAZINE HCL INJ 25 MG/1 ML VIAL IV PRN (12:30)
[2020-08-21] MEDS: CEFEPIME 1 GM/D5W RTU 1 GM/50 ML RTUPB IV SCH (12:51)
[2020-08-21 15:38] LABS: VANCOMYCIN,TROUGH 14.2 ug/mL (5.0-20.0)
[2020-08-21] MEDS: INSULIN GLARGINE,HUM.REC.ANLOG 1,000 UNIT/10 ML VIAL SUBCUT SCH (21:22)
[2020-08-22] MEDS: VANCOMYCIN HCL 1,000 MG in DEXTROSE 5%-WATER 250 ML IV SCH ×2 (03:24→09:17)
[2020-08-22 05:13] LABS: HEMATOCRIT 30.3 % (37.9-51.0); HEMOGLOBIN 10.4 g/dL (13.5-17.0); MEAN CORPUSCULAR HEMOGLOBIN 27.4 pg (27.0-33.4); MEAN CORPUSCULAR HGB CONC 34.4 g/dL (32.0-36.0); MEAN CORPUSCULAR VOLUME 80 fl (80-97); PLATELET COUNT 274 10^3/uL (150-450); RED CELL DISTRIBUTION WIDTH 15.9 % (11.5-14.0); WHITE BLOOD COUNT 6.9 10^3/uL (4.0-10.5)
[2020-08-22] MEDS: GABAPENTIN 300 MG CAPSULE PO SCH ×4 (05:31→23:01)
[2020-08-22] MEDS: ACETAMINOPHEN 1,000 MG/100 ML RTUPB IV SCH ×3 (05:32→21:46)
[2020-08-22] MEDS: KETOROLAC TROMETHAMINE INJ/PF 30 MG/1 ML SDV IV SCH ×3 (05:32→21:47)
[2020-08-22] MEDS: HEPARIN SOD (PORCINE) 5,000 UNIT/ML 1 ML VIAL SUBCUT SCH ×3 (05:32→21:47)
[2020-08-22] MEDS: NORMAL SALINE 1000 ML 1,000 ML IV PRN ×2 (05:37→21:45)
[2020-08-22 05:59] LABS: ANION GAP 9 (5-19); BLOOD UREA NITROGEN 5 mg/dL (7-20); CALCIUM 8.1 mg/dL (8.4-10.2); CARBON DIOXIDE 24 mmol/L (22-30); CHLORIDE 102 mmol/L (98-107); GLUCOSE 148 mg/dL (75-110); POTASSIUM 3.3 mmol/L (3.6-5.0)
[2020-08-22] MEDS: SITAGLIPTIN PHOSPHATE 50 MG TABLET PO SCH ×2 (07:58→15:05)
[2020-08-22] MEDS: METFORMIN HCL 500 MG TABLET PO SCH ×2 (07:58→15:04)
[2020-08-22] MEDS: IPRATROPIUM/ALBUTEROL 0.5-2.5 MG/3 ML AMPUL NEB SCH ×3 (08:00→19:43)
[2020-08-22] MEDS: INSULIN LISPRO 100 UNIT/ML 3 ML VIAL SUBCUT SCH ×4 (08:00→21:38)
--- NOTE | 2020-08-22 09:07 | PDOC PROGRESS REPORT ---
Subjective Progress Note for:: 08/22/20 Reason For Visit: OSTEOMYELITIS Patient has no complaints; got up with physical therapy walker. Physical Exam Vital Signs: Temp Pulse Resp BP Pulse Ox 97.8 F 85 16 144/75 H 98 08/22/20 07:57 08/22/20 08:00 08/22/20 08:00 08/22/20 07:57 08/22/20 08:00 Intake & Output 08/21/20 08/22/20 08/23/20 06:59 06:59 06:59 Intake Total 5091 4249 Output Total 0635 1975 Balance 3016 2274 Weight 95.2 kg 98.3 kg General appearance: PRESENT: no acute distress Musculoskeletal exam: PRESENT: other - Stump at extension; dressing dry and intact. Results Laboratory Results: 08/22/20 04:05 08/22/20 04:05 08/22/20 08/22/20 04:05 04:05 WBC 6.9 RBC 3.80 L Hgb 10.4 L Hct 30.3 L MCV 80 MCH 27.4 MCHC 34.4 RDW 15.9 H Plt Count 274 Sodium 135.0 L Potassium 3.3 L Chloride 102 Carbon Dioxide 24 Anion Gap 9 BUN 5 L Creatinine 0.55 Est GFR ( Amer) > 60 Glucose 148 H Calcium 8.1 L Magnesium 1.9 Impressions: Foot X-Ray 08/19/20 10:56 IMPRESSION: No acute fracture. Osteomyelitis of the proximal seconds 3rd and 4th metatarsals as well is the cuboid, cuneiforms, navicular. This based on MRI previous day. Assessment & Plan - Diagnosis (1) Osteomyelitis Qualifiers: Osteomyelitis type: unspecified type Osteomyelitis location: foot Laterality: right Qualified Code(s): M86.9 - Osteomyelitis, unspecified Is this a current diagnosis for this admission?: Yes Plan: Impression: Patient is postoperative day 2 right BKA, doing well, no complications; no drain; antibiotics tapering off Plan: 1. Discontinue antibiotics 2. We will sign off; have patient follow-up with Dr. Agustin Bay, [place] [facility] in 10 days for wound check and partial removal of sutures 3. Continue dressing changes with Xeroform over staple line, 4 x 4's Curlex and Carlos A wrap. 4. Please reconsult surgery if clinically indicated (2) Chronic obstructive pulmonary disease Qualifiers: COPD type: chronic bronchitis Is this a current diagnosis for this admission?: Yes (3) Depression Is this a current diagnosis for this admission?: Yes (4) Tobacco abuse Is this a current diagnosis for this admission?: Yes (5) Hyperglycemia due to type 2 diabetes mellitus Qualifiers: Diabetes mellitus jail insulin use: with child welfare specialist use Qualified Code(s): E11.65 - Type 2 diabetes mellitus with hyperglycemia; Z79.4 - jail (current) use of insulin - Time Time Spent: 30 to 50 Minutes Critical Time spent with patient: Less than 15 minutes Smoking Cessation Education: 3 to 10 minutes Medications reviewed and adjusted accordingly: Yes Anticipated Discharge Disposition: Home, Self Care Anticipated Discharge Timeframe: within 48 hours
[2020-08-22] MEDS: FAMOTIDINE 20 MG TABLET PO SCH ×2 (09:18→21:48)
[2020-08-22] MEDS: SERTRALINE HCL 50 MG TABLET PO SCH (09:18)
[2020-08-22] MEDS: DOCUSATE SODIUM 100 MG CAPSULE PO SCH ×2 (09:18→17:10)
[2020-08-22] MEDS: OXYCODONE HCL IR 5 MG TABLET PO PRN ×2 (09:19→13:29)
[2020-08-22] MEDS: NICOTINE 7 MG/24 HR PATCH.TD24 TD SCH (09:19)
[2020-08-22] MEDS: LOSARTAN POTASSIUM 50 MG TABLET PO SCH (09:19)
[2020-08-22] MEDS: FLUTICASONE/VILANTEROL 200-25 MCG/DOSE IH SCH (09:20)
--- NOTE | 2020-08-22 17:51 | PDOC PROGRESS REPORT ---
Subjective Subjective:: Per Previous Physician: "ED PEDRAZA is a 50 year old male past medical history of CAD, hypertension, dyslipidemia, diabetes, depression, COPD, tobacco abuse, osteomyelitis who was recently discharged from [facility] with a wound VAC after undergoing a resection of fifth metatarsal for osteomyelitis, patient was following up with Dr. Galaviz for wound care. Presenting to ED complaining of worsening redness and pain in the right lateral aspect of his foot, patient has been wearing a wound VAC, removed it yesterday, noticed drainage from the wound area, which started about 3 days ago, started with a dry with no significant improvement, had an MRI of right lower extremity done yesterday which was positive for second, third and fourth metatarsal osteomyelitis. Patient is reporting compliance to his antibiotics and wound care, taking good care of his diabetes, fortunately still smoking, denies any trauma to the right foot, denies any fever, chills, shortness of breath, headache, nausea, vomiting, abdominal pain, diarrhea, constipation or any urinary symptoms. Hospital was consulted for admission. 08/20/2020. Saw patient after his Rt BKA, resting in his bed in no apparent distress, planing of right leg pain, denies any fever, chills, nausea, vomiting, diarrhea, constipation or any urinary symptoms. 08/21/2020. No acute events overnight. Patient still complaining of right lower extremity pain however improved since surgery, denies any fever, chills, nausea, vomiting, diarrhea, constipation or any urinary symptoms." 08/22/2020 Patient seemed to be doing well today. General surgery is stopped antibiotics. Patient states his stump is a bit irritated and he would like the nurse to adjust his dressing. Otherwise he has no new complaints. Consulted OT per PT recommendations. Blood cultures are negative. Patient is likely appropriate for LTACH. Reason For Visit: OSTEOMYELITIS Physical Exam Vital Signs: Temp Pulse Resp BP Pulse Ox 98.5 F 97 20 130/70 H 99 08/22/20 16:31 08/22/20 16:31 08/22/20 16:31 08/22/20 16:31 08/22/20 16:31 Intake & Output 08/21/20 08/22/20 08/23/20 06:59 06:59 06:59 Intake Total 0036 6310 589 Output Total 3188 0663 920 Balance 3016 7362 -340 Weight 95.2 kg 98.3 kg Exam: General appearance: PRESENT: no acute distress, well-developed, well-nourished Head exam: PRESENT: atraumatic, normocephalic Eye exam: PRESENT: conjunctiva pink. ABSENT: scleral icterus Mouth exam: PRESENT: moist Respiratory exam: PRESENT: clear to auscultation vern. ABSENT: rales, rhonchi, wheezes Cardiovascular exam: PRESENT: RRR. ABSENT: diastolic murmur, rubs, systolic murmur GI/Abdominal exam: PRESENT: normal bowel sounds, soft. ABSENT: distended, guarding, mass, organolmegaly, rebound, tenderness Neurological exam: PRESENT: alert, awake, oriented to person, oriented to place, oriented to time, oriented to situation Psychiatric exam: PRESENT: appropriate affect, normal mood Skin exam: PRESENT: dry, intact, warm; right BKA healing, tender, no significant drainage Results Laboratory Results: 08/22/20 04:05 08/22/20 04:05 08/22/20 08/22/20 04:05 04:05 WBC 6.9 RBC 3.80 L Hgb 10.4 L Hct 30.3 L MCV 80 MCH 27.4 MCHC 34.4 RDW 15.9 H Plt Count 274 Sodium 135.0 L Potassium 3.3 L Chloride 102 Carbon Dioxide 24 Anion Gap 9 BUN 5 L Creatinine 0.55 Est GFR ( Amer) > 60 Glucose 148 H Calcium 8.1 L Magnesium 1.9 Impressions: Foot X-Ray 08/19/20 10:56 IMPRESSION: No acute fracture. Osteomyelitis of the proximal seconds 3rd and 4th metatarsals as well is the cuboid, cuneiforms, navicular. This based on MRI previous day. Assessment and Plan - Diagnosis (1) Osteomyelitis Qualifiers: Osteomyelitis type: unspecified type Osteomyelitis location: foot Laterality: right Qualified Code(s): M86.9 - Osteomyelitis, unspecified Is this a current diagnosis for this admission?: Yes Plan: Per general surgery physician: "Impression: Patient is postoperative day 2 right BKA, doing well, no complications; no drain; antibiotics tapering off Plan: 1. Discontinue antibiotics 2. We will sign off; have patient follow-up with Dr. Agustin Bay, [place] [facility] in 10 days for wound check and partial removal of sutures 3. Continue dressing changes with Xeroform over staple line, 4 x 4's Curlex and Carlos A wrap. 4. Please reconsult surgery if clinically indicated" Antibiotics completed Needs follow-up with surgeon at discharge PT/OT, qualifies for LTACH (2) Chronic obstructive pulmonary disease Qualifiers: COPD type: chronic bronchitis Is this a current diagnosis for this admission?: Yes Plan: Per Previous Physician: "Does not seem to be acutely exacerbated. History of COPD not oxygen dependent. Continue LAMA, LABA, ICS. As needed duo nebs. Pulmonary toileting. As needed supplemental oxygen. Outpatient PCP and pulmonology follow-up. " Breathing stable (3) Depression Is this a current diagnosis for this admission?: Yes Plan: Per Previous Physician: "Denies any suicidal or homicidal ideation. Resume home meds. Outpatient PCP and psychiatry follow-up." Stable (4) Hyperlipidemia Is this a current diagnosis for this admission?: Yes (5) Hypertension Qualifiers: Is this a current diagnosis for this admission?: Yes Plan: Per Previous Physician: "Euvolemic. Normotensive. Resume home meds. Adjust meds as needed. Outpatient PCP follow-up. As needed IV hydralazine and IV metoprolol." There is no indication for IV BP meds, stopped these (6) Tobacco use disorder, continuous Is this a current diagnosis for this admission?: Yes (7) Type 2 diabetes mellitus Qualifiers: Diabetes mellitus terminal makeup operator insulin use: with skilled nursing use Diabetes mellitus complication status: with diabetic arthropathy Is this a current diagnosis for this admission?: Yes Plan: Per Previous Physician: "History of uncontrolled diabetes. Hemoglobin A1c 10.1%. Patient will greatly benefit from maximizing his oral antidiabetic as he has normal renal function. We will start on Metformin 1000 mg p.o. twice daily, sitagliptin 50 mg p.o. twice daily. Diabetic diet, sliding scale insulin, basal insulin, prandial insulin, hypoglycemic protocol, Accu-Chek. Adjust meds as needed. Resume home meds upon discharge. Outpatient PCP follow- up. Diabetic education." Continue current treatment plan - Time Time Spent with patient: 15-24 minutes Medications reviewed and adjusted accordingly: Yes Anticipated Discharge Disposition: [facility] Anticipated Discharge Timeframe: within 48 hours - Inpatient Certification Based on my medical assessment, after consideration of the patient's comorbidities, presenting symptoms, or acuity I expect that the services needed warrant INPATIENT care.: Yes I certify that my determination is in accordance with my understanding of Medicare's requirements for reasonable and necessary INPATIENT services [42 CFR 412.3e].: Yes Medical Necessity: Significant Comorbidiites Make Outpatient Treatment Too R isky, Need Close Monitoring Due to Risk of Patient Decompensation, Risk of Complication if Not Cared For in Hospital, Risk of Diagnosis Which Will Require Inpatient Eval/Care/Monitoring
[2020-08-22] MEDS: INSULIN GLARGINE,HUM.REC.ANLOG 1,000 UNIT/10 ML VIAL SUBCUT SCH (21:47)
[2020-08-23] MEDS: KETOROLAC TROMETHAMINE INJ/PF 30 MG/1 ML SDV IV SCH ×2 (05:25→14:36)
[2020-08-23] MEDS: ACETAMINOPHEN 1,000 MG/100 ML RTUPB IV SCH ×2 (05:26→14:36)
[2020-08-23] MEDS: GABAPENTIN 300 MG CAPSULE PO SCH ×3 (05:26→17:37)
[2020-08-23] MEDS: NORMAL SALINE 1000 ML 1,000 ML IV PRN (05:26)
[2020-08-23] MEDS: HEPARIN SOD (PORCINE) 5,000 UNIT/ML 1 ML VIAL SUBCUT SCH ×2 (05:26→14:36)
[2020-08-23] MEDS: IPRATROPIUM/ALBUTEROL 0.5-2.5 MG/3 ML AMPUL NEB SCH ×2 (07:57→14:36)
[2020-08-23] MEDS: SITAGLIPTIN PHOSPHATE 50 MG TABLET PO SCH ×2 (09:51→17:36)
[2020-08-23] MEDS: METFORMIN HCL 500 MG TABLET PO SCH ×2 (09:51→17:37)
[2020-08-23] MEDS: FLUTICASONE/VILANTEROL 200-25 MCG/DOSE IH SCH (09:51)
[2020-08-23] MEDS: LOSARTAN POTASSIUM 50 MG TABLET PO SCH (09:52)
[2020-08-23] MEDS: DOCUSATE SODIUM 100 MG CAPSULE PO SCH ×2 (09:52→17:37)
[2020-08-23] MEDS: SERTRALINE HCL 50 MG TABLET PO SCH (09:52)
[2020-08-23] MEDS: FAMOTIDINE 20 MG TABLET PO SCH (09:52)
[2020-08-23] MEDS: NICOTINE 7 MG/24 HR PATCH.TD24 TD SCH (09:55)
[2020-08-23] MEDS: INSULIN LISPRO 100 UNIT/ML 3 ML VIAL SUBCUT SCH ×3 (11:40→17:36)
--- NOTE | 2020-08-23 15:20 | PDOC DISCHARGE SUMMARY ---
Impression - Admit/DC Date/PCP Admission Date/Primary Care Provider: 08/19/20 13:19 LEOPOLDO RODRIGUEZ DO Discharge Date: 08/23/20 - Discharge Diagnosis (1) Osteomyelitis Is this a current diagnosis for this admission?: Yes (2) Chronic obstructive pulmonary disease Is this a current diagnosis for this admission?: Yes (3) Depression Is this a current diagnosis for this admission?: Yes (4) Hyperlipidemia Is this a current diagnosis for this admission?: Yes (5) Hypertension Is this a current diagnosis for this admission?: Yes (6) Tobacco use disorder, continuous Is this a current diagnosis for this admission?: Yes (7) Type 2 diabetes mellitus Is this a current diagnosis for this admission?: Yes - Additional Information Resuscitation Status: Full Code Discharge Diet: As Tolerated, Diabetic Discharge Activity: Activity As Tolerated, Balance Activity w/Rest Referrals: LEOPOLDO RODRIGUEZ DO [Primary Care Provider] - Follow up as needed Prescriptions: Docusate Sodium [Colace 100 mg Capsule] 100 mg PO BID #60 capsule Losartan Potassium [Cozaar 50 mg Tablet] 50 mg PO DAILY #30 tablet Nicotine [Nicoderm 7 mg/24 Hr Transdermal Patch] 1 each TD DAILY #30 patch.td24 Home Medications: Gabapentin [Neurontin] 600 mg PO Q6 07/19/18 Levalbuterol Tartrate [Levalbuterol Tartrate Hfa] 1 puff IH Q4HP PRN 06/07/20 Budesonide/Formoterol Fumarate [Symbicort HFA 160-4.5 mcg Inhaler 6 gm] 2 puff IH BID 08/19/20 Insulin Aspart [Novolog Insulin (Aspart) 100 unit/mL] 0 units SQ .PERSLIDINGSCALE 08/19/20 Metformin HCl [Metformin HCl ER] 1,000 mg PO WSUPPER 08/19/20 Oxycodone HCl [Oxy-Ir 5 mg Tablet] 5 mg PO Q6HP PRN 08/19/20 Pantoprazole Sodium [Protonix [address] Tablet] 20 mg PO QAM 08/19/20 Sertraline HCl [Zoloft 50 mg Tablet] 100 mg PO DAILY 08/19/20 Sitagliptin Phosphate [Januvia 50 mg Tablet] 50 mg PO DAILY 08/19/20 Docusate Sodium [Colace 100 mg Capsule] 100 mg PO BID #60 capsule 08/23/20 Insulin Glargine,Hum.rec.anlog [Sean Moon] 18 units SQ QHS #0 08/23/20 Losartan Potassium [Cozaar 50 mg Tablet] 50 mg PO DAILY #30 tablet 08/23/20 Nicotine [Nicoderm 7 mg/24 Hr Transdermal Patch] 1 each TD DAILY #30 patch.td24 08/23/20 History of Present Illiness History of Present Illness: "Per Previous Physician: ED PEDRAZA is a 50 year old male past medical history of CAD, hypertension, dyslipidemia, diabetes, depression, COPD, tobacco abuse, osteomyelitis who was recently discharged from [facility] with a wound VAC after undergoing a resection of fifth metatarsal for osteomyelitis, patient was following up with Dr. Galaviz for wound care. Presenting to ED complaining of worsening redness and pain in the right lateral aspect of his foot, patient has been wearing a wound VAC, removed it yesterday, noticed drainage from the wound area, which started about 3 days ago, started with a dry with no significant improvement, had an MRI of right lower extremity done yesterday which was positive for second, third and fourth metatarsal osteomyelitis. Patient is reporting compliance to his antibiotics and wound care, taking good care of his diabetes, fortunately still smoking, denies any trauma to the right foot, denies any fever, chills, shortness of breath, headache, nausea, vomiting, abdominal pain, diarrhea, constipation or any urinary symptoms. Hospital was consulted for admission." Hospital Course Hospital Course: Per Previous Physician: "ED PEDRAZA is a 50 year old male past medical history of CAD, hypertension, dyslipidemia, diabetes, depression, COPD, tobacco abuse, osteomyelitis who was recently discharged from [facility] with a wound VAC after undergoing a resection of fifth metatarsal for osteomyelitis, patient was following up with Dr. Galaviz for wound care. Presenting to ED complaining of worsening redness and pain in the right lateral aspect of his foot, patient has been wearing a wound VAC, removed it yesterday, noticed drainage from the wound area, which started about 3 days ago, started with a dry with no significant improvement, had an MRI of right lower extremity done yesterday which was positive for second, third and fourth metatarsal osteomyelitis. Patient is reporting compliance to his antibiotics and wound care, taking good care of his diabetes, fortunately still smoking, denies any trauma to the right foot, denies any fever, chills, shortness of breath, headache, nausea, vomiting, abdominal pain, diarrhea, constipation or any urinary symptoms. Hospital was consulted for admission. 08/20/2020. Saw patient after his Rt BKA, resting in his bed in no apparent distress, planing of right leg pain, denies any fever, chills, nausea, vomiting, diarrhea, constipation or any urinary symptoms. 08/21/2020. No acute events overnight. Patient still complaining of right lower extremity pain however improved since surgery, denies any fever, chills, nausea, vomiting, diarrhea, constipation or any urinary symptoms." 08/22/2020 Patient seemed to be doing well today. General surgery is stopped antibiotics. Patient states his stump is a bit irritated and he would like the nurse to adjust his dressing. Otherwise he has no new complaints. Consulted OT per PT recommendations. Blood cultures are negative. Patient is likely appropriate for LTACH. 08/23/2020 Physical therapy has now decided that the patient would be best served going ho dc with home health and this will be ordered along with any durable medical equipment that he needs. PT/OT will be ordered for home. Patient is agreeable with the plan and would like to go home soon as possible. He has completed all antibiotics and is not need any further. (1) Osteomyelitis Qualifiers: Osteomyelitis type: unspecified type Osteomyelitis location: foot Laterality: right Qualified Code(s): M86.9 - Osteomyelitis, unspecified Is this a current diagnosis for this admission?: Yes Plan: Per general surgery physician: "Impression: Patient is postoperative day 2 right BKA, doing well, no compli cations; no drain; antibiotics tapering off Plan: 1. Discontinue antibiotics 2. We will sign off; have patient follow-up with Dr. Agustin Bay, [facility] in 10 days for wound check and partial removal of sutures 3. Continue dressing changes with Xeroform over staple line, 4 x 4's Curlex and Carlos A wrap. 4. Please reconsult surgery if clinically indicated" Antibiotics completed Needs follow-up with surgeon at discharge PT/OT, discharged home with home health and assistive devices (2) Chronic obstructive pulmonary disease Qualifiers: COPD type: chronic bronchitis Is this a current diagnosis for this admission?: Yes Plan: Per Previous Physician: "Does not seem to be acutely exacerbated. History of COPD not oxygen dependent. Continue LAMA, LABA, ICS. As needed duo nebs. Pulmonary toileting. As needed supplemental oxygen. Outpatient PCP and pulmonology follow-up. " Breathing stable (3) Depression Is this a current diagnosis for this admission?: Yes Plan: Per Previous Physician: "Denies any suicidal or homicidal ideation. Resume home meds. Outpatient PCP and psychiatry follow-up." Stable (4) Hyperlipidemia Is this a current diagnosis for this admission?: Yes (5) Hypertension Qualifiers: Is this a current diagnosis for this admission?: Yes Plan: Per Previous Physician: "Euvolemic. Normotensive. Resume home meds. Adjust meds as needed. Outpatient PCP follow-up. 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 Hemoglobin A1c 10.1%. Patient will greatly benefit from maximizing his oral antidiabetic as he has normal renal function. We will start on Metformin 1000 mg p.o. twice daily, sitagliptin 50 mg p.o. twice daily. Diabetic diet, sliding scale insulin, basal insulin, prandial insulin, hypoglycemic protocol, Accu-Chek. Adjust meds as needed. Resume home meds upon discharge. Outpatient PCP follow- up. Diabetic education." Continue current treatment plan Physical Exam Vital Signs: Temp Pulse Resp BP Pulse Ox 98.0 F 74 18 130/65 H 97 08/23/20 11:19 08/23/20 14:37 08/23/20 14:37 08/23/20 11:19 08/23/20 14:37 Intake & Output 08/22/20 08/23/20 08/24/20 06:59 06:59 06:59 Intake Total 4249 2617 260 Output Total 1974 1894 Balance 2274 722 260 Weight 98.3 kg 94.9 kg Exam: General appearance: PRESENT: no acute distress, well-developed, well-nourished, states he feels well would like to go home Head exam: PRESENT: atraumatic, normocephalic Eye exam: PRESENT: conjunctiva pink. ABSENT: scleral icterus Mouth exam: PRESENT: moist Respiratory exam: PRESENT: clear to auscultation vern. ABSENT: rales, rhonchi, wheezes Cardiovascular exam: PRESENT: RRR. ABSENT: diastolic murmur, rubs, systolic murmur GI/Abdominal exam: PRESENT: normal bowel sounds, soft. ABSENT: distended, guarding, mass, organolmegaly, rebound, tenderness Neurological exam: PRESENT: alert, awake, oriented to person, oriented to place, oriented to time, oriented to situation Psychiatric exam: PRESENT: appropriate affect, normal mood Skin exam: PRESENT: dry, intact, warm; right BKA healing, tender, no significant drainage Results Laboratory Results: WBC 6.9 10^3/uL (4.0-10.5) 08/22/20 04:05 RBC 3.80 10^6/uL (4.35-5.55) L 08/22/20 04:05 Hgb 10.4 g/dL (13.5-17.0) L 08/22/20 04:05 Hct 30.3 % (37.9-51.0) L 08/22/20 04:05 MCV 80 fl (80-97) 08/22/20 04:05 MCH 27.4 pg (27.0-33.4) 08/22/20 04:05 MCHC 34.4 g/dL (32.0-36.0) 08/22/20 04:05 RDW 15.9 % (11.5-14.0) H 08/22/20 04:05 Plt Count 274 10^3/uL (150-450) 08/22/20 04:05 Lymph % (Auto) 13.8 % (13-45) 08/20/20 06:06 [place] % (Auto) 13.8 % (3-13) H 08/20/20 06:06 Eos % (Auto) 4.0 % (0-6) 08/20/20 06:06 Baso % (Auto) 0.9 % (0-2) 08/20/20 06:06 Absolute Neuts (auto) 6.4 10^3/uL (1.7-8.2) 08/20/20 06:06 Absolute Lymphs (auto) 1.3 10^3/uL (0.5-4.7) 08/20/20 06:06 Absolute Monos (auto) 1.3 10^3/uL (0.1-1.4) 08/20/20 06:06 Absolute Eos (auto) 0.4 10^3/uL (0.0-0.6) 08/20/20 06:06 Absolute Basos (auto) 0.1 10^3/uL (0.0-0.2) 08/20/20 06:06 Seg Neutrophils % 67.5 % (42-78) 08/20/20 06:06 ESR 46 mm/hr (0-20) H 08/19/20 11:04 PT 15.2 SEC (11.4-15.4) 08/20/20 06:06 INR 1.18 08/20/20 06:06 Sodium 135.0 mmol/L (137-145) L 08/22/20 04:05 Potassium 3.3 mmol/L (3.6-5.0) L 08/22/20 04:05 Chloride 102 mmol/L (98-107) 08/22/20 04:05 Carbon Dioxide 24 mmol/L (22-30) 08/22/20 04:05 Anion Gap 9 (5-19) 08/22/20 04:05 BUN 5 mg/dL (7-20) L 08/22/20 04:05 Creatinine 0.55 mg/dL (0.52-1.25) 08/22/20 04:05 Est GFR ( Amer) > 60 (>60) 08/22/20 04:05 Est GFR (MDRD) Non-Af > 60 (>60) 08/22/20 04:05 Glucose 148 mg/dL (75-110) H 08/22/20 04:05 POC Glucose 166 mg/dL (70-110) H 08/23/20 11:21 Hemoglobin A1c % 10.2 % (4.7-6.0) H 08/20/20 06:06 Calcium 8.1 mg/dL (8.4-10.2) L 08/22/20 04:05 Magnesium 1.9 mg/dL (1.6-2.3) 08/22/20 04:05 Total Bilirubin 0.7 mg/dL (0.2-1.3) 08/20/20 06:06 Direct Bilirubin 0.5 mg/dL (0.0-0.4) H 08/20/20 06:06 Neonat Total Bilirubin Not Reportable 08/20/20 06:06 Neonat Direct Bilirubin Not Reportable 08/20/20 06:06 Neonat Indirect Bili Not Reportable 08/20/20 06:06 AST 30 U/L (17-59) 08/20/20 06:06 ALT 22 U/L (<50) 08/20/20 06:06 Alkaline Phosphatase 145 U/L (38-126) H 08/20/20 06:06 C-Reactive Protein 164.2 mg/L (<10.0) H 08/19/20 11:04 Total Protein 7.2 g/dL (6.3-8.2) 08/20/20 06:06 Albumin 3.4 g/dL (3.5-5.0) L 08/20/20 06:06 Time Trough Drawn 1443 08/21/20 14:43 Vancomycin Trough 14.2 ug/mL (5.0-20.0) 08/21/20 14:43 SARS-CoV-2 (PCR) NEGATIVE (NEGATIVE) 08/20/20 00:51 Impressions: Foot X-Ray 08/19/20 10:56 IMPRESSION: No acute fracture. Osteomyelitis of the proximal seconds 3rd and 4th metatarsals as well is the cuboid, cuneiforms, navicular. This based on MRI previous day. Plan Plan of Treatment: Follow-up with PCP Follow-up with surgeon PT/OT Follow-up with prosthetics Time Spent: Greater than 30 Minutes Stroke Is this a Stroke Patient?: No Acute Heart Failure Is this a Heart Failure Patient?: No
--- NOTE | 2020-08-23 16:40 | Progress Note ---
Provider Note Provider Note: Patient cannot use a cane or walker to achieve home ADLs but he is able to use a wheelchair to perform ADLs and self propel
[2020-08-23 18:47] VITALS: BP 131/72
== END 2020-08-23 19:05 | disposition home health service (06) | DRG 617 ==
LOC: ER 10:33 → EH 13:19 → 5 14:15
PROVIDERS: ADMIT Internal Medicine; ATTEND Internal Medicine
PROC: 0Y6H0Z2 Detachment at Right Lower Leg, Mid, Open Approach (ICD-10-PCS; principal; 2020-08-20 09:30)
DX: E11.69 Type 2 diabetes mellitus with other specified complication (principal); M86.9 Osteomyelitis, unspecified; I25.10 Atherosclerotic heart disease of native coronary artery without angina pectoris; I10 Essential (primary) hypertension; E78.5 Hyperlipidemia, unspecified; F17.210 Nicotine dependence, cigarettes, uncomplicated; E11.618 Type 2 diabetes mellitus with other diabetic arthropathy; F32.9 Major depressive disorder, single episode, unspecified; J44.9 Chronic obstructive pulmonary disease, unspecified; K21.9 Gastro-esophageal reflux disease without esophagitis; Z90.49 Acquired absence of other specified parts of digestive tract; Z88.6 Allergy status to analgesic agent; Z79.899 Other long term (current) drug therapy; Z82.49 Family history of ischemic heart disease and other diseases of the circulatory system; Z83.3 Family history of diabetes mellitus; Z79.4 Long term (current) use of insulin; Z91.012 Allergy to eggs; Z88.8 Allergy status to other drugs, medicaments and biological substances; Z79.82 Long term (current) use of aspirin
CPT/HCPCS: 01482; 36415; 80048; 80053; 80202; 82565; 82962; 83036; 83735; 85025; 85027; 85610; 85652; 86140; 87040; 87635; 88305; 88311; 93005; 93010; 94640; 94667; 94799; 96365; 99285; A9576; C9803; J0131; J0360; J0692; J1170; J1644; J1815; J1885; J2020; J2250; J2270; J2704; J3370; J3490; J7030; J7060; L1830

== ENCOUNTER 2020-08-30 16:52 | Emergency (ER) | payer MEDICARE, MEDICAID ==
[2020-08-30] MEDS ORDERED: ACETAMINOPHEN 325 MG TABLET PO ONE (18:53)
--- NOTE | 2020-08-30 18:55 | ER Document Report ---
ED Medical Screen (RME) - General Stated Complaint: FELL - WOUND CHECK LEG Time Seen by Provider: 08/30/20 18:46 Primary Care Provider: LEOPOLDO RODRIGUEZ DO [Primary Care Provider] - Follow up as needed Notes: Patient presents after right BKA 10 days ago. Patient states that he has been losing his balance and is having difficulty adjusting to the amputation and has had frequent falls. Patient states that he fell 4 days ago, yesterday and to day. Patient states he did land on the stump. Patient had an amputation due to diabetes and osteomyelitis. Patient states that he has no assistive devices at home and does not feel safe managing his condition at home. Patient is requesting admission so he can get Medicaid and go to a rehab facility. I have greeted and performed a rapid initial assessment of this patient. A comprehensive ED assessment and evaluation of the patient, analysis of test results and completion of the medical decision making process will be conducted by additional ED providers. TRAVEL OUTSIDE OF THE [place] IN LAST 30 DAYS: No - Related Data Allergies/Adverse Reactions: atenolol Adverse Reaction (Verified 08/19/20 10:57) LOWER B/P egg Adverse Reaction (Verified 08/19/20 10:57) Diarrhea Past Medical History - Past Medical History Cardiac Medical History: Reports: Hx Coronary Artery Disease, Hx Hypercholesterolemia, Hx Hypertension Denies: Hx Atrial Fibrillation, Hx Congestive Heart Failure, Hx DVT, Hx Heart Attack, Hx Pulmonary Embolism Pulmonary Medical History: Reports: Hx Asthma, Hx Bronchitis, Hx COPD Denies: Hx Pneumonia Neurological Medical History: Denies: Hx Cerebrovascular Accident, Hx Seizures Endocrine Medical History: Reports: Hx Diabetes Mellitus Type 2. Denies: Hx Diabetes Mellitus Type 1, Hx Hyperthyroidism, Hx Hypothyroidism Renal/ Medical History: Denies: Hx Peritoneal Dialysis GI Medical History: Reports: Hx Gastroesophageal Reflux Disease. Denies: Hx Cirrhosis, Hx Crohn's Disease, Hx Hepatitis, Hx Ulcerative Colitis Musculoskeltal Medical History: Denies Hx Arthritis, Denies Hx Fibromyalgia Skin Medical History: Denies Hx Eczema, Denies Hx Psoriasis Psychiatric Medical History: Reports: Hx Depression Infectious Medical History: Denies: Hx Hepatitis Past Surgical History: Reports: Hx Abdominal Surgery - hernia, Hx Appendectomy, Hx Cholecystectomy, Hx Oral Surgery - R Knee 1992, Hx Tonsillectomy, Other - Knee surgery. Liver and lung biopsies for sarcoidosis. Right 5th ray amp - Immunizations Hx Diphtheria, Pertussis, Tetanus Vaccination: Yes Physical Exam - Vital signs Vitals: Temp Pulse Resp BP Pulse Ox 100.0 F 111 H 18 111/68 98 08/30/20 18:13 08/30/20 18:13 08/30/20 18:13 08/30/20 18:13 08/30/20 18:13 - General General appearance: Alert Notes: Erythema to middle portion of patient's BKA incision, area tender to touch Course - Vital Signs Vital signs: Temp Pulse Resp BP Pulse Ox 100.0 F 111 H 18 111/68 98 08/30/20 18:13 08/30/20 18:13 08/30/20 18:13 08/30/20 18:13 08/30/20 18:13 Doctor's Discharge - Discharge Referrals: LEOPOLDO RODRIGUEZ DO [Primary Care Provider] - Follow up as needed
--- NOTE | 2020-08-30 19:36 | RADIOLOGY REPORT (SQ) ---
EXAM DESCRIPTION: KNEE RIGHT 4 VIEWS IMAGES COMPLETED DATE/TIME: 08/30/2020 7:24 pm REASON FOR STUDY: fall, hx recent amputation COMPARISON: None. NUMBER OF VIEWS: Four views. TECHNIQUE: AP, lateral, and both oblique radiographic images acquired of the right knee. LIMITATIONS: None. FINDINGS: MINERALIZATION: Normal. BONES: No acute fracture or dislocation. No worrisome bone lesions. Recent [id number] amputatio n. JOINT: No effusion. SOFT TISSUES: No soft tissue swelling. Recent sqnzy-[id number] amputation with surgical ami over t he soft tissue stump. OTHER: No other significant finding. IMPRESSION: No acute fracture or malalignment. No knee joint effusion. TECHNICAL DOCUMENTATION: JOB ID: [id number] 2010 [employer]- All Rights Reserved Reading location - IP/workstation name: [email or web address]
[2020-08-30 20:00] LABS: ABSOLUTE BASOPHILS # (AUTO) 0.1 10^3/uL (0.0-0.2); ABSOLUTE EOSINOPHILS # (AUTO) 0.9 10^3/uL (0.0-0.6); ABSOLUTE LYMPHOCYTES (AUTO) 1.6 10^3/uL (0.5-4.7); ABSOLUTE MONOCYTES (AUTO) 0.8 10^3/uL (0.1-1.4); ABSOLUTE NEUT (AUTO) 5.1 10^3/uL (1.7-8.2); BASOPHILS % (AUTO) 1.3 % (0-2); HEMATOCRIT 40.2 % (37.9-51.0); LYMPHOCYTES % (AUTO) 18.5 % (13-45); MEAN CORPUSCULAR HEMOGLOBIN 28.3 pg (27.0-33.4); MEAN CORPUSCULAR HGB CONC 34.9 g/dL (32.0-36.0); MEAN CORPUSCULAR VOLUME 81 fl (80-97); MONOCYTES % (AUTO) 9.9 % (3-13); PLATELET COUNT 517 10^3/uL (150-450); RED BLOOD COUNT 4.96 10^6/uL (4.35-5.55); RED CELL DISTRIBUTION WIDTH 17.5 % (11.5-14.0); SEGMENTED NEUTROPHILS % (AUTO) 59.3 % (42-78); TOTAL CELLS COUNTED % (AUTO) 100 %; WHITE BLOOD COUNT 8.6 10^3/uL (4.0-10.5)
[2020-08-30 20:18] LABS: ALBUMIN 4.3 g/dL (3.5-5.0); ALKALINE PHOSPHATASE 143 U/L (38-126); ANION GAP 13 (5-19); ASPARTATE AMINO TRANSFERASE 40 U/L (17-59); BILIRUBIN,DIRECT 0.1 mg/dL (0.0-0.4); BILIRUBIN,TOTAL 0.4 mg/dL (0.2-1.3); BLOOD UREA NITROGEN 13 mg/dL (7-20); CARBON DIOXIDE 24 mmol/L (22-30); CHLORIDE 102 mmol/L (98-107); GLUCOSE 244 mg/dL (75-110); POTASSIUM 4.5 mmol/L (3.6-5.0); TOTAL PROTEIN 8.3 g/dL (6.3-8.2)
[2020-08-30] MEDS ORDERED: RINGERS SOLUTION,LACTATED 1,000 ML IV ONE (20:23)
--- NOTE | 2020-08-31 07:12 | ER Document Report ---
ED Fall - General Chief Complaint: Fall Stated Complaint: FELL - WOUND CHECK LEG Time Seen by Provider: 08/30/20 18:46 Primary Care Provider: LEOPOLDO RODRGIUEZ DO [Primary Care Provider] - Follow up as needed Information source: Patient TRAVEL OUTSIDE OF THE [place] IN LAST 30 DAYS: No - HPI Notes: Patient states he had a recent lower extremity amputation. States since that time his been having some weakness and has had multiple falls. He also states that he has noticed the wound has been red and tender. He denies any fevers. No discharge from the wound. The wound is mainly been tender on the lateral aspect. The pain is been relatively constant. Is worse if touched but if left alone. It does radiate the right leg. It is been a burning and aching sensation. He denies any fevers. No vomiting or diarrhea. Says he does have enough of his pain medication at home. - Related data Allergies/Adverse Reactions: atenolol Adverse Reaction (Verified 08/19/20 10:57) LOWER B/P egg Adverse Reaction (Verified 08/19/20 10:57) Diarrhea Past Medical History - General Information source: Patient - Social History Smoking Status: Current Every Day Smoker Frequency of alcohol use: None Drug Abuse: None Family History: CAD, DM, Hypertension, Malignancy - Past Medical History Cardiac Medical History: Reports: Hx Coronary Artery Disease, Hx Hypercholesterolemia, Hx Hypertension Denies: Hx Atrial Fibrillation, Hx Congestive Heart Failure, Hx DVT, Hx Heart Attack, Hx Pulmonary Embolism Pulmonary Medical History: Reports: Hx Asthma, Hx Bronchitis, Hx COPD Denies: Hx Pneumonia Neurological Medical History: Denies: Hx Cerebrovascular Accident, Hx Seizures Endocrine Medical History: Reports: Hx Diabetes Mellitus Type 2. Denies: Hx Diabetes Mellitus Type 1, Hx Hyperthyroidism, Hx Hypothyroidism Renal/ Medical History: Denies: Hx Peritoneal Dialysis GI Medical History: Reports: Hx Gastroesophageal Reflux Disease. Denies: Hx Cirrhosis, Hx Crohn's Disease, Hx Hepatitis, Hx Ulcerative Colitis Musculoskeletal Medical History: Denies Hx Arthritis, Denies Hx Fibromyalgia Skin Medical History: Denies Hx Eczema, Denies Hx Psoriasis Psychiatric Medical History: Reports: Hx Depression Infectious Medical History: Denies: Hx Hepatitis Past Surgical History: Reports: Hx Abdominal Surgery - hernia, Hx Appendectomy, Hx Cholecystectomy, Hx Oral Surgery - R Knee 1992, Hx Tonsillectomy, Other - Knee surgery. Liver and lung biopsies for sarcoidosis. Right 5th ray amp - Immunizations Hx Diphtheria, Pertussis, Tetanus Vaccination: Yes Hx Pneumococcal Vaccination: 10/27/16 Review of Systems - Review of Systems Constitutional: denies: Chills, Fever Cardiovascular: denies: Chest pain, Palpitations Respiratory: denies: Cough, Short of breath -: Yes All other systems reviewed and negative Physical Exam - Vital signs Vitals: Temp Pulse Resp BP Pulse Ox 100.0 F 111 H 18 111/68 98 08/30/20 18:13 08/30/20 18:13 08/30/20 18:13 08/30/20 18:13 08/30/20 18:13 Interpretation: Normal - Patient was apparently tachycardic at triage. However his pulse now is 72. - General General appearance: Appears well, Alert - HEENT Head: Normocephalic, Atraumatic Eyes: Normal Pupils: PERRL - Respiratory Respiratory status: No respiratory distress Chest status: Nontender Breath sounds: Normal Chest palpation: Normal - Cardiovascular Rhythm: Regular Heart sounds: Normal auscultation Murmur: No - Abdominal Inspection: Normal Distension: No distension Bowel sounds: Normal Tenderness: Nontender Organomegaly: No organomegaly - Back Back: Normal, Nontender - Extremities General upper extremity: Normal inspection, Nontender, Normal color, Normal ROM, Normal temperature General lower extremity: Normal temperature, Other - The stump on the right lower extremity does have some diffuse erythema about the incision. No drainage is appreciated. He is tender mainly on the lateral aspect of this wound. I do not appreciate significant induration.. No: Anne-Marie's sign - Neurological Neuro grossly intact: Yes Cognition: Normal Orientation: AAOx4 Shaniqua Coma Scale Eye Opening: Spontaneous Shaniqua Coma Scale Verbal: Oriented Shaniqua Coma Scale Motor: Obeys Commands Shaniqua Coma Scale Total: 15 Speech: Normal Motor strength normal: LUE, RUE, LLE, RLE Sensory: Normal - Psychological Associated symptoms: Normal affect, Normal mood - Skin Skin Temperature: Warm Skin Moisture: Dry Skin Color: Normal Course - Re-evaluation Re-evalutation: 08/31/20 08:12 Patient was seen by Dr. Kiryb in the emergency department. He recommends a dose of antibiotics and to send the patient home on antibiotics. He states he does not feel that any further interventions are necessary. I will also have the patient consulted on by social work to try to help with some physical therapy and home health. - Vital Signs Vital signs: Temp Pulse Resp BP Pulse Ox 97.8 F 78 20 146/79 H 100 08/31/20 05:57 08/31/20 05:57 08/31/20 05:57 08/31/20 05:57 08/31/20 05:57 - Laboratory Result Diagrams: 08/30/20 19:40 08/30/20 19:40 Laboratory results interpreted by me: 08/30/20 08/30/20 08/30/20 19:37 19:40 19:40 RDW 17.5 H Plt Count 517 H Eos % (Auto) 11.0 H Absolute Eos (auto) 0.9 H Glucose 244 H POC Glucose 221 H Lactic Acid Alkaline Phosphatase 143 H Total Protein 8.3 H 08/30/20 19:40 RDW Plt Count Eos % (Auto) Absolute Eos (auto) Glucose POC Glucose Lactic Acid 2.5 H Alkaline Phosphatase Total Protein - Diagnostic Test Radiology reviewed: Image reviewed, Reports reviewed Discharge - Discharge Clinical Impression: Wound infection after surgery Condition: Stable Disposition: HOME, SELF-CARE Instructions: Wound Infection ([facility]) Additional Instructions: Do not dress wound. Please leave wound open to the air. Prescriptions: Cephalexin Monohydrate [Keflex 500 mg Capsule] 500 mg PO Q6H 10 Days #40 capsule Referrals: LEOPOLDO RODRIGUEZ DO [Primary Care Provider] - Follow up in 3-5 days ANUSHA DAVIES MD [ACTIVE STAFF] - Follow up in 1 week
[2020-08-31] MEDS ORDERED: CEFAZOLIN 2 GM/D5W RTU 2 GM/50 ML RTUPB IV ONE (08:11)
--- NOTE | 2020-08-31 08:29 | PDOC CONSULTATION ---
Consultation Consult Date: 08/31/20 Attending physician:: LEONEL LEON Provider Consulted: JORDAN DUKES Consult reason:: Right below the knee amputation stump erythema History of Present Illness Admission Date/PCP: LEOPOLDO RODRIGUEZ DO History of Present Illness: ED PEDRAZA is a 50 year old male Presents emergency department via ground rescue complaining of a day long history of erythema to the right [id number] stump amputation site, denies fever. Seen in the emergency department, concerned about infection tased. No evidence of drainage or foul smell. White blood cell count normal. Patient off antibiotics at this time. Patient is 10 days status post right BKA by Dr. Bay for osteomyelitis of the foot. He has been keeping the stump wrapped wit h Kerlix and Carlos A wrap Past Medical History Past Medical History: Peripheral vascular disease, osteomyelitis, diabetes mellitus Cardiac Medical History: Reports: Coronary Artery Disease, Hyperlipidema, Hypertension Denies: Atrial Fibrillation, Congestive Heart Failure, DVT, Myocardial Infarction, Pulmonary Embolism Pulmonary Medical History: Reports: Asthma, Bronchitis, Chronic Obstructive Pulmonary Disease (COPD) Denies: Pneumonia Neurological Medical History: Denies: Seizures Endocrine Medical History: Reports: Diabetes Mellitus Type 2 Denies: Diabetes Mellitus Type 1, Hyperthyroidism, Hypothyroidism GI Medical History: Reports: Gastroesophageal Reflux Disease Denies: Cirrhosis, Crohn's Disease, Hepatitis, Ulcerative Colitis Musculoskeltal Medical History: Denies: Arthritis, Fibromyalgia Skin Medical History: Denies: Eczema, Psoriasis Psychiatric Medical History: Reports: Depression Hematology: Denies: Anemia, Bleeding Tendencies Past Surgical History Past Surgical History: Right below the knee amputation Past Surgical History: Reports: Appendectomy, Cholecystectomy, Tonsillectomy, Other - Knee surgery. Liver and lung biopsies for sarcoidosis. Right 5th ray amp Social History Smoking Status: Current Every Day Smoker Frequency of Alcohol Use: None Hx Recreational Drug Use: No Drugs: None Hx Prescription Drug Abuse: No Family History Family History: None, CAD, DM, Hypertension, Malignancy Parental Family History Reviewed: No Children Family History Reviewed: No Sibling(s) Family History Reviewed.: No Medication/Allergy Home Medications: Gabapentin [Neurontin] 600 mg PO Q6 07/19/18 Levalbuterol Tartrate [Levalbuterol Tartrate Hfa] 1 puff IH Q4HP PRN 06/07/20 Budesonide/Formoterol Fumarate [Symbicort HFA 160-4.5 mcg Inhaler 6 gm] 2 puff IH BID 08/19/20 Insulin Aspart [Novolog Insulin (Aspart) 100 unit/mL] 0 units SQ .PERSLI DINGSCALE 08/19/20 Metformin HCl [Metformin HCl ER] 1,000 mg PO WSUPPER 08/19/20 Oxycodone HCl [Oxy-Ir 5 mg Tablet] 5 mg PO Q6HP PRN 08/19/20 Pantoprazole Sodium [Protonix [address] Tablet] 20 mg PO QAM 08/19/20 Sertraline HCl [Zoloft 50 mg Tablet] 100 mg PO DAILY 08/19/20 Sitagliptin Phosphate [Januvia 50 mg Tablet] 50 mg PO DAILY 08/19/20 Docusate Sodium [Colace 100 mg Capsule] 100 mg PO BID #60 capsule 08/23/20 Insulin Glargine,Hum.rec.anlog [Toujeo Solostar] 18 units SQ QHS #0 08/23/20 Losartan Potassium [Cozaar 50 mg Tablet] 50 mg PO DAILY #30 tablet 08/23/20 Nicotine [Nicoderm 7 mg/24 Hr Transdermal Patch] 1 each TD DAILY #30 patch.td24 08/23/20 Cephalexin Monohydrate [Keflex 500 mg Capsule] 500 mg PO Q6H 10 Days #40 capsule 08/31/20 Allergies/Adverse Reactions: atenolol Adverse Reaction (Verified 08/19/20 10:57) LOWER B/P egg Adverse Reaction (Verified 08/19/20 10:57) Diarrhea Review of Systems Constitutional: ABSENT: chills, fever(s), headache(s), weight gain, weight loss Eyes: ABSENT: visual disturbances Ears: ABSENT: hearing changes Gastrointestinal: ABSENT: abdominal pain, constipation, diarrhea, hematemesis, hematochezia, nausea, vomiting Genitourinary: ABSENT: dysuria, hematuria Musculoskeletal: PRESENT: other - As per HPI Neurological: PRESENT: other - Sensory neuropathy Physical Exam Vital Signs: Temp Pulse Resp BP Pulse Ox 97.8 F 78 20 146/79 H 100 08/31/20 05:57 08/31/20 05:57 08/31/20 05:57 08/31/20 05:57 08/31/20 05:57 Intake & Output 08/30/20 08/31/20 09/01/20 06:59 06:59 06:59 Output Total 400 Balance -400 Weight 93.6 kg General appearance: PRESENT: no acute distress Head exam: PRESENT: normocephalic Eye exam: PRESENT: EOMI Neck exam: PRESENT: full ROM Respiratory exam: PRESENT: clear to auscultation vern Cardiovascular exam: PRESENT: RRR Pulses: PRESENT: normal carotid pulses, normal radial pulses, normal femoral pulses Musculoskeletal exam: PRESENT: other - Right BKA a stump examined; all mai intact, no active drainage or foul smell. There are couple areas of mild erythema occluding skin overlying the inferior aspect of the tibial tuberosity. No breakdown of skin. Psychiatric exam: PRESENT: appropriate affect Skin exam: PRESENT: dry Results Laboratory Results: 08/30/20 19:40 08/30/20 19:40 08/30/20 08/30/20 08/30/20 19:40 19:40 19:40 WBC 8.6 RBC 4.96 Hgb 14.0 Hct 40.2 MCV 81 MCH 28.3 MCHC 34.9 RDW 17.5 H Plt Count 517 H Seg Neutrophils % 59.3 Sodium 139.0 Potassium 4.5 Chloride 102 Carbon Dioxide 24 Anion Gap 13 BUN 13 Creatinine 0.56 Est GFR ( Amer) > 60 Glucose 244 H Lactic Acid 2.5 H Calcium 10.0 Total Bilirubin 0.4 AST 40 Alkaline Phosphatase 143 H Total Protein 8.3 H Albumin 4.3 08/31/20 01:47 WBC RBC Hgb Hct MCV MCH MCHC RDW Plt Count Seg Neutrophils % Sodium Potassium Chloride Carbon Dioxide Anion Gap BUN Creatinine Est GFR ( Amer) Glucose Lactic Acid 1.4 Calcium Total Bilirubin AST Alkaline Phosphatase Total Protein Albumin Impressions: Knee X-Ray 08/30/20 18:53 IMPRESSION: No acute fracture or malalignment. No knee joint effusion. Assessment & Plan - Diagnosis (1) History of right below knee amputation Is this a current diagnosis for this admission?: Yes Plan: Impression: Mild cellulitis operative site status post right below the knee amputation [address] Bay; no indication for debridement. Recommendations: 1. Deliver 1 dose of intravenous antibiotics in the emergency department, then send patient home on p.o. antibiotics to cover gram-positive organisms 2. Patient to follow-up with [facility] in 1 to 2 weeks as previously scheduled, or sooner if right BKA symptoms worsen. 3. Smoking. 4. I discussed the above with Dr. Leon, emergency room physician (2) Depression Is this a current diagnosis for this admission?: Yes (3) Hyperlipidemia Is this a current diagnosis for this admission?: Yes (4) Tobacco abuse Is this a current diagnosis for this admission?: Yes
[2020-08-31] MEDS ORDERED: CEFTRIAXONE INJ 500 MG VIAL IM ONE (09:52)
[2020-08-31] MEDS ORDERED: LIDOCAINE 2% INJ-PF (20 MG/ML) 10 ML AMPUL ONE (10:23)
[2020-08-31] MEDS ORDERED: ACETAMINOPHEN 325 MG TABLET PO ONE (13:16)
[2020-08-31 20:27] VITALS: BP 136/82
== END 2020-08-31 20:10 | disposition home or self-care (01) ==
LOC: ER 16:52
DX: T81.49XA Infection following a procedure, other surgical site, initial encounter (principal); L03.115 Cellulitis of right lower limb; Y83.5 Amputation of limb(s) as the cause of abnormal reaction of the patient, or of later complication, without mention of misadventure at the time of the procedure; Z89.511 Acquired absence of right leg below knee; E11.51 Type 2 diabetes mellitus with diabetic peripheral angiopathy without gangrene; E11.40 Type 2 diabetes mellitus with diabetic neuropathy, unspecified; F17.200 Nicotine dependence, unspecified, uncomplicated; I25.10 Atherosclerotic heart disease of native coronary artery without angina pectoris; I10 Essential (primary) hypertension; J44.9 Chronic obstructive pulmonary disease, unspecified; F32.9 Major depressive disorder, single episode, unspecified; K21.9 Gastro-esophageal reflux disease without esophagitis; Z79.899 Other long term (current) drug therapy; Z79.51 Long term (current) use of inhaled steroids; Z79.4 Long term (current) use of insulin; Z20.828 Contact with and (suspected) exposure to other viral communicable diseases
CPT/HCPCS: 99284; 96372; 96365; 36415; 87040; 82962; 83605; 85025; 80053; 73564; 97116; 97162; U0003; A9270 ×2; J0696; J0690; C9803; 87635

== ENCOUNTER 2020-10-17 17:47 | Emergency (ER) | payer MEDICARE, MEDICAID ==
[2020-10-17] MEDS ORDERED: HYDROCODONE/ACETAMINOPHEN 10-325 MG TABLET PO ONE (18:25)
--- NOTE | 2020-10-17 18:31 | ER Document Report ---
HPI - HPI Time Seen by Provider: 10/17/20 18:21 Pain Level: 3 Notes: 50-year-old male with a history of type 2 diabetes who recently had a right BKA from osteomyelitis on 08/19/2020 presents to the emergency room via EMS due to concerns of landing on his right BKA leg while he was going up a step and landed right on his right BKA accidentally. Patient does not yet have his prosthetic leg yet for his right BKA. Patient states he took 5 mg of oxycodone that was prescribed to him but that is "not touching the pain". patient was concerned that he may have fractured his right lower leg. Patient follows with Dr. Bay, surgeon, for his BKA. - REPRODUCTIVE Reproductive: DENIES: : Past Medical History - General Information source: Patient - Social History Smoking Status: Current Every Day Smoker Chew tobacco use (# tins/day): No Frequency of alcohol use: Rare Drug Abuse: Marijuana Family History: None, CAD, DM, Hypertension, Malignancy Patient has homicidal ideation: No - Past Medical History Cardiac Medical History: Reports: Hx Coronary Artery Disease, Hx Hypercholesterolemia, Hx Hypertension Denies: Hx Atrial Fibrillation, Hx Congestive Heart Failure, Hx DVT, Hx Heart Attack, Hx Pulmonary Embolism Pulmonary Medical History: Reports: Hx Asthma, Hx Bronchitis, Hx COPD Denies: Hx Pneumonia Neurological Medical History: Denies: Hx Cerebrovascular Accident, Hx Seizures Endocrine Medical History: Reports: Hx Diabetes Mellitus Type 2. Denies: Hx Diabetes Mellitus Type 1, Hx Hyperthyroidism, Hx Hypothyroidism Renal/ Medical History: Denies: Hx Peritoneal Dialysis GI Medical History: Reports: Hx Gastroesophageal Reflux Disease. Denies: Hx Cirrhosis, Hx Crohn's Disease, Hx Hepatitis, Hx Ulcerative Colitis Musculoskeletal Medical History: Denies Hx Arthritis, Denies Hx Fibromyalgia Skin Medical History: Denies Hx Eczema, Denies Hx Psoriasis Psychiatric Medical History: Reports: Hx Depression Infectious Medical History: Denies: Hx Hepatitis Past Surgical History: Reports: Hx Abdominal Surgery - hernia, Hx Appendectomy, Hx Cholecystectomy, Hx Oral Surgery - R Knee 1992, Hx Tonsillectomy, Other - Knee surgery. Liver and lung biopsies for sarcoidosis. Right 5th ray amp - Immunizations Hx Diphtheria, Pertussis, Tetanus Vaccination: Yes Hx Pneumococcal Vaccination: 10/27/16 Vertical Provider Document - CONSTITUTIONAL Agree With Documented VS: Yes Exam Limitations: No Limitations General Appearance: WD/WN Notes: MEDICATIONS: I agree with the patient medications as charted by the RN. ALLERGIES: I agree with the allergies as charted by the RN. PAST MEDICAL HISTORY/PAST SURGICAL HISTORY: Reviewed and agree as charted by RN. SOCIAL HISTORY: Reviewed and agree as charted by RN. FAMILY HISTORY: No significant familial comorbid conditions directly related to patient complaint EXAM: Reviewed vital signs as charted by RN. PHYSICAL EXAMINATION:reviewed vital signs by RN GENERAL: Well-appearing, well-nourished and in no acute distress. HEAD: Atraumatic, normocephalic. EYES: Pupils equal round and reactive to light, extraocular movements intact, sclera anicteric, conjunctiva are normal. ENT: Nares patent, oropharynx clear without exudates. Moist mucous membranes. NECK: Normal range of motion, supple without lymphadenopathy LUNGS: Breath sounds clear to auscultation bilaterally and equal. No wheezes rales or rhonchi. HEART: Regular rate and rhythm without murmurs ABDOMEN: Soft, nontender, nondistended abdomen. No guarding, no rebound. No masses appreciated. Musculoskeletal: Normal range of motion, no pitting or edema. No cyanosis. Right BKA, healing keloid. No open wounds or drainage. Point tenderness at end of amputation NEUROLOGICAL: Cranial nerves grossly intact. Normal speech, normal gait. Normal sensory, motor exams PSYCH: Normal mood, normal affect. SKIN: Warm, Dry, normal turgor, no rashes or lesions noted. - INFECTION CONTROL TRAVEL OUTSIDE OF THE [place] IN LAST 30 DAYS: No Course - Re-evaluation Re-evalutation: 10/17/20 19:03 Afebrile vital stable no distress. Nurses notes reviewed. X-ray of right BKA negative for any acute fracture, foreign body. Discussed these results with patient. We did give him 10 mg of Vista. Advised to take pain medication as directed. Apply heat 20 minutes on 20 minutes off several times a day. Patient does have a follow-up appointment with his surgeon, Dr. Bay on September 23. Patient does have home prescribed pain medications that he can take for his pain. Advised to alternate between Tylenol and ibuprofen as needed. After performing a Medical Screening Examination, I estimate there is LOW risk for OPEN FRACTURE, COMPARTMENT SYNDROME, DEEP VENOUS THROMBOSIS, ACUTE TENDON RUPTURE, or NEUROVASCULAR INJURY thus I consider the discharge disposition re asonable. I have reevaluated this patient multiple times and no significant life threatening changes are noted. The patient and I have discussed the diagnosis and risks, and we agree with discharging home to closely follow-up with their primary doctor or the referral orthopedist with the understanding that symptoms and presentations can change. We also discussed returning to the Emergency Department immediately if new or worsening symptoms occur. We have discussed the symptoms which are most concerning (e.g., changing or worsening pain, numbness, weakness) that necessitate immediate return - Vital Signs Vital signs: Temp Pulse Resp BP Pulse Ox 98.9 F 114 H 20 128/102 H 96 10/16/20 17:57 10/16/20 17:57 10/16/20 17:57 10/16/20 17:57 10/16/20 17:57 - Laboratory Results Critical Laboratory Results Reviewed: No Critical Results - Radiology Results Critical Radiology Results Reviewed: No Critical Results Discharge - Discharge Clinical Impression: Sprain of lower leg, Diabetes mellitus type 2 in obese Condition: Stable Disposition: HOME, SELF-CARE Additional Instructions: Your x-ray today was negative for any acute fracture dislocation. Please continue take your pain medications as directed. Apply heat 20 minutes on 20 minutes off several times a day as needed. Keep your appointment with Dr. Sa kelly as already scheduled. Return to the emergency room as needed. Return immediately for any new or worsening symptoms. Follow up with primary care provider, call tomorrow to make followup appointm ent. Referrals: LEOPOLDO RODRIGUEZ DO [Primary Care Provider] - Follow up as needed ANUSHA BAY MD [ACTIVE STAFF] - 10/23/20
--- NOTE | 2020-10-17 18:58 | RADIOLOGY REPORT (SQ) ---
EXAM DESCRIPTION: TIBIA FIBULA RIGHT IMAGES COMPLETED DATE/TIME: 10/17/2020 6:35 pm REASON FOR STUDY: s/p fall on BKA of R leg, + pain COMPARISON: None. NUMBER OF VIEWS: Two views. TECHNIQUE: Two radiographic images acquired of the right tibia and fibula to include the knee and an kle in at least one projection. LIMITATIONS: None. FINDINGS: MINERALIZATION: Normal. BONES: BKA. No acute fracture or dislocation. SOFT TISSUES: No obvious swelling or foreign body. OTHER: No other significant finding. IMPRESSION: Prior BKA. No acute finding. TECHNICAL DOCUMENTATION: JOB ID: [id number] [employer]- All Rights Reserved Reading location - IP/workstation name: [email or web address]
[2020-10-17 19:17] VITALS: BP 125/94
== END 2020-10-17 19:14 | disposition home or self-care (01) ==
LOC: ER 17:47
DX: S89.91XA Unspecified injury of right lower leg, initial encounter (principal); W10.9XXA Fall (on) (from) unspecified stairs and steps, initial encounter; E11.9 Type 2 diabetes mellitus without complications; F17.200 Nicotine dependence, unspecified, uncomplicated; I25.10 Atherosclerotic heart disease of native coronary artery without angina pectoris; E78.00 Pure hypercholesterolemia, unspecified; Z89.511 Acquired absence of right leg below knee; I10 Essential (primary) hypertension
CPT/HCPCS: 99283; 73590; A9270

== ENCOUNTER 2020-11-08 15:25 | Emergency (ER) | payer MEDICARE, MEDICAID ==
[2020-11-08 15:35] VITALS: BP 120/73
--- NOTE | 2020-11-08 16:46 | ER Document Report ---
HPI - HPI Time Seen by Provider: 11/08/20 16:37 Pain Level: 3 Notes: Patient presenting to the emergency department with complaints of left elbow pain that radiates down the left wrist. Patient reports pain ongoing for the last 2 hours. He denies any precipitating event or injury. Pain is 3/5 at this time. He states it hurts the worse when he sits down on anything. Denies any fever, chills, Covid contacts. - ROS Systems Reviewed and Negative: Yes All other systems reviewed and negative - REPRODUCTIVE Reproductive: DENIES: : - MUSCULOSKELETAL Musculoskeletal: REPORTS: Extremity pain Past Medical History - General Information source: Patient - Social History Smoking Status: Current Every Day Smoker Frequency of alcohol use: None Drug Abuse: None Family History: None, CAD, DM, Hypertension, Malignancy Patient has homicidal ideation: No - Past Medical History Cardiac Medical History: Reports: Hx Coronary Artery Disease, Hx Hypercholesterolemia, Hx Hypertension Pulmonary Medical History: Reports: Hx Asthma, Hx Bronchitis, Hx COPD Neurological Medical History: Denies: Hx Cerebrovascular Accident, Hx Seizures Endocrine Medical History: Reports: Hx Diabetes Mellitus Type 2. Denies: Hx Diabetes Mellitus Type 1, Hx Hyperthyroidism, Hx Hypothyroidism Renal/ Medical History: Denies: Hx Peritoneal Dialysis GI Medical History: Reports: Hx Gastroesophageal Reflux Disease. Denies: Hx Cirrhosis, Hx Crohn's Disease, Hx Hepatitis, Hx Ulcerative Colitis Musculoskeletal Medical History: Denies Hx Arthritis, Denies Hx Fibromyalgia Skin Medical History: Denies Hx Eczema, Denies Hx Psoriasis Psychiatric Medical History: Reports: Hx Depression Infectious Medical History: Denies: Hx Hepatitis Past Surgical History: Reports: Hx Abdominal Surgery - hernia, Hx Appendectomy, Hx Cholecystectomy, Hx Oral Surgery - R Knee 1991, Hx Tonsillectomy, Other - Knee surgery. Liver and lung biopsies for sarcoidosis. Right 5th ray amp - Immunizations Hx Diphtheria, Pertussis, Tetanus Vaccination: Yes Hx Pneumococcal Vaccination: 10/27/16 Vertical Provider Document - CONSTITUTIONAL Notes: PHYSICAL EXAMINATION: GENERAL: Well-appearing, well-nourished and in no acute distress. HEAD: Atraumatic, normocephalic. EYES: Pupils equal round extraocular movements intact, conjunctiva are normal. ENT: Nares patent NECK: Normal range of motion LUNGS: No respiratory distress Musculoskeletal: Normal range of motion to left elbow and wrist. No obvious swelling, erythema or ecchymosis. Strong radial pulse, cap refill less than 3 seconds, normal motor and sensation distal to area of concern. NEUROLOGICAL: Normal speech, normal gait. PSYCH: Normal mood, normal affect. SKIN: Warm, Dry, normal turgor, no rashes or lesions noted. - INFECTION CONTROL TRAVEL OUTSIDE OF THE [place] IN LAST 30 DAYS: No Course - Vital Signs Vital signs: Temp Pulse Resp BP Pulse Ox 98.5 F 95 16 120/73 99 11/08/20 15:33 11/08/20 15:33 11/08/20 15:33 11/08/20 15:33 11/08/20 15:33 - Laboratory Results Critical Laboratory Results Reviewed: No Critical Results - Radiology Results Critical Radiology Results Reviewed: No Critical Results Discharge - Discharge Clinical Impression: Bursitis Qualifiers: Bursitis location: elbow Elbow bursitis location: unspecified Laterality: left Qualified Code(s): M70.32 - Other bursitis of elbow, left elbow Condition: Stable Disposition: HOME, SELF-CARE Additional Instructions: Bursitis You have been diagnosed as having bursitis. Bursitis is an inflammation of a fluid pouch (bursa) found near joints. This is usually due to repeated minor irritation, or pressure directly on the bursa. On occasion, the bursitis can be due to infection (your doctor has checked for this). Sometimes the doctor decides to remove the fluid from the bursa with a needle. This may be to examine the fluid for infection or to ease the pressure caused by the fluid. The usual treatment is rest, local warmth, (or cold if the bursitis is caused by an acute injury), and antiinflammatory medication. Occasionally, an injection of cortisone is necessary. You should call the doctor for re-examination if the pain increases significantly, or if the area becomes severely swollen and red, or fever develops. Prescriptions: Diclofenac Sodium 75 mg PO BID #20 tablet. Referrals: LEOPOLDO RODRIGUEZ DO [Primary Care Provider] - Follow up as needed
== END 2020-11-08 16:54 | disposition home or self-care (01) ==
LOC: ER 15:25
DX: M70.32 Other bursitis of elbow, left elbow (principal); M25.532 Pain in left wrist; M25.522 Pain in left elbow; F17.200 Nicotine dependence, unspecified, uncomplicated; I25.10 Atherosclerotic heart disease of native coronary artery without angina pectoris; I10 Essential (primary) hypertension; J44.9 Chronic obstructive pulmonary disease, unspecified; E11.9 Type 2 diabetes mellitus without complications
CPT/HCPCS: 99283